=== PATIENT | female | born 1965 | race Caucasian/White ===

== ENCOUNTER 2018-10-05 11:08 | Emergency (ER) | payer MEDICAID, OTHER ==
[~2018-10-05] VITALS: Ht 154.9 cm
[2018-10-05] MEDS ORDERED: SODIUM CHLORIDE 0.9% 1,000 ML IV ONE (11:44)
[2018-10-05] MEDS ORDERED: LORazepam 2MG/ML-1ML VIAL IV ONE (11:45)
[2018-10-05 12:00] LABS: Eosinophils # (auto) 0.1 uL; Lymphocytes # (auto) 1.5 uL; Mean Corpuscular Volume 106.5 fL (80.0-100.0); Monocytes # (auto) 0.7 uL; Monocytes % (auto) 11.5 % (0.0-12.0); Red Cell Distribution Width 14.3 % (11.8-14.3)
[2018-10-05 12:02] LABS: Basophils # (auto) 0 uL; Basophils % (auto) 0.6 % (0.0-2.0); Hematocrit 48.1 % (36.0-46.0); Hemoglobin 16.7 g/dL (12.2-16.2); Mean Corpuscular Hemoglobin 36.9 pg (28.0-32.0); Mean Corpuscular Hgb Conc. 34.6 g/dL (32.0-36.0); Neutrophils # (auto) 3.6 uL; Neutrophils % (auto) 61.9 % (37.0-80.0); Platelet Count (auto) 338 10^3/uL (140-450); Red Blood Cells 4.52 10^6/uL (4.0-5.20); White Blood Cell 5.9 10^3/uL (4.4-10.8)
[2018-10-05 12:20] LABS: Albumin 4.2 g/dL (3.4-5.0); Anion Gap 9 (5-15); Calcium 9.4 mg/dL (8.5-10.1); Carbon Dioxide 27 mmol/L (21-32); Chloride 102 mmol/L (98-107); Glucose 103 mg/dL (74-106); Potassium 4.4 mmol/L (3.5-5.1); Sodium 138 mmol/L (136-145)
[2018-10-05 12:25] LABS: Alanine Aminotransferase 24 U/L (13-56); Alkaline Phosphatase 137 U/L (45-117); Aspartate Aminotransferase 26 U/L (15-37); BUN/Creatinine Ratio 9.1; Bilirubin, Total 0.6 mg/dL (0.2-1.0); Blood Urea Nitrogen 9 mg/dL (7-18); GFR African American 75 mL/min; GFR Non-African American 62 mL/min; Total Protein 7.9 g/dL (6.4-8.2)
[2018-10-05 13:05] LABS: Urine Bacteria NONE SEEN /hpf (None Seen); Urine Blood TRACE /uL (Negative); Urine Mucus FEW (None Seen); Urine Specific Gravity 1.025 (1.001-1.035); Urine WBC 4 /hpf (0 - 5)
[2018-10-05 13:38] VITALS: BP 113/71
== END 2018-10-05 14:35 | disposition home or self-care (01) ==
LOC: ER 11:12
DX: R07.89 Other chest pain (principal); N39.0 Urinary tract infection, site not specified; I10 Essential (primary) hypertension; R42 Dizziness and giddiness; F17.210 Nicotine dependence, cigarettes, uncomplicated; F12.10 Cannabis abuse, uncomplicated
CPT/HCPCS: 36415; 71045; 80053; 81001; 84443; 84484; 85025; 93005; 96361; 96374; 99284; J2060; J7030

== ENCOUNTER 2019-06-07 12:57 | Emergency (ER) | payer MEDICAID ==
[2019-06-07] MEDS ORDERED: SODIUM CHLORIDE 0.9% 1,000 ML IV ONE (13:36)
[2019-06-07 14:01] LABS: Basophils # (auto) 0.1 uL; Eosinophils # (auto) 0.1 uL; Lymphocytes # (auto) 0.8 uL; Mean Corpuscular Volume 105.5 fL (80.0-100.0); White Blood Cell 7.8 10^3/uL (4.4-10.8)
[2019-06-07 14:02] LABS: Basophils % (auto) 0.8 % (0.0-2.0); Eosinophils % (auto) 1.2 % (0.0-7.0); Hematocrit 46.3 % (36.0-46.0); Hemoglobin 16.1 g/dL (12.2-16.2); Lymphocytes % (auto) 10.7 % (10.0-50.0); Mean Corpuscular Hemoglobin 36.6 pg (28.0-32.0); Mean Corpuscular Hgb Conc. 34.7 g/dL (32.0-36.0); Monocytes # (auto) 0.6 uL; Monocytes % (auto) 7.3 % (0.0-12.0); Neutrophils # (auto) 6.2 uL; Nucleated Red Blood Cells % 0.2 %; Platelet Count (auto) 438 10^3/uL (140-450); Red Blood Cells 4.39 10^6/uL (4.0-5.20); Red Cell Distribution Width 12.9 % (11.8-14.3)
[2019-06-07 14:18] LABS: Calcium 9.8 mg/dL (8.5-10.1); Potassium 4.7 mmol/L (3.5-5.1)
[2019-06-07 14:21] LABS: Bilirubin, Total 0.7 mg/dL (0.2-1.0)
[2019-06-07 17:42] LABS: Urine Bacteria NONE SEEN /hpf (None Seen); Urine Blood TRACE /uL (Negative); Urine Hyaline Cast FEW /lpf (0 - 2); Urine Mucus FEW (None Seen); Urine Specific Gravity 1.016 (1.001-1.035); Urine WBC 4 /hpf (0 - 5)
[2019-06-07 17:44] VITALS: BP 125/75
[2019-06-07 17:56] LABS: Alcohol, Urine < 3.0 mg/dL (0-5); Amphetamine Screen, Urine NEGATIVE (NEGATIVE); Barbiturate Scree,Urine NEGATIVE (NEGATIVE); Benzodiazephine Screen, Urine NEGATIVE (NEGATIVE); Cocaine Screen, Urine NEGATIVE (NEGATIVE); Opiate Scree,Urine POSITIVE (NEGATIVE); Phencyclidine Screen, Urine NEGATIVE (NEGATIVE)
[2019-06-07 18:03] LABS: Cannabinoid Screen, Urine POSITIVE (NEGATIVE)
== END 2019-06-07 20:27 | disposition home or self-care (01) ==
LOC: ER 12:57
DX: N39.0 Urinary tract infection, site not specified (principal); K62.5 Hemorrhage of anus and rectum; I10 Essential (primary) hypertension; F17.210 Nicotine dependence, cigarettes, uncomplicated; R42 Dizziness and giddiness
CPT/HCPCS: 36415; 74176; 80053; 80307; 81001; 85025; 96360

== ENCOUNTER 2022-09-17 12:52 | Inpatient (IN) | payer MEDICAID ==
[~2022-09-17] VITALS: Ht 152.4 cm; Wt 50.9 kg
[2022-09-17] MEDS ORDERED: MORPHINE SULFATE 10 MG/ML INJ 1ML SDV IV ONE (14:00)
[2022-09-17] MEDS ORDERED: SODIUM CHLORIDE 0.9% 1,000 ML IVB ONE (14:00)
[2022-09-17] MEDS ORDERED: ONDANSETRON HCL 4 MG/2 ML VIAL IV ONE (14:00)
[2022-09-17 14:26] LABS: Basophils # (auto) 0.1 10 ^3/uL (0-0.2); Basophils % (auto) 1.7 % (0.0-2.0); Eosinophils # (auto) 0.1 10 ^3/uL (0-0.8); Eosinophils % (auto) 0.7 % (0.0-7.0); Hematocrit 35.9 % (36.0-46.0); Hemoglobin 12.1 g/dL (12.2-16.2); Lymphocytes # (auto) 0.7 10 ^3/uL (0.4-5.4); Lymphocytes % (auto) 10.4 % (10.0-50.0); Mean Corpuscular Hemoglobin 36.9 pg (28.0-32.0); Mean Corpuscular Hgb Conc. 33.8 g/dL (32.0-36.0); Mean Corpuscular Volume 109.4 fL (80.0-100.0); Monocytes # (auto) 0.3 10 ^3/uL (0-1.3); Monocytes % (auto) 3.8 % (0.0-12.0); Neutrophils % (auto) 83.4 % (37.0-80.0); Nucleated Red Blood Cells % 0.3 %; Red Blood Cells 3.28 10^6/uL (4.0-5.20); Red Cell Distribution Width 14.3 % (11.8-14.3); White Blood Cell 7.2 10^3/uL (4.4-10.8)
[2022-09-17 14:28] LABS: Potassium 3.4 mmol/L (3.5-5.1)
[2022-09-17] MEDS ORDERED: MORPHINE SULFATE INJ 2 MG/ml SYRG IV ONE (14:30)
[2022-09-17 14:52] LABS: Albumin 2.7 g/dL (3.4-5.0); BUN/Creatinine Ratio 7.1 (10.0-20.0); Calcium 7.6 mg/dL (8.5-10.1)
[2022-09-17 14:54] LABS: Bilirubin, Total 0.4 mg/dL (0.2-1.0); Total Protein 5.6 g/dL (6.4-8.2)
[2022-09-17] MEDS ORDERED: FOLIC ACID 1 MG, MULTIPLE VITAMIN 10 ML, MAGNESIUM SULF SDV 50% 8 MEQ, THIAMINE INJ 100... INJ ONE ×5 (15:45)
[2022-09-17] MEDS ORDERED: PIPERACILLIN-TAZO 4.5GM 100 ML IV ONE (16:15)
[2022-09-17] MEDS ORDERED: HYDROmorphone HCL 2 MG/ML VL/or syr IV ONE (17:00)
[2022-09-17 17:05] LABS: Urine Bacteria NONE SEEN /hpf (None Seen); Urine Blood Negative /uL (Negative); Urine Specific Gravity 1.036 (1.001-1.035); Urine WBC 1 /hpf (0 - 5)
[2022-09-17 17:31] LABS: INR 1.03 (0.9-1.15)
[2022-09-17 17:56] LABS: Amphetamine Screen, Urine NEGATIVE (NEGATIVE); Barbiturate Scree,Urine NEGATIVE (NEGATIVE); Cannabinoid Screen, Urine NEGATIVE (NEGATIVE)
[2022-09-17 18:22] LABS: Benzodiazephine Screen, Urine NEGATIVE (NEGATIVE); Cocaine Screen, Urine NEGATIVE (NEGATIVE); Opiate Scree,Urine NEGATIVE (NEGATIVE); Phencyclidine Screen, Urine NEGATIVE (NEGATIVE)
[2022-09-17] MEDS ORDERED: SODIUM CHLORIDE 0.9% 1,000 ML IV SCH (18:30)
[2022-09-17] MEDS ORDERED: PANTOPRAZOLE 40 MG/10 ML VIAL INJ IV ONE (18:30)
[2022-09-17] MEDS ORDERED: NITROGLYCERIN 0.4 MG SL TAB SL PRN (18:30)
[2022-09-17] MEDS ORDERED: LORazepam 2MG/ML-1ML VIAL IV PRN (18:30)
[2022-09-17 19:57] LABS: Magnesium 1.8 mg/dL (1.6-2.6)
[2022-09-17 20:07] LABS: Thyroid Stimulating Hormone 37.9 uIU/mL (0.358-3.74)
[2022-09-17] MEDS ORDERED: LIDOCAINE 1% HCL (LOCAL ANESTH.) INJ 20ML MDV ONE (21:51)
[2022-09-17] MEDS ORDERED: BUPIVACAINE 0.25% INJ 50ML VIAL ONE (21:52)
[2022-09-17] MEDS: PIPERACILLIN-TAZOB 3.375GM 100 ML IV SCH (22:00)
[2022-09-17] MEDS ORDERED: LIDOCAINE 2% JELLY 11ml (GLYDO) ONE (22:03)
[2022-09-17] MEDS ORDERED: SUCCINYLCHOLINE CHLORIDE 20 MG/ML 10ML VIAL IV ONE (22:03)
[2022-09-17] MEDS ORDERED: MIDAZOLAM HCL 2MG/2ML 2ml VIAL (1mg/ml) ONE ×2 (22:06→22:38)
[2022-09-17] MEDS ORDERED: HYDROmorphone HCL 2 MG/ML VL/or syr ONE ×2 (22:06→22:40)
[2022-09-17] MEDS ORDERED: fentaNYL CITRATE 100 MCG/2 ML VL ONE (22:06)
[2022-09-17] MEDS ORDERED: ROCURONIUM 10MG/ML 10ML VIAL IV ONE (22:39)
[2022-09-17] MEDS ORDERED: HYDROmorphone HCL 2 MG/ML VL/or syr IV PRN (23:00)
[2022-09-17] MEDS ORDERED: ePHEDrine SULFATE 50 MG/ML AMP IV PRN (23:00)
[2022-09-17] MEDS ORDERED: MORPHINE SULFATE 4 MG/ML SYR/VIAL IV PRN (23:00)
[2022-09-17] MEDS ORDERED: MIDAZOLAM HCL 2MG/2ML 2ml VIAL (1mg/ml) IV PRN (23:00)
[2022-09-17] MEDS ORDERED: LABETALOL HCL 5 MG/ML 4ML SYRINGE IV PRN (23:00)
[2022-09-17] MEDS ORDERED: ONDANSETRON HCL 4 MG/2 ML VIAL IV PRN (23:00)
[2022-09-18] VITALS (81 sets, daily range): BP systolic 80–178; BP diastolic 50–156
[2022-09-18] MEDS ORDERED: PROPOFOL 100 ML IV ONE (00:18)
[2022-09-18] MEDS ORDERED: fentaNYL Drip 2500mCg/250mlNS 250 ML IV ONE (00:18)
[2022-09-18] MEDS ORDERED: MIDAZOLAM DRIP 50 mg/50mL 50 ML IV SCH (01:45)
[2022-09-18] MEDS ORDERED: PROPOFOL 100 ML IV SCH (01:45)
[2022-09-18] MEDS ORDERED: fentaNYL Drip 2500mCg/250mlNS 250 ML IV SCH (01:45)
[2022-09-18] MEDS ORDERED: LACTATED RINGER'S 1,000 ML IV SCH (01:45)
[2022-09-18 04:08] LABS: Basophils # (auto) 0 10 ^3/uL (0-0.2); Eosinophils # (auto) 0 10 ^3/uL (0-0.8); Hemoglobin 12.1 g/dL (12.2-16.2); Lymphocytes # (auto) 0.1 10 ^3/uL (0.4-5.4); Mean Corpuscular Hgb Conc. 33.8 g/dL (32.0-36.0); Monocytes # (auto) 0.3 10 ^3/uL (0-1.3); Neutrophils # (auto) 8.6 10 ^3/uL (1.6-8.6); Red Blood Cells 3.18 10^6/uL (4.0-5.20)
[2022-09-18 04:11] LABS: Basophils % (auto) 0.2 % (0.0-2.0); Hematocrit 35.8 % (36.0-46.0); Lymphocytes % (auto) 1.2 % (10.0-50.0); Mean Corpuscular Hemoglobin 37.9 pg (28.0-32.0); Mean Corpuscular Volume 112.4 fL (80.0-100.0); Monocytes % (auto) 3.8 % (0.0-12.0); Neutrophils % (auto) 94.8 % (37.0-80.0); Red Cell Distribution Width 14.2 % (11.8-14.3)
[2022-09-18 05:03] LABS: Albumin 2.5 g/dL (3.4-5.0); Calcium 7.7 mg/dL (8.5-10.1); Potassium 3.5 mmol/L (3.5-5.1)
[2022-09-18 05:05] LABS: BUN/Creatinine Ratio 9.4 (10.0-20.0)
[2022-09-18 05:15] LABS: Bilirubin, Total 1.3 mg/dL (0.2-1.0); Total Protein 5.4 g/dL (6.4-8.2)
[2022-09-18] MEDS: PIPERACILLIN-TAZOB 3.375GM 100 ML IV SCH ×3 (06:00→23:09)
[2022-09-18] MEDS ORDERED: LEVOTHYROXINE SODIUM 25 MCG TAB PO SCH (07:00)
[2022-09-18] MEDS ORDERED: NOREPINEPHRINE 8 MG/250ML KIT 250 ML IV ONE (07:38)
[2022-09-18] MEDS ORDERED: NOREPINEPHRINE 8 MG/250ML KIT 250 ML IV SCH (08:45)
[2022-09-18] MEDS: PANTOPRAZOLE 40 MG/10 ML VIAL INJ IV SCH (09:50)
[2022-09-18] MEDS: FLUoxetine HCL 20 MG CAP PO SCH ×2 (09:51→10:00)
[2022-09-18] MEDS ORDERED: THIAMINE 100mg/ml INJ (200mg/2ml VIAL) IV SCH (10:00)
[2022-09-18] MEDS ORDERED: FOLIC ACID 1 MG in D5W 5% 50 ML INJ SCH (10:00)
[2022-09-18] MEDS ORDERED: MULTIPLE VITAMIN TAB PO SCH (10:00)
[2022-09-18] MEDS ORDERED: FOLIC ACID 1 MG, MULTIPLE VITAMIN 10 ML, MAGNESIUM SULF SDV 50% 8 MEQ, THIAMINE INJ 100... INJ SCH ×5 (12:00)
[2022-09-18] MEDS ORDERED: ENOXAPARIN SOD 40 MG/0.4 ML SYRINGE SC ONE (13:00)
[2022-09-18 13:03] LABS: Hepatitis B Surface Antibody Negative (Negative)
[2022-09-18] MEDS ORDERED: MORPHINE SULFATE INJ 2 MG/ml SYRG IV PRN (13:30)
[2022-09-18 13:42] LABS: Hepatitis A Total Antibody Negative (Negative)
[2022-09-18] MEDS: LEVOTHYROXINE SODIUM 100 MCG/5 ML INJ IV SCH (13:56)
[2022-09-18 14:17] LABS: Hepatitis C Antibody Negative (Negative)
[2022-09-18] MEDS ORDERED: CLINIMIX PER PHARMACY 0 ML IV SCH (14:45)
[2022-09-18] MEDS: MORPHINE SULFATE INJ 2 MG/ml SYRG IV PRN ×2 (15:18→20:13)
[2022-09-18 16:45] LABS: Magnesium 2.1 mg/dL (1.6-2.6); Phosphorus 3.5 mg/dL (2.5-4.90)
[2022-09-18] MEDS: AMINO ACID INFUSION IN D10W 1,000 ML IV NR (20:11)
[2022-09-18] MEDS ORDERED: KETOROLAC TROMETH 30 MG/ML 1ML VIAL IV ONE (22:45)
[2022-09-18] MEDS: ACCU-CHEK COMFORT CURVE STRIP VI SCH (23:10)
[2022-09-18] MEDS: InsuLIN REG 1unit/0.01ml Soln (100units/ml) SC SCH (23:11)
[2022-09-19] VITALS (28 sets, daily range): BP systolic 83–149; BP diastolic 51–94
[2022-09-19] MEDS ORDERED: DEXTROSE (50%) 50ML SYRG IV SCH
[2022-09-19] MEDS: InsuLIN REG 1unit/0.01ml Soln (100units/ml) SC SCH ×3 (06:15→17:13)
[2022-09-19] MEDS: ACCU-CHEK COMFORT CURVE STRIP VI SCH ×3 (06:15→17:14)
[2022-09-19] MEDS: PIPERACILLIN-TAZOB 3.375GM 100 ML IV SCH ×3 (06:44→22:21)
[2022-09-19 07:47] LABS: Basophils # (auto) 0.1 10 ^3/uL (0-0.2); Basophils % (auto) 0.8 % (0.0-2.0); Eosinophils # (auto) 0 10 ^3/uL (0-0.8); Eosinophils % (auto) 0.7 % (0.0-7.0); Hematocrit 31.3 % (36.0-46.0); Hemoglobin 10.4 g/dL (12.2-16.2); Lymphocytes # (auto) 0.8 10 ^3/uL (0.4-5.4); Lymphocytes % (auto) 12.4 % (10.0-50.0); Mean Corpuscular Hemoglobin 37.7 pg (28.0-32.0); Mean Corpuscular Hgb Conc. 33.4 g/dL (32.0-36.0); Mean Corpuscular Volume 112.7 fL (80.0-100.0); Monocytes # (auto) 0.3 10 ^3/uL (0-1.3); Monocytes % (auto) 4.4 % (0.0-12.0); Neutrophils # (auto) 5.3 10 ^3/uL (1.6-8.6); Neutrophils % (auto) 81.7 % (37.0-80.0); Nucleated Red Blood Cells % 0.1 %; Red Blood Cells 2.77 10^6/uL (4.0-5.20); Red Cell Distribution Width 14.3 % (11.8-14.3); White Blood Cell 6.4 10^3/uL (4.4-10.8)
[2022-09-19 08:13] LABS: Potassium 3.6 mmol/L (3.5-5.1)
[2022-09-19] MEDS: PANTOPRAZOLE 40 MG/10 ML VIAL INJ IV SCH ×2 (08:21→22:21)
[2022-09-19] MEDS: ENOXAPARIN SOD 40 MG/0.4 ML SYRINGE SC SCH (08:22)
[2022-09-19] MEDS: LEVOTHYROXINE SODIUM 100 MCG/5 ML INJ IV SCH (08:22)
[2022-09-19 08:25] LABS: Albumin 2.3 g/dL (3.4-5.0); Bilirubin, Total 0.8 mg/dL (0.2-1.0); Calcium 7.9 mg/dL (8.5-10.1); Magnesium 2.5 mg/dL (1.6-2.6); Total Protein 4.8 g/dL (6.4-8.2)
[2022-09-19] MEDS: D5W/SOD CHL 0.45% 1,000 ML IV SCH (08:27)
[2022-09-19] MEDS ORDERED: KETOROLAC TROMETH 30 MG/ML 1ML VIAL IV ONE ×2 (08:30→23:15)
[2022-09-19] MEDS ORDERED: KETOROLAC TROMETH 30 MG/ML 1ML VIAL ONE (08:37)
[2022-09-19] MEDS: MORPHINE SULFATE INJ 2 MG/ml SYRG IV PRN ×3 (13:11→21:52)
[2022-09-19] MEDS ORDERED: POTASSIUM PHOSPHATE 22 MEQ in SODIUM CHL 0.9% 100 ML IV ONE (16:00)
[2022-09-19] MEDS: AMINO ACID INFUSION IN D10W 1,000 ML IV NR (20:09)
[2022-09-20] MEDS: ACCU-CHEK COMFORT CURVE STRIP VI SCH ×5 (00:19→23:24)
[2022-09-20] MEDS: D5W/SOD CHL 0.45% 1,000 ML IV SCH ×2 (00:20→17:05)
[2022-09-20] MEDS: MORPHINE SULFATE INJ 2 MG/ml SYRG IV PRN ×5 (03:32→22:39)
[2022-09-20 05:00] VITALS: BP 131/89
[2022-09-20] MEDS: PIPERACILLIN-TAZOB 3.375GM 100 ML IV SCH ×3 (05:13→21:09)
[2022-09-20] MEDS: InsuLIN REG 1unit/0.01ml Soln (100units/ml) SC SCH ×5 (05:13→23:23)
[2022-09-20 06:07] LABS: Basophils # (auto) 0 10 ^3/uL (0-0.2); Basophils % (auto) 0.4 % (0.0-2.0); Eosinophils # (auto) 0.1 10 ^3/uL (0-0.8); Hemoglobin 10.3 g/dL (12.2-16.2); Lymphocytes # (auto) 0.7 10 ^3/uL (0.4-5.4); Monocytes # (auto) 0.4 10 ^3/uL (0-1.3); Nucleated Red Blood Cells % 0.2 %
[2022-09-20 06:16] LABS: Eosinophils % (auto) 1.8 % (0.0-7.0); Hematocrit 31.1 % (36.0-46.0); Lymphocytes % (auto) 11.5 % (10.0-50.0); Mean Corpuscular Hemoglobin 37.8 pg (28.0-32.0); Mean Corpuscular Hgb Conc. 33.2 g/dL (32.0-36.0); Neutrophils # (auto) 4.7 10 ^3/uL (1.6-8.6); Neutrophils % (auto) 79.3 % (37.0-80.0); Red Blood Cells 2.73 10^6/uL (4.0-5.20); Red Cell Distribution Width 13.9 % (11.8-14.3); White Blood Cell 5.9 10^3/uL (4.4-10.8)
[2022-09-20 06:26] LABS: Albumin 2.1 g/dL (3.4-5.0); BUN/Creatinine Ratio 16.7 (10.0-20.0); Calcium 8.2 mg/dL (8.5-10.1); Magnesium 2.2 mg/dL (1.6-2.6); Phosphorus 1.8 mg/dL (2.5-4.90)
[2022-09-20 06:37] LABS: Potassium 2.9 mmol/L (3.5-5.1)
[2022-09-20] MEDS ORDERED: SOD CHL 0.9%/ KCL 40MEQ 1,000 ML IV ONE (06:45)
[2022-09-20] MEDS ORDERED: POTASSIUM CHL 20MEQ/100ML 100 ML IV ONE (08:00)
[2022-09-20] MEDS: LEVOTHYROXINE SODIUM 100 MCG/5 ML INJ IV SCH (08:31)
[2022-09-20] MEDS: ENOXAPARIN SOD 40 MG/0.4 ML SYRINGE SC SCH (08:31)
[2022-09-20] MEDS: PANTOPRAZOLE 40 MG/10 ML VIAL INJ IV SCH ×2 (08:31→21:08)
[2022-09-20 09:00] VITALS: BP 141/87
[2022-09-20] MEDS ORDERED: POTASSIUM PHOSPHATE 44 MEQ in D5W 5% 250 ML IV ONE (10:30)
[2022-09-20 13:06] VITALS: BP 145/95
[2022-09-20] MEDS ORDERED: LORazepam 2MG/ML-1ML VIAL IM ONE (13:30)
[2022-09-20] MEDS ORDERED: ZOLPIDEM TARTRATE 5 MG TAB PO PRN (13:30)
[2022-09-20 16:53] VITALS: BP 150/101
[2022-09-20] MEDS: AMINO ACID INFUSION IN D10W 1,000 ML IV NR (19:38)
[2022-09-20 22:00] VITALS: BP 147/98
[2022-09-21] MEDS: MORPHINE SULFATE INJ 2 MG/ml SYRG IV PRN ×5 (02:38→19:55)
[2022-09-21 05:00] VITALS: BP 167/92
[2022-09-21] MEDS: PIPERACILLIN-TAZOB 3.375GM 100 ML IV SCH ×3 (05:05→22:37)
[2022-09-21] MEDS: InsuLIN REG 1unit/0.01ml Soln (100units/ml) SC SCH ×4 (05:05→23:20)
[2022-09-21] MEDS: ACCU-CHEK COMFORT CURVE STRIP VI SCH ×4 (05:06→23:20)
[2022-09-21 05:55] LABS: Potassium 3.1 mmol/L (3.5-5.1)
[2022-09-21 06:07] LABS: Albumin 2.1 g/dL (3.4-5.0); BUN/Creatinine Ratio 11.5 (10.0-20.0); Bilirubin, Total 0.8 mg/dL (0.2-1.0); Calcium 8.2 mg/dL (8.5-10.1); Magnesium 1.8 mg/dL (1.6-2.6); Phosphorus 3.5 mg/dL (2.5-4.90); Total Protein 5.5 g/dL (6.4-8.2)
[2022-09-21 09:00] VITALS: BP 147/95
[2022-09-21] MEDS: D5W/SOD CHL 0.45% 1,000 ML IV SCH (09:45)
[2022-09-21] MEDS: PANTOPRAZOLE 40 MG/10 ML VIAL INJ IV SCH ×2 (10:26→21:35)
[2022-09-21] MEDS: ENOXAPARIN SOD 40 MG/0.4 ML SYRINGE SC SCH (10:26)
[2022-09-21] MEDS: LEVOTHYROXINE SODIUM 100 MCG/5 ML INJ IV SCH (10:26)
[2022-09-21 12:30] VITALS: BP 144/88
[2022-09-21 17:00] VITALS: BP 147/95
[2022-09-21] MEDS ORDERED: MAGNESIUM SULFATE 1GM/100ML 100 ML IV ONE (18:45)
[2022-09-21] MEDS ORDERED: POTASSIUM PHOSPHATE 22 MEQ in SODIUM CHL 0.9% 100 ML IV ONE (18:45)
[2022-09-21] MEDS: AMINO ACID INFUSION IN D10W 1,000 ML IV NR (19:39)
[2022-09-21 22:00] VITALS: BP 155/99
[2022-09-21] MEDS: LORazepam 2MG/ML-1ML VIAL IV PRN (23:04)
[2022-09-22] MEDS: HYDROmorphone HCL 2 MG/ML VL/or syr IV PRN ×6 (00:09→21:57)
[2022-09-22] MEDS: D5W/SOD CHL 0.45% 1,000 ML IV SCH (00:35)
[2022-09-22 05:00] VITALS: BP 132/79
[2022-09-22] MEDS: PIPERACILLIN-TAZOB 3.375GM 100 ML IV SCH ×3 (06:03→21:42)
[2022-09-22] MEDS: ACCU-CHEK COMFORT CURVE STRIP VI SCH ×4 (06:03→23:46)
[2022-09-22] MEDS: InsuLIN REG 1unit/0.01ml Soln (100units/ml) SC SCH ×4 (06:04→23:46)
[2022-09-22 06:46] LABS: Albumin 2.3 g/dL (3.4-5.0); Calcium 8.4 mg/dL (8.5-10.1)
[2022-09-22 06:51] LABS: Bilirubin, Total 0.8 mg/dL (0.2-1.0); Phosphorus 3.4 mg/dL (2.5-4.90); Total Protein 5.7 g/dL (6.4-8.2)
[2022-09-22 06:58] LABS: BUN/Creatinine Ratio 11.5 (10.0-20.0)
[2022-09-22] MEDS: LEVOTHYROXINE SODIUM 100 MCG/5 ML INJ IV SCH (08:35)
[2022-09-22] MEDS: PANTOPRAZOLE 40 MG/10 ML VIAL INJ IV SCH ×2 (08:35→21:42)
[2022-09-22] MEDS: ENOXAPARIN SOD 40 MG/0.4 ML SYRINGE SC SCH (08:36)
[2022-09-22 09:11] VITALS: BP 132/80
[2022-09-22] MEDS ORDERED: POTASSIUM PHOSPHATE 22 MEQ in SODIUM CHL 0.9% 100 ML IV ONE (11:00)
[2022-09-22 12:32] VITALS: BP 128/88
[2022-09-22 16:35] VITALS: BP 137/71
[2022-09-22] MEDS: AMINO ACID INFUSION IN D10W 1,000 ML IV NR (19:16)
[2022-09-22] MEDS: LORazepam 2MG/ML-1ML VIAL IV PRN (21:43)
[2022-09-22 22:00] VITALS: BP 132/89
[2022-09-23] MEDS: D5W/SOD CHL 0.45% 1,000 ML IV SCH ×2 (03:57→11:45)
[2022-09-23] MEDS: HYDROmorphone HCL 2 MG/ML VL/or syr IV PRN ×5 (04:08→23:05)
[2022-09-23 05:00] VITALS: BP 138/84
[2022-09-23] MEDS: ACCU-CHEK COMFORT CURVE STRIP VI SCH (05:09)
[2022-09-23] MEDS: InsuLIN REG 1unit/0.01ml Soln (100units/ml) SC SCH (05:09)
[2022-09-23] MEDS: PIPERACILLIN-TAZOB 3.375GM 100 ML IV SCH ×3 (05:09→21:49)
[2022-09-23 06:02] LABS: Albumin 2.3 g/dL (3.4-5.0); Calcium 8.4 mg/dL (8.5-10.1); Magnesium 1.9 mg/dL (1.6-2.6)
[2022-09-23 06:06] LABS: BUN/Creatinine Ratio 12.3 (10.0-20.0); Basophils # (auto) 0 10 ^3/uL (0-0.2); Bilirubin, Total 0.7 mg/dL (0.2-1.0); Eosinophils # (auto) 0.2 10 ^3/uL (0-0.8); Lymphocytes # (auto) 0.8 10 ^3/uL (0.4-5.4); Monocytes # (auto) 1.2 10 ^3/uL (0-1.3); Phosphorus 3.7 mg/dL (2.5-4.90); Total Protein 5.6 g/dL (6.4-8.2)
[2022-09-23 06:10] LABS: Basophils % (auto) 0.5 % (0.0-2.0); Eosinophils % (auto) 3.4 % (0.0-7.0); Hematocrit 32.6 % (36.0-46.0); Hemoglobin 11.3 g/dL (12.2-16.2); Lymphocytes % (auto) 11.3 % (10.0-50.0); Mean Corpuscular Hemoglobin 37.6 pg (28.0-32.0); Mean Corpuscular Hgb Conc. 34.6 g/dL (32.0-36.0); Mean Corpuscular Volume 108.6 fL (80.0-100.0); Monocytes % (auto) 17.1 % (0.0-12.0); Neutrophils # (auto) 4.6 10 ^3/uL (1.6-8.6); Neutrophils % (auto) 67.7 % (37.0-80.0); Nucleated Red Blood Cells % 0.2 %; Red Cell Distribution Width 13.8 % (11.8-14.3); White Blood Cell 6.8 10^3/uL (4.4-10.8)
[2022-09-23 08:30] VITALS: BP 127/82
[2022-09-23 09:01] LABS: Potassium 2.9 mmol/L (3.5-5.1)
[2022-09-23] MEDS ORDERED: POTASSIUM CHLORIDE 60 MEQ, LIDOCAINE 1% (LOCAL ANESTH.) 6 ML in SODIUM CHL 0.9% 500 ML IV ONE (09:30)
[2022-09-23] MEDS: LEVOTHYROXINE SODIUM 100 MCG/5 ML INJ IV SCH (09:39)
[2022-09-23] MEDS: PANTOPRAZOLE 40 MG/10 ML VIAL INJ IV SCH ×2 (09:39→21:18)
[2022-09-23] MEDS: ENOXAPARIN SOD 40 MG/0.4 ML SYRINGE SC SCH (09:40)
[2022-09-23 12:56] VITALS: BP 134/85
[2022-09-23 17:08] VITALS: BP 117/75
[2022-09-23] MEDS: AMINO ACID INFUSION IN D10W 1,000 ML IV NR (19:05)
[2022-09-23] MEDS: LORazepam 2MG/ML-1ML VIAL IV PRN (21:18)
[2022-09-24] MEDS: D5W/SOD CHL 0.45% 1,000 ML IV SCH (04:25)
[2022-09-24] MEDS: HYDROmorphone HCL 2 MG/ML VL/or syr IV PRN ×2 (05:13→09:29)
[2022-09-24 06:17] LABS: Basophils # (auto) 0.1 10 ^3/uL (0-0.2); Eosinophils # (auto) 0.3 10 ^3/uL (0-0.8); Eosinophils % (auto) 5.4 % (0.0-7.0); Hematocrit 33.4 % (36.0-46.0); Hemoglobin 11.4 g/dL (12.2-16.2); Lymphocytes # (auto) 0.8 10 ^3/uL (0.4-5.4); Mean Corpuscular Hemoglobin 37.2 pg (28.0-32.0); Mean Corpuscular Hgb Conc. 34.1 g/dL (32.0-36.0); Mean Corpuscular Volume 109.2 fL (80.0-100.0); Monocytes # (auto) 0.9 10 ^3/uL (0-1.3); Monocytes % (auto) 16.4 % (0.0-12.0); Neutrophils # (auto) 3.3 10 ^3/uL (1.6-8.6); Neutrophils % (auto) 62.2 % (37.0-80.0); Red Blood Cells 3.06 10^6/uL (4.0-5.20); Red Cell Distribution Width 13.8 % (11.8-14.3); White Blood Cell 5.4 10^3/uL (4.4-10.8)
[2022-09-24] MEDS: PIPERACILLIN-TAZOB 3.375GM 100 ML IV SCH ×2 (06:28→14:00)
[2022-09-24 06:35] LABS: BUN/Creatinine Ratio 10.7 (10.0-20.0); Calcium 8.5 mg/dL (8.5-10.1); Potassium 3.2 mmol/L (3.5-5.1)
[2022-09-24 08:30] VITALS: BP 142/90
[2022-09-24] MEDS: PANTOPRAZOLE 40 MG/10 ML VIAL INJ IV SCH (09:28)
[2022-09-24] MEDS: LEVOTHYROXINE SODIUM 100 MCG/5 ML INJ IV SCH (09:28)
[2022-09-24] MEDS: ENOXAPARIN SOD 40 MG/0.4 ML SYRINGE SC SCH (09:28)
[2022-09-24] MEDS ORDERED: HYDR-4902 PO (10:59)
[2022-09-24 12:30] VITALS: BP 120/72
[2022-09-24] MEDS ORDERED: HYDROcodone-ACET 10/325MG TAB PO ONE (14:30)
== END 2022-09-24 15:54 | disposition home health service (06) | DRG 223 ==
LOC: ER 12:52 → EDBD 12:52 → OVERFLOW 19:22 → ICU WEST 09-18 00:20 → TELE-WESTW 09-19 23:32
PROVIDERS: ADMIT Hospitalist; ATTEND Internal Medicine Pulmonary Disease
PROC: 0D9670Z Drainage of Stomach with Drainage Device, Via Natural or Artificial Opening (ICD-10-PCS; 2022-09-17)
PROC: 0DU907Z Supplement Duodenum with Autologous Tissue Substitute, Open Approach (ICD-10-PCS; principal; 2022-09-17 22:12)
PROC: 5A1935Z Respiratory Ventilation, Less than 24 Consecutive Hours (ICD-10-PCS; 2022-09-18)
PROC: 0BH17EZ Insertion of Endotracheal Airway into Trachea, Via Natural or Artificial Opening (ICD-10-PCS; 2022-09-18)
DX: K26.5 Chronic or unspecified duodenal ulcer with perforation (principal); J96.01 Acute respiratory failure with hypoxia; K65.1 Peritoneal abscess; E43 Unspecified severe protein-calorie malnutrition; F10.10 Alcohol abuse, uncomplicated; E03.9 Hypothyroidism, unspecified; F17.210 Nicotine dependence, cigarettes, uncomplicated; R74.01 Elevation of levels of liver transaminase levels; F32.A Depression, unspecified; Z80.9 Family history of malignant neoplasm, unspecified; Z79.899 Other long term (current) drug therapy; Z68.21 Body mass index [BMI] 21.0-21.9, adult
CPT/HCPCS: 36415; 36600; 71045; 74177; 76705; 76856; 80048; 80053; 80069; 80307; 80320; 81001; 82150; 82306; 82607; 82805; 82962; 83615; 83690; 83735; 84100; 84443; 85025; 85610; 86677; 86704; 86706; 86708; 86803; 87070; 87081; 87205; 87340; 93306; 94002; 94003; 96361; 96365; 96368; 96375; 97163; C9113; G0378; J0330; J1815; J1885; J2001; J2250; J2405; J2543; J2704; J3480; J3490; J7060

== ENCOUNTER 2023-08-20 10:17 | Inpatient (IN) | payer MEDICAID ==
[~2023-08-20] VITALS: Ht 154.9 cm; Wt 49.6 kg
[~2023-08-20 10:17] MED LIST: HYDR-4902 PO
[2023-08-20 11:30] LABS: Basophils # (auto) 0.1 10 ^3/uL (0-0.2); Basophils % (auto) 1.4 % (0.0-2.0); Eosinophils # (auto) 0.1 10 ^3/uL (0-0.8); Eosinophils % (auto) 1.1 % (0.0-7.0); Hematocrit 38.3 % (36.0-46.0); Lymphocytes # (auto) 0.9 10 ^3/uL (0.4-5.4); Lymphocytes % (auto) 17.1 % (10.0-50.0); Mean Corpuscular Hemoglobin 37.5 pg (28.0-32.0); Mean Corpuscular Hgb Conc. 34.1 g/dL (32.0-36.0); Mean Corpuscular Volume 109.9 fL (80.0-100.0); Monocytes # (auto) 0.4 10 ^3/uL (0-1.3); Monocytes % (auto) 8.4 % (0.0-12.0); Neutrophils # (auto) 3.6 10 ^3/uL (1.6-8.6); Nucleated Red Blood Cells % 0.1 %; Red Blood Cells 3.48 10^6/uL (4.0-5.20); Red Cell Distribution Width 14.1 % (11.8-14.3)
[2023-08-20 11:31] LABS: Amphetamine Screen, Urine Neg (NEGATIVE); Barbiturate Scree,Urine Neg (NEGATIVE); Benzodiazephine Screen, Urine Neg (NEGATIVE); Cannabinoid Screen, Urine Neg (NEGATIVE); Cocaine Screen, Urine Neg (NEGATIVE); Opiate Scree,Urine Neg (NEGATIVE); Phencyclidine Screen, Urine Neg (NEGATIVE); Urine Bacteria FEW /hpf (None Seen); Urine Blood 2+ /uL (Negative); Urine Clarity Clear (Clear); Urine Color STRAW (Yellow); Urine Protein, UAD Negative (Negative); Urine Specific Gravity 1.003 (1.001-1.035); Urine Urobilinogen Normal (Negative); Urine WBC <1 /hpf (0 - 5); Urine pH 6.5 (5.0-8.0)
[2023-08-20 11:48] LABS: Alanine Aminotransferase 76 U/L (7-40); Alkaline Phosphatase 149 U/L (46-116); Anion Gap 9 (5-15); Aspartate Aminotransferase 200 U/L (13-40); BUN/Creatinine Ratio 6.8 (10.0-20.0); Blood Urea Nitrogen 5 mg/dL (9-23); Calcium 9.5 mg/dL (8.7-10.4); Carbon Dioxide 26 mmol/L (20-30); Chloride 99 mmol/L (98-107); Glucose 92 mg/dL (74-106); Lipase 40 U/L (12-53); Potassium 3.5 mmol/L (3.5-5.1); Sodium 134 mmol/L (136-145)
[2023-08-20 11:49] LABS: Bilirubin, Total 0.7 mg/dL (0.2-1.0)
[2023-08-20 12:06] LABS: Lactic Acid w/Reflex 2.2 mmol/L (0.4-2.0)
[2023-08-20] MEDS ORDERED: ACETAMINOPHEN 325 MG TAB PO PRN (15:15)
[2023-08-20] MEDS ORDERED: ONDANSETRON HCL 4 MG/2 ML VIAL IV PRN (15:15)
[2023-08-20] MEDS: PANTOPRAZOLE 40 MG/10 ML VIAL INJ IV ONE (17:39)
[2023-08-20] MEDS: KETOROLAC TROMETH 30 MG/ML 1ML VIAL IV ONE (17:41)
[2023-08-20] MEDS: SODIUM CHLORIDE 0.9% 1,000 ML IV SCH (17:42)
[2023-08-20 18:13] VITALS: BP 134/70; PULSE 98; RESP 16; TEMP 98; O2SAT 97
[2023-08-20] MEDS ORDERED: FLUO40CA PO (18:25)
[2023-08-20] MEDS ORDERED: LEVO112T4 PO (18:25)
[2023-08-20 20:00] VITALS: BP 115/71; PULSE 102; RESP 19; TEMP 97.7; O2SAT 97
[2023-08-20 21:00] VITALS: BP 115/71; PULSE 102; RESP 19; TEMP 97.7; O2SAT 97
[2023-08-20] MEDS: KETOROLAC TROMETH 30 MG/ML 1ML VIAL IV PRN (23:42)
[2023-08-20] MEDS: MELATONIN 5 MG TAB PO ONE (23:48)
[2023-08-21] VITALS (8 sets, daily range): BP systolic 113–132; BP diastolic 59–78; PULSE 77–86; RESP 14–19; TEMP 97.6–98.3; O2SAT 94–100
[2023-08-21 05:21] LABS: Basophils # (auto) 0 10 ^3/uL (0-0.2); Basophils % (auto) 0.6 % (0.0-2.0); Eosinophils # (auto) 0.1 10 ^3/uL (0-0.8); Hematocrit 34.5 % (36.0-46.0); Lymphocytes # (auto) 0.6 10 ^3/uL (0.4-5.4); Monocytes # (auto) 0.3 10 ^3/uL (0-1.3); Neutrophils # (auto) 2.4 10 ^3/uL (1.6-8.6); White Blood Cell 3.5 10^3/uL (4.4-10.8)
[2023-08-21 05:24] LABS: Hemoglobin 11.8 g/dL (12.2-16.2); Lymphocytes % (auto) 16.9 % (10.0-50.0); Mean Corpuscular Hemoglobin 37.8 pg (28.0-32.0); Mean Corpuscular Hgb Conc. 34.2 g/dL (32.0-36.0); Mean Corpuscular Volume 110.5 fL (80.0-100.0); Monocytes % (auto) 9.3 % (0.0-12.0); Neutrophils % (auto) 70.2 % (37.0-80.0); Nucleated Red Blood Cells % 0.1 %; Red Blood Cells 3.12 10^6/uL (4.0-5.20); Red Cell Distribution Width 14.5 % (11.8-14.3)
[2023-08-21 05:35] LABS: Alanine Aminotransferase 58 U/L (7-40); Albumin 3.2 g/dL (3.2-4.8); Alkaline Phosphatase 118 U/L (46-116); Anion Gap 8 (5-15); Aspartate Aminotransferase 144 U/L (13-40); BUN/Creatinine Ratio 9.1 (10.0-20.0); Blood Urea Nitrogen 6 mg/dL (9-23); Calcium 8.8 mg/dL (8.7-10.4); Carbon Dioxide 26 mmol/L (20-30); Chloride 103 mmol/L (98-107); Glucose 95 mg/dL (74-106); Potassium 3.4 mmol/L (3.5-5.1); Sodium 137 mmol/L (136-145)
[2023-08-21 05:36] LABS: Bilirubin, Total 1.1 mg/dL (0.2-1.0); Total Protein 5.5 g/dL (5.7-8.2)
[2023-08-21] MEDS: PANTOPRAZOLE 40 MG/10 ML VIAL INJ IV SCH ×2 (09:25→22:16)
[2023-08-21 10:38] LABS: Free T3 1.82 pg/mL (2.3-4.2); Free T4 (Free Thyroxine) 0.77 ng/dL (0.89-1.76)
[2023-08-21] MEDS: POTASSIUM EFFERVESENT TAB 25 MEQ PO ONE (11:53)
[2023-08-21] MEDS: metroNIDAZOLE 500MG/100ML 100 ML IV SCH (14:01)
[2023-08-21] MEDS: cefTRIAXone 1GM/50ML D5W 50 ML IV ONE (14:01)
[2023-08-21] MEDS: LEVOTHYROXINE SODIUM 112 MCG TAB PO ONE (15:03)
[2023-08-21] MEDS: KETOROLAC TROMETH 30 MG/ML 1ML VIAL IV PRN (18:01)
[2023-08-21] MEDS ORDERED: ACETAMINOPHEN 325 MG TAB PO PRN (21:00)
[2023-08-21] MEDS: SUCRALFATE 1 GM/10 ML ORAL SUSP PO SCH (22:14)
[2023-08-21] MEDS: MELATONIN 5 MG TAB PO SCH (22:16)
[2023-08-22] VITALS (9 sets, daily range): BP systolic 101–153; BP diastolic 54–91; PULSE 57–94; RESP 14–20; TEMP 97.6–98.4; O2SAT 95–100
[2023-08-22] MEDS: MORPHINE SULFATE INJ 2 MG/ml SYRG IV PRN (02:31)
[2023-08-22] MEDS: LEVOTHYROXINE SODIUM 112 MCG TAB PO SCH (06:47)
[2023-08-22] MEDS: cefTRIAXone 1GM/50ML D5W 50 ML IV SCH (09:02)
[2023-08-22] MEDS ORDERED: PROPOFOL 10 MG/ML 20 ML IV ONE (14:16)
[2023-08-22] MEDS ORDERED: LIDOCAINE 2% (LOCAL ANESTH.) PF 5ml SDV ONE (14:16)
[2023-08-22 14:23] LABS: INR 1.06 (0.9-1.15); Partial Thromboplastin Time 27.8 SEC (24.5-34.5); Prothrombin Time 11.1 sec (9.3-11.8)
[2023-08-22] MEDS: SUCRALFATE 1 GM/10 ML ORAL SUSP PO SCH (16:40)
[2023-08-23 01:00] VITALS: BP 120/72; PULSE 81; RESP 20; TEMP 96.7; O2SAT 96
[2023-08-23 05:00] VITALS: BP 142/81; PULSE 80; RESP 20; TEMP 98.1; O2SAT 98
[2023-08-23] MEDS ORDERED: ENSURE CLEAR Apple 8oz Carton PO SCH (06:00)
[2023-08-23 09:00] VITALS: BP 141/90; PULSE 68; RESP 19; TEMP 98.1; O2SAT 99
[2023-08-23 09:59] VITALS: BP 135/86; PULSE 65; RESP 18
[2023-08-23] MEDS ORDERED: THIA100T13 PO (12:06)
[2023-08-23] MEDS ORDERED: METR-344 PO (12:06)
[2023-08-23] MEDS ORDERED: LEVO500T91 PO (12:06)
[2023-08-23] MEDS ORDERED: FOLI-119 PO (12:06)
[2023-08-23] MEDS ORDERED: PANT40T PO (12:06)
[2023-08-23] MEDS ORDERED: SUCR1TAB31 PO (12:06)
[2023-08-24 10:23] LABS: Hepatitis B Surface Antigen Negative (Negative)
[2023-08-24 10:43] LABS: Hepatitis A Ab IgM Negative
[2023-08-24 10:44] LABS: Hepatitis B Core IgM Negative; Hepatitis C Antibody Negative (Negative)
== END 2023-08-23 13:05 | disposition home or self-care (01) | DRG 241 ==
LOC: ER 10:17 → OVERFLOW 15:16 → CENTRAL 18:10
PROVIDERS: ADMIT Nurse Practitioner Family; ATTEND Family Medicine
PROC: 0DB68ZX Excision of Stomach, Via Natural or Artificial Opening Endoscopic, Diagnostic (ICD-10-PCS; 2023-08-22)
PROC: 0DB98ZX Excision of Duodenum, Via Natural or Artificial Opening Endoscopic, Diagnostic (ICD-10-PCS; principal; 2023-08-22 14:19)
DX: K26.3 Acute duodenal ulcer without hemorrhage or perforation (principal); K70.9 Alcoholic liver disease, unspecified; K75.9 Inflammatory liver disease, unspecified; E03.9 Hypothyroidism, unspecified; K25.4 Chronic or unspecified gastric ulcer with hemorrhage; K29.20 Alcoholic gastritis without bleeding; K76.0 Fatty (change of) liver, not elsewhere classified; F19.10 Other psychoactive substance abuse, uncomplicated; R74.01 Elevation of levels of liver transaminase levels; K82.8 Other specified diseases of gallbladder; F32.A Depression, unspecified; F17.210 Nicotine dependence, cigarettes, uncomplicated; K80.20 Calculus of gallbladder without cholecystitis without obstruction; F10.10 Alcohol abuse, uncomplicated; K29.80 Duodenitis without bleeding; K44.9 Diaphragmatic hernia without obstruction or gangrene; Y90.9 Presence of alcohol in blood, level not specified; Z80.9 Family history of malignant neoplasm, unspecified; Z82.49 Family history of ischemic heart disease and other diseases of the circulatory system
CPT/HCPCS: 36415; 71045; 74176; 78226; 80053; 80074; 80307; 80320; 81001; 82378; 83605; 83690; 84439; 84443; 84481; 84484; 85025; 85610; 85730; 86850; 86900; 86901; 96374; 96375; C9113; G0378; J1885; J2001; J2704; J3490

== ENCOUNTER 2024-05-27 05:54 | Inpatient (IN) | payer MEDICAID ==
[~2024-05-27] VITALS: Ht 154.9 cm; Wt 64.0 kg
[~2024-05-27 05:54] MED LIST changes: +FLUO40CA PO; +FOLI-119 PO; +LEVO112T4 PO; +LEVO500T91 PO; +METR-344 PO; +PANT40T PO; +SUCR1TAB31 PO; +THIA100T13 PO
[2024-05-27 06:11] VITALS: PULSE 109
--- NOTE | 2024-05-27 06:34 | ED.PDOC ---
HPI Comments 58 y.o female jaundiced appearing, with PMH of thyroid disease, PUD x3, and depression, presents to the ED for a chief complaint of substernal chest pain that presented 2 weeks ago. Patient reports pain is constant, non radiating, has no alleviating factors and is now associated with new onset dizziness x 5 days and hematuria x 1 day. Patient presents with blood pressure of 90/40 with a repeat at bedside of 94/51. Patient admits to some sort of liver disease, unspecified, does state have drinking about 3 shots of hard liquor daily. Chief Complaint: Chest Pain Time Seen by MD: 06:18 Primary Care Provider: ? Reviewed Notes: Nurses Notes, Medications, Allergies Allergies: Coded Allergies: NO KNOWN ALLERGIES (Unverified , 10/05/18) Home Meds Active Scripts Folic Acid (Folic Acid) 1 Mg Tab, 1 MG PO DAILY, #30 TAB Prov:CLEMENTE SPEARS MD 08/23/23 Thiamine HCl (Thiamine Hydrochloride) 100 Mg Tab, 100 MG PO DAILY, #30 TAB Prov:CLEMENTE SPEARS MD 08/23/23 Sucralfate (CARAFATE) 1 Gm Tab, 1 GM PO QID, #120 TAB Prov:CLEMENTE SPEARS MD 08/23/23 Pantoprazole Sodium Sesquihydr (Pantoprazole Sodium) 40 Mg Tab, 40 MG PO BID, #60 TAB Prov:CLEMENTE SPEARS MD 08/23/23 Metronidazole (Flagyl) 500 Mg Tab, 1 TAB PO TID, #30 TAB Prov:CLEMENTE SPEARS MD 08/23/23 Levofloxacin Hemihydrate (LEVAQUIN 500 MG) 500 Mg Tab, 1 TAB PO DAILY, #10 TAB Prov:CLEMENTE SPEARS MD 08/23/23 Hydrocodone-Acetaminophen (Hydrocodone Bitartrate/AC 5-325 mg) 1 Tab Tab, 1 TAB PO Q6HPRN PRN for 3 Days, #12 TAB Prov:ADINA KENT MD 09/24/22 Reported Medications Fluoxetine Hcl (Fluoxetine Hcl) 40 Mg Cap, 1 CAP PO DAILY 08/20/23 Levothyroxine Sodium (Levothyroxine Sodium) 112 Mcg Tab, 1 TAB PO DAILY 08/20/23 Information Source: Patient Mode of Arrival: Ambulatory Severity: Moderate Timing: Weeks (2) Duration: Since onset Location: Substernal Radiation: No Radiation Quality: Sharp Onset: At Rest Cardiac Risk Factors: Smoker PE Risk Factors: None History of: Similar pain in past Modifying Factors: Nothing Associated Signs and Symptoms: Other Past Medical History PAST MEDICAL HISTORY: Depression, Liver, PUD (3), Thyroid Surgical History: Surgical History (Other): bowel PERIPHERAL VASCULAR TECH History: Denies all PERIPHERAL VASCULAR TECH Hx Family History Family History: Family hx of Cancer, Family hx of heart jam Social History Smoker: Cigarettes, Less Than 1 Pack/Day Alcohol: Heavy Drugs: Marijuana Lives In: Home Constitutional: denies: chills, diaphoresis, fatigue, fever, malaise, sweats, weakness, others EENTM: denies: blurred vision, double vision, ear bleeding, ear discharge, ear drainage, ear pain, ear ringing, eye pain, eye redness, hearing loss, mouth pain, mouth swelling, nasal discharge, nose bleeding, nose congestion, nose pain, photophobia, tearing, throat pain, throat swelling, voice changes, others Respiratory: denies: cough, hemoptysis, orthopnea, SOB at rest, shortness of breath, SOB with excertion, stridor, wheezing, others Cardiovascular: reports: chest pain; denies: dizzy spells, diaphoresis, Dyspnea on exertion, edema, irregular heart beat, left arm pain, lightheadedness, palpitations, PND, syncope, others Gastrointestinal: denies: abdomen distended, abdominal pain, blood streaked bowels, constipated, diarrhea, dysphagia, difficulty swallowing, hematemesis, melena, nausea, poor appetite, poor fluid intake, rectal bleeding, rectal pain, vomiting, others Genitourinary: reports: hematuria; denies: abnormal vagina bleeding, burning, dyspareunia, dysuria, flank pain, frequency, incontinence, pain, , vagina discharge, urgency, others Neurological: reports: dizziness; denies: fainting, headache, left sided numbness, left sided weakness, numbness, paresthesia, pre-existing deficit, right sided numbness, right sided weakness, seizure, speech problems, tingling, tremors, weakness, others Musculoskeletal: denies: back pain, gout, joint pain, joint swelling, muscle pain, muscle stiffness, neck pain, others Integumetry: reports: change in color (jaundice ); denies: bruises, change in hair/nails, dryness, laceration, lesions, lumps, rash, wounds, others Allergic/Immunocompromised: denies: Difficulty Healing, Frequent Infections, Hives, Itching, others Hematologic/Lymphatic: denies: anemia, blood clots, easy bleeding, easy bruising, swollen glands, others Endocrine: denies: excessive hunger, excessive sweating, excessive thirst, excessive urination, flushing, intolerance to cold, intolerance to heat, unexplained weight gain, unexplained weight loss, others Psychiatric: denies: anxiety, bipolar disorder, depression, hopeless, panic disorder, schizophrenia, sleepless, suicidal, others All Other Systems: Reviewed and Negative Physical Exam General Appearance: Mild Distress, Other (patient appears jaundiced, alert ) HEENT: Normal ENT Inspection, Pharynx Normal, TMs Normal Neck: Full Range of Motion, Non-Tender, Normal, Normal Inspection Respiratory: Chest Non-Tender, Lungs Clear, No Accessory Muscle Use, No Re spiratory Distress, Normal Breath Sounds Cardiovascular: No Edema, No JVD, No Murmur, No Gallop, Normal Peripheral Pulses, Regular Rate/Rhythm Breast Exam: Deferred Gastrointestinal: No Organomegaly, Non Tender, No Pulsatile Mass, Normal Bowel Sounds, Soft Genitalia: Deferred Pelvic: Deferred Rectal: Deferred Extremities: No calf tenderness, Normal capillary refill, Normal inspection, Normal range of motion, Non-tender, No pedal edema Musculoskeletal : Apperance: Normal Neurologic: Alert, manager technical II-XII nml as Tested, No Motor Deficits, Normal Affect, Normal Mood, No Sensory Deficits Cerebellar Function: Normal Reflexes: Normal Skin: Dry, Normal Color, Warm Lymphatic: No Adenopathy Was a procedure done? Was a procedure done?: No CP Differential Dx Differential Diagnosis: N/A Differential Diagnosis: Angina, Cholelithiasis, Costochondritis, Gastritis, Myocardial Infarction, Pericarditis X-Ray, Labs, Meds, VS Vital Signs Date Time Temp Pulse Resp B/P (MAP) Pulse Ox O2 Delivery O2 Flow Rate FiO2 05/27/24 07:22 111 05/27/24 06:23 97.9 114 23 94/51 (65) 96 97.9 05/27/24 06:17 97.3 117 18 97/57 (70) 98 05/27/24 06:11 109 Room Air* 0 21 05/27/24 05:58 114 Lab Test 05/27/24 07:07 05/27/24 06:39 05/27/24 06:09 05/27/24 06:05 Range/Units Troponin I High Sensitivity Pending 7 </=34 ng/L Ammonia 21 11-32 umol/L Influenza Type A Antigen Negative Negative Influenza Type B Antigen Negative Negative SARS-CoV-2 Antigen (Rapid) Negative NEGATIVE White Blood Count 11.7 H 4.4-10.8 10^3/uL Red Blood Count 1.97 L 4.0-5.20 10^6/uL Hemoglobin 8.4 L 12.2-16.2 g/dL Hematocrit 24.3 L 36.0-46.0 % Mean Corpuscular Volume 123.3 H 80.0-100.0 fL Mean Corpuscular Hemoglobin 42.5 H 28.0-32.0 pg Mean Corpuscular Hemoglobin Concent 34.5 32.0-36.0 g/dL Red Cell Distribution Width 15.1 H 11.8-14.3 % Platelet Count 107 L 140-450 10^3/uL Mean Platelet Volume 10.3 6.9-10.8 fL Neutrophils (%) (Auto) 79.9 37.0-80.0 % Lymphocytes (%) (Auto) 7.0 L 10.0-50.0 % Monocytes (%) (Auto) 12.6 H 0.0-12.0 % Eosinophils (%) (Auto) 0.1 0.0-7.0 % Basophils (%) (Auto) 0.4 0.0-2.0 % Neutrophils # (Auto) 9.3 H 1.6-8.6 10 ^3/uL Lymphocytes # (Auto) 0.8 0.4-5.4 10 ^3/uL Monocytes # (Auto) 1.5 H 0-1.3 10 ^3/uL Eosinophils # (Auto) 0 0-0.8 10 ^3/uL Basophils # (Auto) 0.1 0-0.2 10 ^3/uL Nucleated Red Blood Cells 0.1 % Platelet Estimate Pending Prothrombin Time 15.1 H 9.3-11.8 sec Prothrombin Time INR 1.47 H 0.9-1.15 Sodium Level 131 L 136-145 mmol/L Potassium Level 3.0 L 3.5-5.1 mmol/L Chloride Level 86 L 98-107 mmol/L Carbon Dioxide Level 31 20-31 mmol/L Anion Gap 14 5-15 Blood Urea Nitrogen 16 9-23 mg/dL Creatinine 2.30 H 0.550-1.02 mg/dL Glomerular Filtration Rate Calc 24 >90 mL/min BUN/Creatinine Ratio 7.0 L 10.0-20.0 Serum Glucose 96 74-106 mg/dL Calcium Level 9.3 8.7-10.4 mg/dL Phosphorus Level 3.2 2.4-5.1 mg/dL Magnesium Level 1.7 1.6-2.6 mg/dL Total Bilirubin 7.7 H 0.2-1.0 mg/dL Aspartate Amino Transferase (AST) 82 H 13-40 U/L Alanine Aminotransferase (ALT) 33 7-40 U/L Alkaline Phosphatase 175 H 46-116 U/L B-Type Natriuretic Peptide 150.21 0-100 pg/mL Total Protein 5.8 5.7-8.2 g/dL Albumin 2.6 L 3.2-4.8 g/dL Thyroid Stimulating Hormone (TSH) 0.08 L 0.55-4.78 uIU/mL Current Medications Medications (Trade) Dose Ordered Sig/Alvaro Route Start Time Stop Time Status Last Admin Metoclopramide HCl (Reglan Injection) 10 mg ONCE ONCE IV 05/27/24 06:30 12 06:31 DC 05/27/24 06:56 Ondansetron HCl (Zofran) 4 mg ONCE ONCE IV 05/27/24 06:30 05/27/24 06:31 DC 05/27/24 06:56 X-Ray, Labs, Meds, VS Comment This 58 female presents secondary to a 2 month history of general malaise and a 2 week history of chest pain. She also has noted dark urine yesterday. She denies any palliative or provocative factors. Denies modifying factors. Denies radiation of her symptoms. States the pain is mild but unrelenting. She appeared jaundiced. She noted to have a total bilirubin of 7.7 mL score of 29. This provides her with a 19.6% three-month mortality rate. The patient was also noted to have chronic pancreatitis on CT scan. Secondary to her multiple life- threatening ailments, she will be admitted for further workup and management. Time of 1ST Reevaluation: 06:22 Reevaluation 1ST: Unchanged Patient Education/Counseling: Diagnosis, Treatment, Prognosis Family Education/Counseling: No Family Present Additional Information The following tests were ordered, and results were reviewed by me: LAB, CXR, CT ABD, PHA I reviewed and agreed with the following test results read by other providers: CXR and CT ABD I discussed treatment and results with medical personnel and patient Departure 1 Departure Time of Disposition: 07:44 Impression: Primary Impression: Abdominal pain Additional Impressions: Elevated LFTs Hepatic steatosis Protein malnutrition Jaundice Hyperthyroidism Pancreatitis Hepatic failure Disposition: ADMITTED INPATIENT Admit to: Tele Condition: Guarded Critical Care Note Critical Care Time?: No Stability Stability form required: No Heart Score Heart Score: Heart Score Response (Comments) Value History Moderate Suspicious 1 EKG Repolarization Disturb 1 Age 45-64 1 Risk Factors 1 or 2 risk factors 1 Troponin Normal limit 0 Total 4 I personally scribed for HOLLY CRUZ MD ([email or web address]) on 05/27/24 at 06:34. Electronically submitted by Leighann Gregorio ([facility]). HOLLY CRUZ MD May 27, 2024 06:34
[2024-05-27 06:42] LABS: Basophils % (auto) 0.4 % (0.0-2.0); Eosinophils # (auto) 0 10 ^3/uL (0-0.8); Eosinophils % (auto) 0.1 % (0.0-7.0); Lymphocytes # (auto) 0.8 10 ^3/uL (0.4-5.4); Nucleated Red Blood Cells % 0.1 %
[2024-05-27 06:45] LABS: Basophils # (auto) 0.1 10 ^3/uL (0-0.2); Hematocrit 24.3 % (36.0-46.0); Hemoglobin 8.4 g/dL (12.2-16.2); Mean Corpuscular Hemoglobin 42.5 pg (28.0-32.0); Mean Corpuscular Hgb Conc. 34.5 g/dL (32.0-36.0); Mean Corpuscular Volume 123.3 fL (80.0-100.0); Monocytes # (auto) 1.5 10 ^3/uL (0-1.3); Monocytes % (auto) 12.6 % (0.0-12.0); Neutrophils # (auto) 9.3 10 ^3/uL (1.6-8.6); Neutrophils % (auto) 79.9 % (37.0-80.0); Platelet Count (auto) 107 10^3/uL (140-450); Red Blood Cells 1.97 10^6/uL (4.0-5.20); Red Cell Distribution Width 15.1 % (11.8-14.3); White Blood Cell 11.7 10^3/uL (4.4-10.8)
[2024-05-27] MEDS: ONDANSETRON HCL 4 MG/2 ML VIAL IV ONE ×2 (06:56→08:30)
[2024-05-27] MEDS: METOCLOPRAMIDE HCL 5MG/ml INJ 2ml VIAL IV ONE (06:56)
[2024-05-27 06:58] LABS: Alanine Aminotransferase 33 U/L (7-40); Anion Gap 14 (5-15); Blood Urea Nitrogen 16 mg/dL (9-23); Calcium 9.3 mg/dL (8.7-10.4); Glucose 96 mg/dL (74-106); Magnesium 1.7 mg/dL (1.6-2.6); Phosphorus 3.2 mg/dL (2.4-5.1); Total Protein 5.8 g/dL (5.7-8.2)
[2024-05-27 06:59] LABS: Albumin 2.6 g/dL (3.2-4.8); Alkaline Phosphatase 175 U/L (46-116); Aspartate Aminotransferase 82 U/L (13-40); Bilirubin, Total 7.7 mg/dL (0.2-1.0); Carbon Dioxide 31 mmol/L (20-31); Chloride 86 mmol/L (98-107); Sodium 131 mmol/L (136-145)
[2024-05-27 07:06] LABS: INR 1.47 (0.9-1.15); Prothrombin Time 15.1 sec (9.3-11.8)
--- NOTE | 2024-05-27 07:10 | DVH ---
Exam: CT CT AB PEL WO CON-NO ORAL OR IV History: ABD PAIN; DIZZINESS, ENLARGED LIVER Comparison Study: CT scan of the abdomen pelvis performed on 08/20/2023 Technique: Multidetector spiral CT of the abdomen and pelvis was performed from lung bases to pubic s ymphysis. Imaging was performed without intravenous contrast. Coronal and sagittal multiplanar refor mats were obtained from the axial data set by the technologist. Radiation Dose : 1. Abdomen/Pelvis: CTDIvol 5.07 mGy, DLP 211.33 mGy*cm. Findings: Evaluation of vasculature and solid organs is limited due to lack of intravenous contrast use. Lung Bases: Lung bases are clear. Visualized portions of the heart and pericardium are unremarkable. Liver: The liver is enlarged measuring 21.1 cm in length. No focal lesions. Diffusely hypoattenuatin g liver parenchyma consistent with hepatic steatosis. Gallbladder and Biliary Tree: The gallbladder is distended. No intrahepatic or extrahepatic biliary ductal dilatation. Spleen: Unremarkable Pancreas: Punctate calcifications of the pancreatic head. No significant pancreatic ductal dilatation . No peripancreatic fat stranding. Adrenal Glands: Unremarkable Kidneys: Kidneys are unremarkable without calculi or hydronephrosis. GI tract: The stomach is grossly normal in appearance. No evidence of small bowel wall thickening or abnormal dilatation to suggest bowel obstruction. Colon is collapsed. There is a 5 x 5 x 4 mm fatty lesion in the transverse colon compatible with a lipoma. The appendix is not visualized, however no inflammatory changes in the right lower quadrant to suggest acute appendicitis. Peritoneum/mesentery/retroperitoneum. No evidence of free intraperitoneal air. No ascites. Increased number of retroperitoneal lymph nodes without pathologic enlargement. Abdominal Wall: Unremarkable. Vasculature: The visualized abdominal aorta is normal in size and caliber. Evaluation of abdominal a nd pelvic vessels is limited due to lack of intravenous contrast. There are atherosclerotic calcifica tions in the aorta. Urinary Bladder: Grossly unremarkable for degree of distention. Pelvic Organs: Unremarkable Musculoskeletal: No aggressive focal bony lesions, acute fractures or dislocation. Intervertebral dis c degeneration at L5-S1. Additional findings: Bilateral breast implants. IMPRESSION: 1. No acute abdominal or pelvic findings. 2. Hepatic steatosis and hepatomegaly. 3. Sequelae of chronic pancreatitis.
[2024-05-27] MEDS: SODIUM CHLORIDE 0.9% 1,000 ML IV ONE ×3 (07:15→09:15)
[2024-05-27 07:32] LABS: COVID19 ANTIGEN SOFIA FIA NEGATIVE (NEGATIVE); Rapid Influenza A Negative (Negative); Rapid Influenza B Negative (Negative)
[2024-05-27] MEDS: ALBUMIN 25% 50 ML IV ONE (08:06)
[2024-05-27 08:12] LABS: Lipase 20 U/L (12-53)
[2024-05-27 08:13] LABS: Amylase 42 U/L (30-118)
[2024-05-27] MEDS: MORPHINE SULFATE 4 MG/ML SYR/VIAL IV ONE (08:30)
[2024-05-27 09:13] LABS: Hypochromia Slight; Macrocytosis Marked; Platelet Estimate Decreased
[2024-05-27] MEDS ORDERED: ONDANSETRON HCL 4 MG/2 ML VIAL IV PRN (09:15)
[2024-05-27] MEDS: LORazepam 0.5 MG TAB PO SCH (09:15)
[2024-05-27] MEDS ORDERED: NITROGLYCERIN 0.4 MG SL TAB SL PRN (09:15)
[2024-05-27] MEDS ORDERED: MORPHINE SULFATE INJ 2 MG/ml SYRG IV PRN (09:15)
[2024-05-27] MEDS ORDERED: LORazepam 0.5 MG TAB PO PRN (09:15)
[2024-05-27] MEDS ORDERED: GAB100C PO (09:39)
[2024-05-27] MEDS: NOREPINEPHRINE 8 MG/250ML KIT 250 ML IV ONE (09:59)
[2024-05-27 10:00] VITALS: PULSE 98; RESP 16; O2SAT 98
[2024-05-27] MEDS ORDERED: PATIENTS OWN MEDICATION (Fluoxetine Hcl 1 CAP) PO SCH (10:00)
[2024-05-27] MEDS: NOREPINEPHRINE 8 MG/250ML KIT 250 ML IV SCH (10:00)
[2024-05-27] MEDS ORDERED: FAMOTIDINE (10MG/ML) 2ML VL IV SCH (10:00)
[2024-05-27] MEDS: chlordiazePOXIDE HCL 25 MG CAP PO ONE (10:19)
[2024-05-27] MEDS: THIAMINE HCL 100 MG TAB PO SCH (10:19)
[2024-05-27] MEDS: FLUoxetine HCL 20 MG CAP PO SCH (10:19)
[2024-05-27] MEDS: LEVOTHYROXINE SODIUM 112 MCG TAB PO SCH (10:20)
[2024-05-27] MEDS: FAMOTIDINE (10MG/ML) 2ML VL IV SCH (10:20)
[2024-05-27] MEDS: POTASSIUM CHL 20MEQ/100ML 100 ML IV SCH ×2 (10:20→18:00)
[2024-05-27] MEDS: FOLIC ACID 1 MG TAB PO SCH (10:20)
[2024-05-27] MEDS: cefTRIAXone 1GM/50ML D5W 50 ML IV ONE (10:20)
[2024-05-27] MEDS: MULTIPLE VITAMIN TAB PO SCH (10:20)
--- NOTE | 2024-05-27 10:20 | DVHHP2 ---
History of Present Illness Reason for Visit: Chest pain, lower abdominal pain, general weakness, dizziness, urinary History of Present Illness Cassia Robertson is a 58-year-old female with past medical history of EtOH abuse, depression, hypothyroidism, PUD, liver disease, and who presents with chest pain, lower abdominal pain, general weakness, dizziness, blood in stool, urinary retention and frequency x2 weeks. Patient reports that her chest pain feels like someone is sitting on her and it is constant 7/10. Patient reports that she drinks minimal 3 shots of alcohol per day for several years, smokes half a pack a day of cigarettes, smokes marijuana, and denies illicit drug use. Patient states that there are no alleviating factors. Patient states that on May 12 she had gone to see her primary care physi delphine who had told her to stop drinking and that her liver labs were elevated. Patient reports that she has had tremors at home and she calms herself down to make it go away. Patient denies vomiting, diarrhea, fever, chills, shortness of breath, headaches, and lightheadedness. GI: Peptic Ulcer disease Hepatobiliary: Other (Liver disease) Psych: Depression Endocrine: Hypothyroidism Past Medical History ETOH abuse Past Surgical History: Smoke: <1 pack per day ALCOHOL: heavy Drugs: Marijuana Lives: Roommate Domestic Violence: Neg Review of Systems Constitutional: Yes: Weakness, Other (dizziness); No: Fever, Chills, Sweats, Malaise Eyes: No: Pain, Vision change, Conjunctivae inflammation, Eyelid inflammation, Other, Redness ENT: No: Ear pain, Ear discharge, Nose pain, Nose discharge, Nose congestion, Mouth pain, Mouth swelling, Throat pain, Throat swelling, Other Respiratory: No: Cough, Dry, Shortness of breath, SOB with excertion, Wheezing, Hemoptysis, Pleuritic Pain, Sputum, Wheezing, Other Cardiovascular: Chest Pain; No: Palpitations, Orthopnea, Paroxysmal Noc. Dyspnea, Edema, Lt Headedness, Other Gastrointestinal: Abdominal Pain, Hematochezia; No: Nausea, Vomiting, Diarrhea, Constipation, Melena, Other Genitourinary: No Dysuria; Frequency; No Incontinence, No Hematuria; Retention; No Other Musculoskeletal: No: other, neck pain, shoulder pain, arm pain, back pain, hand pain, leg pain, foot pain Skin: No: Rash, Lesions, Jaundice, Bruising, Other Neurological: No: Weakness, Numbness, Incoordination, Change in speech, Confusion, Seizures, Other Allergies: Coded Allergies: NO KNOWN ALLERGIES (Unverified , 10/05/18) Medications Current Medications Medications Dose Ordered Sig/Alvaro Route Start Time Stop Time Status Last Admin Dose Admin Thiamine HCl 100 mg DAILY PO 05/27/24 10:00 UNV Folic Acid 1 mg DAILY PO 05/27/24 10:00 UNV Multivitamins 1 tab DAILY PO 05/27/24 10:00 UNV Lorazepam 2 mg Q4H PO 05/27/24 09:15 UNV Lorazepam 2 mg Q2HPRN PRN PO 05/27/24 09:15 UNV Potassium Chloride 100 ml @ 50 mls/hr Q2H IV 05/27/24 09:15 05/27/24 15:14 UNV Ondansetron HCl 4 mg Q4HP PRN IV 05/27/24 09:15 UNV Nitroglycerin 0.4 mg Q5MINP PRN SL 05/27/24 09:15 UNV Morphine Sulfate 2 mg Q30M PRN IV 05/27/24 09:15 UNV Famotidine 20 mg Q12HR IV 05/27/24 10:00 UNV Ceftriaxone Sodium 50 ml @ 100 mls/hr DAILY@09 IV 05/28/24 09:00 UNV Norepinephrine Bitartrate 250 ml @ 3.75 mls/hr Q24H IV 05/27/24 09:45 UNV Levothyroxine Sodium 112 mcg DAILY PO 05/27/24 10:00 UNV Sucralfate 1 gm QID PO 05/27/24 12:00 UNV Patient Own Medication 1 cap DAILY PO 05/27/24 10:00 UNV Exam Vital Signs Vital Signs Date Time Temp Pulse Resp B/P (MAP) Pulse Ox O2 Delivery O2 Flow Rate FiO2 05/27/24 09:15 103 23 83/45 (58) 97 05/27/24 08:00 98.7 98.7 05/27/24 06:11 Room Air* 0 21 General Appearance: Alert, Oriented X3, Cooperative, No acute distress HEENT: Atraumatic, PERRLA, EOMI, Mucous membr. moist/pink Respiratory: Clear to auscultation, Normal air movement Cardiovascular: Normal S1, Normal S2, No murmurs Abdominal: Soft, No hepatospenomegaly, No masses Extremities: No clubbing, No cyanosis, No edema, Normal pulses, No tend erness/swelling Skin: No rashes, No breakdown, No significant lesion Neuro: Normal gait, Normal speech, Strength at 5/5 X4 ext, Normal tone, Sensation intact Psych/Mental Status: Mental status NL, Mood NL Labs/Xrays Labs Test 05/27/24 07:07 05/27/24 06:39 05/27/24 06:09 05/27/24 06:05 Range/Units Troponin I High Sensitivity 7 </=34 ng/L Ammonia 21 11-32 umol/L Influenza Type A Antigen Negative Negative Influenza Type B Antigen Negative Negative SARS-CoV-2 Antigen (Rapid) Negative NEGATIVE White Blood Count 11.7 H 4.4-10.8 10^3/uL Red Blood Count 1.97 L 4.0-5.20 10^6/uL Hemoglobin 8.4 L 12.2-16.2 g/dL Hematocrit 24.3 L 36.0-46.0 % Mean Corpuscular Volume 123.3 H 80.0-100.0 fL Mean Corpuscular Hemoglobin 42.5 H 28.0-32.0 pg Mean Corpuscular Hemoglobin Concent 34.5 32.0-36.0 g/dL Red Cell Distribution Width 15.1 H 11.8-14.3 % Platelet Count 107 L 140-450 10^3/uL Mean Platelet Volume 10.3 6.9-10.8 fL Neutrophils (%) (Auto) 79.9 37.0-80.0 % Lymphocytes (%) (Auto) 7.0 L 10.0-50.0 % Monocytes (%) (Auto) 12.6 H 0.0-12.0 % Eosinophils (%) (Auto) 0.1 0.0-7.0 % Basophils (%) (Auto) 0.4 0.0-2.0 % Neutrophils # (Auto) 9.3 H 1.6-8.6 10 ^3/uL Lymphocytes # (Auto) 0.8 0.4-5.4 10 ^3/uL Monocytes # (Auto) 1.5 H 0-1.3 10 ^3/uL Eosinophils # (Auto) 0 0-0.8 10 ^3/uL Basophils # (Auto) 0.1 0-0.2 10 ^3/uL Nucleated Red Blood Cells 0.1 % Platelet Estimate Decreased Hypochromasia (manual) Slight Macrocytosis Marked Prothrombin Time 15.1 H 9.3-11.8 sec Prothrombin Time INR 1.47 H 0.9-1.15 Sodium Level 131 L 136-145 mmol/L Potassium Level 3.0 L 3.5-5.1 mmol/L Chloride Level 86 L 98-107 mmol/L Carbon Dioxide Level 31 20-31 mmol/L Anion Gap 14 5-15 Blood Urea Nitrogen 16 9-23 mg/dL Creatinine 2.30 H 0.550-1.02 mg/dL Glomerular Filtration Rate Calc 24 >90 mL/min BUN/Creatinine Ratio 7.0 L 10.0-20.0 Serum Glucose 96 74-106 mg/dL Calcium Level 9.3 8.7-10.4 mg/dL Phosphorus Level 3.2 2.4-5.1 mg/dL Magnesium Level 1.7 1.6-2.6 mg/dL Total Bilirubin 7.7 H 0.2-1.0 mg/dL Aspartate Amino Transferase (AST) 82 H 13-40 U/L Alanine Aminotransferase (ALT) 33 7-40 U/L Alkaline Phosphatase 175 H 46-116 U/L Lactate Dehydrogenase 204 120-246 U/L B-Type Natriuretic Peptide 150.21 0-100 pg/mL Total Protein 5.8 5.7-8.2 g/dL Albumin 2.6 L 3.2-4.8 g/dL Amylase Level 42 30-118 U/L Lipase 20 12-53 U/L Thyroid Stimulating Hormone (TSH) 0.08 L 0.55-4.78 uIU/mL Exam: CT CT AB PEL WO CON-NO ORAL OR IV History: ABD PAIN; DIZZINESS, ENLARGED LIVER Comparison Study: CT scan of the abdomen pelvis performed on 08/20/2023 Technique: Multidetector spiral CT of the abdomen and pelvis was performed from lung bases to pubic symphysis. Imaging was performed without intravenous contrast. Coronal and sagittal multiplanar reformats were obtained from the axial data set by the technologist. Radiation Dose : 1. Abdomen/Pelvis: CTDIvol 5.07 mGy, DLP 211.33 mGy*cm. Findings: Evaluation of vasculature and solid organs is limited due to lack of intravenous contrast use. Lung Bases: Lung bases are clear. Visualized portions of the heart and pericardium are unremarkable. Liver: The liver is enlarged measuring 21.1 cm in length. No focal lesions. Diffusely hypoattenuating liver parenchyma consistent with hepatic steatosis. Gallbladder and Biliary Tree: The gallbladder is distended. No intrahepatic or extrahepatic biliary ductal dilatation. Spleen: Unremarkable Pancreas: Punctate calcifications of the pancreatic head. No significant pancreatic ductal dilatation. No peripancreatic fat stranding. Adrenal Glands: Unremarkable Kidneys: Kidneys are unremarkable without calculi or hydronephrosis. GI tract: The stomach is grossly normal in appearance. No evidence of small bowel wall thickening or abnormal dilatation to suggest bowel obstruction. Colon is collapsed. There is a 5 x 5 x 4 mm fatty lesion in the transverse colon compatible with a lipoma. The appendix is not visualized, however no inflam matory changes in the right lower quadrant to suggest acute appendicitis. Peritoneum/mesentery/retroperitoneum. No evidence of free intraperitoneal air. No ascites. Increased number of retroperitoneal lymph nodes without pathologic enlargement. Abdominal Wall: Unremarkable. Vasculature: The visualized abdominal aorta is normal in size and caliber. Evaluation of abdominal and pelvic vessels is limited due to lack of intravenous contrast. There are atherosclerotic calcifications in the aorta. Urinary Bladder: Grossly unremarkable for degree of distention. Pelvic Organs: Unremarkable Musculoskeletal: No aggressive focal bony lesions, acute fractures or dislocation. Intervertebral disc degeneration at L5-S1. Additional findings: Bilateral breast implants. IMPRESSION: 1. No acute abdominal or pelvic findings. 2. Hepatic steatosis and hepatomegaly. 3. Sequelae of chronic pancreatitis. Assessment/Plan Assessment/Plan Assessment/Plan: Atypical chest pain likely 2nd to ETOH abuse Intractable abdominal pain likely 2nd to ETOH abuse Hepatorenal syndrome Leukocytosis and lactic acidosis likely 2nd to sepsis Anemia Thrombocytopenia Hypokalemia MONSE Hyponatremia Elevated LFTs Jaundice replete lytes mag level labs am labs hepatitis panel drug screen UA mag rider mag level antiemetics pain mgmt IV Abx flu covid CT A/P EKG lipase amylase LDH Trop negative phos PT/INR tsh acetone urine dip ammonia albumin GI consult Nephro cx echo - consider cards cx if abnormal structural changes Heart Score 3 (low) MELD Score 29 points 19.6% Estimated 3-month mortality ETOH abuse [place] protocol Counseled patient on alcohol cessation Marijuana use Counseled patient on substance abuse Hypotensive pressor keep MAP>65 Chronic pancreatitis Hepatic steatosis Hepatomegaly follow up outpt with PCP FEN/PPX IVf NPO PUD ppx - protonix DVT ppx - thrombocytopenic and patient ambulating Admit to ICU - on pressor Home medications reconciled Discussed plan of care with patient and nurse Plan discussed with: Patient My Orders Orders - THAI YADAV SUPERVISOR CONTACT [employer] Procedure Category Date Status Time * Gi Dvh Expert Witness CONS 05/27/24 Transmitted 09:13 Complete Blood Count LAB 05/28/24 Verified 04:00 Comprehensive LAB 05/28/24 Verified Metabolic Panel 04:00 Blood Alcohol LAB 05/27/24 Logged 09:13 Drug Screen LAB 05/27/24 Logged 09:13 Urinalysis LAB 05/27/24 Logged 09:13 Chlordiazepoxide Hcl PHA 05/27/24 In Process Capsule (Librium Ca 09:15 Sodium Chloride 0.9% PHA 05/27/24 In Process 09:15 Beef Ribber ED NURSING 05/27/24 Transmitted 09:13 Electrocardigram EKG 05/28/24 Logged 04:00 Thiamine Tab PHA 05/27/24 In Process 10:00 Folic Acid Tablet PHA 05/27/24 In Process 10:00 Multiple Vitamin PHA 05/27/24 In Process Tablet (Mvi Tab) 10:00 Lorazepam Tablet PHA 05/27/24 In Process (Ativan Tablet) 09:15 Lorazepam Tablet PHA 05/27/24 In Process (Ativan Tablet) 09:15 Etoh Withdrawal VENKATESH 05/27/24 In Process Assessment 09:13 Etoh Withdrawal VENKATESH 05/27/24 In Process Assessment 09:13 Magnesium Sulfate PHA 05/27/24 In Process 1gm/100ml 09:15 Potassium Chl PHA 05/27/24 In Process 20meq/100ml 09:15 Magnesium LAB 05/28/24 Verified 04:00 Code Status CODE 05/27/24 Transmitted 09:13 Vital Signs VENKATES[facility] 05/27/24 In Process 09:13 Review Orders With VENKATESH 05/27/24 In Process Adm. 09:13 Npo (Nothing By DIET 05/27/24 Transmitted Mouth) Diet Breakfast Notify Md Of Changes VENKATESH 05/27/24 In Process From Base 09:13 Advance Directive [facility]ATES[facility] 05/27/24 In Process 09:13 Allergies [facility]ATES[facility] 05/27/24 In Process 09:13 Ondansetron Hcl PHA 05/27/24 In Process (Zofran) 09:15 Nitroglycerin PHA 05/27/24 In Process Sublingual (Ntrostat 09:15 Morphine Sulfate PHA 05/27/24 Logged Injection 09:15 Stat Ekg For Chest [facility] 05/27/24 In Process Pain 09:13 Notify Md Of Changes [facility]KATES[facility] 05/27/24 In Process From Base 09:13 Hand Funnel Coater For [facility]KATES[facility] 05/27/24 In Process 24 Hours 09:13 Emergency Dysrhythmia [facility] 05/27/24 In Process Protocol 09:13 Rhythm Strips Once [facility] 05/27/24 In Process Every Shift 09:13 Oxygen By Nasal RT 05/27/24 Transmitted Cannula 09:13 Beef Ribber [facility]ATES[facility] 05/27/24 In Process 09:13 Famotidine Injection PHA 05/27/24 Logged (Pepcid Injection) 10:00 Ceftriaxone 1gm/50ml PHA 05/28/24 Logged D5w (Rocephin) 09:00 Ceftriaxone 1gm/50ml PHA 05/27/24 Logged D5w (Rocephin) 09:15 Acute Hepatitis Panel LAB 05/27/24 Logged 09:13 Admit ADMIT 05/27/24 Transmitted 09:32 Norepinephrine 8 PHA 05/27/24 Logged Mg/250ml Kit 09:45 Central Line Insertion BD 05/27/24 Transmitted 09:33 Levothyroxine Tablet PHA 05/27/24 Logged (Synthroid Tablet) 10:00 Sucralfate Tab PHA 05/27/24 Logged (Carafate Tab) 12:00 (Nf) Fluoxetine Hcl PHA 05/27/24 Logged 10:00 Lactic Acid W/ Reflex LAB 05/27/24 Transmitted Order 09:39 Date of Service: May 27, 2024 Billing Provider: THAI YADAV Common Visit Codes: 50209-IALNICA INP/OBS CARE (HIGH) THAI YADAV May 27, 2024 10:20
[2024-05-27] MEDS: MAGNESIUM SULFATE 1GM/100ML 100 ML IV ONE (10:21)
--- NOTE | 2024-05-27 11:04 | DVH ---
CHEST RADIOGRAPH Indication: CENTRAL LINE PLACEMENT Technique: Single frontal view of the chest was obtained COMPARISON: XY CHEST PORTABLE on DOS: 08/22/23, XY CHEST PORTABLE on DOS: 09/18/22, XY CHEST XRAY 1 VIE W on DOS: 09/17/22, CHEST PORTABLE on DOS: 10/05/18 FINDINGS: Lines and Tubes: Right central venous catheter in satisfactory position. Tip in the right atrium. Lungs: Congestion Pleura: No effusion. No pneumothorax. Cardiomediastinal contours: Unremarkable Bones: Unremarkable IMPRESSION: Right central venous catheter in satisfactory position with the tip in the right atrium. If possible retraction by 3 cm could be considered. No appreciable pneumothorax.
[2024-05-27 11:31] LABS: Lactic Acid w/Reflex 5.5 mmol/L (0.4-2.0)
--- NOTE | 2024-05-27 12:47 | DVHINCON2 ---
GI Consult Consult Note GI consult note Date of Consultation: 05/27/2024 Chief Complaint: Elevated LFTs Referring Physician:Maite BELL H&P: 58-year-old female admitted with chest pain and lower abdominal pain, generalized weakness and dizziness Patient admits to abdominal pain for over two weeks, worsening now Patient has nausea and vomiting. No hematemesis Slight red blood with bowel movement three days ago, none now. Last BM yesterday with no melena or red blood in stool Patient admits to still using alcohol, about three shots every day, which is significantly less than in the past SP colonoscopy September 2023 SP EGD July2023, diagnosed with duodenal ulcer SP abdominal surgery for bleeding ulcers which was in 2022 Past Medical History: PUD, , liver disease, depression hypothyroidism, alcohol abuse Past Surgical History: Social History: Smoke: <1 pack per day ALCOHOL: heavy Drugs: Marijuana Family History: Noncontributory Review of Systems: Constitutional: no fever, chill, weight loss HEENT: no eye pain, no hearing loss, no oral lesion, no scleral icterus Heart: no chest pain, no chest pressure Lung: no cough, no dyspnea with exertion Abdomen: see HPI : Urinary frequency Physical exam: General: NAD, AAOX3 HEENT: + scleral icterus Chest: lung lee clear to auscultation Heart: RRR, no murmur Abdomen: Mild -distended, mild generalized tenderness to palpation, +BS Labs: Labs Test 05/27/24 12:04 05/27/24 10:39 05/27/24 07:07 05/27/24 06:39 Range/Units Plasma/Serum Blood Alcohol < 3.0 <10 mg/dL Troponin I High Sensitivity 7 </=34 ng/L Ammonia 21 11-32 umol/L Test 05/27/24 06:09 05/27/24 06:05 Range/Units Influenza Type A Antigen Negative Negative Influenza Type B Antigen Negative Negative SARS-CoV-2 Antigen (Rapid) Negative NEGATIVE White Blood Count 11.7 H 4.4-10.8 10^3/uL Red Blood Count 1.97 L 4.0-5.20 10^6/uL Hemoglobin 8.4 L 12.2-16.2 g/dL Hematocrit 24.3 L 36.0-46.0 % Mean Corpuscular Volume 123.3 H 80.0-100.0 fL Mean Corpuscular Hemoglobin 42.5 H 28.0-32.0 pg Mean Corpuscular Hemoglobin Concent 34.5 32.0-36.0 g/dL Red Cell Distribution Width 15.1 H 11.8-14.3 % Platelet Count 107 L 140-450 10^3/uL Mean Platelet Volume 10.3 6.9-10.8 fL Neutrophils (%) (Auto) 79.9 37.0-80.0 % Lymphocytes (%) (Auto) 7.0 L 10.0-50.0 % Monocytes (%) (Auto) 12.6 H 0.0-12.0 % Eosinophils (%) (Auto) 0.1 0.0-7.0 % Basophils (%) (Auto) 0.4 0.0-2.0 % Neutrophils # (Auto) 9.3 H 1.6-8.6 10 ^3/uL Lymphocytes # (Auto) 0.8 0.4-5.4 10 ^3/uL Monocytes # (Auto) 1.5 H 0-1.3 10 ^3/uL Eosinophils # (Auto) 0 0-0.8 10 ^3/uL Basophils # (Auto) 0.1 0-0.2 10 ^3/uL Nucleated Red Blood Cells 0.1 % Platelet Estimate Decreased Hypochromasia (manual) Slight Macrocytosis Marked Prothrombin Time 15.1 H 9.3-11.8 sec Prothrombin Time INR 1.47 H 0.9-1.15 Sodium Level 131 L 136-145 mmol/L Potassium Level 3.0 L 3.5-5.1 mmol/L Chloride Level 86 L 98-107 mmol/L Carbon Dioxide Level 31 20-31 mmol/L Anion Gap 14 5-15 Blood Urea Nitrogen 16 9-23 mg/dL Creatinine 2.30 H 0.550-1.02 mg/dL Glomerular Filtration Rate Calc 24 >90 mL/min BUN/Creatinine Ratio 7.0 L 10.0-20.0 Serum Glucose 96 74-106 mg/dL Calcium Level 9.3 8.7-10.4 mg/dL Phosphorus Level 3.2 2.4-5.1 mg/dL Magnesium Level 1.7 1.6-2.6 mg/dL Total Bilirubin 7.7 H 0.2-1.0 mg/dL Aspartate Amino Transferase (AST) 82 H 13-40 U/L Alanine Aminotransferase (ALT) 33 7-40 U/L Alkaline Phosphatase 175 H 46-116 U/L Lactate Dehydrogenase 204 120-246 U/L B-Type Natriuretic Peptide 150.21 0-100 pg/mL Total Protein 5.8 5.7-8.2 g/dL Albumin 2.6 L 3.2-4.8 g/dL Amylase Level 42 30-118 U/L Lipase 20 12-53 U/L Thyroid Stimulating Hormone (TSH) 0.08 L 0.55-4.78 uIU/mL Imaging: CT abdomen pelvis IMPRESSION: 1. No acute abdominal or pelvic findings. 2. Hepatic steatosis and hepatomegaly. 3. Sequelae of chronic pancreatitis. Assessment: Abdominal pain Hepatic steatosis and hepatomegaly Chronic pancreatitis Heavy alcohol use History of PUD Plan: Discussed with Dr. Maya Liver ultrasound Monitor lab Protonix IV b.i.d. Makeda MARTINEZ discriminant function is 26.6. Patient does not need to be on steroids at this time Discussed DC alcohol extensively We will continue to monitor the patient Thank you for this consult Date of Service: May 27, 2024 Billing Provider: WYATT SPEARS Common Visit Codes: CONSULT ONLY Consultation Codes: [id number] CONSULT <60MIN WYATT SPEARS May 27, 2024 12:47
[2024-05-27] MEDS: SUCRALFATE 1 GM TAB PO SCH (13:11)
--- NOTE | 2024-05-27 13:31 | DVH ---
ULTRASOUND ABDOMEN LIMITED INDICATION: elevated LFTs TECHNIQUE: Multiple real-time sonographic images of the abdomen were obtained. COMPARISON: US GALLBLADDER on DOS: 09/17/22 FINDINGS: The visualized liver parenchyma appears heterogeneously echogenic which May relate to fatty infilt ration versus hepatocellular disease. The liver measures 20.8 cm. No discrete hepatic lesion or intrahepatic biliary ductal dilatation is identified. There is sludge seen in the gallbladder. There is no evidence of gallstones, gallbladder wall thicken ing or pericholecystic fluid. The common biliary duct is not dilated. The right kidney measures 10.6 cm length. No sonographic evidence of nephrolithiasis or hydronephro sis. Pancreas is obscured by bowel gas. IMPRESSION: 1. Hepatomegaly. Liver parenchyma appears heterogeneously echogenic which May relate to fatty infiltr ation versus hepatocellular disease. 2. Sludge in the gallbladder. HS:Y
--- NOTE | 2024-05-27 15:50 | DVHSR ---
APPROVED REPORT EXAM: LIMITED Two-dimensional and M-mode echocardiogram with Doppler and color Doppler. Blood Pressure: 89/50 mmHg INDICATION Chest Pain RISK FACTORS Height: 5' 1", Weight: 120 DIMENSIONS LVDd3.8 (3.8-5.7cm)LA (2D)3.3 (1.9-4.0cm)Aortic Root3.0 (2.0-3.7cm) LVDs2.7 (2.5-4.0cm)LA (MM) (1.9-4.0cm)Aortic Cusp Exc1.5 (1.5-2.0cm) EF (%) 55.0 (55-70%)Rt. Atrium2.9 (1.9-4.0cm)Asc. Aorta cm IVSd0.9 (0.7-1.1cm)RV (D) (1.8-2.4cm) PWd0.9 (0.7-1.1cm) Mitral Valve MitralMitral Stenosis E wave0.90m/sMV Mean GR.mmHg A wave0.90m/sMV Peak GR.mmHg E/A ratio1.02D MVAcm2 Aortic Valve Aortic ValveAortic Stenosis V11.10m/Nikolay Mean GR.7mmHg V21.70m/Nikolay Peak GR.12mmHg LVOT Diameter1.9 (1.8-2.4cm)Doppler AVA1.83cm2 Pulmonic Valve V20.70m/s LEFT VENTRICLE Normal left ventricular size and systolic function. Wall thickness is normal. The ejection fraction is estimated at 55 to 60%. There is no regional wall motion abnormalities. Diastolic function appe ars to be normal. E to E prime ratio is in the normal range. RIGHT VENTRICLE The right ventricle is of normal size and systolic function. ATRIA Both atria are of normal size. The interatrial septum is not well visualized. MITRAL VALVE Normal in structure and function. PULMONIC VALVE Normal. TRICUSPID VALVE Normal structure and function. PA systolic pressure is not adequately estimated. AORTIC VALVE Normal structure and function. GREAT VESSELS The aortic root is of normal size. PERICARDIAL EFFUSION No pericardial effusion. The IVC is not well visualized. Other Information Quality : Technically LimitedRhythm : Technically limited study due to body habitus, patient with large breast implants. Conclusion Normal biventricular size and systolic function. No evidence of diastolic dysfunction. No hemodynamically significant valvular disease. No pericardial effusion.
[2024-05-27] MEDS: MIDODRINE HCL 10 MG TAB PO SCH (18:11)
[2024-05-27 19:30] VITALS: PULSE 99; RESP 18; O2SAT 96
--- NOTE | 2024-05-27 19:37 | DVHINCON2 ---
Date of service: May 27, 2024 Referring Physician Kelli Arora NP Reason for Consultation acute kidney injury History of Present Illness Mrs. Robertson is a 58-year-old female with known history of Alkol dependency presented for further evaluation and management of progressive presyncopal symptoms. Her clinical course has been notable for being persistently hypotensive during her course in the emergency department. She is seen in the ER somnolent but arousable. Current consultation requested due to elevated serum creatinine to the 2 range. Her baseline creatinine is less than 1 that was checked earlier this year. Past Medical History alcohol dependency Allergies: Coded Allergies: NO KNOWN ALLERGIES (Unverified , 10/05/18) Home Meds Active Scripts Folic Acid (Folic Acid) 1 Mg Tab, 1 MG PO DAILY, #30 TAB Prov:CLEMENTE SPEARS MD 08/23/23 Thiamine HCl (Thiamine Hydrochloride) 100 Mg Tab, 100 MG PO DAILY, #30 TAB Prov:CLEMENTE SPEARS MD 08/23/23 Sucralfate (CARAFATE) 1 Gm Tab, 1 GM PO QID, #120 TAB Prov:CLEMENTE SPEARS MD 08/23/23 Pantoprazole Sodium Sesquihydr (Pantoprazole Sodium) 40 Mg Tab, 40 MG PO BID, #60 TAB Prov:CLEMENTE SPEARS MD 08/23/23 Metronidazole (Flagyl) 500 Mg Tab, 1 TAB PO TID, #30 TAB Prov:CLEMENTE SPEARS MD 08/23/23 Levofloxacin Hemihydrate (LEVAQUIN 500 MG) 500 Mg Tab, 1 TAB PO DAILY, #10 TAB Prov:CLEMENTE SPEARS MD 08/23/23 Hydrocodone-Acetaminophen (Hydrocodone Bitartrate/AC 5-325 mg) 1 Tab Tab, 1 TAB PO Q6HPRN PRN for 3 Days, #12 TAB Prov:ADINA KENT MD 09/24/22 Reported Medications Gabapentin (Gabapentin) 100 Mg Cap, 2 CAP PO TID 05/27/24 Fluoxetine Hcl (Fluoxetine Hcl) 40 Mg Cap, 1 CAP PO DAILY 08/20/23 Levothyroxine Sodium (Levothyroxine Sodium) 112 Mcg Tab, 1 TAB PO DAILY 08/20/23 Current Medications Current Medications Medications (Trade) Dose Ordered Sig/Alvaro Route PRN Reason Start Time Stop Time Status Last Admin Thiamine HCl 100 mg DAILY PO 05/27/24 10:00 05/27/24 10:19 Folic Acid 1 mg DAILY PO 05/27/24 10:00 05/27/24 10:20 Multivitamins (Mvi Tab) 1 tab DAILY PO 05/27/24 10:00 05/27/24 10:20 Lorazepam (Ativan Tablet) 2 mg Q4H PO 05/27/24 09:15 05/27/24 14:37 Lorazepam (Ativan Tablet) 2 mg Q2HPRN PRN PO ETOH-SEE PROTOCOL 05/27/24 09:15 Potassium Chloride 100 ml @ 50 mls/hr Q2H IV 05/27/24 09:15 05/27/24 15:14 DC 05/27/24 17:59 Ondansetron HCl (Zofran) 4 mg Q4HP PRN IV NAUSEA / VOMITING 05/27/24 09:15 Nitroglycerin (Ntrostat Sublingual) 0.4 mg Q5MINP PRN SL FOR CHEST PAIN 05/27/24 09:15 Morphine Sulfate 2 mg Q30M PRN IV FOR CHEST PAIN 05/27/24 09:15 Famotidine (Pepcid Injection) 20 mg Q12HR IV 05/27/24 10:00 05/27/24 09:51 DC Ceftriaxone Sodium 50 ml @ 100 mls/hr DAILY@09 IV 05/28/24 09:00 Norepinephrine Bitartrate 250 ml @ 3.75 mls/hr Q24H IV 05/27/24 09:45 05/27/24 10:00 Levothyroxine Sodium (Synthroid Tablet) 112 mcg DAILY PO 05/27/24 10:00 05/27/24 10:20 Sucralfate (Carafate Tab) 1 gm QID PO 05/27/24 12:00 05/27/24 18:11 Patient Own Medication 1 cap DAILY PO 05/27/24 10:00 UNV Famotidine (Pepcid Injection) 20 mg Q48H IV 05/27/24 10:00 05/27/24 10:20 Fluoxetine HCl (PROzac CAPSULE) 40 mg DAILY PO 05/27/24 10:00 05/27/24 10:19 Pantoprazole Sodium (Protonix) 40 mg BID IV 05/27/24 22:00 Midodrine (Proamatine Tablet) 10 mg TID@0600,1200,1800 PO 05/27/24 18:00 05/27/24 18:11 Potassium Chloride 100 ml @ 50 mls/hr Q2H IV 05/27/24 18:00 05/27/24 19:59 Family History: Cardiovascular disease G8 FATHER, FHx: cancer G8 MOTHER, Review of Systems limited due to patient somnolence otherwise is as per history present illness. H&P Exam Vital Signs/I&O Vital Sign Date Time Temp Pulse Resp B/P (MAP) Pulse Ox O2 Delivery O2 Flow Rate FiO2 05/27/24 19:15 111 18 89/53 (65) 95 05/27/24 10:00 98.3 98.3 05/27/24 10:00 Room Air* 0 21 Physical Exam gen: no acute distress laying supine heent: nc lungs: cta cvs: no rub abd: soft ext: no edema skin: no petechiae neuro: somnolent Labs/Diagnostic Data Labs/Diagnostic Data Laboratory Tests Test 05/27/24 12:04 05/27/24 10:39 05/27/24 07:07 05/27/24 06:39 Range/Units Lactic Acid Level 3.4 *H 5.5 *H 0.4-2.0 mmol/L Plasma/Serum Blood Alcohol < 3.0 <10 mg/dL Troponin I High Sensitivity 7 </=34 ng/L Ammonia 21 11-32 umol/L Test 05/27/24 06:09 05/27/24 06:05 Range/Units Influenza Type A Antigen Negative Negative Influenza Type B Antigen Negative Negative SARS-CoV-2 Antigen (Rapid) Negative NEGATIVE White Blood Count 11.7 H 4.4-10.8 10^3/uL Red Blood Count 1.97 L 4.0-5.20 10^6/uL Hemoglobin 8.4 L 12.2-16.2 g/dL Hematocrit 24.3 L 36.0-46.0 % Mean Corpuscular Volume 123.3 H 80.0-100.0 fL Mean Corpuscular Hemoglobin 42.5 H 28.0-32.0 pg Mean Corpuscular Hemoglobin Concent 34.5 32.0-36.0 g/dL Red Cell Distribution Width 15.1 H 11.8-14.3 % Platelet Count 107 L 140-450 10^3/uL Mean Platelet Volume 10.3 6.9-10.8 fL Neutrophils (%) (Auto) 79.9 37.0-80.0 % Lymphocytes (%) (Auto) 7.0 L 10.0-50.0 % Monocytes (%) (Auto) 12.6 H 0.0-12.0 % Eosinophils (%) (Auto) 0.1 0.0-7.0 % Basophils (%) (Auto) 0.4 0.0-2.0 % Neutrophils # (Auto) 9.3 H 1.6-8.6 10 ^3/uL Lymphocytes # (Auto) 0.8 0.4-5.4 10 ^3/uL Monocytes # (Auto) 1.5 H 0-1.3 10 ^3/uL Eosinophils # (Auto) 0 0-0.8 10 ^3/uL Basophils # (Auto) 0.1 0-0.2 10 ^3/uL Nucleated Red Blood Cells 0.1 % Platelet Estimate Decreased Hypochromasia (manual) Slight Macrocytosis Marked Prothrombin Time 15.1 H 9.3-11.8 sec Prothrombin Time INR 1.47 H 0.9-1.15 Sodium Level 131 L 136-145 mmol/L Potassium Level 3.0 L 3.5-5.1 mmol/L Chloride Level 86 L 98-107 mmol/L Carbon Dioxide Level 31 20-31 mmol/L Anion Gap 14 5-15 Blood Urea Nitrogen 16 9-23 mg/dL Creatinine 2.30 H 0.550-1.02 mg/dL Glomerular Filtration Rate Calc 24 >90 mL/min BUN/Creatinine Ratio 7.0 L 10.0-20.0 Serum Glucose 96 74-106 mg/dL Calcium Level 9.3 8.7-10.4 mg/dL Phosphorus Level 3.2 2.4-5.1 mg/dL Magnesium Level 1.7 1.6-2.6 mg/dL Total Bilirubin 7.7 H 0.2-1.0 mg/dL Aspartate Amino Transferase (AST) 82 H 13-40 U/L Alanine Aminotransferase (ALT) 33 7-40 U/L Alkaline Phosphatase 175 H 46-116 U/L Lactate Dehydrogenase 204 120-246 U/L Troponin I High Sensitivity 7 </=34 ng/L B-Type Natriuretic Peptide 150.21 0-100 pg/mL Total Protein 5.8 5.7-8.2 g/dL Albumin 2.6 L 3.2-4.8 g/dL Amylase Level 42 30-118 U/L Lipase 20 12-53 U/L Thyroid Stimulating Hormone (TSH) 0.08 L 0.55-4.78 uIU/mL Assessment IMP: 1) hemodynamically mediated acute kidney injury, prerenal state 2) volume depletion 3) Hx of alcohol dependency 4) anemia of chronic disease REC: - will check urine studies, serial chemistry panels - Volume expansion with isotonic saline - Avoidance of NSAIDs, intravenous contrast studies if able - will continue to follow closely along with you. Thank you for the consultation. Plan discussed with: Other QUANG HAIRSTON MD May 27, 2024 19:37
[2024-05-27] MEDS: PANTOPRAZOLE 40 MG/10 ML VIAL INJ IV SCH (22:28)
[2024-05-28] VITALS (38 sets, daily range): BP systolic 92–137; BP diastolic 50–80; PULSE 99–124; RESP 15–35; TEMP 97.9–98.8; O2SAT 88–98
[2024-05-28 04:59] LABS: Eosinophils # (auto) 0.1 10 ^3/uL (0-0.8); Hematocrit 21.8 % (36.0-46.0); Hemoglobin 7.3 g/dL (12.2-16.2); Nucleated Red Blood Cells % 0.4 %
[2024-05-28] MEDS: D5W/SOD CHLO 0.9% 1,000 ML IV SCH (04:59)
[2024-05-28] MEDS: ALBUMIN 25% 100 ML IV ONE (04:59)
[2024-05-28 05:03] LABS: Basophils # (auto) 0 10 ^3/uL (0-0.2); Basophils % (auto) 0.4 % (0.0-2.0); Eosinophils % (auto) 1.1 % (0.0-7.0); Lymphocytes # (auto) 1.5 10 ^3/uL (0.4-5.4); Lymphocytes % (auto) 13.5 % (10.0-50.0); Mean Corpuscular Hemoglobin 42.6 pg (28.0-32.0); Mean Corpuscular Hgb Conc. 33.6 g/dL (32.0-36.0); Mean Corpuscular Volume 126.8 fL (80.0-100.0); Monocytes # (auto) 1.4 10 ^3/uL (0-1.3); Platelet Count (auto) 85 10^3/uL (140-450); Red Blood Cells 1.72 10^6/uL (4.0-5.20); Red Cell Distribution Width 15.1 % (11.8-14.3); White Blood Cell 11.1 10^3/uL (4.4-10.8)
[2024-05-28 05:24] LABS: Alanine Aminotransferase 26 U/L (7-40); Anion Gap 6 (5-15); BUN/Creatinine Ratio 9.1 (10.0-20.0); Blood Urea Nitrogen 19 mg/dL (9-23); Carbon Dioxide 30 mmol/L (20-31)
[2024-05-28 05:57] LABS: Alkaline Phosphatase 144 U/L (46-116); Bilirubin, Total 6.9 mg/dL (0.2-1.0); Calcium 8.4 mg/dL (8.7-10.4); Chloride 95 mmol/L (98-107); Glucose 69 mg/dL (74-106); Sodium 131 mmol/L (136-145); Total Protein 5.2 g/dL (5.7-8.2)
[2024-05-28 05:58] LABS: Albumin 2.5 g/dL (3.2-4.8)
[2024-05-28 06:22] LABS: Aspartate Aminotransferase 72 U/L (13-40)
[2024-05-28] MEDS: cefTRIAXone 1GM/50ML D5W 50 ML IV SCH (08:59)
[2024-05-28 09:44] LABS: Macrocytosis Marked
[2024-05-28 09:45] LABS: Platelet Estimate Decreased; Target Cell FEW
[2024-05-28] MEDS: LORazepam 2MG/ML-1ML VIAL IV PRN (11:12)
[2024-05-28] MEDS: POTASSIUM CHL 20MEQ/100ML 100 ML IV SCH (13:05)
[2024-05-28] MEDS: FOLIC ACID 1 MG, MAGNESIUM SULF SDV 50% 8 MEQ, MULTIPLE VITAMIN 10 ML, THIAMINE INJ 100... INJ SCH (13:12)
--- NOTE | 2024-05-28 14:21 | DVHPN2 ---
Reviewed: Care Plan, H&P, Labs, Medications, Previous Orders, Radiology Changes from previous H/P or p: No Changes Eyes: No Pain, No Vision change, No Conjunctivae inflammation, No Eyelid inflammation, No Other, No Redness ENT: No Ear pain, No Ear discharge, No Nose pain, No Nose discharge, No Nose congestion, No Mouth pain, No Mouth swelling, No Throat pain, No Throat swelling, No Other Cardiovascular: Chest Pain; No Palpitations, No Orthopnea, No Paroxysmal Noc. Dyspnea, No Edema, No Lt Headedness, No Other Respiratory: No Cough, No Dry, No Shortness of breath, No SOB with excertion, No Wheezing, No Hemoptysis, No Pleuritic Pain, No Sputum, No Other Gastrointestinal: No Nausea, No Vomiting; Abdominal Pain; No Diarrhea, No Constipation, No Melena; Hematochezia; No Other Genitourinary: No Dysuria; Frequency; No Incontinence, No Hematuria; Retention; No Other Musculoskeletal: No other, No neck pain, No shoulder pain, No arm pain, No back pain, No hand pain, No leg pain, No foot pain Skin: No Rash, No Lesions, No Jaundice, No Bruising, No Other Objective Vitals Vital Signs Date Time Temp Pulse Resp B/P (MAP) Pulse Ox O2 Delivery O2 Flow Rate FiO2 05/28/24 12:30 97.9 97.9 05/28/24 12:00 110 05/28/24 12:00 98 Nasal Cannula* 3 32 05/28/24 11:55 114/66 05/28/24 11:15 14 Intake/Output Intake and Output 05/28/24 07:00 Intake Total 2715 ml Balance 2715 ml Intake IV Total 2715 ml Medications Current Medications Medications Dose Ordered Sig/Alvaro Route Start Time Stop Time Status Last Admin Dose Admin Lorazepam 2 mg Q4H PO 05/27/24 09:15 05/28/24 06:10 2 MG Ondansetron HCl 4 mg Q4HP PRN IV 05/27/24 09:15 Nitroglycerin 0.4 mg Q5MINP PRN SL 05/27/24 09:15 Morphine Sulfate 2 mg Q30M PRN IV 05/27/24 09:15 Ceftriaxone Sodium 50 ml @ 100 mls/hr DAILY@ IV 05/28/24 09:00 05/28/24 08:59 100 MLS/HR Norepinephrine Bitartrate 250 ml @ 3.75 mls/hr Q24H IV 05/27/24 09:45 05/27/24 10:00 3.75 MLS/HR Levothyroxine Sodium 112 mcg DAILY PO 05/27/24 10:00 05/27/24 10:20 112 MCG Sucralfate 1 gm QID PO 05/27/24 12:00 05/28/24 06:11 1 GM Patient Own Medication 1 cap DAILY PO 05/27/24 10:00 UNV Famotidine 20 mg Q48H IV 05/27/24 10:00 05/27/24 10:20 20 MG Fluoxetine HCl 40 mg DAILY PO 05/27/24 10:00 05/27/24 10:19 40 MG Pantoprazole Sodium 40 mg BID IV 05/27/24 22:00 05/28/24 10:40 40 MG Midodrine 10 mg TID@0600,1200,1800 PO 05/27/24 18:00 05/28/24 06:10 10 MG Dextrose/Sodium Chloride 1,000 ml @ 75 mls/hr [id number] IV 05/28/24 04:45 05/28/24 04:59 75 MLS/HR Folic Acid 1 mg/ Magnesium Sulfate 8 meq/ Multivitamins 10 ml/Thiamine HCl 100 mg/Sodium Chloride 1,013.2 ml @ 126.247 mls/hr DAILY@1800 INJ 05/28/24 12:00 05/28/24 13:12 126.247 MLS/HR Lorazepam 1 mg Q2HPRN PRN IV 05/28/24 10:30 05/28/24 11:12 1 MG Potassium Chloride 100 ml @ 50 mls/hr Q2H IV 05/28/24 12:45 05/28/24 18:44 05/28/24 13:05 50 MLS/HR Laboratory Results Laboratory Tests 05/28/24 04:35 Chemistry Test 05/28/24 04:35 Albumin 2.5 g/dL (3.2-4.8) L Calcium Level 8.4 mg/dL (8.7-10.4) L Magnesium Level 2.0 mg/dL (1.6-2.6) Total Protein 5.2 g/dL (5.7-8.2) L LFT Test 05/28/24 04:35 Alanine Aminotransferase (ALT) 26 U/L (7-40) Alkaline Phosphatase 144 U/L (46-116) H Aspartate Amino Transferase (AST) 72 U/L (13-40) H Total Bilirubin 6.9 mg/dL (0.2-1.0) H Labs and/or images reviewed: Labs reviewed by me, Image(s) reviewed by me Assessment/Plan Assessment/Plan Atypical chest pain likely 2nd to ETOH abuse Intractable abdominal pain likely 2nd to ETOH abuse Hepatorenal syndrome Leukocytosis and lactic acidosis likely 2nd to sepsis: Rocephin Anemia Thrombocytopenia Hypothyroidism: Synthroid Hypokalemia MONSE Hyponatremia Elevated LFTs Jaundice Chronic pancreatitis Chronic current alcohol abuse: Banana bag, Ativan Marijuana abuse Time spent 65 minutes Patient is full code Condition guarded Advanced care planning time 20 minute Plan discussed with: Patient My Orders Orders - CLEMENTE SPEARS MD Procedure Category Date Status Time Potassium Chl PHA 05/28/24 In Process 20meq/100ml 12:45 Date of Service: May 28, 2024 Billing Provider: CLEMENTE SPEARS MD Common Visit Codes: [id number] CARE 30-74 MIN CLEMENTE SPEARS MD May 28, 2024 14:21
[2024-05-28] MEDS: ALBUTEROL SULF 2.5 MG/0.5ML(0.5%) NEB SOLN NEB PRN (19:08)
[2024-05-28] MEDS: IPRATROPIUM BROM 0.5 MG/2.5ML INH SOL NEB PRN (19:09)
--- NOTE | 2024-05-28 19:11 | ECG ---
[facility] Test Date: 2024-05-27 Test Time: 07:22:26 Pat Name: JAVIER MAYNARD Department: ED Room: 0292T Gender: F Utilization Management Manager: GIRISH : 1965 Requested By: RAFIQ BENITEZ Order Number: [id number] Reading MD: Pedrito Argueta Measurements Intervals [place] Rate: 111 P: 72 ND: 131 QRS: 35 QRSD: 92 T: 190 QT: 338 QTc: 460 Interpretive Statements Sinus tachycardia Low voltage, precordial leads RSR' in V1 or V2, probably normal variant Borderline repolarization abnormality Late precordial R/S transition Electronically Signed On 05-29-2024 14:11:32 PST by Pedrito Argueta Please click the below link to view image of tracing.
[2024-05-28 19:38] LABS: Chloride 104 mmol/L (98-107); Sodium 140 mmol/L (136-145)
[2024-05-28 19:39] LABS: Anion Gap 5 (5-15); Carbon Dioxide 31 mmol/L (20-31)
[2024-05-28 19:40] LABS: Calcium 8.4 mg/dL (8.7-10.4); Potassium 3.3 mmol/L (3.5-5.1)
[2024-05-28] MEDS: methylPREDNISolone SOD SUCC 125 MG/2 ML VL IV ONE (19:43)
[2024-05-28 19:44] LABS: BUN/Creatinine Ratio 12.1 (10.0-20.0); Blood Urea Nitrogen 17 mg/dL (9-23)
[2024-05-28 19:46] LABS: Glucose 112 mg/dL (74-106)
--- NOTE | 2024-05-28 20:08 | DVHPN2 ---
Progress Note - Dictate Date Seen: May 28, 2024 Medical Necessity Reason Pt with a Central, PICC or Fol: No Subjective more awake. Patient seen earlier today. vital signs Vital Sign Date Time Temp Pulse Resp B/P (MAP) Pulse Ox O2 Delivery O2 Flow Rate FiO2 05/28/24 19:30 122 32 125/67 (86) 96 05/28/24 18:15 Nasal Cannula* 3 32 05/28/24 16:00 98.8 98.8 Total Intake and Output 05/27/24 05/27/24 05/28/24 15:00 23:00 07:00 Intake Total 1750 ml 700 ml 265 ml Balance 1750 ml 700 ml 265 ml medications Current Medications Medications Dose Ordered Sig/Alvaro Route Start Time Stop Time Status Last Admin Dose Admin Lorazepam 2 mg Q4H PO 05/27/24 09:15 05/28/24 06:10 2 MG Ondansetron HCl 4 mg Q4HP PRN IV 05/27/24 09:15 Nitroglycerin 0.4 mg Q5MINP PRN SL 05/27/24 09:15 Morphine Sulfate 2 mg Q30M PRN IV 05/27/24 09:15 Ceftriaxone Sodium 50 ml @ 100 mls/hr DAILY@09 IV 05/28/24 09:00 05/28/24 08:59 100 MLS/HR Norepinephrine Bitartrate 250 ml @ 3.75 mls/hr Q24H IV 05/27/24 09:45 05/27/24 10:00 3.75 MLS/HR Levothyroxine Sodium 112 mcg DAILY PO 05/27/24 10:00 05/27/24 10:20 112 MCG Sucralfate 1 gm QID PO 05/27/24 12:00 05/28/24 06:11 1 GM Patient Own Medication 1 cap DAILY PO 05/27/24 10:00 UNV Famotidine 20 mg Q48H IV 05/27/24 10:00 05/27/24 10:20 20 MG Fluoxetine HCl 40 mg DAILY PO 05/27/24 10:00 05/27/24 10:19 40 MG Pantoprazole Sodium 40 mg BID IV 05/27/24 22:00 05/28/24 10:40 40 MG Midodrine 10 mg TID@0600,1200,1800 PO 05/27/24 18:00 05/28/24 06:10 10 MG Dextrose/Sodium Chloride 1,000 ml @ 75 mls/hr [id number] IV 05/28/24 04:45 05/28/24 18:11 75 MLS/HR Folic Acid 1 mg/ Magnesium Sulfate 8 meq/ Multivitamins 10 ml/Thiamine HCl 100 mg/Sodium Chloride 1,013.2 ml @ 126.247 mls/hr DAILY@1800 INJ 05/28/24 12:00 05/28/24 13:12 126.247 MLS/HR Lorazepam 1 mg Q2HPRN PRN IV 05/28/24 10:30 05/28/24 11:12 1 MG Albuterol 2.5 mg Q4HPRN PRN NEB 05/28/24 18:45 05/28/24 19:08 2.5 MG Ipratropium [place] 0.5 mg Q4HPRN PRN NEB 05/28/24 18:45 05/28/24 19:09 0.5 MG Methylprednisolone Sodium Succinate 40 mg Q8HR IV 05/29/24 06:00 objective gen: nad lungs: cta cvs: no rub ext: no edema laboratory and microbiology Laboratory Tests 05/28/24 18:00 05/28/24 04:35 Test 05/28/24 18:00 Range/Units Serum Glucose 112 H 74-106 mg/dL Assessment/Plan IMP: 1) hemodynamically mediated acute kidney injury, prerenal state 2) volume depletion 3) Hx of alcohol dependency 4) anemia of chronic disease REC: - resolving acute kidney injury, will continue to follow with you. Plan discussed with: Other QUANG HAIRSTON MD May 28, 2024 20:08
[2024-05-28] MEDS: MAGNESIUM SULFATE 1GM/100ML 100 ML IV ONE (20:35)
[2024-05-28] MEDS: ALBUTEROL SULF 2.5 MG/0.5ML(0.5%) NEB SOLN NEB ONE (20:40)
[2024-05-28] MEDS: IPRATROPIUM BROM 0.5 MG/2.5ML INH SOL NEB ONE (20:40)
--- NOTE | 2024-05-28 21:09 | DVHPN2 ---
Progress Note - Dictate Date Seen: May 28, 2024 (Late entryPatient seen at 8:00 a.m. in ER bed six) Medical Necessity Reason Pt with a Central, PICC or Fol: No Subjective Patient was resting comfortably Yesterday she was somnolent but today she is more awake and alert No GI bleeding is reported Hemoglobin did drop down to 7.3 Liver enzymes are stable and bilirubin is down to 6.9 Ammonia level is 41 Kidney function is improving Patient is noted to have a low TSH suspicious for possible hyperthyroidism vital signs Vital Sign Date Time Temp Pulse Resp B/P (MAP) Pulse Ox O2 Delivery O2 Flow Rate FiO2 05/28/24 20:40 22 93 Nasal Cannula* 3 32 05/28/24 20:00 120 05/28/24 19:45 98.8 125/67 98.8 Total Intake and Output 05/27/24 05/27/24 05/28/24 15:00 23:00 07:00 Intake Total 1750 ml 700 ml 265 ml Balance 1750 ml 700 ml 265 ml medications Current Medications Medications Dose Ordered Sig/Alvaro Route Start Time Stop Time Status Last Admin Dose Admin Lorazepam 2 mg Q4H PO 05/27/24 09:15 05/28/24 06:10 2 MG Ondansetron HCl 4 mg Q4HP PRN IV 05/27/24 09:15 Nitroglycerin 0.4 mg Q5MINP PRN SL 05/27/24 09:15 Morphine Sulfate 2 mg Q30M PRN IV 05/27/24 09:15 Ceftriaxone Sodium 50 ml @ 100 mls/hr DAILY@09 IV 05/28/24 09:00 05/28/24 08:59 100 MLS/HR Norepinephrine Bitartrate 250 ml @ 3.75 mls/hr Q24H IV 05/27/24 09:45 05/27/24 10:00 3.75 MLS/HR Levothyroxine Sodium 112 mcg DAILY PO 05/27/24 10:00 05/27/24 10:20 112 MCG Sucralfate 1 gm QID PO 05/27/24 12:00 05/28/24 06:11 1 GM Patient Own Medication 1 cap DAILY PO 05/27/24 10:00 UNV Famotidine 20 mg Q48H IV 05/27/24 10:00 05/27/24 10:20 20 MG Fluoxetine HCl 40 mg DAILY PO 05/27/24 10:00 05/27/24 10:19 40 MG Pantoprazole Sodium 40 mg BID IV 05/27/24 22:00 05/28/24 10:40 40 MG Midodrine 10 mg TID@0600,1200,1800 PO 05/27/24 18:00 05/28/24 06:10 10 MG Dextrose/Sodium Chloride 1,000 ml @ 75 mls/hr [id number] IV 05/28/24 04:45 05/28/24 18:11 75 MLS/HR Folic Acid 1 mg/ Magnesium Sulfate 8 meq/ Multivitamins 10 ml/Thiamine HCl 100 mg/Sodium Chloride 1,013.2 ml @ 126.247 mls/hr DAILY@1800 INJ 05/28/24 12:00 05/28/24 13:12 126.247 MLS/HR Lorazepam 1 mg Q2HPRN PRN IV 05/28/24 10:30 05/28/24 11:12 1 MG Albuterol 2.5 mg Q4HPRN PRN NEB 05/28/24 18:45 05/28/24 19:08 2.5 MG Ipratropium [place] 0.5 mg Q4HPRN PRN NEB 05/28/24 18:45 05/28/24 19:09 0.5 MG Methylprednisolone Sodium Succinate 40 mg Q8HR IV 05/29/24 06:00 objective General: NAD, AAOX3 HEENT: + scleral icterus Chest: lung lee clear to auscultation Heart: RRR, no murmur Abdomen: Mild -distended, mild generalized tenderness to palpation, +BS laboratory and microbiology Laboratory Tests 05/28/24 18:00 05/28/24 04:35 Test 05/28/24 18:00 Range/Units Serum Glucose 112 H 74-106 mg/dL Gallbladder USG IMPRESSION: 1. Hepatomegaly. Liver parenchyma appears heterogeneously echogenic which May relate to fatty infiltration versus hepatocellular disease. 2. Sludge in the gallbladder. Problems(with codes): (1) Elevated LFTs (2) Hepatic steatosis (3) Hepatic failure (4) Pancreatitis (5) Jaundice (6) Hyperthyroidism (7) Duodenal ulcer disease Prognosis PLAN Monitor lab; hepatitis profile pending, previous hepatitis profile negative Protonix IV b.i.d. Carafate 1 g p.o. twice a day Lactulose 30 mL p.o. daily JAIME discriminant function is 26.6. Patient does not need to be on steroids at this time Patient's previous thyroid profile was suggestive ulcer of hyperparathyroidism, patient needs endocrinology consult and treatment of hyperparathyroidism Get thyroid ultrasound Discussed DC alcohol extensively We will continue to monitor the patient Plan discussed with: Other (ER Nurse and Barbara Parkinson) JARROD PATEL MD May 28, 2024 21:08
[2024-05-28 22:03] LABS: Urine Bacteria None Seen /hpf (None Seen)
[2024-05-28 22:15] LABS: Urine Blood 3+ /uL (Negative); Urine Clarity Clear (Clear); Urine Color Yellow (Yellow); Urine Protein, UAD TRACE (Negative); Urine Specific Gravity 1.005 (1.001-1.035); Urine Squamous Epithelial Cell None Seen /hpf (<5); Urine Urobilinogen 4 mg/dL (Negative); Urine WBC 109 /hpf (0 - 5); Urine pH 6.5 (5.0-9.0)
[2024-05-28 22:19] LABS: Benzodiazephine Screen, Urine Neg (NEGATIVE)
[2024-05-28 22:20] LABS: Cannabinoid Screen, Urine Neg (NEGATIVE)
[2024-05-28 22:29] LABS: Amphetamine Screen, Urine Neg (NEGATIVE); Barbiturate Scree,Urine Neg (NEGATIVE); Cocaine Screen, Urine Neg (NEGATIVE); Opiate Scree,Urine Neg (NEGATIVE); Phencyclidine Screen, Urine Neg (NEGATIVE)
[2024-05-29] VITALS (10 sets, daily range): BP systolic 123–150; BP diastolic 66–72; PULSE 100–122; RESP 21–23; TEMP 98–98.4; O2SAT 91–97
--- NOTE | 2024-05-29 05:30 | DVH ---
ULTRASOUND SOFT TISSUE HEAD AND NECK CLINICAL INDICATION: Hyperparathyroidism TECHNIQUE: Multiple real time sonographic images of the thyroid were obtained. COMPARISON: Prior exam dated none FINDINGS: Evaluation is limited as patient was not cooperative during the exam. The right thyroid gland measures 2.8 x 1.8 x 1.1 cm. The left thyroid gland measures approximately 4.1 x 1.7 x 1.3 cm. The isthmus measures 0.5 cm. The thyroid is diffusely heterogeneous. IMPRESSION: Evaluation is limited as patient was not cooperative during the exam. Heterogeneous thyroid gland. [employer] TI-RADS Categories and Recommendations (2017): TR1: 0 points, Benign, No FNA TR2: 2 points, Not suspicious, No FNA TR3: 3 points, Mildly suspicious, FNA if > or = 2.5 cm, Follow if > or = 1.5 cm TR4: 4-6 points, Moderately Suspicious, FNA if > or = 1.5 cm, Follow if > or = 1.0 cm TR5: 7+ points, Highly Suspicious, FNA if > or = 1.0 cm, Follow if > or = 0.5 cm Follow-up ultrasound guidelines: TR5: yearly for 5 years, if no growth or change in TI-RADS level TR4: at 1, 2, 3 and 5 years, if no growth or change in TI-RADS level TR3: at 1, 3 and 5 years, if no growth or change in TI-RADS level If increased but below threshold for FNA, repeat in one year. Source: ACR Thyroid Imaging, Reporting and Data System (TI-RADS): White Paper of the ACR TI-RADS Committee. Jodi et al., J Am Smith Radiol 2017;14:587-595.
[2024-05-29] MEDS: methylPREDNISolone SOD SUCC 40 MG/ML VL IV SCH (05:45)
[2024-05-29 06:20] LABS: Basophils # (auto) 0 10 ^3/uL (0-0.2); Eosinophils # (auto) 0 10 ^3/uL (0-0.8); Hematocrit 21.1 % (36.0-46.0); Hemoglobin 7.2 g/dL (12.2-16.2); Lymphocytes # (auto) 0.3 10 ^3/uL (0.4-5.4); Monocytes # (auto) 0.9 10 ^3/uL (0-1.3); Platelet Count (auto) 86 10^3/uL (140-450); Red Blood Cells 1.67 10^6/uL (4.0-5.20)
[2024-05-29 06:22] LABS: Basophils % (auto) 0.3 % (0.0-2.0); Lymphocytes % (auto) 2.9 % (10.0-50.0); Mean Corpuscular Hemoglobin 42.9 pg (28.0-32.0); Mean Corpuscular Volume 126.3 fL (80.0-100.0); Monocytes % (auto) 8.7 % (0.0-12.0); Neutrophils # (auto) 9.6 10 ^3/uL (1.6-8.6); Neutrophils % (auto) 88.1 % (37.0-80.0); Nucleated Red Blood Cells % 0.2 %; Red Cell Distribution Width 14.6 % (11.8-14.3); White Blood Cell 10.9 10^3/uL (4.4-10.8)
[2024-05-29 06:32] LABS: Alanine Aminotransferase 26 U/L (7-40); Anion Gap 10 (5-15); Blood Urea Nitrogen 13 mg/dL (9-23); Calcium 8.7 mg/dL (8.7-10.4); Carbon Dioxide 25 mmol/L (20-31); Chloride 106 mmol/L (98-107); Potassium 3.6 mmol/L (3.5-5.1); Sodium 141 mmol/L (136-145)
[2024-05-29 06:34] LABS: Albumin 2.4 g/dL (3.2-4.8); Alkaline Phosphatase 140 U/L (46-116); Aspartate Aminotransferase 73 U/L (13-40); Bilirubin, Total 6.5 mg/dL (0.2-1.0); Glucose 194 mg/dL (74-106); Total Protein 5.3 g/dL (5.7-8.2)
[2024-05-29 07:17] LABS: Macrocytosis Marked; Platelet Estimate Decreased
--- NOTE | 2024-05-29 13:03 | DVHPN2 ---
Reviewed: Care Plan, H&P, Labs, Medications, Previous Orders, Radiology Changes from previous H/P or p: No Changes Eyes: No Pain, No Vision change, No Conjunctivae inflammation, No Eyelid inflammation, No Other, No Redness ENT: No Ear pain, No Ear discharge, No Nose pain, No Nose discharge, No Nose congestion, No Mouth pain, No Mouth swelling, No Throat pain, No Throat swelling, No Other Cardiovascular: Chest Pain; No Palpitations, No Orthopnea, No Paroxysmal Noc. Dyspnea, No Edema, No Lt Headedness, No Other Respiratory: No Cough, No Dry, No Shortness of breath, No SOB with excertion, No Wheezing, No Hemoptysis, No Pleuritic Pain, No Sputum, No Other Gastrointestinal: No Nausea, No Vomiting; Abdominal Pain; No Diarrhea, No Constipation, No Melena; Hematochezia; No Other Genitourinary: No Dysuria; Frequency; No Incontinence, No Hematuria; Retention; No Other Musculoskeletal: No other, No neck pain, No shoulder pain, No arm pain, No back pain, No hand pain, No leg pain, No foot pain Skin: No Rash, No Lesions, No Jaundice, No Bruising, No Other Objective Vitals Vital Signs Date Time Temp Pulse Resp B/P (MAP) Pulse Ox O2 Delivery O2 Flow Rate FiO2 05/29/24 11:45 108 05/29/24 09:29 18 137/80 (99) 96 05/29/24 09:01 Nasal Cannula* 6 44 05/28/24 19:45 98.8 98.8 Intake/Output Intake and Output 05/29/24 07:00 Intake Total 2116.50 ml Output Total 1385 ml Balance 731.50 ml Intake IV Total 2116.50 ml Output Urine Total 1385 ml Medications Current Medications Medications Dose Ordered Sig/Alvaro Route Start Time Stop Time Status Last Admin Dose Admin Lorazepam 2 mg Q4H PO 05/27/24 09:15 05/28/24 06:10 2 MG Ondansetron HCl 4 mg Q4HP PRN IV 05/27/24 09:15 Nitroglycerin 0.4 mg Q5MINP PRN SL 05/27/24 09:15 Morphine Sulfate 2 mg Q30M PRN IV 05/27/24 09:15 Ceftriaxone Sodium 50 ml @ 100 mls/hr DAILY@09 IV 05/28/24 09:00 05/29/24 09:00 100 MLS/HR Levothyroxine Sodium 112 mcg DAILY PO 05/27/24 10:00 05/27/24 10:20 112 MCG Sucralfate 1 gm QID PO 05/27/24 12:00 05/28/24 06:11 1 GM Patient Own Medication 1 cap DAILY PO 05/27/24 10:00 UNV Famotidine 20 mg Q48H IV 05/27/24 10:00 05/29/24 09:50 20 MG Fluoxetine HCl 40 mg DAILY PO 05/27/24 10:00 05/27/24 10:19 40 MG Pantoprazole Sodium 40 mg BID IV 05/27/24 22:00 05/29/24 09:50 40 MG Midodrine 10 mg TID@0600,1200,1800 PO 05/27/24 18:00 05/28/24 06:10 10 MG Dextrose/Sodium Chloride 1,000 ml @ 75 mls/hr [id number] IV 05/28/24 04:45 05/29/24 06:30 75 MLS/HR Folic Acid 1 mg/ Magnesium Sulfate 8 meq/ Multivitamins 10 ml/Thiamine HCl 100 mg/Sodium Chloride 1,013.2 ml @ 126.247 mls/hr DAILY@1800 INJ 05/28/24 12:00 05/28/24 13:12 126.247 MLS/HR Lorazepam 1 mg Q2HPRN PRN IV 05/28/24 10:30 05/29/24 12:45 1 MG Albuterol 2.5 mg Q4HPRN PRN NEB 05/28/24 18:45 05/28/24 19:08 2.5 MG Ipratropium [place] 0.5 mg Q4HPRN PRN NEB 05/28/24 18:45 05/28/24 19:09 0.5 MG Methylprednisolone Sodium Succinate 40 mg Q8HR IV 05/29/24 06:00 05/29/24 05:45 40 MG Laboratory Results Laboratory Tests 05/29/24 05:10 Chemistry Test 05/28/24 18:00 05/29/24 05:10 Calcium Level 8.4 mg/dL (8.7-10.4) L 8.7 mg/dL (8.7-10.4) Albumin 2.4 g/dL (3.2-4.8) L Total Protein 5.3 g/dL (5.7-8.2) L LFT Test 05/29/24 05:10 Alanine Aminotransferase (ALT) 26 U/L (7-40) Alkaline Phosphatase 140 U/L (46-116) H Aspartate Amino Transferase (AST) 73 U/L (13-40) H Total Bilirubin 6.5 mg/dL (0.2-1.0) H Urinalysis Test 05/28/24 21:45 Urine Color Yellow (Yellow) Urine Clarity Clear (Clear) Urine pH 6.5 (5.0-9.0) Urine Specific [place] 1.005 (1.001-1.035) Urine Protein Trace (Negative) H Urine Ketones Negative (Negative) Urine Blood 3+ /uL (Negative) H Urine Nitrite Negative (Negative) Urine Bilirubin Negative (Negative) Urine Urobilinogen 4 mg/dL (Negative) H Urine Leukocyte Esterase Trace /uL (Negative) Urine RBC 21 /hpf (0 - 4) Urine WBC 109 /hpf (0 - 5) Urine Squamous Epithelial Cells None seen /hpf (<5) Urine Bacteria None seen /hpf (None Seen) Urine Glucose Normal mg/dL (Normal) Labs and/or images reviewed: Labs reviewed by me, Image(s) reviewed by me Assessment/Plan Assessment/Plan Atypical chest pain likely secondary to alcohol abuse Intractable abdominal pain likely 2nd to ETOH abuse Hepatorenal syndrome Leukocytosis and lactic acidosis likely 2nd to sepsis: Rocephin Anemia Thrombocytopenia Hypothyroidism: Synthroid Hyperparathyroidism: Outpatient workup Hypokalemia Alcoholic withdrawal: Banana bag Librium MONSE: Consult by Dr. Tate appreciated Hyponatremia Elevated LFTs Jaundice Chronic pancreatitis Chronic current alcohol abuse: Banana bag, Ativan Marijuana abuse Time spent 65 minutes Patient is full code Condition guarded Advanced care planning time 20 minute Plan discussed with: Patient My Orders Orders - CLEMENTE SPEARS MD Procedure Category Date Status Time Complete Blood Count LAB 05/30/24 Verified 05:00 Complete Blood Count LAB 05/31/24 Verified 05:00 Complete Blood Count LAB 06/01/24 Verified 05:00 Comprehensive LAB 05/30/24 Verified Metabolic Panel 05:00 Comprehensive LAB 05/31/24 Verified Metabolic Panel 05:00 Comprehensive LAB 06/01/24 Verified Metabolic Panel 05:00 Communication Order ORDERS 05/28/24 Transmitted 12:34 Transfer Orders XFER 05/28/24 Transmitted 18:03 Date of Service: May 29, 2024 Billing Provider: CLEMENTE SPEARS MD Common Visit Codes: [id number]-COPRHLAC CARE 30-74 MIN CLEMENTE SPEARS MD May 29, 2024 13:03
[2024-05-29] MEDS: chlordiazePOXIDE HCL 25 MG CAP PO SCH (13:15)
--- NOTE | 2024-05-29 15:41 | DVHPN2 ---
Progress Note - Dictate Date Seen: May 29, 2024 Medical Necessity Reason Pt with a Central, PICC or Fol: No Subjective No new complaints No GI bleeding is reported Hemoglobin stable at 7.2 Liver enzymes are stable and bilirubin is down to 6.5 Ammonia level is down to 37 Kidney function is improving Patient is noted to have a low TSH suspicious for possible hyperthyroidism vital signs Vital Sign Date Time Temp Pulse Resp B/P (MAP) Pulse Ox O2 Delivery O2 Flow Rate FiO2 05/29/24 11:45 108 05/29/24 09:29 18 137/80 (99) 96 05/29/24 09:01 Nasal Cannula* 6 44 05/28/24 19:45 98.8 98.8 Total Intake and Output 05/28/24 05/28/24 05/29/24 15:00 23:00 07:00 Intake Total 1039.50 ml 927 ml 150 ml Output Total 535 ml 850 ml Balance 504.50 ml 77 ml 150 ml medications Current Medications Medications Dose Ordered Sig/Alvaro Route Start Time Stop Time Status Last Admin Dose Admin Lorazepam 2 mg Q4H PO 05/27/24 09:15 05/28/24 06:10 2 MG Ondansetron HCl 4 mg Q4HP PRN IV 05/27/24 09:15 Nitroglycerin 0.4 mg Q5MINP PRN SL 05/27/24 09:15 Morphine Sulfate 2 mg Q30M PRN IV 05/27/24 09:15 Ceftriaxone Sodium 50 ml @ 100 mls/hr DAILY@09 IV 05/28/24 09:00 05/29/24 09:00 100 MLS/HR Levothyroxine Sodium 112 mcg DAILY PO 05/27/24 10:00 05/27/24 10:20 112 MCG Sucralfate 1 gm QID PO 05/27/24 12:00 05/28/24 06:11 1 GM Patient Own Medication 1 cap DAILY PO 05/27/24 10:00 UNV Famotidine 20 mg Q48H IV 05/27/24 10:00 05/29/24 09:50 20 MG Fluoxetine HCl 40 mg DAILY PO 05/27/24 10:00 05/27/24 10:19 40 MG Pantoprazole Sodium 40 mg BID IV 05/27/24 22:00 05/29/24 09:50 40 MG Midodrine 10 mg TID@0600,1200,1800 PO 05/27/24 18:00 05/28/24 06:10 10 MG Dextrose/Sodium Chloride 1,000 ml @ 75 mls/hr [id number] IV 05/28/24 04:45 05/29/24 06:30 75 MLS/HR Folic Acid 1 mg/ Magnesium Sulfate 8 meq/ Multivitamins 10 ml/Thiamine HCl 100 mg/Sodium Chloride 1,013.2 ml @ 126.247 mls/hr DAILY@1800 INJ 05/28/24 12:00 05/28/24 13:12 126.247 MLS/HR Lorazepam 1 mg Q2HPRN PRN IV 05/28/24 10:30 05/29/24 12:45 1 MG Albuterol 2.5 mg Q4HPRN PRN NEB 05/28/24 18:45 05/28/24 19:08 2.5 MG Ipratropium [place] 0.5 mg Q4HPRN PRN NEB 05/28/24 18:45 05/28/24 19:09 0.5 MG Methylprednisolone Sodium Succinate 40 mg Q8HR IV 05/29/24 06:00 05/29/24 15:00 40 MG Chlordiazepoxide HCl 50 mg Q8H PO 05/29/24 13:15 05/30/24 05:16 Chlordiazepoxide HCl 50 mg Q12HR PO 05/30/24 10:00 05/30/24 22:01 Chlordiazepoxide HCl 25 mg Q12HR PO 05/31/24 10:00 05/31/24 22:01 Chlordiazepoxide HCl 25 mg QAM PO 06/01/24 07:00 06/01/24 07:01 objective General: NAD, AAOX3 HEENT: + scleral icterus Chest: lung lee clear to auscultation Heart: RRR, no murmur Abdomen: Mild -distended, mild generalized tenderness to palpation, +BS laboratory and microbiology Laboratory Tests 05/29/24 05:10 Test 05/29/24 05:10 Range/Units Serum Glucose 194 H 74-106 mg/dL Thyroid USG FINDINGS: Evaluation is limited as patient was not cooperative during the exam. The right thyroid gland measures 2.8 x 1.8 x 1.1 cm. The left thyroid gland measures approximately 4.1 x 1.7 x 1.3 cm. The isthmus measures 0.5 cm. The thyroid is diffusely heterogeneous. IMPRESSION: Evaluation is limited as patient was not cooperative during the exam. Heterogeneous thyroid gland. Problems(with codes): (1) Duodenal ulcer disease (2) Elevated LFTs (3) Hepatic failure (4) Abdominal pain (5) Hepatic steatosis (6) Pancreatitis (7) Jaundice (8) Hyperthyroidism Prognosis PLAN Monitor lab; hepatitis profile pending, previous hepatitis profile negative Protonix IV b.i.d. for history of duodenal ulcer disease Carafate 1 g p.o. twice a day If hemoglobin drops below seven we will transfuse 1 unit PRBC IV Iron supplementation Lactulose 30 mL p.o. daily [facility] discriminant function is 26.6 and trending down. Patient does not need to be on steroids at this time Patient's previous thyroid profile was suggestive of hyperparathyroidism, patient needs endocrinology consult and treatment of hyperparathyroidism Discussed DC alcohol extensively We will continue to monitor the patient Plan discussed with: Patient, Other (None) JARROD PATEL MD May 29, 2024 15:41
--- NOTE | 2024-05-29 17:19 | DVHPN2 ---
Progress Note - Dictate Date Seen: May 29, 2024 Medical Necessity Reason Pt with a Central, PICC or Fol: No Subjective Denies shortness of breath vital signs Vital Sign Date Time Temp Pulse Resp B/P (MAP) Pulse Ox O2 Delivery O2 Flow Rate FiO2 05/29/24 16:31 98.0 100 22 150/68 (95) 97 98.0 05/29/24 09:01 Nasal Cannula* 6 44 Total Intake and Output 05/28/24 05/28/24 05/29/24 15:00 23:00 07:00 Intake Total 1039.50 ml 927 ml 150 ml Output Total 535 ml 850 ml Balance 504.50 ml 77 ml 150 ml medications Current Medications Medications Dose Ordered Sig/Alvaro Route Start Time Stop Time Status Last Admin Dose Admin Lorazepam 2 mg Q4H PO 05/27/24 09:15 05/28/24 06:10 2 MG Ondansetron HCl 4 mg Q4HP PRN IV 05/27/24 09:15 Nitroglycerin 0.4 mg Q5MINP PRN SL 05/27/24 09:15 Morphine Sulfate 2 mg Q30M PRN IV 05/27/24 09:15 Ceftriaxone Sodium 50 ml @ 100 mls/hr DAILY@09 IV 05/28/24 09:00 05/29/24 09:00 100 MLS/HR Levothyroxine Sodium 112 mcg DAILY PO 05/27/24 10:00 05/27/24 10:20 112 MCG Sucralfate 1 gm QID PO 05/27/24 12:00 05/28/24 06:11 1 GM Patient Own Medication 1 cap DAILY PO 05/27/24 10:00 UNV Famotidine 20 mg Q48H IV 05/27/24 10:00 05/29/24 09:50 20 MG Fluoxetine HCl 40 mg DAILY PO 05/27/24 10:00 05/27/24 10:19 40 MG Pantoprazole Sodium 40 mg BID IV 05/27/24 22:00 05/29/24 09:50 40 MG Midodrine 10 mg TID@0600,1200,1800 PO 05/27/24 18:00 05/28/24 06:10 10 MG Dextrose/Sodium Chloride 1,000 ml @ 75 mls/hr [id number] IV 05/28/24 04:45 05/29/24 06:30 75 MLS/HR Folic Acid 1 mg/ Magnesium Sulfate 8 meq/ Multivitamins 10 ml/Thiamine HCl 100 mg/Sodium Chloride 1,013.2 ml @ 126.247 mls/hr DAILY@1800 INJ 05/28/24 12:00 05/28/24 13:12 126.247 MLS/HR Lorazepam 1 mg Q2HPRN PRN IV 05/28/24 10:30 05/29/24 12:45 1 MG Albuterol 2.5 mg Q4HPRN PRN NEB 05/28/24 18:45 05/28/24 19:08 2.5 MG Ipratropium [place] 0.5 mg Q4HPRN PRN NEB 05/28/24 18:45 05/28/24 19:09 0.5 MG Methylprednisolone Sodium Succinate 40 mg Q8HR IV 05/29/24 06:00 05/29/24 15:00 40 MG Chlordiazepoxide HCl 50 mg Q8H PO 05/29/24 13:15 05/30/24 05:16 Chlordiazepoxide HCl 50 mg Q12HR PO 05/30/24 10:00 05/30/24 22:01 Chlordiazepoxide HCl 25 mg Q12HR PO 05/31/24 10:00 05/31/24 22:01 Chlordiazepoxide HCl 25 mg QAM PO 06/01/24 07:00 06/01/24 07:01 objective gen: nad lungs: cta cvs: no rub ext: no edema laboratory and microbiology Laboratory Tests 05/29/24 05:10 Test 05/29/24 05:10 Range/Units Serum Glucose 194 H 74-106 mg/dL Assessment/Plan IMP: 1) hemodynamically mediated acute kidney injury, prerenal state 2) volume depletion 3) Hx of alcohol dependency 4) anemia of chronic disease REC: - brisk resolution to acute kidney injury - No new recommendations from nephrology perspective, I will sign off of her case. Please reconsult as needed. Thank you. Plan discussed with: Other QUANG HAIRSTON MD May 29, 2024 17:19
[2024-05-29] MEDS: LORazepam 2MG/ML-1ML VIAL IV SCH (22:00)
[2024-05-30] VITALS (48 sets, daily range): BP systolic 91–153; BP diastolic 44–86; PULSE 103–135; RESP 20–36; TEMP 97.4–98.4; O2SAT 88–100
[2024-05-30 07:22] LABS: Eosinophils # (auto) 0 10 ^3/uL (0-0.8); Hemoglobin 7.9 g/dL (12.2-16.2); Lymphocytes # (auto) 1.3 10 ^3/uL (0.4-5.4); White Blood Cell 22.6 10^3/uL (4.4-10.8)
[2024-05-30 07:24] LABS: Basophils # (auto) 0.1 10 ^3/uL (0-0.2); Basophils % (auto) 0.2 % (0.0-2.0); Hematocrit 24.4 % (36.0-46.0); Lymphocytes % (auto) 5.8 % (10.0-50.0); Mean Corpuscular Hemoglobin 42.2 pg (28.0-32.0); Mean Corpuscular Hgb Conc. 32.6 g/dL (32.0-36.0); Mean Corpuscular Volume 129.3 fL (80.0-100.0); Monocytes # (auto) 2.3 10 ^3/uL (0-1.3); Monocytes % (auto) 10.2 % (0.0-12.0); Neutrophils % (auto) 83.8 % (37.0-80.0); Nucleated Red Blood Cells % 0.8 %; Platelet Count (auto) 86 10^3/uL (140-450); Red Blood Cells 1.89 10^6/uL (4.0-5.20); Red Cell Distribution Width 15.6 % (11.8-14.3)
[2024-05-30 08:09] LABS: Alanine Aminotransferase 38 U/L (7-40); Alkaline Phosphatase 139 U/L (46-116); Anion Gap 10 (5-15); BUN/Creatinine Ratio 17.1 (10.0-20.0); Blood Urea Nitrogen 13 mg/dL (9-23); Calcium 9.2 mg/dL (8.7-10.4); Carbon Dioxide 24 mmol/L (20-31); Chloride 113 mmol/L (98-107); Glucose 134 mg/dL (74-106); Potassium 3.9 mmol/L (3.5-5.1); Sodium 147 mmol/L (136-145)
[2024-05-30 08:11] LABS: Albumin 2.5 g/dL (3.2-4.8); Aspartate Aminotransferase 99 U/L (13-40); Bilirubin, Total 7.8 mg/dL (0.2-1.0); Total Protein 5.3 g/dL (5.7-8.2)
[2024-05-30 09:32] LABS: Hepatitis A Ab IgM Negative; Hepatitis B Core IgM Negative (Negative); Hepatitis B Surface Antigen Negative (Negative); Hepatitis C Antibody Negative (Negative)
[2024-05-30] MEDS: chlordiazePOXIDE HCL 25 MG CAP PO SCH (10:00)
[2024-05-30] MEDS: DEXTROSE 50% SYRINGE 50 ML IV ONE (10:20)
[2024-05-30 10:27] LABS: Base Excess 2.3 mmol/L (-2.0-3.0)
[2024-05-30 11:40] LABS: Macrocytosis Moderate
[2024-05-30 11:42] LABS: Large Platelets FEW; Platelet Estimate Decrea; Target Cell FEW
[2024-05-30 11:42] LABS: Lactic Acid w/Reflex 2.4 mmol/L (0.4-2.0)
[2024-05-30 12:05] LABS: Free T3 0.77 pg/mL (2.3-4.2); Free T4 (Free Thyroxine) 1.14 ng/dL (0.89-1.76)
--- NOTE | 2024-05-30 12:07 | DVHPN2 ---
Reviewed: Care Plan, H&P, Labs, Medications, Previous Orders, Radiology Changes from previous H/P or p: No Changes Eyes: No Pain, No Vision change, No Conjunctivae inflammation, No Eyelid inflammation, No Other, No Redness ENT: No Ear pain, No Ear discharge, No Nose pain, No Nose discharge, No Nose congestion, No Mouth pain, No Mouth swelling, No Throat pain, No Throat swelling, No Other Cardiovascular: Chest Pain; No Palpitations, No Orthopnea, No Paroxysmal Noc. Dyspnea, No Edema, No Lt Headedness, No Other Respiratory: No Cough, No Dry, No Shortness of breath, No SOB with excertion, No Wheezing, No Hemoptysis, No Pleuritic Pain, No Sputum, No Other Gastrointestinal: No Nausea, No Vomiting; Abdominal Pain; No Diarrhea, No Constipation, No Melena; Hematochezia; No Other Genitourinary: No Dysuria; Frequency; No Incontinence, No Hematuria; Retention; No Other Musculoskeletal: No other, No neck pain, No shoulder pain, No arm pain, No back pain, No hand pain, No leg pain, No foot pain Skin: No Rash, No Lesions, No Jaundice, No Bruising, No Other Objective Vitals Vital Signs Date Time Temp Pulse Resp B/P (MAP) Pulse Ox O2 Delivery O2 Flow Rate FiO2 05/30/24 10:42 130 32 91 05/30/24 10:31 Nasal Cannula* 6 44 05/30/24 09:00 97.6 150/86 (107) 97.6 Intake/Output Intake and Output 05/30/24 07:00 Intake Total 1558.729 ml Output Total 1950 ml Balance -391.271 ml Intake Oral 0 ml IV Total 1558.729 ml Output Urine Total 1950 ml Medications Current Medications Medications Dose Ordered Sig/Alvaro Route Start Time Stop Time Status Last Admin Dose Admin Lorazepam 2 mg Q4H PO 05/27/24 09:15 05/28/24 06:10 2 MG Ondansetron HCl 4 mg Q4HP PRN IV 05/27/24 09:15 Nitroglycerin 0.4 mg Q5MINP PRN SL 05/27/24 09:15 Morphine Sulfate 2 mg Q30M PRN IV 05/27/24 09:15 Ceftriaxone Sodium 50 ml @ 100 mls/hr DAILY@ IV 05/28/24 09:00 05/30/24 09:45 100 MLS/HR Levothyroxine Sodium 112 mcg DAILY PO 05/27/24 10:00 05/27/24 10:20 112 MCG Sucralfate 1 gm QID PO 05/27/24 12:00 05/28/24 06:11 1 GM Patient Own Medication 1 cap DAILY PO 05/27/24 10:00 UNV Famotidine 20 mg Q48H IV 05/27/24 10:00 05/29/24 09:50 20 MG Fluoxetine HCl 40 mg DAILY PO 05/27/24 10:00 05/27/24 10:19 40 MG Pantoprazole Sodium 40 mg BID IV 05/27/24 22:00 05/30/24 09:45 40 MG Midodrine 10 mg TID@0600,1200,1800 PO 05/27/24 18:00 05/28/24 06:10 10 MG Dextrose/Sodium Chloride 1,000 ml @ 75 mls/hr [id number] IV 05/28/24 04:45 05/29/24 21:25 75 MLS/HR Folic Acid 1 mg/ Magnesium Sulfate 8 meq/ Multivitamins 10 ml/Thiamine HCl 100 mg/Sodium Chloride 1,013.2 ml @ 126.247 mls/hr DAILY@1800 INJ 05/28/24 12:00 05/29/24 18:22 126.247 MLS/HR Albuterol 2.5 mg Q4HPRN PRN NEB 05/28/24 18:45 05/30/24 10:31 2.5 MG Ipratropium [place] 0.5 mg Q4HPRN PRN NEB 05/28/24 18:45 05/30/24 10:31 0.5 MG Methylprednisolone Sodium Succinate 40 mg Q8HR IV 05/29/24 06:00 05/30/24 06:07 40 MG Chlordiazepoxide HCl 50 mg Q12HR PO 05/30/24 10:00 05/30/24 22:01 Chlordiazepoxide HCl 25 mg Q12HR PO 05/31/24 10:00 05/31/24 22:01 Chlordiazepoxide HCl 25 mg QAM PO 06/01/24 07:00 06/01/24 07:01 Lorazepam 1 mg Q4HPRN IV 05/29/24 22:00 05/30/24 10:20 1 MG Laboratory Results Laboratory Tests 05/30/24 06:44 Chemistry Test 05/30/24 06:44 Albumin 2.5 g/dL (3.2-4.8) L Calcium Level 9.2 mg/dL (8.7-10.4) Total Protein 5.3 g/dL (5.7-8.2) L LFT Test 05/30/24 06:44 Alanine Aminotransferase (ALT) 38 U/L (7-40) Alkaline Phosphatase 139 U/L (46-116) H Aspartate Amino Transferase (AST) 99 U/L (13-40) H Total Bilirubin 7.8 mg/dL (0.2-1.0) H Urinalysis Test 05/28/24 21:45 Urine Color Yellow (Yellow) Urine Clarity Clear (Clear) Urine pH 6.5 (5.0-9.0) Urine Specific [place] 1.005 (1.001-1.035) Urine Protein Trace (Negative) H Urine Ketones Negative (Negative) Urine Blood 3+ /uL (Negative) H Urine Nitrite Negative (Negative) Urine Bilirubin Negative (Negative) Urine Urobilinogen 4 mg/dL (Negative) H Urine Leukocyte Esterase Trace /uL (Negative) Urine RBC 21 /hpf (0 - 4) Urine WBC 109 /hpf (0 - 5) Urine Squamous Epithelial Cells None seen /hpf (<5) Urine Bacteria None seen /hpf (None Seen) Urine Glucose Normal mg/dL (Normal) Blood Gas Results Test 05/30/24 10:17 Arterial Blood pH 7.523 (7.350-7.450) FiO2 % 21.0 Labs and/or images reviewed: Labs reviewed by me, Image(s) reviewed by me Assessment/Plan Assessment/Plan Acute Hypoxic respiratory failure: Consult for Dr. oRd for possible intubation Atypical chest pain likely secondary to alcohol abuse Intractable abdominal pain likely 2nd to ETOH abuse , GI consult by Dr. Maya appreciated, pantoprazole Carafate Hepatorenal syndrome Leukocytosis and lactic acidosis likely 2nd to sepsis: Rocephin Anemia Thrombocytopenia Hypothyroidism: Synthroid Hyperparathyroidism: Outpatient workup Hypokalemia Alcoholic withdrawal: Banana bag Librium MONSE: Consult by Dr. Tate appreciated Hyponatremia Elevated LFTs Jaundice Chronic pancreatitis Chronic current alcohol abuse: Banana bag, Ativan Marijuana abuse Patient is full code Condition guarded Patient's friend of last three years [place] [phone] bedside and advised the possibility of intubation and he agreed Acute respiratory failure: Consult for Dr. Rod Time spent 70 minute Transferred to ICU Condition Critical Plan discussed with: Patient My Orders Orders - CLEMENTE SPEARS MD Procedure Category Date Status Time Chlordiazepoxide Hcl PHA 05/30/24 In Process Capsule (Librium Ca 10:00 Chlordiazepoxide Hcl PHA 05/31/24 In Process Capsule (Librium Ca 10:00 Chlordiazepoxide Hcl PHA 06/01/24 In Process Capsule (Librium Ca 07:00 *Consult CONS 05/30/24 Transmitted / 10:00 Lactic Acid W/ Reflex LAB 05/30/24 In Process Order 10:00 Abg W/ Co-Ox RT 05/30/24 Logged 10:00 Date of Service: May 30, 2024 Billing Provider: CLEMENTE SPEARS MD Common Visit Codes: [id number] CARE 30-74 MIN, [id number] CARE-EACH +30MIN CLEMENTE SPEARS MD May 30, 2024 12:07
[2024-05-30] MEDS: DexAMETHasone SOD PHOS 10MG/1ML VIAL INJ ONE (12:26)
[2024-05-30] MEDS: BUDESONIDE (INHALATION) 0.5 MG/2 ML NEB ONE (12:31)
[2024-05-30] MEDS: BUDESONIDE (INHALATION) 0.5 MG/2 ML NEB NEB STA (12:36)
[2024-05-30] MEDS: EPINEPHrine HCL 0.5 ML NEB NEB ONE (12:36)
--- NOTE | 2024-05-30 12:57 | DVH ---
AP portable chest HISTORY: respiratory distress Comparison: 05/27/2024 FINDINGS: Heart size is enlarged. IMPRESSION: No change in positioning of the central line. There is bilateral patchy airspace disease throughout all lung lee more severe in the left than the right 1. Compared to previous exam dramatic worsening of bilateral infiltrates or congestive changes
--- NOTE | 2024-05-30 13:21 | ECG ---
[facility] Test Date: 2024-05-27 Test Time: 08:42:33 Pat Name: JAVIER MAYNARD Department: ed Room: [address] [place] [address] Gender: F [employer] Chair: bp : 1965 Requested By: RAFIQ BENITEZ Order Number: [id number] Reading MD: Zulema Michaud Measurements Intervals [place] Rate: 116 P: 81 NE: 139 QRS: 37 QRSD: 87 T: 175 QT: 333 QTc: 463 Interpretive Statements Sinus tachycardia Low voltage, precordial leads RSR' in V1 or V2, probably normal variant Repolarization abnormalities suggest inferolateral ischemia Electronically Signed On 05-30-2024 22:16:23 PST by Zulema Michaud Please click the below link to view image of tracing.
[2024-05-30] MEDS: EPINEPHrine HCL 0.5 ML NEB ONE (13:35)
[2024-05-30] MEDS: DexAMETHasone SOD PHOS 10MG/1ML VIAL INJ IV ONE (13:35)
[2024-05-30] MEDS ORDERED: NOREPINEPHRINE 8 MG/250ML KIT 250 ML IV SCH ×2 (13:45→14:15)
[2024-05-30] MEDS ORDERED: MIDAZOLAM DRIP 50 mg/50mL 50 ML IV SCH (13:45)
[2024-05-30] MEDS ORDERED: fentaNYL Drip 2500mCg/250mlNS 250 ML IV SCH (13:45)
--- NOTE | 2024-05-30 14:34 | DVH ---
CHEST RADIOGRAPH Indication: s/p intubation Technique: Single frontal view of the chest was obtained COMPARISON: XY CHEST PORTABLE on DOS: 05/30/24, XY CHEST XRAY 1 VIEW on DOS: 05/27/24, XY CHEST GLENIS BLE on DOS: 08/22/23, XY CHEST PORTABLE on DOS: 09/18/22, XY CHEST XRAY 1 VIEW on DOS: 09/17/22 FINDINGS: Lines and Tubes: Endotracheal tube and right central venous catheter in satisfactory position. Lungs: Severe multifocal airspace disease. Possible ARDS. Pleura: No effusion. No pneumothorax. Cardiomediastinal contours: Unremarkable Bones: Unremarkable IMPRESSION: Lines and tubes in satisfactory position. No significant interval change.
--- NOTE | 2024-05-30 14:40 | DVHNC2 ---
Procedure - Procedure: Endotracheal Intubation INDICATION: Acute hypoxic respiratory failure, accessory muscle usage, suspected mucous plugging Physician: Biju Rod MD CONSENT: Emergent procedure. Implied. RN: Shahid Masterson Coremaking Supervisor: Dr Chilel Time out time: 1340 Patient medications and allergies reviewed. Patient identification and proposed procedure were verified prior to the procedure by the physician, and a nurse in the patient's room. The heart rate, respiratory rate, oxygen saturations, blood pressure, adequacy of pulmonary ventilation, and response to care were monitored throughout the procedure. The physical status of the patient was reassessed after the procedure. PROCEDURE SUMMARY: A time out was performed. My hands were washed immediately prior to the procedure. I wore a surgical cap, mask with protective eyewear, gown and gloves throughout the procedure. The patient was placed on a cardiac nurse specialist including continuous pulse oximetry. The patient received 16 mg Etomidate and 50 mg rocuronium for induction. Cricoid pressure was maintained from time induction agent was given to time of cuff balloon inflation. Using a MAC 4 GlideoScope and a size 8.0 endotracheal tube with stylet, the patient was intubated on the 2 attempt. The stylet was removed and cuff balloon was inflated. Appropriate endotracheal tube position was confirmed by direct visualization of vocal cord passage, fogging of the tube, CO2 colorimetric indicator and symmetric breath sounds. The tube was secured at 23 cm at the lips. Post intubation chest x-ray is demonstrates the ETT between 4 cm above the diana. CPT Code: 65160 BIJU ROD MD May 30, 2024 14:40
--- NOTE | 2024-05-30 14:41 | DVHNC2 ---
Procedure - Bronchoscopy procedure note: Indications: Left lower lobe atelectasis, Possible mucous plugging. Medicines: See PHYSICIAN'S ASSISTANT notes. Complications: None Procedure: Patient medications and allergies reviewed. The risks and benefits of the procedure and the sedation options and risk were discussed with the patient's healthcare proxy. All questions were answered and informed consent was obtained. Patient identification and proposed procedure were verified prior to the procedure by the physician, and a nurse, and the respiratory therapist in ICU room. The heart rate, respiratory rate, oxygen saturations, blood pressure, adequacy of pulmonary ventilation, and response to care were monitored throughout the procedure. The physical status of the patient was reassessed after the procedure. After obtaining informed consent, the bronchoscope was introduced through the endotracheal tube and advanced into the trachea bronchial tree of both lungs. The procedure was accomplished without difficulty. The patient tolerated the procedure well. Findings: The trachea is in normal caliber. The diana is sharp. The tracheobronchial tree of the right lung was examined to at least the first subsegmental level. The bronchial mucosa and anatomy in the right lung are normal. There are no endobronchial lesions. There was copious whitish secretions from right main stem bronchus onward throughout R61-R10. Right middle lobe (RML) Bronchoalveolar lavage (BAL) obtained. RML BAL sent for gram stain and culture. The left upper lobe, lingula, and left lower lobe were examined to at least the first subsegmental level. Bronchial mucosa and anatomy in the left upper lobe and lingula are normal. There were no endobronchial lesions. There was copious whitish secretions from left main stem bronchus onward throughout L1-L10. Mucous plugging removed from L1-L10. There was no active bleeding at the completion of the procedure. Estimated blood loss: Less than 5 mL. Impression: Right lower lobe and Left upper/lingular/lower lobe atelectasis due to mucous plugging Mucous plugging from L1-L10 and R6-R10 RML BAL performed Recommendation: Follow-up RML BAL results. Procedure codes: 95317, bronchoscopy, rigid and flexible, including fluoroscopic guidance, one performed; with bronchial endobronchial broncho-alveolar lavage, single or multiple sites TAE DUPREE MD May 30, 2024 14:41
--- NOTE | 2024-05-30 16:07 | DVHINCON2 ---
Date Seen: May 30, 2024 Referring Physician MD Iggy Reason for Consultation Acute respiratory failure rule out cardiac etiology History of Present Illness This is a 58-year-old female patient who presents to the emergency room with chief complaint of chest pain. At the time of assessment, the patient was recently intubated. Apparently, the patient was having worsening shortness of breath and pulmonology was called to bedside and the patient was subsequently intubated at that time and underwent a bronchoscopy. Unable to obtain medical history from patient given chemical sedation and mechanical ventilation. No family at bedside. All history obtained from medical records and bedside RN. According to ER documentation, the patient came in with chest pain for two weeks. The patient was also noted to have hypotension at time of ER admission. Initial twelve lead electrocardiogram reveals sinus tachycardia with nonspecific ST segment changes to lateral leads. Initial troponin level of 7ng/L. Significant past medical history includes thyroid disease, anemia, alcoholism, pancreatitis, tobacco use, and marijuana use. Past Medical History Past medical history reviewed. No other significant than mentioned above. Past Surgical History Bowel perforation status post laparotomy in 2022 Family History: Cardiovascular disease G8 FATHER, FHx: cancer G8 MOTHER, Family History Family history reviewed. Social History Per records, patient drinks alcohol daily Patient smokes half a pack of cigarettes per day Patient smokes marijuana Allergies: Coded Allergies: NO KNOWN ALLERGIES (Unverified , 10/05/18) Home Meds Active Scripts Folic Acid (Folic Acid) 1 Mg Tab, 1 MG PO DAILY, #30 TAB Prov:CLEMENTE ESCALERA MD 08/23/23 Thiamine HCl (Thiamine Hydrochloride) 100 Mg Tab, 100 MG PO DAILY, #30 TAB Prov:CLEMENTE ESCALERA MD 08/23/23 Sucralfate (CARAFATE) 1 Gm Tab, 1 GM PO QID, #120 TAB Prov:CLEMENTE ESCALERA MD 08/23/23 Pantoprazole Sodium Sesquihydr (Pantoprazole Sodium) 40 Mg Tab, 40 MG PO BID, #60 TAB Prov:CLEMENTE ESCALERA MD 08/23/23 Metronidazole (Flagyl) 500 Mg Tab, 1 TAB PO TID, #30 TAB Prov:CLEMENTE ESCALERA MD 08/23/23 Levofloxacin Hemihydrate (LEVAQUIN 500 MG) 500 Mg Tab, 1 TAB PO DAILY, #10 TAB Prov:CLEMENTE ESCALERA MD 08/23/23 Hydrocodone-Acetaminophen (Hydrocodone Bitartrate/AC 5-325 mg) 1 Tab Tab, 1 TAB PO Q6HPRN PRN for 3 Days, #12 TAB Prov:ADINA KENT MD 09/24/22 Reported Medications Gabapentin (Gabapentin) 100 Mg Cap, 2 CAP PO TID 05/27/24 Fluoxetine Hcl (Fluoxetine Hcl) 40 Mg Cap, 1 CAP PO DAILY 08/20/23 Levothyroxine Sodium (Levothyroxine Sodium) 112 Mcg Tab, 1 TAB PO DAILY 08/20/23 Home Meds Home medications reviewed. Current Medications Current Medications Medications (Trade) Dose Ordered Sig/Alvaro Route PRN Reason Start Time Stop Time Status Last Admin Chlordiazepoxide HCl (Librium Capsule) 50 mg Q12HR PO 05/30/24 10:00 05/30/24 22:01 Chlordiazepoxide HCl (Librium Capsule) 25 mg Q12HR PO 05/31/24 10:00 05/31/24 22:01 Chlordiazepoxide HCl (Librium Capsule) 25 mg QAM PO 06/01/24 07:00 06/01/24 07:01 Lorazepam (Ativan Inj) 1 mg Q4HPRN IV 05/29/24 22:00 05/30/24 10:20 Albuterol (Ventolin Medneb) 2.5 mg Q4HR NEB 05/30/24 14:00 Budesonide (Pulmicort) 0.5 mg BID STAT NEB 05/30/24 12:25 05/30/24 12:29 DC 05/30/24 12:36 Norepinephrine Bitartrate 250 ml @ 3.75 mls/hr Q24H IV 05/30/24 13:45 05/30/24 14:01 DC Midazolam HCl 50 ml @ 1 mls/hr Q24H IV 05/30/24 13:45 05/30/24 14:03 DC Fentanyl Citrate 250 ml @ 2.5 mls/hr Q24H IV 05/30/24 13:45 05/30/24 14:04 DC Norepinephrine Bitartrate 250 ml @ 3.75 mls/hr Q24H IV 05/30/24 14:15 05/30/24 14:04 DC Norepinephrine Bitartrate 250 ml @ 3.75 mls/hr Q24H IV 05/30/24 14:15 Midazolam HCl 50 ml @ 1 mls/hr Q24H IV 05/30/24 14:15 Fentanyl Citrate 250 ml @ 2.5 mls/hr Q24H IV 05/30/24 14:15 Review of Systems Constitutional: No symptom reported Ears, Nose, & Throat: No symptom reported Eyes: No symptom reported Neurological: No symptoms reported Pulmonary/Respiratory: No symptoms reported Cardiovascular: Chest pain Gastrointestinal: No symptom reported Genitourinary: No symptom reported Musculoskeletal: No symptom reported Skin: No symptom reported Psychiatric: No symptom reported Endocrine: No symptom reported Hematologic/Lymphatic: No symptom reported Vital Signs Vital Signs Date Time Temp Pulse Resp B/P (MAP) Pulse Ox O2 Delivery O2 Flow Rate FiO2 05/30/24 13:53 124 20 153/84 (107) 95 100 05/30/24 12:36 Simple Mask* 6 05/30/24 09:00 97.6 97.6 Physical Exam General Appearance: Calm, relaxed Pulmonary/Respiratory: Wheezing throughout. Mechanically ventilated Cardiovascular/Chest: Regular rate and rhythm. Peripheral Pulses: 2+ Radial (R). 2+ Radial (L). 2+ Pedal (R). 2+ Pedal (L) Abdominal Exam: Normal bowel sounds. Ankle Exam: Negative ankle edema Lower extremities: Negative lower extremity edema Neuro/Mental Status: Chemically sedated Thoughts/Psych: Deferred Appearance: No acute distress. Skin Exam: Normal inspection. Jaundice. Warm and dry. Labs/Diagnostic Data Labs Test 05/30/24 10:45 05/30/24 10:17 05/30/24 06:44 05/28/24 21:45 Range/Units Lactic Acid Level 2.4 *H 0.4-2.0 mmol/L Ammonia 41 H 11-32 umol/L Free Thyroxine (T4) Calculated 1.14 0.89-1.76 ng/dL Free Triiodothyronine (T3) pg/mL 0.77 L 2.3-4.2 pg/mL Blood Gas Specimen Type Arterial Blood Gas Sample Site Right radial Blood Gas Patient Temperature 37.0 Arterial Blood Date Drawn [id number] Arterial Blood pH 7.523 H 7.350-7.450 Arterial Blood Partial Pressure CO2 31.2 L 32.0-45.0 mmHg Arterial Blood Partial Pressure O2 42.0 *L 83.0-108.0 mmHg Arterial Blood HCO3 25.1 21.0-28.0 mmol/L Arterial Blood Oxygen Saturation 75.9 *L 94.0-98.0 % Arterial Blood Base Excess 2.3 -2.0-3.0 mmol/L Arterial Blood Oxyhemoglobin 75.2 L 94.0-98.0 % Arterial Blood Carboxyhemoglobin 0.8 0.5-1.5 % Arterial Blood Methemoglobin 0.1 0.0-1.5 % Brandon Test Yes Blood Gas Total Hemoglobin 7.90 L 12.0-16.0 g/dL Blood Gas Modality Room air FiO2 % 21.0 Blood Gas Critical Value Read Back Yes Blood Gas Notified Whom Dr. milana escalera Blood Gas Notified Time [id number] Blood Gas Notified By White Blood Count 22.6 #H 4.4-10.8 10^3/uL Red Blood Count 1.89 L 4.0-5.20 10^6/uL Hemoglobin 7.9 L 12.2-16.2 g/dL Hematocrit 24.4 #L 36.0-46.0 % Mean Corpuscular Volume 129.3 H 80.0-100.0 fL Mean Corpuscular Hemoglobin 42.2 H 28.0-32.0 pg Mean Corpuscular Hemoglobin Concent 32.6 32.0-36.0 g/dL Red Cell Distribution Width 15.6 H 11.8-14.3 % Platelet Count 86 L 140-450 10^3/uL Mean Platelet Volume 10.4 6.9-10.8 fL Neutrophils (%) (Auto) 83.8 H 37.0-80.0 % Lymphocytes (%) (Auto) 5.8 L 10.0-50.0 % Monocytes (%) (Auto) 10.2 0.0-12.0 % Eosinophils (%) (Auto) 0.0 0.0-7.0 % Basophils (%) (Auto) 0.2 0.0-2.0 % Neutrophils # (Auto) 19.0 H 1.6-8.6 10 ^3/uL Lymphocytes # (Auto) 1.3 0.4-5.4 10 ^3/uL Monocytes # (Auto) 2.3 H 0-1.3 10 ^3/uL Eosinophils # (Auto) 0 0-0.8 10 ^3/uL Basophils # (Auto) 0.1 0-0.2 10 ^3/uL Nucleated Red Blood Cells 0.8 % Platelet Estimate Decrea Large Platelets Few Macrocytosis Moderate Target Cells Few Sodium Level 147 #H 136-145 mmol/L Potassium Level 3.9 3.5-5.1 mmol/L Chloride Level 113 H 98-107 mmol/L Carbon Dioxide Level 24 20-31 mmol/L Anion Gap 10 5-15 Blood Urea Nitrogen 13 9-23 mg/dL Creatinine 0.76 0.550-1.02 mg/dL Glomerular Filtration Rate Calc 90 >90 mL/min BUN/Creatinine Ratio 17.1 10.0-20.0 Serum Glucose 134 H 74-106 mg/dL Calcium Level 9.2 8.7-10.4 mg/dL Total Bilirubin 7.8 H 0.2-1.0 mg/dL Aspartate Amino Transferase (AST) 99 H 13-40 U/L Alanine Aminotransferase (ALT) 38 7-40 U/L Alkaline Phosphatase 139 H 46-116 U/L Total Protein 5.3 L 5.7-8.2 g/dL Albumin 2.5 L 3.2-4.8 g/dL Urine Color Yellow Yellow Urine Clarity Clear Clear Urine pH 6.5 5.0-9.0 Urine Specific [place] 1.005 1.001-1.035 Urine Protein Trace H Negative Urine Ketones Negative Negative Urine Blood 3+ H Negative /uL Urine Nitrite Negative Negative Urine Bilirubin Negative Negative Urine Urobilinogen 4 H Negative mg/dL Urine Leukocyte Esterase Trace Negative /uL Urine RBC 21 0 - 4 /hpf Urine WBC 109 0 - 5 /hpf Urine Squamous Epithelial Cells None seen <5 /hpf Urine Bacteria None seen None Seen /hpf Urine Glucose Normal Normal mg/dL Urine Opiates Screen Neg NEGATIVE Urine Fentanyl Screen Neg NEGATIVE Urine Barbiturates Screen Neg NEGATIVE Urine Phencyclidine Screen Neg NEGATIVE Urine Amphetamines Screen Neg NEGATIVE Urine Benzodiazepines Screen Neg NEGATIVE Urine Cocaine Screen Neg NEGATIVE Urine Cannabinoids Screen Neg NEGATIVE Test 05/28/24 10:15 05/28/24 04:35 05/27/24 10:39 05/27/24 07:07 Range/Units POC Glucose 121 H 70-106 mg/dl Magnesium Level 2.0 1.6-2.6 mg/dL Plasma/Serum Blood Alcohol < 3.0 <10 mg/dL Hepatitis A IgM Antibody Negative Hepatitis B Surface Antigen Negative Negative Hepatitis B Core IgM Antibody Negative Negative Hepatitis C Antibody Negative Negative Troponin I High Sensitivity 7 </=34 ng/L Test 05/27/24 06:09 05/27/24 06:05 Range/Units Influenza Type A Antigen Negative Negative Influenza Type B Antigen Negative Negative SARS-CoV-2 Antigen (Rapid) Negative NEGATIVE Hypochromasia (manual) Slight Prothrombin Time 15.1 H 9.3-11.8 sec Prothrombin Time INR 1.47 H 0.9-1.15 Phosphorus Level 3.2 2.4-5.1 mg/dL Lactate Dehydrogenase 204 120-246 U/L B-Type Natriuretic Peptide 150.21 0-100 pg/mL Amylase Level 42 30-118 U/L Lipase 20 12-53 U/L Thyroid Stimulating Hormone (TSH) 0.08 L 0.55-4.78 uIU/mL Assessment Questionable chest pain Acute hypoxic respiratory failure Acute kidney injury Thyroid disease Hypokalemia, resolved Thrombocytopenia Anemia Alcohol abuse Tobacco use Marijuana use Plan/Recommendation We will continue with the following plan/recommendations (Dr. Rivera): Patient seen and examined at bedside with . Transthoracic echocardiogram reveals EF 55-60%. At the time of assessment, the patient was recently intubated. Unable to obtain accurate history from patient including chest pain symptoms. At this time, we will order a serial troponin level. We will also order a repeat EKG. Cardiac surveillance recommended, notify Cardiology team for any ECG changes. Further recommendations per clinical course and progression. Thank you for allowing us to care for this patient. Please call with any questions or concerns. Critical care time spent: 40 minutes This medical document was created using an electronic medical record system with voice recognition software and computerized dictation system. Although this document has been carefully reviewed, there might still be some phonetic and typographical errors. Occasional wrong-word or ``sound-alike substitutions may have occurred due to the inherent limitations of voice recognition software. These areas are purely typographical due to imperfections of the software programs and do not reflect any compromise in the patient's medical care. Please read the chart carefully and recognize, using context, where these substitutions have occurred. Plan discussed with: Other (Bedside RN) Date of Service: May 30, 2024 Billing Provider: YOGI RIVERA MD Cardiology Common Codes: 98584-GTWWSEQ INP/OBS CARE (High) Cardiology Consultation Codes: 64851-[id number] CONSULT <45MIN JR DESOUZA May 30, 2024 16:07
[2024-05-30] MEDS: ETOMIDATE (2MG/ML) 20ML VIAL IV ONE ×2 (16:16→16:18)
[2024-05-30] MEDS: ROCURONIUM 10MG/ML 10ML VIAL IV ONE ×2 (16:16→16:18)
[2024-05-30 16:17] LABS: Base Excess -0.7 mmol/L (-2.0-3.0)
[2024-05-30] MEDS: NOREPINEPHRINE 8 MG/250ML KIT 250 ML IV ONE (16:17)
[2024-05-30] MEDS: MIDAZOLAM DRIP 50 mg/50mL 50 ML IV ONE (16:17)
[2024-05-30] MEDS: fentaNYL Drip 2500mCg/250mlNS 250 ML IV ONE (16:17)
[2024-05-30] MEDS: NOREPINEPHRINE 8 MG/250ML KIT 250 ML IV SCH (16:18)
[2024-05-30] MEDS: MIDAZOLAM DRIP 50 mg/50mL 50 ML IV SCH (16:20)
[2024-05-30] MEDS: fentaNYL Drip 2500mCg/250mlNS 250 ML IV SCH (16:20)
[2024-05-30] MEDS: ALBUTEROL SULF 2.5 MG/0.5ML(0.5%) NEB SOLN NEB SCH (18:17)
--- NOTE | 2024-05-30 20:02 | DVHPN2 ---
Progress Note Date Seen: May 30, 2024 Resident Creating Document: STEPHANIE DE LA CRUZ RESIDENT Has the PT tested + for MRSA If YES, has PT been informed?: No Medical Necessity Reason Pt with a Central, PICC or Fol: No Subjective Review of Systems Patient seen and examined at bedside in ICU room 106. This morning the patient was in acute hypoxic respiratory failure with tachypnea, Chest x-ray this morning with showing diffuse opacities bilateral lung feels with severe respiratory failure which required intubation at 1:50 p.m. and bronchoscopy which showed low and left upper lingula/lower lobe atelectasis due to mucus plugging. There was mucus plugging from L1-L2 10 and R 6-10. Bronchoalveolar lavage was performed as well right middle lobe. the patient is currently on mechanical ventilation with the following parameters: VT: 400, RR:20, FiO2 80%, peep 5, saturating 98%. Lactic acid was measured was elevated at 2.4. Troponins came back elevated at 39-62. EKG was performed showing sinus tachycardia with no evidence ST segment elevation or depression at this time. Patient is currently on fentanyl at 75 microgram/hour and Versed at 2 milligram/hour. CT of the abdomen showed hepatic steatosis with hepatomegaly and findings suggestive of chronic pancreatitis. Last liver ultrasound showed fatty infiltrate patient was hepatocellular disease and sludge in the gallbladder. stool occult still pending. Patient is unstable at this time for any procedure. Will continue monitor the patient. ROS unable to be obtained due to intubation. Objective vital signs Vital Sign Date Time Temp Pulse Resp B/P (MAP) Pulse Ox O2 Delivery O2 Flow Rate FiO2 05/30/24 18:45 128 32 124/58 (80) 97 05/30/24 18:17 80 05/30/24 18:00 Mechanical Ventilator+ 05/30/24 16:00 98.1 98.1 05/30/24 12:36 6 Total Intake and Output 05/29/24 05/29/24 05/30/24 15:00 23:00 07:00 Intake Total 0 ml 1558.729 ml Output Total 1700 ml 250 ml Balance -1700 ml 1308.729 ml medications Current Medications Medications Dose Ordered Sig/Alvaro Route Start Time Stop Time Status Last Admin Dose Admin Lorazepam 2 mg Q4H PO 05/27/24 09:15 Hold 05/28/24 06:10 2 MG Ondansetron HCl 4 mg Q4HP PRN IV 05/27/24 09:15 Nitroglycerin 0.4 mg Q5MINP PRN SL 05/27/24 09:15 Morphine Sulfate 2 mg Q30M PRN IV 05/27/24 09:15 Ceftriaxone Sodium 50 ml @ 100 mls/hr DAILY@09 IV 05/28/24 09:00 05/30/24 09:45 100 MLS/HR Levothyroxine Sodium 112 mcg DAILY PO 05/27/24 10:00 05/27/24 10:20 112 MCG Sucralfate 1 gm QID PO 05/27/24 12:00 Hold 05/28/24 06:11 1 GM Patient Own Medication 1 cap DAILY PO 05/27/24 10:00 UNV Famotidine 20 mg Q48H IV 05/27/24 10:00 05/29/24 09:50 20 MG Fluoxetine HCl 40 mg DAILY PO 05/27/24 10:00 05/27/24 10:19 40 MG Pantoprazole Sodium 40 mg BID IV 05/27/24 22:00 05/30/24 09:45 40 MG Midodrine 10 mg TID@0600,1200,1800 PO 05/27/24 18:00 Hold 05/28/24 06:10 10 MG Dextrose/Sodium Chloride 1,000 ml @ 75 mls/hr [id number] IV 05/28/24 04:45 05/30/24 10:05 75 MLS/HR Folic Acid 1 mg/ Magnesium Sulfate 8 meq/ Multivitamins 10 ml/Thiamine HCl 100 mg/Sodium Chloride 1,013.2 ml @ 126.247 mls/hr DAILY@1800 INJ 05/28/24 12:00 05/29/24 18:22 126.247 MLS/HR Albuterol 2.5 mg Q4HPRN PRN NEB 05/28/24 18:45 05/30/24 10:31 2.5 MG Ipratropium [place] 0.5 mg Q4HPRN PRN NEB 05/28/24 18:45 05/30/24 18:17 0.5 MG Methylprednisolone Sodium Succinate 40 mg Q8HR IV 05/29/24 06:00 05/30/24 06:07 40 MG Chlordiazepoxide HCl 50 mg Q12HR PO 05/30/24 10:00 05/30/24 22:01 Chlordiazepoxide HCl 25 mg Q12HR PO 05/31/24 10:00 05/31/24 22:01 Chlordiazepoxide HCl 25 mg QAM PO 06/01/24 07:00 06/01/24 07:01 Lorazepam 1 mg Q4HPRN IV 05/29/24 22:00 05/30/24 10:20 1 MG Albuterol 2.5 mg Q4HR NEB 05/30/24 14:00 05/30/24 18:17 2.5 MG Norepinephrine Bitartrate 250 ml @ 3.75 mls/hr Q24H IV 05/30/24 14:15 Midazolam HCl 50 ml @ 1 mls/hr Q24H IV 05/30/24 14:15 05/30/24 16:20 1 MLS/HR Fentanyl Citrate 250 ml @ 2.5 mls/hr Q24H IV 05/30/24 14:15 05/30/24 16:20 2.5 MLS/HR Examination Physical Examination General: Patient is currently intubated on mechanical ventilation on the following parameters: VT: 400, RR:20, FiO2 80%, peep 5, saturating 98% HEENT: Normocephalic, atraumatic, moist mucous membranes Respiratory/pulmonary: There were expiratory wheezes and coarse sounds on bilateral lung lee. Cardiovascular: Normal heart sounds S1 and S2 with no associated murmurs Abdomen: Abdomen nondistended, there isslightly hard abdomen to palpation. no palpable masses. Extremities: There is no peripheral edema present at the lower extremities. Peripheral Pulses: 3+ Radial (R). 3+ Radial (L). 3+ Dorsalis pedis (R). 3+ Dorsalis pedis(L) Skin: No rashes or pruritus, there is no sacral edema present at this time. Neurological: RASS -3 laboratory and microbiology Laboratory Tests 05/30/24 06:44 Test 05/30/24 06:44 Range/Units Serum Glucose 134 H 74-106 mg/dL Problem List/Assessment/Plan Problem List/Assessment/Plan Assessment/Plan Acute hypoxic respiratory failure likely due to aspiration pneumonia? Mucus plugs and atelectasis S/P intubation and bronchoscopy Duodenal ulcer disease Acute transaminitis and hepatic failure Acute abdominal pain Hepatic steatosis with hepatomegaly Acute pancreatitis Jaundice Hyperthyroidism Plan Currently on mechanical ventilation on the following parameters: VT: 400, RR:20, FiO2 80%, peep 5, saturating 98%. Status post bronchoscopy which showed low and left upper lingula/lower lobe atelectasis due to mucus plugging. There was mucus plugging from L1-L2 10 and R 6-10. Bronchoalveolar lavage was performed as well right middle lobe. Pulmonology on board Troponins came back elevated at EKG was performed showing sinus tachycardia with no specific ST segment elevation or depression at this time. Cardiology on board Patient is currently in the ICU room 106 Continue Protonix 40 mg IV b.i.d. Continue Carafate 1 g p.o. b.i.d. Monitor hemoglobin and hematocrit and transfused 1 unit of packed red blood cells if drops below seven Lactulose 30 mL p.o. daily MADDREY discriminant function is 26.6 and trending down. Patient does not need to be on steroids at this time Awaiting for Stool occult blood test Currently on levothyroxine 112 mcg q.d. No procedures at this time until patient is more stable. Will continue following the patient Plan discussed with Dr. Maya Plan discussed with: STEPHANIE Newby RESIDENT May 30, 2024 20:02
--- NOTE | 2024-05-30 20:03 | DVH ---
CHEST RADIOGRAPH Indication: OG Tube Placement Technique: Single frontal view of the chest was obtained Comparison: XY CHEST XRAY 1 VIEW on DOS: 05/30/24, XY CHEST PORTABLE on DOS: 05/30/24, XY CHEST XRAY 1 VIEW on DOS: 05/27/24 FINDINGS: Lines and Tubes: Endotracheal tube is 3.9 cm above the dinaa. Central line from the right appears to be in the right atrium. There is no pneumothorax. Enteric tube is in the stomach. Lungs: Unimproved airspace disease is noted bilaterally. Pleura: No effusion. No pneumothorax. Cardiomediastinal contours: Unremarkable Bones: No acute osseous abnormality. IMPRESSION: 1. Endotracheal tube 3.9 cm above the diana. 2. Central line from right is in the right atrium. 3. Enteric tube in the stomach. 4. Unimproved airspace disease noted diffusely throughout both lung lee.
--- NOTE | 2024-05-30 23:45 | DVHINCON2 ---
Date of service: May 30, 2024 Referring Physician Clemente Escalera MD Reason for Consultation Acute hypoxic respiratory failure requiring mechanical ventilator History of Present Illness A 58-year-old woman with past medical history of EtOH abuse, depression, hypothyroidism, PUD, liver disease, and who presented to ED on 05/27/24 with c/o chest pain, lower abdominal pain, general weakness, dizziness, blood in stool, urinary retention and frequency x2 weeks. Patient reports chest pain feels like someone is sitting on her and it is constant 7/10. She drinks minimal 3 shots of alcohol per day for several years, smokes half a pack a day of cigarettes, and smokes marijuana. On May 12, pt notes her liver labs were elevated at PCP's office. She reports tremors at home, and she calms herself down to make it go away. Denies vomiting, diarrhea, fever, chills, shortness of breath, headaches, and lightheadedness. Patient was admitted for further care and pulmonary consultation is requested for evaluation and management of acute hypoxic respiratory failure requiring mechanical vent. Review of Systems: 14-point review of systems negative unless otherwise noted above. Past Medical History: EtOH abuse, depression, hypothyroidism, PUD, liver disease Past Surgical History: Medications: Reviewed. Allergies: No known drug allergies. Family History: Cancer and heart disease Social History: Smoker. <1 pack per day Heavy alcohol use. Illicit drugs - positive marijuana use. Family History: Cardiovascular disease G8 FATHER, FHx: cancer G8 MOTHER, Allergies: Coded Allergies: NO KNOWN ALLERGIES (Unverified , 10/05/18) Home Meds Active Scripts Folic Acid (Folic Acid) 1 Mg Tab, 1 MG PO DAILY, #30 TAB Prov:CLEMENTE ESCALERA MD 08/23/23 Thiamine HCl (Thiamine Hydrochloride) 100 Mg Tab, 100 MG PO DAILY, #30 TAB Prov:CLEMENTE ESCALERA MD 08/23/23 Sucralfate (CARAFATE) 1 Gm Tab, 1 GM PO QID, #120 TAB Prov:CLEMENTE ESCALERA MD 08/23/23 Pantoprazole Sodium Sesquihydr (Pantoprazole Sodium) 40 Mg Tab, 40 MG PO BID, #60 TAB Prov:CLEMENTE ESCALERA MD 08/23/23 Metronidazole (Flagyl) 500 Mg Tab, 1 TAB PO TID, #30 TAB Prov:CLEMENTE ESCALERA MD 08/23/23 Levofloxacin Hemihydrate (LEVAQUIN 500 MG) 500 Mg Tab, 1 TAB PO DAILY, #10 TAB Prov:CLEMENTE ESCALERA MD 08/23/23 Hydrocodone-Acetaminophen (Hydrocodone Bitartrate/AC 5-325 mg) 1 Tab Tab, 1 TAB PO Q6HPRN PRN for 3 Days, #12 TAB Prov:ADINA KENT MD 09/24/22 Reported Medications Gabapentin (Gabapentin) 100 Mg Cap, 2 CAP PO TID 05/27/24 Fluoxetine Hcl (Fluoxetine Hcl) 40 Mg Cap, 1 CAP PO DAILY 08/20/23 Levothyroxine Sodium (Levothyroxine Sodium) 112 Mcg Tab, 1 TAB PO DAILY 08/20/23 Current Medications Current Medications Medications (Trade) Dose Ordered Sig/Alvaro Route PRN Reason Start Time Stop Time Status Last Admin Chlordiazepoxide HCl (Librium Capsule) 50 mg Q12HR PO 05/30/24 10:00 05/30/24 22:01 DC 05/30/24 21:47 Chlordiazepoxide HCl (Librium Capsule) 25 mg Q12HR PO 05/31/24 10:00 05/31/24 22:01 Chlordiazepoxide HCl (Librium Capsule) 25 mg QAM PO 06/01/24 07:00 06/01/24 07:01 Albuterol (Ventolin Medneb) 2.5 mg Q4HR NEB 05/30/24 14:00 05/30/24 22:09 Budesonide (Pulmicort) 0.5 mg BID STAT NEB 05/30/24 12:25 05/30/24 12:29 DC 05/30/24 12:36 Norepinephrine Bitartrate 250 ml @ 3.75 mls/hr Q24H IV 05/30/24 13:45 05/30/24 14:01 DC Midazolam HCl 50 ml @ 1 mls/hr Q24H IV 05/30/24 13:45 05/30/24 14:03 DC Fentanyl Citrate 250 ml @ 2.5 mls/hr Q24H IV 05/30/24 13:45 05/30/24 14:04 DC Norepinephrine Bitartrate 250 ml @ 3.75 mls/hr Q24H IV 05/30/24 14:15 05/30/24 14:04 DC Norepinephrine Bitartrate 250 ml @ 3.75 mls/hr Q24H IV 05/30/24 14:15 Midazolam HCl 50 ml @ 1 mls/hr Q24H IV 05/30/24 14:15 05/30/24 16:20 Fentanyl Citrate 250 ml @ 2.5 mls/hr Q24H IV 05/30/24 14:15 05/30/24 16:20 Vital Signs Vital Signs Date Time Temp Pulse Resp B/P (MAP) Pulse Ox O2 Delivery O2 Flow Rate FiO2 05/30/24 23:30 121 21 104/50 (68) 98 05/30/24 22:09 70 05/30/24 22:00 Mechanical Ventilator+ 05/30/24 20:00 98.4 98.4 05/30/24 12:36 6 Physical Exam Gen.: Patient lying in bed in medical ICU. Sedated, intubated on mechanical ventilator. Head: Normocephalic, atraumatic. Eyes: PERRLA. Ears: Normal external anatomy. Throat: Endotracheal tube and orogastric tube in place. Neck: Supple, trachea midline. Chest: Transmitted breath sounds bilaterally. Decreased air entry bilaterally. No wheezing. Bibasilar crackles. Cardiovascular: Positive S1, positive S2. Regular rate and rhythm. Abdomen: Positive bowel sounds in all 4 quadrants. Soft, nontender, nondistended. : Neil in place. Normal external genitalia. Rectal: Deferred. Skin: Warm, dry. Intact. Extremities: 2+ radial pulses bilaterally. No lower extremity edema. Neuro: Sedated. Labs/Diagnostic Data Labs Test 05/30/24 19:55 05/30/24 16:13 05/30/24 16:05 05/30/24 10:45 Range/Units Troponin I High Sensitivity 82 *H </=34 ng/L Blood Gas Specimen Type Arterial Blood Gas Sample Site Right radial Blood Gas Patient Temperature 37.0 Arterial Blood Date Drawn [id number] Arterial Blood pH 7.408 7.350-7.450 Arterial Blood Partial Pressure CO2 38.7 32.0-45.0 mmHg Arterial Blood Partial Pressure O2 119.2 H 83.0-108.0 mmHg Arterial Blood HCO3 23.9 21.0-28.0 mmol/L Arterial Blood Oxygen Saturation 97.8 94.0-98.0 % Arterial Blood Base Excess -0.7 -2.0-3.0 mmol/L Arterial Blood Oxyhemoglobin 96.8 94.0-98.0 % Arterial Blood Carboxyhemoglobin 0.6 0.5-1.5 % Arterial Blood Methemoglobin 0.4 0.0-1.5 % Brandon Test Modified Blood Gas Total Hemoglobin 8.30 L 12.0-16.0 g/dL Blood Gas Set Respiration Rate 20.0 Blood Gas Modality Vent - ac FiO2 % 100.0 Blood Gas Tidal Volume 400.0 Blood Gas PEEP or CPAP 5.0 Lactic Acid Level 1.8 0.4-2.0 mmol/L Ammonia 41 H 11-32 umol/L Free Thyroxine (T4) Calculated 1.14 0.89-1.76 ng/dL Free Triiodothyronine (T3) pg/mL 0.77 L 2.3-4.2 pg/mL Test 05/30/24 10:17 05/30/24 06:44 05/28/24 21:45 05/28/24 10:15 Range/Units Blood Gas Critical Value Read Back Yes Blood Gas Notified Whom Dr. milana escalera Blood Gas Notified Time [id number] Blood Gas Notified By White Blood Count 22.6 #H 4.4-10.8 10^3/uL Red Blood Count 1.89 L 4.0-5.20 10^6/uL Hemoglobin 7.9 L 12.2-16.2 g/dL Hematocrit 24.4 #L 36.0-46.0 % Mean Corpuscular Volume 129.3 H 80.0-100.0 fL Mean Corpuscular Hemoglobin 42.2 H 28.0-32.0 pg Mean Corpuscular Hemoglobin Concent 32.6 32.0-36.0 g/dL Red Cell Distribution Width 15.6 H 11.8-14.3 % Platelet Count 86 L 140-450 10^3/uL Mean Platelet Volume 10.4 6.9-10.8 fL Neutrophils (%) (Auto) 83.8 H 37.0-80.0 % Lymphocytes (%) (Auto) 5.8 L 10.0-50.0 % Monocytes (%) (Auto) 10.2 0.0-12.0 % Eosinophils (%) (Auto) 0.0 0.0-7.0 % Basophils (%) (Auto) 0.2 0.0-2.0 % Neutrophils # (Auto) 19.0 H 1.6-8.6 10 ^3/uL Lymphocytes # (Auto) 1.3 0.4-5.4 10 ^3/uL Monocytes # (Auto) 2.3 H 0-1.3 10 ^3/uL Eosinophils # (Auto) 0 0-0.8 10 ^3/uL Basophils # (Auto) 0.1 0-0.2 10 ^3/uL Nucleated Red Blood Cells 0.8 % Platelet Estimate Decrea Large Platelets Few Macrocytosis Moderate Target Cells Few Sodium Level 147 #H 136-145 mmol/L Potassium Level 3.9 3.5-5.1 mmol/L Chloride Level 113 H 98-107 mmol/L Carbon Dioxide Level 24 20-31 mmol/L Anion Gap 10 5-15 Blood Urea Nitrogen 13 9-23 mg/dL Creatinine 0.76 0.550-1.02 mg/dL Glomerular Filtration Rate Calc 90 >90 mL/min BUN/Creatinine Ratio 17.1 10.0-20.0 Serum Glucose 134 H 74-106 mg/dL Calcium Level 9.2 8.7-10.4 mg/dL Total Bilirubin 7.8 H 0.2-1.0 mg/dL Aspartate Amino Transferase (AST) 99 H 13-40 U/L Alanine Aminotransferase (ALT) 38 7-40 U/L Alkaline Phosphatase 139 H 46-116 U/L Total Protein 5.3 L 5.7-8.2 g/dL Albumin 2.5 L 3.2-4.8 g/dL Urine Color Yellow Yellow Urine Clarity Clear Clear Urine pH 6.5 5.0-9.0 Urine Specific [place] 1.005 1.001-1.035 Urine Protein Trace H Negative Urine Ketones Negative Negative Urine Blood 3+ H Negative /uL Urine Nitrite Negative Negative Urine Bilirubin Negative Negative Urine Urobilinogen 4 H Negative mg/dL Urine Leukocyte Esterase Trace Negative /uL Urine RBC 21 0 - 4 /hpf Urine WBC 109 0 - 5 /hpf Urine Squamous Epithelial Cells None seen <5 /hpf Urine Bacteria None seen None Seen /hpf Urine Glucose Normal Normal mg/dL Urine Opiates Screen Neg NEGATIVE Urine Fentanyl Screen Neg NEGATIVE Urine Barbiturates Screen Neg NEGATIVE Urine Phencyclidine Screen Neg NEGATIVE Urine Amphetamines Screen Neg NEGATIVE Urine Benzodiazepines Screen Neg NEGATIVE Urine Cocaine Screen Neg NEGATIVE Urine Cannabinoids Screen Neg NEGATIVE POC Glucose 121 H 70-106 mg/dl Test 05/28/24 04:35 05/27/24 10:39 05/27/24 06:09 05/27/24 06:05 Range/Units Magnesium Level 2.0 1.6-2.6 mg/dL Plasma/Serum Blood Alcohol < 3.0 <10 mg/dL Hepatitis A IgM Antibody Negative Hepatitis B Surface Antigen Negative Negative Hepatitis B Core IgM Antibody Negative Negative Hepatitis C Antibody Negative Negative Influenza Type A Antigen Negative Negative Influenza Type B Antigen Negative Negative SARS-CoV-2 Antigen (Rapid) Negative NEGATIVE Hypochromasia (manual) Slight Prothrombin Time 15.1 H 9.3-11.8 sec Prothrombin Time INR 1.47 H 0.9-1.15 Phosphorus Level 3.2 2.4-5.1 mg/dL Lactate Dehydrogenase 204 120-246 U/L B-Type Natriuretic Peptide 150.21 0-100 pg/mL Amylase Level 42 30-118 U/L Lipase 20 12-53 U/L Thyroid Stimulating Hormone (TSH) 0.08 L 0.55-4.78 uIU/mL Assessment Impression: Acute hypoxic respiratory failure On mechanical ventilator Hepatorenal syndrome Leukocytosis Anemia Thrombocytopenia Acute kidney injury Hypokalemia Chronic pancreatitis ETOH abuse Marijuana abuse Nicotine dependence Plan: s/p intubation on mechanical ventilator. CXR image and report reviewed. Devices in place. Multifocal airspace disease. No pneumothorax. No pleural effusion. ABG reviewed, compensated. On AC mode; RR 20, VT 400, PEEP 5, FiO2 100% Titrate FIO2 to keep O2 saturation above 90%. VAP bundle. Daily ABG and CXR while intubated Sedate for ventilator synchrony Bronchodilators. Continue antibiotics. F/u cultures. Pressors for hemodynamic support Titrate to keep mean arterial pressure greater than 65 mmHg. Follow up GI recommendations Follow up Nephrology recommendations Monitor renal function Monitor electrolytes. Supplement as necessary. Monitor ins and outs. Maintain euvolemia. GI prophylaxis. DVT prophylaxis. Prognosis: Poor given patient's multiple co-morbidities. Condition: Critical Rest of plan per hospitalist and other consultants. A total of 35 minutes of critical care time was spent reviewing the patient record, examining the patient, making a diagnostic and therapeutic plan, discussing this plan with the medical personnel, following up on diagnostic studies and following the patient for clinical stability excluding any and all procedures. At least 50% of this time was spent in direct, [id number] contact. Thank you, Dr. Escalera, for allowing me to participate in this patient's care. Further recommendations will depend on the patient's clinical course. Please do not hesitate to contact me if you have any questions or concerns. This medical document was created using an electronic medical record system with [employer] dictation system. Although these documentations are being carefully reviewed, there may still be some phonetic and typographical changes. The errors are purely typographical, due to imperfection on the software program, and do not reflect any compromise in the patient's medical care. Plan discussed with: Other (RN/Dr. Escalera) TAE DUPREE MD May 30, 2024 23:45
[2024-05-31] VITALS (115 sets, daily range): BP systolic 85–118; BP diastolic 40–63; PULSE 108–135; RESP 15–28; TEMP 98.2–98.9; O2SAT 88–100
[2024-05-31] MEDS: FUROSEMIDE 40 MG/4 ML VIAL IV ONE (02:25)
[2024-05-31] MEDS: THIAMINE 100mg/ml INJ (200mg/2ml VIAL) IV ONE (03:37)
[2024-05-31] MEDS: FREE WATER GT SCH (03:38)
[2024-05-31 04:28] LABS: Alkaline Phosphatase 113 U/L (46-116); Anion Gap 11 (5-15); BUN/Creatinine Ratio 20.2 (10.0-20.0); Blood Urea Nitrogen 18 mg/dL (9-23); Calcium 8.8 mg/dL (8.7-10.4); Carbon Dioxide 24 mmol/L (20-31)
[2024-05-31 04:30] LABS: Alanine Aminotransferase 41 U/L (7-40); Albumin 2.2 g/dL (3.2-4.8); Aspartate Aminotransferase 98 U/L (13-40); Bilirubin, Total 7.4 mg/dL (0.2-1.0); Chloride 116 mmol/L (98-107); Glucose 145 mg/dL (74-106); Potassium 3.4 mmol/L (3.5-5.1); Sodium 151 mmol/L (136-145); Total Protein 4.6 g/dL (5.7-8.2)
[2024-05-31] MEDS: LEVALBUTEROL HCL 1.25 MG/3 ML NEB NEB SCH (06:11)
[2024-05-31 07:22] LABS: Eosinophils # (auto) 0 10 ^3/uL (0-0.8); Red Blood Cells 1.62 10^6/uL (4.0-5.20)
[2024-05-31 07:25] LABS: Basophils # (auto) 0 10 ^3/uL (0-0.2); Basophils % (auto) 0.1 % (0.0-2.0); Hematocrit 21.1 % (36.0-46.0); Lymphocytes # (auto) 1.2 10 ^3/uL (0.4-5.4); Lymphocytes % (auto) 7.4 % (10.0-50.0); Mean Corpuscular Hemoglobin 42.4 pg (28.0-32.0); Mean Corpuscular Hgb Conc. 32.5 g/dL (32.0-36.0); Mean Corpuscular Volume 130.6 fL (80.0-100.0); Monocytes # (auto) 1.2 10 ^3/uL (0-1.3); Neutrophils # (auto) 14.3 10 ^3/uL (1.6-8.6); Neutrophils % (auto) 85.5 % (37.0-80.0); Nucleated Red Blood Cells % 2.2 %; Red Cell Distribution Width 16.3 % (11.8-14.3); White Blood Cell 16.8 10^3/uL (4.4-10.8)
[2024-05-31 07:46] LABS: Hemoglobin 6.9 g/dL (12.2-16.2)
[2024-05-31 08:54] LABS: Platelet Count (auto) 55 10^3/uL (140-450)
[2024-05-31 08:55] LABS: Large Platelets FEW; Platelet Estimate Decrea
[2024-05-31 08:56] LABS: Macrocytosis Moderate; Stomatocytes Few
[2024-05-31] MEDS ORDERED: chlordiazePOXIDE HCL 25 MG CAP PO SCH (10:00)
[2024-05-31] MEDS: FOLIC ACID 1 MG in D5W 5% 50 ML INJ ONE (10:35)
[2024-05-31 12:04] LABS: % Iron Saturation 32.2 % (15-50)
--- NOTE | 2024-05-31 12:06 | DVHPN2 ---
Reviewed: Care Plan, H&P, Labs, Medications, Previous Orders, Radiology Changes from previous H/P or p: No Changes Eyes: No Pain, No Vision change, No Conjunctivae inflammation, No Eyelid inflammation, No Other, No Redness ENT: No Ear pain, No Ear discharge, No Nose pain, No Nose discharge, No Nose congestion, No Mouth pain, No Mouth swelling, No Throat pain, No Throat swelling, No Other Cardiovascular: Chest Pain; No Palpitations, No Orthopnea, No Paroxysmal Noc. Dyspnea, No Edema, No Lt Headedness, No Other Respiratory: No Cough, No Dry, No Shortness of breath, No SOB with excertion, No Wheezing, No Hemoptysis, No Pleuritic Pain, No Sputum, No Other Gastrointestinal: No Nausea, No Vomiting; Abdominal Pain; No Diarrhea, No Constipation, No Melena; Hematochezia; No Other Genitourinary: No Dysuria; Frequency; No Incontinence, No Hematuria; Retention; No Other Musculoskeletal: No other, No neck pain, No shoulder pain, No arm pain, No back pain, No hand pain, No leg pain, No foot pain Skin: No Rash, No Lesions, No Jaundice, No Bruising, No Other Objective Vitals Vital Signs Date Time Temp Pulse Resp B/P (MAP) Pulse Ox O2 Delivery O2 Flow Rate FiO2 05/31/24 11:53 98.5 127 20 103/46 98.5 05/31/24 09:32 96 90 05/31/24 08:00 Mechanical Ventilator+ 05/30/24 12:36 6 Intake/Output Intake and Output 05/31/24 07:00 Intake Total 1234.235 ml Output Total 250 ml Balance 984.235 ml Intake Oral 200 ml IV Total 1034.235 ml Output Urine Total 250 ml Medications Current Medications Medications Dose Ordered Sig/Alvaro Route Start Time Stop Time Status Last Admin Dose Admin Lorazepam 2 mg Q4H PO 05/27/24 09:15 Hold 05/28/24 06:10 2 MG Ondansetron HCl 4 mg Q4HP PRN IV 05/27/24 09:15 Nitroglycerin 0.4 mg Q5MINP PRN SL 05/27/24 09:15 Morphine Sulfate 2 mg Q30M PRN IV 05/27/24 09:15 Ceftriaxone Sodium 50 ml @ 100 mls/hr DAILY@09 IV 05/28/24 09:00 05/31/24 10:38 100 MLS/HR Levothyroxine Sodium 112 mcg DAILY PO 05/27/24 10:00 05/31/24 10:36 112 MCG Sucralfate 1 gm QID PO 05/27/24 12:00 Hold 05/28/24 06:11 1 GM Patient Own Medication 1 cap DAILY PO 05/27/24 10:00 UNV Famotidine 20 mg Q48H IV 05/27/24 10:00 05/31/24 10:35 20 MG Fluoxetine HCl 40 mg DAILY PO 05/27/24 10:00 05/31/24 10:35 40 MG Pantoprazole Sodium 40 mg BID IV 05/27/24 22:00 05/31/24 10:35 40 MG Midodrine 10 mg TID@0600,1200,1800 PO 05/27/24 18:00 Hold 05/28/24 06:10 10 MG Albuterol 2.5 mg Q4HPRN PRN NEB 05/28/24 18:45 05/31/24 00:19 2.5 MG Ipratropium [place] 0.5 mg Q4HPRN PRN NEB 05/28/24 18:45 05/31/24 02:24 0.5 MG Methylprednisolone Sodium Succinate 40 mg Q8HR IV 05/29/24 06:00 05/30/24 21:47 40 MG Norepinephrine Bitartrate 250 ml @ 3.75 mls/hr Q24H IV 05/30/24 14:15 05/31/24 10:36 3.75 MLS/HR Midazolam HCl 50 ml @ 1 mls/hr Q24H IV 05/30/24 14:15 05/31/24 11:28 9 MLS/HR Fentanyl Citrate 250 ml @ 2.5 mls/hr Q24H IV 05/30/24 14:15 05/31/24 06:55 20 MLS/HR Thiamine HCl 100 mg DAILY IV 06/01/24 10:00 Folic Acid 1 mg/ Dextrose 50.2 ml @ 200.8 mls/ hr DAILY INJ 06/01/24 10:00 Purified Water 200 ml Q4HR GT 05/31/24 02:00 05/31/24 10:35 200 ML Levalbuterol HCl 1.25 mg Q4HR NEB 05/31/24 06:00 05/31/24 09:32 1.25 MG Piperacillin Sod/ Tazobactam Sod 100 ml @ 25 mls/hr Q8HR IV 05/31/24 14:00 UNV Laboratory Results Laboratory Tests 05/31/24 03:37 05/31/24 05:48 Chemistry Test 05/31/24 03:37 Albumin 2.2 g/dL (3.2-4.8) L Calcium Level 8.8 mg/dL (8.7-10.4) Total Protein 4.6 g/dL (5.7-8.2) L LFT Test 05/31/24 03:37 Alanine Aminotransferase (ALT) 41 U/L (7-40) H Alkaline Phosphatase 113 U/L (46-116) Aspartate Amino Transferase (AST) 98 U/L (13-40) H Total Bilirubin 7.4 mg/dL (0.2-1.0) H Urinalysis Test 05/28/24 21:45 Urine Color Yellow (Yellow) Urine Clarity Clear (Clear) Urine pH 6.5 (5.0-9.0) Urine Specific [place] 1.005 (1.001-1.035) Urine Protein Trace (Negative) H Urine Ketones Negative (Negative) Urine Blood 3+ /uL (Negative) H Urine Nitrite Negative (Negative) Urine Bilirubin Negative (Negative) Urine Urobilinogen 4 mg/dL (Negative) H Urine Leukocyte Esterase Trace /uL (Negative) Urine RBC 21 /hpf (0 - 4) Urine WBC 109 /hpf (0 - 5) Urine Squamous Epithelial Cells None seen /hpf (<5) Urine Bacteria None seen /hpf (None Seen) Urine Glucose Normal mg/dL (Normal) Blood Gas Results Test 05/30/24 16:13 05/31/24 07:20 Arterial Blood pH 7.408 (7.350-7.450) 7.319 (7.350-7.450) FiO2 % 100.0 100.0 Microbiology Microbiology Date/Time Source Procedure Growth Status 05/30/24 14:15 Bronchial Brushings Gram Stain Pending Resulted 05/30/24 14:15 Bronchial Brushings Respiratory Culture - Preliminary Resulted Labs and/or images reviewed: Labs reviewed by me, Image(s) reviewed by me Assessment/Plan Assessment/Plan Acute Hypoxic respiratory failure status post intubated on 05/30/2024 Septic shock secondary to possible aspiration pneumonia:: Blood cultures sputum cultures Zosymarlyn Olivas Atypical chest pain likely secondary to alcohol abuse Intractable abdominal pain likely 2nd to ETOH abuse , GI consult by Dr. Maya appreciated, pantoprazole Carafate Hepatorenal syndrome Severe anemia hemoglobin 6.9: Transfuse 2 units RBC Thrombocytopenia Hypothyroidism: Synthroid Hyperparathyroidism: Outpatient workup Hypokalemia Alcoholic withdrawal: Librium MONSE: Consult by Dr. Tate appreciated Hyponatremia Elevated LFTs Jaundice Chronic pancreatitis Chronic current alcohol abuse: Banana bag, Ativan Marijuana abuse Patient is full code Condition critical Patient's friend of last three years T[place] [phone] bedside and advised the possibility of intubation and he agreed Prognosis very grave Time spent 70 minute Seen in ICU Plan discussed with: Patient My Orders Orders - CLEMENTE SPEARS MD Procedure Category Date Status Time Transfer Orders XFER 05/30/24 Transmitted 12:04 * Cardiology Consult CONS 05/30/24 Transmitted 12:04 Chest Portable XY 05/30/24 Resulted 12:11 Abg W/ Co-Ox RT 05/30/24 Logged 12:11 Type And Screen BBK 05/31/24 In Process 07:53 Blood Culture SAYDA 05/31/24 Logged 12:00 Piperacillin-Tazob PHA 05/31/24 Logged 3.375gm (Zosyn 3.375g 14:00 Date of Service: May 31, 2024 Billing Provider: CLEMENTE SPEARS MD Common Visit Codes: 19085-NUG/OBS DISCH DAY >30min, 68090-EYHGJSWS CARE 30-74 MIN CLEMENTE SPEARS MD May 31, 2024 12:06
--- NOTE | 2024-05-31 12:33 | ECG ---
[facility] Test Date: 2024-05-27 Test Time: 05:58:18 Pat Name: JAVIER MAYNARD Department: ER Room: [address] [place] [address] A Gender: F Court Recorder: KILO : 1965 Requested By: THAI YADAV Order Number: [id number] Reading MD: Pedrito Argueta Measurements Intervals [place] Rate: 114 P: 61 MI: 102 QRS: 38 QRSD: 101 T: 66 QT: 379 QTc: 523 Interpretive Statements Sinus tachycardia Low voltage, precordial leads RSR' in V1 or V2, probably normal variant Nonspecific T abnormalities, lateral leads Prolonged QT interval Electronically Signed On 05-31-2024 17:54:07 PST by Pedrito Argueta Please click the below link to view image of tracing.
[2024-05-31 12:55] LABS: Folate (Folic Acid) 43.16 ng/mL (>5.38)
--- NOTE | 2024-05-31 15:03 | DVHPN2 ---
Progress Note Date Seen: May 31, 2024 Resident Creating Document: KALPANA HOOKER RESIDENT Has the PT tested + for MRSA If YES, has PT been informed?: No Medical Necessity Reason Pt with a Central, PICC or Fol: No Medical Necessity Reason intubated ICU BED 106 Subjective Review of Systems GI PROGRESS NOTE On 05/30/2024: Patient was noted to be in acute hypoxic respiratory failure with tachypnea, Chest x-ray showed diffuse opacities bilateral lung feels with severe respiratory failure requiring intubation at 1:50 p.m. Bronchoscopy showed left low and upper lingula/lower lobe atelectasis due to mucus plugging. There was mucus plugging from L1-L2 10 and R 6-10. Bronchoalveolar lavage was performed as well right middle lobe. Patient is currently on mechanical ventilation with the following parameters: VT: 400, RR:20, FiO2 80%, peep 5, saturating 98%. Lactic acid was measured was elevated at 2.4. Troponins came back elevated at 39-62. EKG was performed showing sinus tachycardia with no evidence ST segment elevation or depression at this time. Patient is currently on fentanyl at 75 microgram/hour and Versed at 2 milligram/hour. CT of the abdomen showed hepatic steatosis with hepatomegaly and findings suggestive of chronic pancreatitis. Last liver ultrasound showed fatty infiltrate patient was hepatocellular disease and sludge in the gallbladder. stool occult still pending. Patient is unstable at this time for any procedure. Will continue monitor the patient. ROS unable to be obtained due to intubation. 05/31/2024: Patient in the ICU and remained sedated and intubated. Vitals shows tachycardia, low BP noted. Hgb 7.9--> 6.9 SOBT still pending Objective vital signs Vital Sign Date Time Temp Pulse Resp B/P (MAP) Pulse Ox O2 Delivery O2 Flow Rate FiO2 05/31/24 14:22 98.4 126 19 113/50 98.4 05/31/24 13:32 93 90 05/31/24 12:00 Mechanical Ventilator+ 05/30/24 12:36 6 Total Intake and Output 05/30/24 05/30/24 05/31/24 15:00 23:00 07:00 Intake Total 845.735 ml 388.5 ml Output Total 150 ml 100 ml Balance 695.735 ml 288.5 ml medications Current Medications Medications Dose Ordered Sig/Alvaro Route Start Time Stop Time Status Last Admin Dose Admin Lorazepam 2 mg Q4H PO 05/27/24 09:15 Hold 05/28/24 06:10 2 MG Ondansetron HCl 4 mg Q4HP PRN IV 05/27/24 09:15 Nitroglycerin 0.4 mg Q5MINP PRN SL 05/27/24 09:15 Morphine Sulfate 2 mg Q30M PRN IV 05/27/24 09:15 Ceftriaxone Sodium 50 ml @ 100 mls/hr DAILY@09 IV 05/28/24 09:00 05/31/24 10:38 100 MLS/HR Levothyroxine Sodium 112 mcg DAILY PO 05/27/24 10:00 05/31/24 10:36 112 MCG Sucralfate 1 gm QID PO 05/27/24 12:00 Hold 05/28/24 06:11 1 GM Patient Own Medication 1 cap DAILY PO 05/27/24 10:00 UNV Famotidine 20 mg Q48H IV 05/27/24 10:00 05/31/24 10:35 20 MG Fluoxetine HCl 40 mg DAILY PO 05/27/24 10:00 05/31/24 10:35 40 MG Pantoprazole Sodium 40 mg BID IV 05/27/24 22:00 05/31/24 10:35 40 MG Midodrine 10 mg TID@0600,1200,1800 PO 05/27/24 18:00 Hold 05/28/24 06:10 10 MG Albuterol 2.5 mg Q4HPRN PRN NEB 05/28/24 18:45 05/31/24 00:19 2.5 MG Ipratropium [place] 0.5 mg Q4HPRN PRN NEB 05/28/24 18:45 05/31/24 02:24 0.5 MG Methylprednisolone Sodium Succinate 40 mg Q8HR IV 05/29/24 06:00 05/31/24 13:17 40 MG Norepinephrine Bitartrate 250 ml @ 3.75 mls/hr Q24H IV 05/30/24 14:15 05/31/24 10:36 3.75 MLS/HR Midazolam HCl 50 ml @ 1 mls/hr Q24H IV 05/30/24 14:15 05/31/24 11:28 9 MLS/HR Fentanyl Citrate 250 ml @ 2.5 mls/hr Q24H IV 05/30/24 14:15 05/31/24 06:55 20 MLS/HR Thiamine HCl 100 mg DAILY IV 06/01/24 10:00 Folic Acid 1 mg/ Dextrose 50.2 ml @ 200.8 mls/ hr DAILY INJ 06/01/24 10:00 Purified Water 200 ml Q4HR GT 05/31/24 02:00 05/31/24 13:18 200 ML Levalbuterol HCl 1.25 mg Q4HR NEB 05/31/24 06:00 05/31/24 13:32 1.25 MG Piperacillin Sod/ Tazobactam Sod 100 ml @ 25 mls/hr Q8HR IV 05/31/24 14:00 UNV Examination General: Sedated and Intubated on mechanical ventilation on the following parameters: VT: 400, RR:20, FiO2 80%, peep 5, saturating 98% HEENT: Normocephalic, atraumatic, moist mucous membranes Respiratory/pulmonary: There were expiratory wheezes and coarse sounds on bilateral lung lee. Cardiovascular: Normal heart sounds S1 and S2 with no associated murmurs Abdomen: Abdomen nondistended, there isslightly hard abdomen to palpation. no palpable masses. Extremities: There is no peripheral edema present at the lower extremities. Peripheral Pulses: 3+ Radial (R). 3+ Radial (L). 3+ Dorsalis pedis (R). 3+ Dorsalis pedis(L) Skin: No rashes or pruritus, there is no sacral edema present at this time. Neurological: RASS -3 laboratory and microbiology Laboratory Tests 05/31/24 05:48 05/31/24 03:37 Test 05/31/24 03:37 Range/Units Serum Glucose 145 H 74-106 mg/dL Microbiology Date/Time Source Procedure Growth Status 05/30/24 15:15 Nose MRSA Screen - Final Complete 05/30/24 14:15 Bronchial Brushings Gram Stain - Final Resulted 05/30/24 14:15 Bronchial Brushings Respiratory Culture - Preliminary Resulted Problem List/Assessment/Plan Problem List/Assessment/Plan ASSESSMENT Acute hypoxic respiratory failure likely due to aspiration pneumonia? Mucus plugs and atelectasis S/P intubation and bronchoscopy Duodenal ulcer disease Acute transaminitis and hepatic failure Acute abdominal pain Hepatic steatosis with hepatomegaly Acute pancreatitis Jaundice Hyperthyroidism Severe anemia Plan Currently on mechanical ventilation on the following parameters Status post bronchoscopy which showed low and left upper lingula/lower lobe atelectasis due to mucus plugging. There was mucus plugging from L1-L2 10 and R 6-10. Bronchoalveolar lavage was performed as well right middle lobe. Pulmonology on board Troponins came back elevated at EKG was performed showing sinus tachycardia with no specific ST segment elevation or depression at this time: Cardiology consulted Continue Protonix 40 mg IV b.i.d. Continue Carafate 1 g p.o. b.i.d. Transfuse 2 unit of RBC TODAY. Monitor hemoglobin and hematocrit Lactulose 30 mL p.o. daily [facility] discriminant function is 26.6 and trending down. Patient does not need to be on steroids at this time Awaiting for Stool occult blood test Currently on levothyroxine 112 mcg q.d. No procedures at this time until patient is more stable. Will continue following the patient Iron panel, folate and B12 studies ordered Goal of care discussed for more than 30 minute Plan discussed with Dr. Maya Plan discussed with: Other (nurse) KALPANA HOOKER RESIDENT May 31, 2024 15:03
[2024-05-31] MEDS: PIPERACILLIN-TAZOB 3.375GM 100 ML IV SCH (16:41)
[2024-05-31] MEDS: fentaNYL Drip 2500mCg/250mlNS 250 ML IV ONE (18:19)
[2024-05-31] MEDS: ACETYLCYSTEINE 20%(200MG/ML) SOL 4ML NEB SCH (19:03)
[2024-05-31 20:06] LABS: Hematocrit 36.9 % (36.0-46.0); Hemoglobin 11.9 g/dL (12.2-16.2)
--- NOTE | 2024-05-31 23:22 | DVHPN2 ---
Progress Note - Dictate Date Seen: May 31, 2024 Has the PT tested + for MRSA If YES, has PT been informed?: No Medical Necessity Reason Pt with a Central, PICC or Fol: Yes The following are medically ne: Robertson Catheter Reason for robertson catheter: Strict I&O Subjective Patient seen and examined at bedside. Sedated, intubated on mechanical ventilator. Overnight events reviewed. vital signs Vital Sign Date Time Temp Pulse Resp B/P (MAP) Pulse Ox O2 Delivery O2 Flow Rate FiO2 05/31/24 22:34 109 16 103/48 (66) 97 70 05/31/24 22:00 Mechanical Ventilator+ 05/31/24 20:00 98.2 98.2 05/30/24 12:36 6 Total Intake and Output 05/30/24 05/30/24 05/31/24 15:00 23:00 07:00 Intake Total 845.735 ml 388.5 ml Output Total 150 ml 100 ml Balance 695.735 ml 288.5 ml medications Current Medications Medications Dose Ordered Sig/Alvaro Route Start Time Stop Time Status Last Admin Dose Admin Lorazepam 2 mg Q4H PO 05/27/24 09:15 Hold 05/28/24 06:10 2 MG Ondansetron HCl 4 mg Q4HP PRN IV 05/27/24 09:15 Nitroglycerin 0.4 mg Q5MINP PRN SL 05/27/24 09:15 Morphine Sulfate 2 mg Q30M PRN IV 05/27/24 09:15 Levothyroxine Sodium 112 mcg DAILY PO 05/27/24 10:00 05/31/24 10:36 112 MCG Sucralfate 1 gm QID PO 05/27/24 12:00 Hold 05/28/24 06:11 1 GM Patient Own Medication 1 cap DAILY PO 05/27/24 10:00 UNV Famotidine 20 mg Q48H IV 05/27/24 10:00 05/31/24 10:35 20 MG Fluoxetine HCl 40 mg DAILY PO 05/27/24 10:00 05/31/24 10:35 40 MG Pantoprazole Sodium 40 mg BID IV 05/27/24 22:00 05/31/24 21:57 40 MG Midodrine 10 mg TID@0600,1200,1800 PO 05/27/24 18:00 Hold 05/28/24 06:10 10 MG Albuterol 2.5 mg Q4HPRN PRN NEB 05/28/24 18:45 05/31/24 00:19 2.5 MG Ipratropium [place] 0.5 mg Q4HPRN PRN NEB 05/28/24 18:45 05/31/24 02:24 0.5 MG Methylprednisolone Sodium Succinate 40 mg Q8HR IV 05/29/24 06:00 05/31/24 21:58 40 MG Norepinephrine Bitartrate 250 ml @ 3.75 mls/hr Q24H IV 05/30/24 14:15 05/31/24 10:36 3.75 MLS/HR Midazolam HCl 50 ml @ 1 mls/hr Q24H IV 05/30/24 14:15 05/31/24 22:28 9 MLS/HR Fentanyl Citrate 250 ml @ 2.5 mls/hr Q24H IV 05/30/24 14:15 05/31/24 18:19 20 MLS/HR Thiamine HCl 100 mg DAILY IV 06/01/24 10:00 Folic Acid 1 mg/ Dextrose 50.2 ml @ 200.8 mls/ hr DAILY INJ 06/01/24 10:00 Purified Water 200 ml Q4HR 05/31/24 02:00 05/31/24 21:59 200 ML Levalbuterol HCl 1.25 mg Q4HR NEB 05/31/24 06:00 05/31/24 22:00 1.25 MG Piperacillin Sod/ Tazobactam Sod 100 ml @ 25 mls/hr Q8H IV 05/31/24 16:00 05/31/24 16:41 25 MLS/HR Acetylcysteine 200 mg Q8HR NEB 05/31/24 22:00 05/31/24 19:03 200 MG objective Gen.: Patient lying in bed in medical ICU. Sedated, intubated on mechanical ventilator. Head: Normocephalic, atraumatic. Eyes: PERRLA. Ears: Normal external anatomy. Throat: Endotracheal tube and orogastric tube in place. Neck: Supple, trachea midline. Chest: Transmitted breath sounds bilaterally. Decreased air entry bilaterally. No wheezing. Bibasilar crackles. Cardiovascular: Positive S1, positive S2. Regular rate and rhythm. Abdomen: Positive bowel sounds in all 4 quadrants. Soft, nontender, nondistended. : Robertson in place. Normal external genitalia. Rectal: Deferred. Skin: Warm, dry. Intact. Extremities: 2+ radial pulses bilaterally. No lower extremity edema. Neuro: Sedated. laboratory and microbiology Laboratory Tests 05/31/24 19:59 05/31/24 05:48 05/31/24 03:37 Test 05/31/24 03:37 Range/Units Serum Glucose 145 H 74-106 mg/dL Assessment/Plan Impression: Acute hypoxic respiratory failure On mechanical ventilator Hepatorenal syndrome Leukocytosis Anemia Thrombocytopenia Acute kidney injury Hypokalemia Chronic pancreatitis ETOH abuse Marijuana abuse Events: Remains on vent support On AC mode; RR 20 -->16, VT 400 -->450, PEEP 5 -->8, FiO2 90% Taper FiO2 as tolerated Plan for 2 units PRBC Monitor hemoglobin Sedated on Versed, Fentanyl ABG reviewed, compensated. Pressors for hemodynamic support Levophed 8 mcg/min Titrate to keep mean arterial pressure greater than 65 mmHg. Continue bronchodilators/Mucomyst Labs and imaging reviewed. Rest of plan as noted below. Plan: s/p intubation on mechanical ventilator. CXR image and report reviewed. Devices in place. Multifocal airspace disease. No pneumothorax. No pleural effusion. ABG reviewed, compensated. On AC mode; RR 20 -->16, VT 400 -->450, PEEP 5 -->8, FiO2 90% Titrate FIO2 to keep O2 saturation above 90%. VAP bundle. Daily ABG and CXR while intubated Sedate for ventilator synchrony Continue bronchodilators. Continue antibiotics. F/u cultures. Pressors for hemodynamic support Titrate to keep mean arterial pressure greater than 65 mmHg. Follow up GI recommendations Follow up Nephrology recommendations Monitor renal function Monitor electrolytes. Supplement as necessary. Monitor ins and outs. Maintain euvolemia. GI prophylaxis. DVT prophylaxis. Prognosis: Poor given patient's multiple co-morbidities. Condition: Critical Rest of plan per hospitalist and other consultants. A total of 35 minutes of critical care time was spent reviewing the patient record, examining the patient, making a diagnostic and therapeutic plan, discussing this plan with the medical personnel, following up on diagnostic studies and following the patient for clinical stability excluding any and all procedures. At least 50% of this time was spent in direct, [id number] contact. Thank you, Dr. Parkinson, for allowing me to participate in this patient's care. Further recommendations will depend on the patient's clinical course. Please do not hesitate to contact me if you have any questions or concerns. This medical document was created using an electronic medical record system with [employer] dictation system. Although these documentations are being carefully reviewed, there may still be some phonetic and typographical changes. The errors are purely typographical, due to imperfection on the software program, and do not reflect any compromise in the patient's medical care. Dietary Evaluation Review Recommendations by RD: PPN/TPN Comments: 1. If NPO > 7 days, initiate EN/TPN. 2. If gut is accessible, consider Jevity 1.2 @ 40 mL/hr. Tf regimen will provide 1,152 kcals, 53g Pro, and 775 mL free H2O (+ 1,200 mL free H2O flushes). TF regimen will meet ~ 91% daily estimated energy needs (20-25 kcal/kg) and ~59% daily estimated protein needs (1.2-2.0 g/kg). 3. Advance to hepatic diet when medically feasible, pending [employer]IST approval. 4. Promote ETOH cessation. Expected Outcomes/Goals: 1. nutritional intake to meet at least 75% estimated needs 2. labs to improve 3. diet to advance 4. f/u in 2-3 days Plan discussed with: Other (NIKKI Lainez) Critical Care Time(min): 35 CC Plasma Assessment Blood Product Administration S: [id number] TAE DUPREE MD May 31, 2024 23:22
[2024-06-01] VITALS (105 sets, daily range): BP systolic 89–129; BP diastolic 43–65; PULSE 103–124; RESP 15–22; TEMP 98.1–98.8; O2SAT 87–100
[2024-06-01 03:22] LABS: Mean Corpuscular Hgb Conc. 33.3 g/dL (32.0-36.0); Mean Corpuscular Volume 108.4 fL (80.0-100.0)
[2024-06-01 03:24] LABS: Hematocrit 33.6 % (36.0-46.0); Hemoglobin 11.2 g/dL (12.2-16.2); Mean Corpuscular Hemoglobin 36.1 pg (28.0-32.0); Platelet Count (auto) 40 10^3/uL (140-450); White Blood Cell 19.9 10^3/uL (4.4-10.8)
[2024-06-01 03:55] LABS: Red Cell Distribution Width 31.2 % (11.8-14.3)
[2024-06-01 03:57] LABS: Basophils % (manual) 0 (0.0-2.0); Blast Cells 0; Eosinophils % (manual) 0 (0-7); Metamyelocytes % 0; Promyelocytes % 0; Reactive Lymphocytes 0
--- NOTE | 2024-06-01 06:24 | DVH ---
CHEST RADIOGRAPH Indication: Intubated Technique: Single frontal view of the chest was obtained Comparison: XY CHEST PORTABLE on DOS: 05/30/24, XY CHEST XRAY 1 VIEW on DOS: 05/30/24, XY CHEST GLENIS BLE on DOS: 05/30/24 IMPRESSION: Heart appears stable in size. Moderate to severe bilateral interstitial and alveolar airspace opaciti es appear similar with slight improvement in the left upper lung. No sizable effusion or pneumothorax . Support lines and tubes appear unchanged in position.
[2024-06-01] MEDS ORDERED: chlordiazePOXIDE HCL 25 MG CAP PO SCH (07:00)
[2024-06-01 07:40] LABS: Band Neutrophils % (manual) 6; Lymphocytes % (manual) 7 (10.0-50.0); Macrocytosis Moderate; Monocytes % (manual) 3 (0-12); Myelocytes % 1
[2024-06-01 07:41] LABS: Anisocytosis Moderate; Large Platelets FEW; Platelet Estimate Decrea; Tear Drop Cells FEW
[2024-06-01 07:50] LABS: Alkaline Phosphatase 99 U/L (46-116); Anion Gap 10 (5-15); Calcium 9.2 mg/dL (8.7-10.4); Carbon Dioxide 22 mmol/L (20-31); Glucose 106 mg/dL (74-106)
[2024-06-01 07:58] LABS: Alanine Aminotransferase 55 U/L (7-40); Albumin 2.3 g/dL (3.2-4.8); Aspartate Aminotransferase 145 U/L (13-40); Bilirubin, Total 11.3 mg/dL (0.2-1.0); Blood Urea Nitrogen 27 mg/dL (9-23); Chloride 114 mmol/L (98-107); Sodium 146 mmol/L (136-145)
[2024-06-01 08:01] LABS: BUN/Creatinine Ratio 13.2 (10.0-20.0)
[2024-06-01 09:10] LABS: Base Excess -7.1 mmol/L (-2.0-3.0)
[2024-06-01] MEDS: THIAMINE 100mg/ml INJ (200mg/2ml VIAL) IV SCH (09:14)
[2024-06-01] MEDS: FOLIC ACID 1 MG in D5W 5% 50 ML INJ SCH (10:00)
[2024-06-01] MEDS: DOXYCYCLINE 100MG/250ML 250 ML IV SCH (11:00)
--- NOTE | 2024-06-01 11:13 | DVHPN2 ---
Subjective Intubated and sedated Reviewed: Care Plan, H&P, Labs, Medications, Previous Orders, Radiology Changes from previous H/P or p: No Changes Eyes: No Pain, No Vision change, No Conjunctivae inflammation, No Eyelid inflammation, No Other, No Redness ENT: No Ear pain, No Ear discharge, No Nose pain, No Nose discharge, No Nose congestion, No Mouth pain, No Mouth swelling, No Throat pain, No Throat swelling, No Other Cardiovascular: Chest Pain; No Palpitations, No Orthopnea, No Paroxysmal Noc. Dyspnea, No Edema, No Lt Headedness, No Other Respiratory: No Cough, No Dry, No Shortness of breath, No SOB with excertion, No Wheezing, No Hemoptysis, No Pleuritic Pain, No Sputum, No Other Gastrointestinal: No Nausea, No Vomiting; Abdominal Pain; No Diarrhea, No Constipation, No Melena; Hematochezia; No Other Genitourinary: No Dysuria; Frequency; No Incontinence, No Hematuria; Retention; No Other Musculoskeletal: No other, No neck pain, No shoulder pain, No arm pain, No back pain, No hand pain, No leg pain, No foot pain Skin: No Rash, No Lesions, No Jaundice, No Bruising, No Other Objective Vitals Vital Signs Date Time Temp Pulse Resp B/P (MAP) Pulse Ox O2 Delivery O2 Flow Rate FiO2 06/01/24 09:15 89/46 06/01/24 08:35 114 16 96 70 06/01/24 06:00 Mechanical Ventilator+ 06/01/24 04:00 98.1 98.1 05/30/24 12:36 6 Intake/Output Intake and Output 06/01/24 06:59 Intake Total 1784.2 ml Output Total 70 ml Balance 1714.2 ml Intake Oral 1000 ml IV Total 784.2 ml Output Urine Total 70 ml General Appearance: moderate distress, Other (Chemically sedated) HEENT: Atraumatic, PERRLA, Other (Sclerae icteric) Lungs: Clear to auscultation, Normal air movement Cardiovascular: Normal S1, Normal S2 Abdomen: Normal bowel sounds Skin: Dry, Intact, Other (Jaundiced) Psych/Mental Status: Other (Unable to assess) Medications Current Medications Medications Dose Ordered Sig/Alvaro Route Start Time Stop Time Status Last Admin Dose Admin Lorazepam 2 mg Q4H PO 05/27/24 09:15 Hold 05/28/24 06:10 2 MG Ondansetron HCl 4 mg Q4HP PRN IV 05/27/24 09:15 Nitroglycerin 0.4 mg Q5MINP PRN SL 05/27/24 09:15 Morphine Sulfate 2 mg Q30M PRN IV 05/27/24 09:15 Sucralfate 1 gm QID PO 05/27/24 12:00 Hold 05/28/24 06:11 1 GM Patient Own Medication 1 cap DAILY PO 05/27/24 10:00 UNV Fluoxetine HCl 40 mg DAILY PO 05/27/24 10:00 06/01/24 09:14 40 MG Pantoprazole Sodium 40 mg BID IV 05/27/24 22:00 06/01/24 09:14 40 MG Midodrine 10 mg TID@0600,1200,1800 PO 05/27/24 18:00 Hold 05/28/24 06:10 10 MG Norepinephrine Bitartrate 250 ml @ 3.75 mls/hr Q24H IV 05/30/24 14:15 06/01/24 01:37 15 MLS/HR Midazolam HCl 50 ml @ 1 mls/hr Q24H IV 05/30/24 14:15 06/01/24 09:34 9 MLS/HR Fentanyl Citrate 250 ml @ 2.5 mls/hr Q24H IV 05/30/24 14:15 06/01/24 07:05 20 MLS/HR Thiamine HCl 100 mg DAILY IV 06/01/24 10:00 06/01/24 09:14 100 MG Folic Acid 1 mg/ Dextrose 50.2 ml @ 200.8 mls/ hr DAILY INJ 06/01/24 10:00 06/01/24 10:00 200.8 MLS/HR Acetylcysteine 200 mg Q6HR NEB 06/01/24 12:00 UNV Purified Water 200 ml Q6HR GT 06/01/24 12:00 UNV Methylprednisolone Sodium Succinate 40 mg BID IV 06/01/24 22:00 UNV Enteral Nutritional Formula 1,000 ml 30ML/HR GT 06/01/24 11:00 UNV Levalbuterol HCl 0.625 mg Q6HR NEB 06/01/24 12:00 UNV Ipratropium [place] 0.5 mg Q6HWA NEB 06/01/24 12:00 UNV Meropenem 50 ml @ 17 mls/hr Q8HR IV 06/01/24 14:00 UNV Doxycycline Hyclate 250 ml @ 125 mls/hr Q12H IV 06/01/24 11:00 UNV Laboratory Results Laboratory Tests 06/01/24 03:00 06/01/24 06:59 Chemistry Test 06/01/24 06:59 Albumin 2.3 g/dL (3.2-4.8) L Calcium Level 9.2 mg/dL (8.7-10.4) Total Protein 5.0 g/dL (5.7-8.2) L LFT Test 06/01/24 06:59 Alanine Aminotransferase (ALT) 55 U/L (7-40) H Alkaline Phosphatase 99 U/L (46-116) Aspartate Amino Transferase (AST) 145 U/L (13-40) H Total Bilirubin 11.3 mg/dL (0.2-1.0) H Urinalysis Test 05/28/24 21:45 Urine Color Yellow (Yellow) Urine Clarity Clear (Clear) Urine pH 6.5 (5.0-9.0) Urine Specific [place] 1.005 (1.001-1.035) Urine Protein Trace (Negative) H Urine Ketones Negative (Negative) Urine Blood 3+ /uL (Negative) H Urine Nitrite Negative (Negative) Urine Bilirubin Negative (Negative) Urine Urobilinogen 4 mg/dL (Negative) H Urine Leukocyte Esterase Trace /uL (Negative) Urine RBC 21 /hpf (0 - 4) Urine WBC 109 /hpf (0 - 5) Urine Squamous Epithelial Cells None seen /hpf (<5) Urine Bacteria None seen /hpf (None Seen) Urine Glucose Normal mg/dL (Normal) Blood Gas Results Test 06/01/24 08:32 Arterial Blood pH 7.296 (7.350-7.450) FiO2 % 70.0 Microbiology Microbiology Date/Time Source Procedure Growth Status 05/30/24 15:15 Nose MRSA Screen - Final Complete 05/30/24 14:15 Bronchial Brushings Gram Stain - Final Resulted 05/30/24 14:15 Bronchial Brushings Respiratory Culture - Preliminary Resulted Labs and/or images reviewed: Labs reviewed by me, Image(s) reviewed by me Assessment/Plan Assessment/Plan Impression: -acute hypoxic respiratory failure with mechanical ventilation -sepsis secondary to pneumonia -probable aspiration pneumonia -alcoholism -alcohol-related liver disease -acute kidney injury, vasomotor nephropathy -hypothyroidism, supratherapeutic coverage -severe protein malnutrition -thrombocytopenia -alcohol withdrawal Plan: -continue current ventilator settings per pulmonology -change antibiotic therapy: Meropenem, doxycycline -stop levothyroxine given TSH and thyroid panel -continue thiamine, MVI -start tube feeding -bronchodilators -PUD prophylaxis -SCDs -repeat labs, chest x-ray, ABG in a.m. Critical care time spent with patient discussing and formulating plan of care: 40 minutes. This does not include time spent performing procedures. This medical document was created using an electronic medical record system with [email or web address] dictation system. Although this document has been carefully reviewed, there may still be some phonetic and typographical errors. These areas are purely typographical due to imperfections of the software programs, and do not reflect any compromise in the patient's medical care. Plan discussed with: Patient, Other (RN) My Orders Orders - MADI RYDER NP Procedure Category Date Status Time Acetylcysteine PHA 06/01/24 Logged Inhalation 20% 12:00 Free Water PHA 06/01/24 Logged 12:00 Methylprednisolone PHA 06/01/24 Logged Sod Succ (Solu Medrol 22:00 Nutritional PHA 06/01/24 Logged Supplements (Nepro 11:00 Levalbuterol Hcl PHA 06/01/24 Logged (Xopenex Medneb) 12:00 Ipratropium Medneb PHA 06/01/24 Logged (Atrovent Medneb) 12:00 Meropenem 1gm Ivpb PHA 06/01/24 Logged (Merrem 1gm/ Ns) 14:00 Doxycycline PHA 06/01/24 Logged 100mg/250ml 11:00 Comprehensive LAB 06/02/24 Verified Metabolic Panel 05:00 Comprehensive LAB 06/03/24 Verified Metabolic Panel 05:00 Comprehensive LAB 06/04/24 Verified Metabolic Panel 05:00 Complete Blood Count LAB 06/02/24 Verified 05:00 Complete Blood Count LAB 06/03/24 Verified 05:00 Complete Blood Count LAB 06/04/24 Verified 05:00 Chest Portable XY 06/02/24 Logged 05:00 Chest Portable XY 06/03/24 Logged 05:00 Chest Portable XY 06/04/24 Logged 05:00 Abg W/ Co-Ox RT 06/02/24 Logged 05:00 Abg W/ Co-Ox RT 06/03/24 Logged 05:00 Abg W/ Co-Ox RT 06/04/24 Logged 05:00 Date of Service: Jun 01, 2024 Billing Provider: MADI RYDER NP Common Visit Codes: [id number] CARE 30-74 MIN MADI RYDER NP Jun 01, 2024 11:13
[2024-06-01] MEDS: FREE WATER GT SCH (12:00)
[2024-06-01] MEDS: Nepro With Carb Steady 1 Liter Bottle GT SCH (13:29)
[2024-06-01] MEDS: MEROPENEM 1GM IVPB 50 ML IV SCH (13:29)
--- NOTE | 2024-06-01 14:47 | ECG ---
[facility] Test Date: 2024-05-31 Test Time: 06:44:46 Pat Name: JAVIER MAYNARD Department: Room: [address] [place] [address] A Gender: F Equal Opportunity Counselor: SUSAN : 1965 Requested By: JR DESOUZA Order Number: [id number] Reading MD: Zulema Michaud Measurements Intervals [place] Rate: 130 P: 62 [place]: 118 QRS: 44 QRSD: 68 T: -61 QT: 274 QTc: 403 Interpretive Statements Sinus tachycardia Low voltage QRS Nonspecific ST and T wave abnormality Electronically Signed On 06-01-2024 21:05:45 PST by Zulema Michaud Please click the below link to view image of tracing.
[2024-06-01] MEDS: LEVALBUTEROL HCL 1.25 MG/3 ML NEB NEB SCH (14:53)
[2024-06-01] MEDS: ACETYLCYSTEINE 20%(200MG/ML) SOL 4ML NEB SCH (14:54)
[2024-06-01] MEDS: IPRATROPIUM BROM 0.5 MG/2.5ML INH SOL NEB SCH (14:56)
--- NOTE | 2024-06-01 15:19 | ECG ---
[facility] Test Date: 2024-05-31 Test Time: 06:45:24 Pat Name: JAVIER MAYNARD Department: Room: [address] [place] [address] A Gender: F Crimp Setter: SUSAN : 1965 Requested By: MADI RYDER Order Number: [id number] Reading MD: Zulema Michaud Measurements Intervals [place] Rate: 128 P: 57 GA: 122 QRS: 43 QRSD: 62 T: 3 QT: 276 QTc: 402 Interpretive Statements Sinus tachycardia Low voltage QRS Nonspecific ST and T wave abnormality Electronically Signed On 06-01-2024 21:05:52 PST by Zulema Michaud Please click the below link to view image of tracing.
--- NOTE | 2024-06-01 20:25 | DVHPN2 ---
Progress Note - Dictate Date Seen: Jun 01, 2024 Has the PT tested + for MRSA If YES, has PT been informed?: No Medical Necessity Reason Pt with a Central, PICC or Fol: Yes The following are medically ne: Robertson Catheter Reason for robertson catheter: Strict I&O Subjective Patient is intubated sedated in the ICU She is desaturating with three positioning NG tube was inserted yesterday which and 500 mL of bilious material was removed, there was no fresh or old blood Hemoglobin has improved to 11 and is stable after 2 units PRBC Liver enzymes are trending upwards and bilirubin went up to 11.5; hepatitis panel is negative Kidney function worsening with rising creatinine Patient is noted to have a low TSH suspicious for possible hyperthyroidism vital signs Vital Sign Date Time Temp Pulse Resp B/P (MAP) Pulse Ox O2 Delivery O2 Flow Rate FiO2 06/01/24 18:53 122 16 129/64 (85) 95 70 06/01/24 18:52 Mechanical Ventilator 06/01/24 16:00 98.8 98.8 05/30/24 12:36 6 Total Intake and Output 05/31/24 05/31/24 06/01/24 15:00 23:00 07:00 Intake Total 100.2 ml 676 ml 1052 ml Output Total 50 ml 20 ml Balance 100.2 ml 626 ml 1032 ml medications Current Medications Medications Dose Ordered Sig/Alvaro Route Start Time Stop Time Status Last Admin Dose Admin Lorazepam 2 mg Q4H PO 05/27/24 09:15 Hold 05/28/24 06:10 2 MG Ondansetron HCl 4 mg Q4HP PRN IV 05/27/24 09:15 Nitroglycerin 0.4 mg Q5MINP PRN SL 05/27/24 09:15 Morphine Sulfate 2 mg Q30M PRN IV 05/27/24 09:15 Sucralfate 1 gm QID PO 05/27/24 12:00 Hold 05/28/24 06:11 1 GM Patient Own Medication 1 cap DAILY PO 05/27/24 10:00 UNV Fluoxetine HCl 40 mg DAILY PO 05/27/24 10:00 06/01/24 09:14 40 MG Pantoprazole Sodium 40 mg BID IV 05/27/24 22:00 06/01/24 09:14 40 MG Midodrine 10 mg TID@0600,1200,1800 PO 05/27/24 18:00 Hold 05/28/24 06:10 10 MG Norepinephrine Bitartrate 250 ml @ 3.75 mls/hr Q24H IV 05/30/24 14:15 06/01/24 16:26 18.75 MLS/HR Midazolam HCl 50 ml @ 1 mls/hr Q24H IV 05/30/24 14:15 06/01/24 15:46 9 MLS/HR Fentanyl Citrate 250 ml @ 2.5 mls/hr Q24H IV 05/30/24 14:15 06/01/24 19:35 20 MLS/HR Thiamine HCl 100 mg DAILY IV 06/01/24 10:00 06/01/24 09:14 100 MG Folic Acid 1 mg/ Dextrose 50.2 ml @ 200.8 mls/ hr DAILY INJ 06/01/24 10:00 06/01/24 10:00 200.8 MLS/HR Acetylcysteine 200 mg Q6HR NEB 06/01/24 12:00 06/01/24 18:51 200 MG Purified Water 200 ml Q6HR GT 06/01/24 12:00 06/01/24 18:00 200 ML Methylprednisolone Sodium Succinate 40 mg BID IV 06/01/24 22:00 Enteral Nutritional Formula 1,000 ml 30ML/HR GT 06/01/24 11:00 06/01/24 13:29 1,000 ML Levalbuterol HCl 0.625 mg Q6HR NEB 06/01/24 12:00 06/01/24 18:51 0.625 MG Ipratropium [place] 0.5 mg Q6HWA NEB 06/01/24 12:00 06/01/24 18:51 0.5 MG Meropenem 50 ml @ 17 mls/hr Q12HR IV 06/01/24 13:00 06/01/24 13:29 17 MLS/HR Doxycycline Hyclate 250 ml @ 125 mls/hr Q12H IV 06/01/24 11:00 06/01/24 11:00 125 MLS/HR objective General: Intubated sedated HEENT: + scleral icterus Chest: lung lee clear to auscultation Heart: RRR, no murmur Abdomen: Mild -distended, mild generalized tenderness to palpation, +BS laboratory and microbiology Laboratory Tests 06/01/24 06:59 1/1/25 03:00 Test 06/01/24 06:59 Range/Units Serum Glucose 106 74-106 mg/dL Problems(with codes): (1) Duodenal ulcer disease (2) Elevated LFTs (3) Hepatic steatosis (4) Abdominal pain (5) Hepatic failure (6) Pancreatitis (7) Jaundice (8) Hyperthyroidism Prognosis Plan Continue Protonix 40 mg IV q.12 hours Patient is on IV antibiotics If bilirubin continues to rise we will put her on ursodiol 300 mg via NGT twice a day Recalculated Source[employer]dr[employer]imus discrimination function is 30 points; patient is receiving IV steroids Monitor labs including PT INR in a.m. Patient has lactic acidosis Ammonia has gone up 41 Add lactulose 30 mL via NG tube daily Prognosis remains guarded I will follow up patient with you Dietary Evaluation Review Recommendations by RD: PPN/TPN Comments: 1. If NPO > 7 days, initiate EN/TPN. 2. If gut is accessible, consider Jevity 1.2 @ 40 mL/hr. Tf regimen will provide 1,152 kcals, 53g Pro, and 775 mL free H2O (+ 1,200 mL free H2O flushes). TF regimen will meet ~ 91% daily estimated energy needs (20-25 kcal/kg) and ~59% daily estimated protein needs (1.2-2.0 g/kg). 3. Advance to hepatic diet when medically feasible, pending CREMATORIUM OPERATOR approval. 4. Promote ETOH cessation. Expected Outcomes/Goals: 1. nutritional intake to meet at least 75% estimated needs 2. labs to improve 3. diet to advance 4. f/u in 2-3 days Plan discussed with: Other (None) CC Plasma Assessment Blood Product Administration S: [id number] JARROD PATEL MD Jun 01, 2024 20:25
[2024-06-01] MEDS: SODIUM BICARB 8.4% 50Meq/50ml SYR Vial IV ONE (21:03)
[2024-06-01] MEDS: methylPREDNISolone SOD SUCC 40 MG/ML VL IV SCH (21:33)
[2024-06-01] MEDS: DOXYCYCLINE 100MG/250ML 250 ML IV ONE (21:57)
[2024-06-01 23:19] LABS: Base Excess -6.8 mmol/L (-2.0-3.0)
--- NOTE | 2024-06-01 23:28 | DVHPN2 ---
Progress Note - Dictate Date Seen: Jun 01, 2024 Has the PT tested + for MRSA If YES, has PT been informed?: No Medical Necessity Reason Pt with a Central, PICC or Fol: Yes The following are medically ne: Robertsno Catheter Reason for robertson catheter: Strict I&O Subjective Patient seen and examined at bedside. Sedated, intubated on mechanical ventilator. Overnight events reviewed. vital signs Vital Sign Date Time Temp Pulse Resp B/P (MAP) Pulse Ox O2 Delivery O2 Flow Rate FiO2 06/01/24 22:32 111 20 114/52 (72) 95 60 06/01/24 20:00 98.4 98.4 06/01/24 20:00 Mechanical Ventilator+ 05/30/24 12:36 6 Total Intake and Output 05/31/24 05/31/24 06/01/24 15:00 23:00 07:00 Intake Total 100.2 ml 676 ml 1052 ml Output Total 50 ml 20 ml Balance 100.2 ml 626 ml 1032 ml medications Current Medications Medications Dose Ordered Sig/Alvaro Route Start Time Stop Time Status Last Admin Dose Admin Lorazepam 2 mg Q4H PO 05/27/24 09:15 Hold 05/28/24 06:10 2 MG Ondansetron HCl 4 mg Q4HP PRN IV 05/27/24 09:15 Nitroglycerin 0.4 mg Q5MINP PRN SL 05/27/24 09:15 Morphine Sulfate 2 mg Q30M PRN IV 05/27/24 09:15 Sucralfate 1 gm QID PO 05/27/24 12:00 Hold 05/28/24 06:11 1 GM Patient Own Medication 1 cap DAILY PO 05/27/24 10:00 UNV Fluoxetine HCl 40 mg DAILY PO 05/27/24 10:00 06/01/24 09:14 40 MG Pantoprazole Sodium 40 mg BID IV 05/27/24 22:00 06/01/24 21:32 40 MG Midodrine 10 mg TID@0600,1200,1800 PO 05/27/24 18:00 Hold 05/28/24 06:10 10 MG Norepinephrine Bitartrate 250 ml @ 3.75 mls/hr Q24H IV 05/30/24 14:15 06/01/24 16:26 18.75 MLS/HR Midazolam HCl 50 ml @ 1 mls/hr Q24H IV 05/30/24 14:15 06/01/24 21:34 9 MLS/HR Fentanyl Citrate 250 ml @ 2.5 mls/hr Q24H IV 05/30/24 14:15 06/01/24 19:35 20 MLS/HR Thiamine HCl 100 mg DAILY IV 06/01/24 10:00 06/01/24 09:14 100 MG Folic Acid 1 mg/ Dextrose 50.2 ml @ 200.8 mls/ hr DAILY INJ 06/01/24 10:00 06/01/24 10:00 200.8 MLS/HR Acetylcysteine 200 mg Q6HR NEB 06/01/24 12:00 06/01/24 22:27 200 MG Purified Water 200 ml Q6HR GT 06/01/24 12:00 06/01/24 18:00 200 ML Methylprednisolone Sodium Succinate 40 mg BID IV 06/01/24 22:00 06/01/24 21:33 40 MG Enteral Nutritional Formula 1,000 ml 30ML/HR GT 06/01/24 11:00 06/01/24 13:29 1,000 ML Levalbuterol HCl 0.625 mg Q6HR NEB 06/01/24 12:00 06/01/24 22:27 0.625 MG Ipratropium [place] 0.5 mg Q6HWA NEB 06/01/24 12:00 06/01/24 18:51 0.5 MG Meropenem 50 ml @ 17 mls/hr Q12HR IV 06/01/24 13:00 06/01/24 21:33 17 MLS/HR Doxycycline Hyclate 250 ml @ 125 mls/hr Q12H IV 06/01/24 11:00 06/01/24 11:00 125 MLS/HR objective Gen.: Patient lying in bed in medical ICU. Sedated, intubated on mechanical ventilator. Head: Normocephalic, atraumatic. Eyes: PERRLA. Ears: Normal external anatomy. Throat: Endotracheal tube and orogastric tube in place. Neck: Supple, trachea midline. Chest: Transmitted breath sounds bilaterally. Decreased air entry bilaterally. No wheezing. Bibasilar crackles. Cardiovascular: Positive S1, positive S2. Regular rate and rhythm. Abdomen: Positive bowel sounds in all 4 quadrants. Soft, nontender, nondistended. : Robertson in place. Normal external genitalia. Rectal: Deferred. Skin: Warm, dry. Intact. Extremities: 2+ radial pulses bilaterally. No lower extremity edema. Neuro: Sedated. laboratory and microbiology Laboratory Tests 06/01/24 06:59 06/01/24 03:00 Test 06/01/24 06:59 Range/Units Serum Glucose 106 74-106 mg/dL Assessment/Plan Impression: Acute hypoxic respiratory failure On mechanical ventilator Hepatorenal syndrome Leukocytosis Anemia Thrombocytopenia Acute kidney injury Hypokalemia Chronic pancreatitis ETOH abuse Marijuana abuse Events: Remains on vent support On AC mode; RR 16, VT 450, PEEP 8, FiO2 70% RR increased to 20 1 amp bicarb given Obtain repeat ABG in 1 hour CXR demonstrates moderate to severe bilateral interstitial and alveolar airspace opacities in left upper lung. No effusion or pneumothorax. Sedated on Versed, Fentanyl Pressors for hemodynamic support Levophed 10 mcg/min Titrate to keep mean arterial pressure greater than 65 mmHg. Elevated ammonia level Start lactulose Continue bronchodilators/Mucomyst Monitor hemoglobin Tube feeds for nutritional support Labs and imaging reviewed. Rest of plan as noted below. Plan: s/p intubation on mechanical ventilator. On AC mode; RR 16 -->20, VT 450, PEEP 8, FiO2 70% Titrate FIO2 to keep O2 saturation above 90%. VAP bundle. Daily ABG and CXR while intubated Sedate for ventilator synchrony Continue bronchodilators. Continue antibiotics. F/u cultures. Pressors for hemodynamic support Titrate to keep mean arterial pressure greater than 65 mmHg. Follow up GI recommendations Follow up Nephrology recommendations Monitor renal function Monitor electrolytes. Supplement as necessary. Monitor ins and outs. Maintain euvolemia. GI prophylaxis. DVT prophylaxis. Prognosis: Poor given patient's multiple co-morbidities. Condition: Critical Rest of plan per hospitalist and other consultants. A total of 35 minutes of critical care time was spent reviewing the patient record, examining the patient, making a diagnostic and therapeutic plan, discussing this plan with the medical personnel, following up on diagnostic studies and following the patient for clinical stability excluding any and all procedures. At least 50% of this time was spent in direct, [id number] contact. Thank you, Dr. Parkinson, for allowing me to participate in this patient's care. Further recommendations will depend on the patient's clinical course. Please do not hesitate to contact me if you have any questions or concerns. This medical document was created using an electronic medical record system with [employer] computerized dictation system. Although these documentations are being carefully reviewed, there may still be some phonetic and typographical changes. The errors are purely typographical, due to imperfection on the software program, and do not reflect any compromise in the patient's medical care. Dietary Evaluation Review Recommendations by RD: PPN/TPN Comments: 1. If NPO > 7 days, initiate EN/TPN. 2. If gut is accessible, consider Jevity 1.2 @ 40 mL/hr. Tf regimen will provide 1,152 kcals, 53g Pro, and 775 mL free H2O (+ 1,200 mL free H2O flushes). TF regimen will meet ~ 91% daily estimated energy needs (20-25 kcal/kg) and ~59% daily estimated protein needs (1.2-2.0 g/kg). 3. Advance to hepatic diet when medically feasible, pending MANAGING COGNITIVE ENGINEER approval. 4. Promote ETOH cessation. Expected Outcomes/Goals: 1. nutritional intake to meet at least 75% estimated needs 2. labs to improve 3. diet to advance 4. f/u in 2-3 days Plan discussed with: Other (NIKKI Heath) Critical Care Time(min): 35 CC Plasma Assessment Blood Product Administration S: [id number] TAE DUPREE MD Jun 01, 2024 23:28
[2024-06-02] VITALS (95 sets, daily range): BP systolic 106–124; BP diastolic 45–66; PULSE 107–118; RESP 19–22; TEMP 98.2–99; O2SAT 90–100
[2024-06-02 03:48] LABS: Platelet Count (auto) 40 10^3/uL (140-450)
[2024-06-02 03:51] LABS: Hematocrit 33.7 % (36.0-46.0); Mean Corpuscular Hemoglobin 35.9 pg (28.0-32.0); Mean Corpuscular Hgb Conc. 32.5 g/dL (32.0-36.0); Mean Corpuscular Volume 110.2 fL (80.0-100.0); Red Blood Cells 3.06 10^6/uL (4.0-5.20); White Blood Cell 22.3 10^3/uL (4.4-10.8)
[2024-06-02 03:57] LABS: Red Cell Distribution Width 31.1 % (11.8-14.3)
[2024-06-02 03:59] LABS: Basophils % (manual) 0 (0.0-2.0); Blast Cells 0; Eosinophils % (manual) 0 (0-7); Myelocytes % 0; Promyelocytes % 0; Reactive Lymphocytes 0
[2024-06-02 04:04] LABS: Alkaline Phosphatase 85 U/L (46-116); Anion Gap 12 (5-15); Carbon Dioxide 21 mmol/L (20-31); Potassium 4.1 mmol/L (3.5-5.1); Sodium 145 mmol/L (136-145)
[2024-06-02 04:35] LABS: Alanine Aminotransferase 84 U/L (7-40); Albumin 2.3 g/dL (3.2-4.8); Aspartate Aminotransferase 224 U/L (13-40); Bilirubin, Total 13.3 mg/dL (0.2-1.0); Blood Urea Nitrogen 36 mg/dL (9-23); Chloride 112 mmol/L (98-107); Glucose 120 mg/dL (74-106)
--- NOTE | 2024-06-02 05:29 | DVH ---
CHEST RADIOGRAPH Indication: pna Technique: Single frontal view of the chest was obtained Comparison: XY CHEST PORTABLE on DOS: 06/01/24, XY CHEST PORTABLE on DOS: 05/30/24, XY CHEST XRAY 1 VIE W on DOS: 05/30/24 FINDINGS: Lines and Tubes: The endotracheal tube terminates 3.4 cm above the diana. Right subclavian access c entral venous catheter terminates in the right atrium. Enteric tube terminates in the stomach. Lungs: Patchy diffuse bilateral airspace disease is unchanged. Pleura: No effusion. No pneumothorax. Cardiomediastinal contours: Unremarkable Bones: No acute osseous abnormality. IMPRESSION: 1. No significant interval change.
[2024-06-02 08:57] LABS: Base Excess -5.5 mmol/L (-2.0-3.0)
[2024-06-02 09:17] LABS: Band Neutrophils % (manual) 11; Lymphocytes % (manual) 5 (10.0-50.0); Metamyelocytes % 2; Monocytes % (manual) 4 (0-12)
[2024-06-02 09:18] LABS: Anisocytosis Marked; Macrocytosis Marked; Platelet Estimate Decreased
[2024-06-02] MEDS ORDERED: SODIUM BICARB 50mEq/50ml Vial 50 ML in SOD CHL 0.45% 1,000 ML IV ONE (09:45)
--- NOTE | 2024-06-02 09:58 | DVHPN2 ---
Subjective Intubated and sedated Reviewed: Care Plan, H&P, Labs, Medications, Previous Orders, Radiology Changes from previous H/P or p: No Changes Eyes: No Pain, No Vision change, No Conjunctivae inflammation, No Eyelid inflammation, No Other, No Redness ENT: No Ear pain, No Ear discharge, No Nose pain, No Nose discharge, No Nose congestion, No Mouth pain, No Mouth swelling, No Throat pain, No Throat swelling, No Other Cardiovascular: Chest Pain; No Palpitations, No Orthopnea, No Paroxysmal Noc. Dyspnea, No Edema, No Lt Headedness, No Other Respiratory: No Cough, No Dry, No Shortness of breath, No SOB with excertion, No Wheezing, No Hemoptysis, No Pleuritic Pain, No Sputum, No Other Gastrointestinal: No Nausea, No Vomiting; Abdominal Pain; No Diarrhea, No Constipation, No Melena; Hematochezia; No Other Genitourinary: No Dysuria; Frequency; No Incontinence, No Hematuria; Retention; No Other Musculoskeletal: No other, No neck pain, No shoulder pain, No arm pain, No back pain, No hand pain, No leg pain, No foot pain Skin: No Rash, No Lesions, No Jaundice, No Bruising, No Other Objective Vitals Vital Signs Date Time Temp Pulse Resp B/P (MAP) Pulse Ox O2 Delivery O2 Flow Rate FiO2 06/02/24 08:50 109 20 116/57 (76) 95 60 06/02/24 06:00 Mechanical Ventilator+ 06/02/24 04:00 99.0 99.0 Intake/Output Intake and Output 06/02/24 07:00 Intake Total 2536.25 ml Output Total 20 ml Balance 2516.25 ml Intake Oral 1100 ml IV Total 1339.25 ml Tube Feeding 97 ml Output Urine Total 20 ml # Bowel Movements 50 General Appearance: Alert, moderate distress, Other (Chemically sedated) HEENT: Atraumatic, PERRLA, Other (Sclerae icteric) Lungs: Clear to auscultation, Normal air movement Cardiovascular: Normal S1, Normal S2, Other (Sinus tachycardia) Abdomen: Normal bowel sounds Neuro: Other (Unable to assess) Skin: Dry, Intact, Other (Jaundiced) Psych/Mental Status: Other (Unable to assess) Medications Current Medications Medications Dose Ordered Sig/Alvaro Route Start Time Stop Time Status Last Admin Dose Admin Lorazepam 2 mg Q4H PO 12/27/24 09:15 Hold 05/28/24 06:10 2 MG Ondansetron HCl 4 mg Q4HP PRN IV 05/27/24 09:15 Nitroglycerin 0.4 mg Q5MINP PRN SL 05/27/24 09:15 Morphine Sulfate 2 mg Q30M PRN IV 05/27/24 09:15 Sucralfate 1 gm QID PO 05/27/24 12:00 Hold 05/28/24 06:11 1 GM Patient Own Medication 1 cap DAILY PO 05/27/24 10:00 UNV Fluoxetine HCl 40 mg DAILY PO 05/27/24 10:00 06/01/24 09:14 40 MG Pantoprazole Sodium 40 mg BID IV 05/27/24 22:00 06/01/24 21:32 40 MG Midodrine 10 mg TID@0600,1200,1800 PO 05/27/24 18:00 Hold 05/28/24 06:10 10 MG Norepinephrine Bitartrate 250 ml @ 3.75 mls/hr Q24H IV 05/30/24 14:15 06/02/24 06:40 15 MLS/HR Midazolam HCl 50 ml @ 1 mls/hr Q24H IV 05/30/24 14:15 06/02/24 08:49 9 MLS/HR Fentanyl Citrate 250 ml @ 2.5 mls/hr Q24H IV 05/30/24 14:15 06/02/24 08:04 20 MLS/HR Thiamine HCl 100 mg DAILY IV 06/01/24 10:00 06/01/24 09:14 100 MG Folic Acid 1 mg/ Dextrose 50.2 ml @ 200.8 mls/ hr DAILY INJ 06/01/24 10:00 06/01/24 10:00 200.8 MLS/HR Acetylcysteine 200 mg Q6HR NEB 06/01/24 12:00 06/02/24 07:18 200 MG Purified Water 200 ml Q6HR GT 06/01/24 12:00 06/02/24 06:02 200 ML Methylprednisolone Sodium Succinate 40 mg BID IV 06/01/24 22:00 06/01/24 21:33 40 MG Enteral Nutritional Formula 1,000 ml 30ML/HR GT 06/01/24 11:00 06/01/24 13:29 1,000 ML Levalbuterol HCl 0.625 mg Q6HR [facility] 06/01/24 12:00 06/02/24 06:00 0.625 MG Ipratropium [place] 0.5 mg Q6HWA [facility] 06/01/24 12:00 06/02/24 07:17 0.5 MG Meropenem 50 ml @ 17 mls/hr Q12HR IV 06/01/24 13:00 06/01/24 21:33 17 MLS/HR Doxycycline Hyclate 250 ml @ 125 mls/hr Q12H IV 06/01/24 11:00 06/02/24 00:50 125 MLS/HR Laboratory Results Laboratory Tests 06/02/24 03:22 Chemistry Test 06/02/24 03:22 Albumin 2.3 g/dL (3.2-4.8) L Calcium Level 9.0 mg/dL (8.7-10.4) Total Protein 5.0 g/dL (5.7-8.2) L LFT Test 06/02/24 03:22 Alanine Aminotransferase (ALT) 84 U/L (7-40) H Alkaline Phosphatase 85 U/L (46-116) Aspartate Amino Transferase (AST) 224 U/L (13-40) H Total Bilirubin 13.3 mg/dL (0.2-1.0) H Urinalysis Test 05/28/24 21:45 Urine Color Yellow (Yellow) Urine Clarity Clear (Clear) Urine pH 6.5 (5.0-9.0) Urine Specific [place] 1.005 (1.001-1.035) Urine Protein Trace (Negative) H Urine Ketones Negative (Negative) Urine Blood 3+ /uL (Negative) H Urine Nitrite Negative (Negative) Urine Bilirubin Negative (Negative) Urine Urobilinogen 4 mg/dL (Negative) H Urine Leukocyte Esterase Trace /uL (Negative) Urine RBC 21 /hpf (0 - 4) Urine WBC 109 /hpf (0 - 5) Urine Squamous Epithelial Cells None seen /hpf (<5) Urine Bacteria None seen /hpf (None Seen) Urine Glucose Normal mg/dL (Normal) Blood Gas Results Test 06/01/24 23:11 06/02/24 08:01 Arterial Blood pH 7.335 (7.350-7.450) 7.290 (7.350-7.450) FiO2 % 60.0 60.0 Microbiology Microbiology Date/Time Source Procedure Growth Status 05/31/24 13:47 Blood Blood Culture - Preliminary NO GROWTH AFTER 24 HOURS OF INCUBATION. Resulted 05/30/24 15:15 Nose MRSA Screen - Final Complete 05/30/24 14:15 Bronchial Brushings Gram Stain - Final Resulted 05/30/24 14:15 Bronchial Brushings Respiratory Culture - Preliminary Resulted Labs and/or images reviewed: Labs reviewed by me, Image(s) reviewed by me Assessment/Plan Assessment/Plan Impression: -acute hypoxic respiratory failure with mechanical ventilation -sepsis secondary to pneumonia -probable aspiration pneumonia -alcoholism -alcohol-related liver disease -acute kidney injury, vasomotor nephropathy -hypothyroidism, supratherapeutic coverage -severe protein malnutrition -thrombocytopenia -alcohol withdrawal Plan: Events: Patient now with minimal urine output. Worsening renal function. Abdominal distention noted -KUB -trial of IV Lasix, start sodium bicarbonate infusion. Consider reconsulting Nephrology if renal function does not improve in 24 hours -continue current ventilator settings per pulmonology -change antibiotic therapy: Meropenem, doxycycline -stop levothyroxine given TSH and thyroid panel -continue thiamine, MVI -continue tube feeding, stop free water -bronchodilators -PUD prophylaxis -SCDs -repeat labs, chest x-ray, ABG in a.m. Critical care time spent with patient discussing and formulating plan of care: 40 minutes. This does not include time spent performing procedures. This medical document was created using an electronic medical record system with [employer] dictation system. Although this document has been carefully reviewed, there may still be some phonetic and typographical errors. These areas are purely typographical due to imperfections of the software programs, and do not reflect any compromise in the patient's medical care. Plan discussed with: Patient, Other (RN) My Orders Orders - MADI RYDER NP Procedure Category Date Status Time Acetylcysteine PHA 06/01/24 In Process Inhalation 20% 12:00 Methylprednisolone PHA 06/01/24 In Process Sod Succ (Solu Medrol 22:00 Nutritional PHA 06/01/24 In Process Supplements (Nepro 11:00 Levalbuterol Hcl PHA 06/01/24 In Process (Xopenex Medneb) 12:00 Ipratropium Medneb PHA 06/01/24 In Process (Atrovent Medneb) 12:00 Meropenem 1gm Ivpb PHA 06/01/24 In Process (Merrem 1gm/ Ns) 13:00 Doxycycline PHA 06/01/24 In Process 100mg/250ml 11:00 Comprehensive LAB 06/03/24 Verified Metabolic Panel 05:00 Comprehensive LAB 06/04/24 Verified Metabolic Panel 05:00 Complete Blood Count LAB 06/03/24 Verified 05:00 Complete Blood Count LAB 06/04/24 Verified 05:00 Chest Portable XY 06/02/24 Resulted 05:00 Chest Portable XY 06/03/24 Taken 05:00 Chest Portable XY 06/04/24 Logged 05:00 Abg W/ Co-Ox RT 06/02/24 Logged 05:00 Abg W/ Co-Ox RT 06/03/24 Logged 05:00 Abg W/ Co-Ox RT 06/04/24 Logged 05:00 Electrocardigram EKG 06/01/24 Resulted 15:12 Kub Abdomen Single XY 06/02/24 Logged View 09:40 Metoclopramide Oral PHA 06/02/24 Logged Soln (Reglan Oral So 14:00 Lactulose Oral PHA 06/02/24 Logged 09:45 Sodium Bicarb PHA 06/02/24 Logged 50meq/50ml Vial 09:45 Furosemide Injection PHA 06/02/24 Logged (Lasix Injection) 09:45 Date of Service: Jun 02, 2024 Billing Provider: MADI RYDER NP Common Visit Codes: [id number] CARE 30-74 MIN MADI RYDER NP Jun 02, 2024 09:58
[2024-06-02] MEDS: LACTULOSE 20Gm/30ML SOLN GT ONE (10:57)
[2024-06-02] MEDS: FUROSEMIDE 100 MG/10ML VIAL IV ONE (10:57)
--- NOTE | 2024-06-02 11:35 | DVH ---
Date: 06/02/2024 10:53 AM Examination: XY KUB ABDOMEN SINGLE VIEW History: abdominal distention Comparison: None TECHNIQUE: Frontal views of the abdomen was obtained. FINDINGS: Bowel gas pattern is unremarkable. Enteric tube tip projects over the expected region of the stomach. The lung bases are unremarkable. No acute osseous abnormality identified. IMPRESSION: Nonobstructive bowel gas pattern.
--- NOTE | 2024-06-02 11:45 | DVHPN2 ---
Progress Note Date Seen: Jun 02, 2024 Has the PT tested + for MRSA If YES, has PT been informed?: No Medical Necessity Reason Pt with a Central, PICC or Fol: Yes The following are medically ne: Central Line, Robertson Catheter Reason for robertson catheter: Strict I&O Subjective Patient reports: Feels worse, Other Changes from previous H/P or p: Changes (Reconsulted due to acute kidney injury and anuria, interval events intubated, and broch w/ mucuous plug) Review of Systems: HEENT:Abnormal, RESPIRATORY:Abnormal, NEURO:Abnormal Objective vital signs Vital Sign Date Time Temp Pulse Resp B/P (MAP) Pulse Ox O2 Delivery O2 Flow Rate FiO2 06/02/24 10:57 109/53 06/02/24 10:13 109 20 96 55 06/02/24 08:00 Mechanical Ventilator+ 06/02/24 04:00 99.0 99.0 Total Intake and Output 06/01/24 06/01/24 06/02/24 15:00 23:00 07:00 Intake Total 377.20 ml 1047.50 ml 1111.55 ml Output Total 20 ml Balance 377.20 ml 1047.50 ml 1091.55 ml medications Current Medications Medications Dose Ordered Sig/Alvaro Route Start Time Stop Time Status Last Admin Dose Admin Lorazepam 2 mg Q4H PO 05/27/24 09:15 Hold 05/28/24 06:10 2 MG Ondansetron HCl 4 mg Q4HP PRN IV 05/27/24 09:15 Nitroglycerin 0.4 mg Q5MINP PRN SL 05/27/24 09:15 Morphine Sulfate 2 mg Q30M PRN IV 05/27/24 09:15 Sucralfate 1 gm QID PO 05/27/24 12:00 Hold 05/28/24 06:11 1 GM Patient Own Medication 1 cap DAILY PO 05/27/24 10:00 UNV Pantoprazole Sodium 40 mg BID IV 05/27/24 22:00 06/02/24 10:45 40 MG Midodrine 10 mg TID@0600,1200,1800 PO 05/27/24 18:00 Hold 05/28/24 06:10 10 MG Norepinephrine Bitartrate 250 ml @ 3.75 mls/hr Q24H IV 05/30/24 14:15 06/02/24 06:40 15 MLS/HR Midazolam HCl 50 ml @ 1 mls/hr Q24H IV 05/30/24 14:15 06/02/24 08:49 9 MLS/HR Fentanyl Citrate 250 ml @ 2.5 mls/hr Q24H IV 05/30/24 14:15 06/02/24 08:04 20 MLS/HR Thiamine HCl 100 mg DAILY IV 06/01/24 10:00 06/02/24 10:45 100 MG Folic Acid 1 mg/ Dextrose 50.2 ml @ 200.8 mls/ hr DAILY INJ 06/01/24 10:00 06/02/24 10:47 200.8 MLS/HR Acetylcysteine 200 mg Q6HR NEB 06/01/24 12:00 06/02/24 07:18 200 MG Methylprednisolone Sodium Succinate 40 mg BID IV 06/01/24 22:00 06/02/24 10:58 40 MG Enteral Nutritional Formula 1,000 ml 30ML/HR GT 06/01/24 11:00 06/01/24 13:29 1,000 ML Levalbuterol HCl 0.625 mg Q6HR NEB 06/01/24 12:00 06/02/24 06:00 0.625 MG Ipratropium [place] 0.5 mg Q6HWA NEB 06/01/24 12:00 06/02/24 07:17 0.5 MG Meropenem 50 ml @ 17 mls/hr Q12HR IV 06/01/24 13:00 06/02/24 10:45 17 MLS/HR Doxycycline Hyclate 250 ml @ 125 mls/hr Q12H IV 06/01/24 11:00 06/02/24 10:58 125 MLS/HR Metoclopramide HCl 5 mg Q8HR GT 06/02/24 14:00 Ursodiol 300 mg BID GT 06/02/24 11:00 Examination: GENERAL:Abnormal, LUNGS:Abnormal, ABDOMEN:Abnormal, SKIN:Abnormal laboratory and microbiology Laboratory Tests 06/02/24 03:22 Test 06/02/24 03:22 Range/Units Serum Glucose 120 H 74-106 mg/dL Microbiology Date/Time Source Procedure Growth Status 05/31/24 13:47 Blood Blood Culture - Preliminary NO GROWTH AFTER 24 HOURS OF INCUBATION. Resulted 05/30/24 15:15 Nose MRSA Screen - Final Complete 05/30/24 14:15 Bronchial Brushings Gram Stain - Final Resulted 05/30/24 14:15 Bronchial Brushings Respiratory Culture - Preliminary Resulted Problem List/Assessment/Plan Problem List/Assessment/Plan Acute kidney injury multifactorial in the setting of hypotension and tachycardia hemodynamically mediated EtOH hepatic disease Anasarca Acute respiratory failure hypoxic Pneumonia Jaundice Hypoalbuminemia Macrocytic anemia 8L positive since admission Patient is significantly anasarca at this time I recommend starting diuretics Maintain pressors to keep map greater than 65 thiamine and folate Currently on sedation to prevent withdrawal on Versed drip Strict Is&Os Monitor fluid input and output balance Avoid contrast studies Guarded prognosis Critical time spent 33 minutes discussed with family Plan discussed with: Spouse My Orders My Orders Orders - ORQUIDEA HONEYCUTT MD Procedure Category Date Status Time Furosemide Drip Lasix PHA 06/02/24 Transmitted 11:45 Dietary Evaluation Review Recommendations by RD: PPN/TPN Comments: 1. If NPO > 7 days, initiate EN/TPN. 2. If gut is accessible, consider Jevity 1.2 @ 40 mL/hr. Tf regimen will provide 1,152 kcals, 53g Pro, and 775 mL free H2O (+ 1,200 mL free H2O flushes). TF regimen will meet ~ 91% daily estimated energy needs (20-25 kcal/kg) and ~59% daily estimated protein needs (1.2-2.0 g/kg). 3. Advance to hepatic diet when medically feasible, pending CABLE TECHNICIAN approval. 4. Promote ETOH cessation. Expected Outcomes/Goals: 1. nutritional intake to meet at least 75% estimated needs 2. labs to improve 3. diet to advance 4. f/u in 2-3 days CC Plasma Assessment Blood Product Administration S: [id number] ORQUIDEA HONEYCUTT MD Jun 02, 2024 11:45
--- NOTE | 2024-06-02 12:31 | DVHPN2 ---
Consult Progress Note Subjective Other Systems: Patient remains in sinus tachycardia on laboratory monitor. No cardiac events reported Objective vital signs Vital Sign Date Time Temp Pulse Resp B/P (MAP) Pulse Ox O2 Delivery O2 Flow Rate FiO2 06/02/24 10:57 109/53 06/02/24 10:13 109 20 96 55 06/02/24 08:00 Mechanical Ventilator+ 06/02/24 04:00 99.0 99.0 Total Intake and Output 06/01/24 06/01/24 06/02/24 15:00 23:00 07:00 Intake Total 377.20 ml 1047.50 ml 1111.55 ml Output Total 20 ml Balance 377.20 ml 1047.50 ml 1091.55 ml medications Current Medications Medications Dose Ordered Sig/Alvaro Route Start Time Stop Time Status Last Admin Dose Admin Lorazepam 2 mg Q4H PO 05/27/24 09:15 Hold 05/28/24 06:10 2 MG Ondansetron HCl 4 mg Q4HP PRN IV 05/27/24 09:15 Nitroglycerin 0.4 mg Q5MINP PRN SL 05/27/24 09:15 Morphine Sulfate 2 mg Q30M PRN IV 05/27/24 09:15 Sucralfate 1 gm QID PO 05/27/24 12:00 Hold 05/28/24 06:11 1 GM Patient Own Medication 1 cap DAILY PO 05/27/24 10:00 UNV Pantoprazole Sodium 40 mg BID IV 05/27/24 22:00 06/02/24 10:45 40 MG Midodrine 10 mg TID@0600,1200,1800 PO 05/27/24 18:00 Hold 05/28/24 06:10 10 MG Norepinephrine Bitartrate 250 ml @ 3.75 mls/hr Q24H IV 05/30/24 14:15 06/02/24 06:40 15 MLS/HR Midazolam HCl 50 ml @ 1 mls/hr Q24H IV 05/30/24 14:15 06/02/24 08:49 9 MLS/HR Fentanyl Citrate 250 ml @ 2.5 mls/hr Q24H IV 05/30/24 14:15 06/02/24 08:04 20 MLS/HR Thiamine HCl 100 mg DAILY IV 06/01/24 10:00 06/02/24 10:45 100 MG Folic Acid 1 mg/ Dextrose 50.2 ml @ 200.8 mls/ hr DAILY INJ 06/01/24 10:00 06/02/24 10:47 200.8 MLS/HR Acetylcysteine 200 mg Q6HR NEB 06/01/24 12:00 06/02/24 07:18 200 MG Methylprednisolone Sodium Succinate 40 mg BID IV 06/01/24 22:00 06/02/24 10:58 40 MG Enteral Nutritional Formula 1,000 ml 30ML/HR GT 06/01/24 11:00 06/01/24 13:29 1,000 ML Levalbuterol HCl 0.625 mg Q6HR NEB 06/01/24 12:00 06/02/24 06:00 0.625 MG Ipratropium [place] 0.5 mg Q6HWA NEB 06/01/24 12:00 06/02/24 07:17 0.5 MG Meropenem 50 ml @ 17 mls/hr Q12HR IV 06/01/24 13:00 06/02/24 10:45 17 MLS/HR Doxycycline Hyclate 250 ml @ 125 mls/hr Q12H IV 06/01/24 11:00 06/02/24 10:58 125 MLS/HR Metoclopramide HCl 5 mg Q8HR GT 06/02/24 14:00 Ursodiol 300 mg BID GT 06/02/24 11:00 Furosemide 100 mg/ Sodium Chloride 110 ml @ 11 mls/hr Q10H IV 06/02/24 11:45 Examination: GENERAL:Abnormal, LUNGS:Abnormal (Mechanically ventilated), CVS:Normal, NEURO:Abnormal (Chemically sedated) laboratory and microbiology Laboratory Tests 06/02/24 03:22 Test 06/02/24 03:22 Range/Units Serum Glucose 120 H 74-106 mg/dL Problem List/Assessment/Plan Problem List/Assessment/Plan Questionable chest pain Acute hypoxic respiratory failure Acute kidney injury Thyroid disease Hypokalemia, resolved Thrombocytopenia Anemia s/p PRBC transfusion Alcohol abuse Tobacco use Marijuana use Plan/Recommendation (Dr. Rivera): Case discussed with . Transthoracic echocardiogram reveals EF 55- 60%. Patient remains chemically sedated and mechanically intubated. No significant changes noted on ECG. At this point, no further cardiac workup indicated. We will recommend to reconsult Cardiology if deemed necessary. We will sign off. Thank you for allowing us to care for this patient. Please call with any questions or concerns. Critical care time spent: 37 minutes This medical document was created using an electronic medical record system with voice recognition software and computerized dictation system. Although this document has been carefully reviewed, there might still be some phonetic and typographical errors. Occasional wrong-word or ``sound-alike substitutions may have occurred due to the inherent limitations of voice recognition software. These areas are purely typographical due to imperfections of the software programs and do not reflect any compromise in the patient's medical care. Please read the chart carefully and recognize, using context, where these substitutions have occurred. Plan discussed with: Other (Bedside RN) Dietary Evaluation Review Recommendations by RD: PPN/TPN Comments: 1. If NPO > 7 days, initiate EN/TPN. 2. If gut is accessible, consider Jevity 1.2 @ 40 mL/hr. Tf regimen will provide 1,152 kcals, 53g Pro, and 775 mL free H2O (+ 1,200 mL free H2O flushes). TF regimen will meet ~ 91% daily estimated energy needs (20-25 kcal/kg) and ~59% daily estimated protein needs (1.2-2.0 g/kg). 3. Advance to hepatic diet when medically feasible, pending DIRECTOR PROCESS IMPROVEMENT approval. 4. Promote ETOH cessation. Expected Outcomes/Goals: 1. nutritional intake to meet at least 75% estimated needs 2. labs to improve 3. diet to advance 4. f/u in 2-3 days CC Plasma Assessment Blood Product Administration S: [id number] Date of Service: Jun 02, 2024 Billing Provider: YOGI RIVERA MD Common Visit Codes: 39081-[id number] INP/OBS CARE(HIGH) JR DESOUZA SUPERVISOR TWISTING DEPARTMENT Jun 02, 2024 12:31
[2024-06-02] MEDS: URSODIOL 300 MG CAP GT SCH (13:14)
[2024-06-02] MEDS: FUROSEMIDE INJECTION 100 MG in SODIUM CHL 0.9% 100 ML IV SCH ×2 (13:15→18:31)
[2024-06-02] MEDS: METOCLOPRAMIDE HCL 5MG/ml INJ 2ml VIAL ONE (13:24)
[2024-06-02] MEDS: METOCLOPRAMIDE 10 mg/10ml ORAL soln GT SCH (13:41)
--- NOTE | 2024-06-02 18:06 | DVHPN2 ---
Progress Note Date Seen: Jun 02, 2024 Resident Creating Document: KALPANA HOOKER RESIDENT Has the PT tested + for MRSA If YES, has PT been informed?: No Medical Necessity Reason Pt with a Central, PICC or Fol: Yes The following are medically ne: Central Line, Robertson Catheter Reason for robertson catheter: Strict I&O Medical Necessity Reason Still in the ICU intubated Subjective Review of Systems Seen and examined in the ICU still intubated and sedated. Her liver enzymes are trending upward. T. Edy: 11.3, AST: 224, ALT: 84, ALP: 85; WBC: 22.3, HGB: 11.0, Plt: 40 Maddrey's discriminant function score: 28.52 Will start her on Ursodiol Objective vital signs Vital Sign Date Time Temp Pulse Resp B/P (MAP) Pulse Ox O2 Delivery O2 Flow Rate FiO2 06/02/24 16:05 117/55 06/02/24 16:00 98.8 108 22 92 98.8 06/02/24 16:00 55 06/02/24 16:00 Mechanical Ventilator+ Total Intake and Output 06/01/24 06/01/24 06/02/24 15:00 23:00 07:00 Intake Total 377.20 ml 1047.50 ml 1155.55 ml Output Total 20 ml Balance 377.20 ml 1047.50 ml 1135.55 ml medications Current Medications Medications Dose Ordered Sig/Alvaro Route Start Time Stop Time Status Last Admin Dose Admin Lorazepam 2 mg Q4H PO 05/27/24 09:15 Hold 05/28/24 06:10 2 MG Ondansetron HCl 4 mg Q4HP PRN IV 05/27/24 09:15 Nitroglycerin 0.4 mg Q5MINP PRN SL 05/27/24 09:15 Morphine Sulfate 2 mg Q30M PRN IV 05/27/24 09:15 Sucralfate 1 gm QID PO 05/27/24 12:00 Hold 05/28/24 06:11 1 GM Patient Own Medication 1 cap DAILY PO 05/27/24 10:00 UNV Pantoprazole Sodium 40 mg BID IV 05/27/24 22:00 06/02/24 10:45 40 MG Midodrine 10 mg TID@0600,1200,1800 PO 05/27/24 18:00 Hold 05/28/24 06:10 10 MG Norepinephrine Bitartrate 250 ml @ 3.75 mls/hr Q24H IV 05/30/24 14:15 06/02/24 06:40 15 MLS/HR Midazolam HCl 50 ml @ 1 mls/hr Q24H IV 05/30/24 14:15 06/02/24 08:49 9 MLS/HR Fentanyl Citrate 250 ml @ 2.5 mls/hr Q24H IV 05/30/24 14:15 06/02/24 08:04 20 MLS/HR Thiamine HCl 100 mg DAILY IV 06/01/24 10:00 06/02/24 10:45 100 MG Folic Acid 1 mg/ Dextrose 50.2 ml @ 200.8 mls/ hr DAILY INJ 06/01/24 10:00 06/02/24 10:47 200.8 MLS/HR Acetylcysteine 200 mg Q6HR NEB 06/01/24 12:00 06/02/24 12:48 200 MG Methylprednisolone Sodium Succinate 40 mg BID IV 06/01/24 22:00 06/02/24 10:58 40 MG Enteral Nutritional Formula 1,000 ml 30ML/HR GT 06/01/24 11:00 06/01/24 13:29 1,000 ML Levalbuterol HCl 0.625 mg Q6HR NEB 06/01/24 12:00 06/02/24 12:00 0.625 MG Ipratropium [place] 0.5 mg Q6HWA [facility] 06/01/24 12:00 06/02/24 12:47 0.5 MG Meropenem 50 ml @ 17 mls/hr Q12HR IV 06/01/24 13:00 06/02/24 10:45 17 MLS/HR Doxycycline Hyclate 250 ml @ 125 mls/hr Q12H IV 06/01/24 11:00 06/02/24 10:58 125 MLS/HR Metoclopramide HCl 5 mg Q8HR GT 06/02/24 14:00 06/02/24 13:41 5 MG Ursodiol 300 mg BID GT 06/02/24 11:00 06/02/24 13:14 300 MG Furosemide 100 mg/ Sodium Chloride 110 ml @ 11 mls/hr Q10H IV 06/02/24 11:45 06/02/24 13:15 11 MLS/HR Examination General examination- Not in acute distress, intubated HEENT: PEERLA, no acute nasal discharge Chest: S1-S2 audible, rate and rhythm regular, no murmur Lung: Decreased air entry bilaterally. No wheezing. Bibasilar crackles. Abdomen: Nondistended, BS+, nontender, hepatomegaly Musculoskeletal: no acute joint swelling or tenderness Lower extremity: Leg edema Neurological: Unable to assess Psychiatry-- Unable to assess Skin- no acute rash or purpura laboratory and microbiology Laboratory Tests 06/02/24 03:22 Test 06/02/24 03:22 Range/Units Serum Glucose 120 H 74-106 mg/dL Microbiology Date/Time Source Procedure Growth Status 05/31/24 13:47 Blood Blood Culture - Preliminary NO GROWTH AFTER 48 HOURS OF INCUBATION. Resulted 05/30/24 15:15 Nose MRSA Screen - Final Complete 05/30/24 14:15 Bronchial Brushings Gram Stain - Final Resulted 05/30/24 14:15 Bronchial Brushings Respiratory Culture - Preliminary Resulted Problem List/Assessment/Plan Problem List/Assessment/Plan ASSESSMENT Severe anemia hgb 8.4--> 6.9. s/p transfusion; Hgb 11.0 Iron : 38L, TIBC:118, saturation: 32% folate: 43.16 B12: 2852 Acute hypoxic respiratory failure likely due to aspiration pneumonia? Mucus plugs and atelectasis -->S/P intubation and bronchoscopy Duodenal ulcer disease Acute transaminitis and hepatic failure Acute abdominal pain Hepatic steatosis with hepatomegaly Acute pancreatitis Jaundice Hyperthyroidism Plan Currently on mechanical ventilation on the following parameters Status post bronchoscopy which showed low and left upper lingula/lower lobe atelectasis due to mucus plugging. There was mucus plugging from L1-L2 10 and R 6-10. Bronchoalveolar lavage was performed as well right middle lobe. Ursodiol 300 mg bid via GT 06/02/2023 Continue Protonix 40 mg IV b.i.d. Continue Carafate 1 g p.o. b.i.d. Transfuse 2 unit of RBC 05/31/2024. Monitor hemoglobin and hematocrit Lactulose 30 mL p.o. daily JAIME discriminant function is 28.5 and trending down. Patient does not need to be on steroids at this time Stool occult blood test: Pending Currently on levothyroxine 112 mcg q.d. No procedures at this time until patient is more stable. Will continue following the patient Goal of care discussed for more than 30 minute Plan discussed with Dr. Maya Thank you for allowing us to participate in the care of this patient. Please call if you have any questions or concerns. Plan discussed with: Other (NURSES) My Orders My Orders Orders - KALPANA HOOKER Procedure Category Date Status Time Ursodiol (Actigall) PHA 06/02/24 In Process 11:00 Dietary Evaluation Review Recommendations by RD: PPN/TPN Comments: 1. If NPO > 7 days, initiate EN/TPN. 2. If gut is accessible, consider Jevity 1.2 @ 40 mL/hr. Tf regimen will provide 1,152 kcals, 53g Pro, and 775 mL free H2O (+ 1,200 mL free H2O flushes). TF regimen will meet ~ 91% daily estimated energy needs (20-25 kcal/kg) and ~59% daily estimated protein needs (1.2-2.0 g/kg). 3. Advance to hepatic diet when medically feasible, pending IT PORTFOLIO MANAGER approval. 4. Promote ETOH cessation. Expected Outcomes/Goals: 1. nutritional intake to meet at least 75% estimated needs 2. labs to improve 3. diet to advance 4. f/u in 2-3 days CC Plasma Assessment Blood Product Administration S: [id number] KALPANA HOOKER RESIDENT Jun 02, 2024 18:06
[2024-06-02] MEDS: NOREPINEPHRINE 8 MG/250ML KIT 250 ML IV SCH (18:45)
--- NOTE | 2024-06-02 21:32 | DVHPN2 ---
Progress Note - Dictate Date Seen: Jun 02, 2024 Has the PT tested + for MRSA If YES, has PT been informed?: No Medical Necessity Reason Pt with a Central, PICC or Fol: Yes The following are medically ne: Central Line, Robertson Catheter Reason for robertson catheter: Strict I&O Subjective Patient seen and examined at bedside. Sedated, intubated on mechanical ventilator. Overnight events reviewed. vital signs Vital Sign Date Time Temp Pulse Resp B/P (MAP) Pulse Ox O2 Delivery O2 Flow Rate FiO2 06/02/24 20:52 118/57 06/02/24 20:25 114 22 99 55 06/02/24 20:00 Mechanical Ventilator+ 06/02/24 20:00 98.6 98.6 Total Intake and Output 06/01/24 06/01/24 06/02/24 15:00 23:00 07:00 Intake Total 417.20 ml 1107.50 ml 1155.55 ml Output Total 20 ml Balance 417.20 ml 1107.50 ml 1135.55 ml medications Current Medications Medications Dose Ordered Sig/Alvaro Route Start Time Stop Time Status Last Admin Dose Admin Lorazepam 2 mg Q4H PO 05/27/24 09:15 Hold 05/28/24 06:10 2 MG Ondansetron HCl 4 mg Q4HP PRN IV 05/27/24 09:15 Nitroglycerin 0.4 mg Q5MINP PRN SL 05/27/24 09:15 Morphine Sulfate 2 mg Q30M PRN IV 05/27/24 09:15 Sucralfate 1 gm QID PO 05/27/24 12:00 Hold 05/28/24 06:11 1 GM Patient Own Medication 1 cap DAILY PO 05/27/24 10:00 UNV Pantoprazole Sodium 40 mg BID IV 05/27/24 22:00 06/02/24 10:45 40 MG Midodrine 10 mg TID@0600,1200,1800 PO 05/27/24 18:00 Hold 05/28/24 06:10 10 MG Midazolam HCl 50 ml @ 1 mls/hr Q24H IV 05/30/24 14:15 06/02/24 08:49 9 MLS/HR Fentanyl Citrate 250 ml @ 2.5 mls/hr Q24H IV 05/30/24 14:15 06/02/24 08:04 20 MLS/HR Thiamine HCl 100 mg DAILY IV 06/01/24 10:00 06/02/24 10:45 100 MG Folic Acid 1 mg/ Dextrose 50.2 ml @ 200.8 mls/ hr DAILY INJ 06/01/24 10:00 06/02/24 10:47 200.8 MLS/HR Acetylcysteine 200 mg Q6HR NEB 06/01/24 12:00 06/02/24 18:51 200 MG Methylprednisolone Sodium Succinate 40 mg BID IV 06/01/24 22:00 06/02/24 10:58 40 MG Enteral Nutritional Formula 1,000 ml 30ML/HR GT 06/01/24 11:00 06/01/24 13:29 1,000 ML Levalbuterol HCl 0.625 mg Q6HR NEB 06/01/24 12:00 06/02/24 18:50 0.625 MG Ipratropium [place] 0.5 mg Q6HWA NEB 06/01/24 12:00 06/02/24 18:50 0.5 MG Meropenem 50 ml @ 17 mls/hr Q12HR IV 06/01/24 13:00 06/02/24 10:45 17 MLS/HR Doxycycline Hyclate 250 ml @ 125 mls/hr Q12H IV 06/01/24 11:00 06/02/24 10:58 125 MLS/HR Metoclopramide HCl 5 mg Q8HR GT 06/02/24 14:00 06/02/24 13:41 5 MG Ursodiol 300 mg BID GT 06/02/24 11:00 06/02/24 13:14 300 MG Furosemide 100 mg/ Sodium Chloride 110 ml @ 16.5 mls/hr Q6H40M IV 06/02/24 18:30 06/02/24 20:52 16.5 MLS/HR Norepinephrine Bitartrate 250 ml @ 3.75 mls/hr Q24H IV 06/02/24 18:45 06/02/24 18:45 10.313 MLS/HR objective Gen.: Patient lying in bed in medical ICU. Sedated, intubated on mechanical ventilator. Head: Normocephalic, atraumatic. Eyes: PERRLA. Ears: Normal external anatomy. Throat: Endotracheal tube and orogastric tube in place. Neck: Supple, trachea midline. Chest: Transmitted breath sounds bilaterally. Decreased air entry bilaterally. No wheezing. Bibasilar crackles. Cardiovascular: Positive S1, positive S2. Regular rate and rhythm. Abdomen: Positive bowel sounds in all 4 quadrants. Soft, nontender, nondistended. : Robertson in place. Normal external genitalia. Rectal: Deferred. Skin: Warm, dry. Intact. Extremities: 2+ radial pulses bilaterally. No lower extremity edema. Neuro: Sedated. laboratory and microbiology Laboratory Tests 06/02/24 03:22 Test 06/02/24 03:22 Range/Units Serum Glucose 120 H 74-106 mg/dL Assessment/Plan Impression: Acute hypoxic respiratory failure On mechanical ventilator Hepatorenal syndrome Leukocytosis Anemia Thrombocytopenia Acute kidney injury Hypokalemia Chronic pancreatitis ETOH abuse Marijuana abuse Events: Remains on vent support On AC mode; RR 22, VT 450, PEEP 8, FiO2 55% ABG reviewed, notable for acidemia. CXR demonstrates patchy diffuse bilateral airspace disease. No effusion or pneumothorax. Sedated on Versed, Fentanyl Pressors for hemodynamic support Levophed 7 mcg/min Titrate to keep mean arterial pressure greater than 65 mmHg. Improving pressor requirements Poor urine output - started Lasix drip Monitor renal function Monitor electrolytes. Supplement as necessary. Monitor ins and outs. Lactulose Ursodiol ordered GI recs appreciated. Continue bronchodilators/Mucomyst Continue antibiotics Monitor hemoglobin Tube feeds for nutritional support Labs and imaging reviewed. Rest of plan as noted below. Plan: s/p intubation on mechanical ventilator. On AC mode; On AC mode; RR 22, VT 450, PEEP 8, FiO2 55% Titrate FIO2 to keep O2 saturation above 90%. VAP bundle. Daily ABG and CXR while intubated Sedate for ventilator synchrony Continue bronchodilators. Continue antibiotics. F/u cultures. Pressors for hemodynamic support Titrate to keep mean arterial pressure greater than 65 mmHg. Follow up GI recommendations Follow up Nephrology recommendations Monitor renal function Monitor electrolytes. Supplement as necessary. Monitor ins and outs. Maintain euvolemia. GI prophylaxis. DVT prophylaxis. Prognosis: Poor given patient's multiple co-morbidities. Condition: Critical Rest of plan per hospitalist and other consultants. A total of 35 minutes of critical care time was spent reviewing the patient record, examining the patient, making a diagnostic and therapeutic plan, discussing this plan with the medical personnel, following up on diagnostic studies and following the patient for clinical stability excluding any and all procedures. At least 50% of this time was spent in direct, [id number] contact. Thank you, Dr. Parkinson, for allowing me to participate in this patient's care. Further recommendations will depend on the patient's clinical course. Please do not hesitate to contact me if you have any questions or concerns. This medical document was created using an electronic medical record system with One[employer]M dictation system. Although these documentations are being carefully reviewed, there may still be some phonetic and typographical changes. The errors are purely typographical, due to imperfection on the software program, and do not reflect any compromise in the patient's medical care. Dietary Evaluation Review Recommendations by RD: PPN/TPN Comments: 1. If NPO > 7 days, initiate EN/TPN. 2. If gut is accessible, consider Jevity 1.2 @ 40 mL/hr. Tf regimen will provide 1,152 kcals, 53g Pro, and 775 mL free H2O (+ 1,200 mL free H2O flushes). TF regimen will meet ~ 91% daily estimated energy needs (20-25 kcal/kg) and ~59% daily estimated protein needs (1.2-2.0 g/kg). 3. Advance to hepatic diet when medically feasible, pending MEAT CARRIER approval. 4. Promote ETOH cessation. Expected Outcomes/Goals: 1. nutritional intake to meet at least 75% estimated needs 2. labs to improve 3. diet to advance 4. f/u in 2-3 days Plan discussed with: Other (RN Ty) Critical Care Time(min): 35 CC Plasma Assessment Blood Product Administration S: [id number] TAE DUPREE MD Jun 02, 2024 21:31
[2024-06-03] VITALS (107 sets, daily range): BP systolic 94–128; BP diastolic 43–62; PULSE 107–117; RESP 20–22; TEMP 98.1–98.8; O2SAT 89–100
[2024-06-03] MEDS: MEROPENEM 500MG IVPB 50 ML IV SCH (00:27)
[2024-06-03 03:36] LABS: Mean Corpuscular Hemoglobin 36.5 pg (28.0-32.0)
[2024-06-03 03:39] LABS: Hematocrit 33.3 % (36.0-46.0); Hemoglobin 11.1 g/dL (12.2-16.2); Mean Corpuscular Hgb Conc. 33.2 g/dL (32.0-36.0); Mean Corpuscular Volume 109.8 fL (80.0-100.0); Platelet Count (auto) 29 10^3/uL (140-450); Red Blood Cells 3.03 10^6/uL (4.0-5.20)
[2024-06-03 04:00] LABS: Anion Gap 10 (5-15); Calcium 9.3 mg/dL (8.7-10.4); Potassium 3.6 mmol/L (3.5-5.1); Sodium 142 mmol/L (136-145)
[2024-06-03 04:10] LABS: Alanine Aminotransferase 140 U/L (7-40); Albumin 2.3 g/dL (3.2-4.8); Alkaline Phosphatase 119 U/L (46-116); Aspartate Aminotransferase 310 U/L (13-40); Bilirubin, Total 14.5 mg/dL (0.2-1.0); Blood Urea Nitrogen 48 mg/dL (9-23); Carbon Dioxide 19 mmol/L (20-31); Chloride 113 mmol/L (98-107); Glucose 161 mg/dL (74-106)
[2024-06-03 04:17] LABS: Red Cell Distribution Width 29.7 % (11.8-14.3)
[2024-06-03 04:18] LABS: White Blood Cell 32.6 10^3/uL (4.4-10.8)
[2024-06-03 04:19] LABS: Basophils % (manual) 0 (0.0-2.0); Blast Cells 0; Eosinophils % (manual) 0 (0-7); Metamyelocytes % 0; Myelocytes % 0; Promyelocytes % 0; Reactive Lymphocytes 0
[2024-06-03 04:31] LABS: BUN/Creatinine Ratio 15.8 (10.0-20.0)
[2024-06-03 05:21] LABS: Anisocytosis Moderate; Band Neutrophils % (manual) 4; Lymphocytes % (manual) 7 (10.0-50.0); Macrocytosis Moderate; Monocytes % (manual) 2 (0-12); Target Cell FEW
[2024-06-03 05:22] LABS: Large Platelets FEW
[2024-06-03 05:23] LABS: Platelet Estimate Decrea
--- NOTE | 2024-06-03 07:57 | DVHPN2 ---
Subjective Intubated and sedated Reviewed: Care Plan, H&P, Labs, Medications, Previous Orders, Radiology Changes from previous H/P or p: No Changes Eyes: No Pain, No Vision change, No Conjunctivae inflammation, No Eyelid inflammation, No Other, No Redness ENT: No Ear pain, No Ear discharge, No Nose pain, No Nose discharge, No Nose congestion, No Mouth pain, No Mouth swelling, No Throat pain, No Throat swelling, No Other Cardiovascular: Chest Pain; No Palpitations, No Orthopnea, No Paroxysmal Noc. Dyspnea, No Edema, No Lt Headedness, No Other Respiratory: No Cough, No Dry, No Shortness of breath, No SOB with excertion, No Wheezing, No Hemoptysis, No Pleuritic Pain, No Sputum, No Other Gastrointestinal: No Nausea, No Vomiting; Abdominal Pain; No Diarrhea, No Constipation, No Melena; Hematochezia; No Other Genitourinary: No Dysuria; Frequency; No Incontinence, No Hematuria; Retention; No Other Musculoskeletal: No other, No neck pain, No shoulder pain, No arm pain, No back pain, No hand pain, No leg pain, No foot pain Skin: No Rash, No Lesions, No Jaundice, No Bruising, No Other Objective Vitals Vital Signs Date Time Temp Pulse Resp B/P (MAP) Pulse Ox O2 Delivery O2 Flow Rate FiO2 06/03/24 06:18 113 22 116/61 (79) 93 45 06/03/24 06:00 Mechanical Ventilator+ 06/03/24 04:00 98.1 98.1 Intake/Output Intake and Output 06/03/24 07:00 Intake Total 2477.457 ml Output Total 190 ml Balance 2287.457 ml Intake Oral 610 ml IV Total 1571.457 ml Tube Feeding 296 ml Output Urine Total 190 ml General Appearance: moderate distress, Other (Chemically sedated) HEENT: Atraumatic, PERRLA, Other (Sclerae icteric) Lungs: Clear to auscultation, Normal air movement Cardiovascular: Normal S1, Normal S2, Other (Sinus tachycardia) Abdomen: Normal bowel sounds Neuro: Other (Unable to assess) Skin: Dry, Intact, Other (Jaundiced) Psych/Mental Status: Other (Unable to assess) Medications Current Medications Medications Dose Ordered Sig/Alvaro Route Start Time Stop Time Status Last Admin Dose Admin Lorazepam 2 mg Q4H PO 05/27/24 09:15 Hold 05/28/24 06:10 2 MG Ondansetron HCl 4 mg Q4HP PRN IV 05/27/24 09:15 Nitroglycerin 0.4 mg Q5MINP PRN SL 05/27/24 09:15 Morphine Sulfate 2 mg Q30M PRN IV 05/27/24 09:15 Sucralfate 1 gm QID PO 05/27/24 12:00 Hold 05/28/24 06:11 1 GM Patient Own Medication 1 cap DAILY PO 05/27/24 10:00 UNV Pantoprazole Sodium 40 mg BID IV 05/27/24 22:00 06/02/24 21:49 40 MG Midodrine 10 mg TID@0600,1200,1800 PO 05/27/24 18:00 Hold 05/28/24 06:10 10 MG Midazolam HCl 50 ml @ 1 mls/hr Q24H IV 05/30/24 14:15 06/03/24 01:59 5 MLS/HR Fentanyl Citrate 250 ml @ 2.5 mls/hr Q24H IV 05/30/24 14:15 06/03/24 00:29 10 MLS/HR Thiamine HCl 100 mg DAILY IV 06/01/24 10:00 06/02/24 10:45 100 MG Folic Acid 1 mg/ Dextrose 50.2 ml @ 200.8 mls/ hr DAILY INJ 06/01/24 10:00 06/02/24 10:47 200.8 MLS/HR Acetylcysteine 200 mg Q6HR NEB 06/01/24 12:00 06/03/24 06:18 200 MG Methylprednisolone Sodium Succinate 40 mg BID IV 06/01/24 22:00 06/02/24 21:49 40 MG Enteral Nutritional Formula 1,000 ml 30ML/HR GT 06/01/24 11:00 06/01/24 13:29 1,000 ML Levalbuterol HCl 0.625 mg Q6HR NEB 06/01/24 12:00 06/03/24 06:18 0.625 MG Ipratropium [place] 0.5 mg Q6HWA [facility] 06/01/24 12:00 06/03/24 06:18 0.5 MG Meropenem 50 ml @ 17 mls/hr Q12HR IV 06/01/24 13:00 06/02/24 21:48 17 MLS/HR Doxycycline Hyclate 250 ml @ 125 mls/hr Q12H IV 06/01/24 11:00 06/02/24 23:08 125 MLS/HR Metoclopramide HCl 5 mg Q8HR GT 06/02/24 14:00 06/03/24 05:51 5 MG Ursodiol 300 mg BID GT 06/02/24 11:00 06/02/24 21:49 300 MG Furosemide 100 mg/ Sodium Chloride 110 ml @ 16.5 mls/hr Q6H40M IV 06/02/24 18:30 06/03/24 03:17 16.5 MLS/HR Norepinephrine Bitartrate 250 ml @ 3.75 mls/hr Q24H IV 06/02/24 18:45 06/03/24 05:25 3.75 MLS/HR Laboratory Results Laboratory Tests 06/03/24 03:16 Chemistry Test 06/03/24 03:16 Albumin 2.3 g/dL (3.2-4.8) L Calcium Level 9.3 mg/dL (8.7-10.4) Total Protein 5.0 g/dL (5.7-8.2) L LFT Test 06/03/24 03:16 Alanine Aminotransferase (ALT) 140 U/L (7-40) H Alkaline Phosphatase 119 U/L (46-116) H Aspartate Amino Transferase (AST) 310 U/L (13-40) H Total Bilirubin 14.5 mg/dL (0.2-1.0) H Urinalysis Test 05/28/24 21:45 Urine Color Yellow (Yellow) Urine Clarity Clear (Clear) Urine pH 6.5 (5.0-9.0) Urine Specific [place] 1.005 (1.001-1.035) Urine Protein Trace (Negative) H Urine Ketones Negative (Negative) Urine Blood 3+ /uL (Negative) H Urine Nitrite Negative (Negative) Urine Bilirubin Negative (Negative) Urine Urobilinogen 4 mg/dL (Negative) H Urine Leukocyte Esterase Trace /uL (Negative) Urine RBC 21 /hpf (0 - 4) Urine WBC 109 /hpf (0 - 5) Urine Squamous Epithelial Cells None seen /hpf (<5) Urine Bacteria None seen /hpf (None Seen) Urine Glucose Normal mg/dL (Normal) Blood Gas Results Test 06/02/24 08:01 06/03/24 07:35 Arterial Blood pH 7.290 (7.350-7.450) 7.265 (7.350-7.450) FiO2 % 60.0 45.0 Microbiology Microbiology Date/Time Source Procedure Growth Status 05/31/24 13:47 Blood Blood Culture - Preliminary NO GROWTH AFTER 48 HOURS OF INCUBATION. Resulted 05/30/24 15:15 Nose MRSA Screen - Final Complete 05/30/24 14:15 Bronchial Brushings Gram Stain - Final Resulted 05/30/24 14:15 Bronchial Brushings Respiratory Culture - Preliminary Resulted Labs and/or images reviewed: Labs reviewed by me, Image(s) reviewed by me Assessment/Plan Assessment/Plan Impression: -acute hypoxic respiratory failure with mechanical ventilation -sepsis secondary to pneumonia -probable aspiration pneumonia -alcoholism -alcohol-related liver disease -acute kidney injury, vasomotor nephropathy -hypothyroidism, supratherapeutic coverage -severe protein malnutrition -thrombocytopenia -alcohol withdrawal Plan: Events: Continues to have minimal urine output despite being on Lasix drip. Patient was positive BM yesterday. Discussed case with Nephrology yesterday. Worsening thrombocytopenia -continue tube feeding , Nepro -continue current ventilator settings per pulmonology -antibiotic therapy: Meropenem, doxycycline -continue Actigall -continue thiamine, MVI -vasopressor therapy, currently on 1 mcg per minute of norepinephrine -bronchodilators -PUD prophylaxis -SCDs -repeat labs, chest x-ray, ABG in a.m. Critical care time spent with patient discussing and formulating plan of care: 40 minutes. This does not include time spent performing procedures. This medical document was created using an electronic medical record system with [employer] dictation system. Although this document has been carefully reviewed, there may still be some phonetic and typographical errors. These areas are purely typographical due to imperfections of the software programs, and do not reflect any compromise in the patient's medical care. Plan discussed with: Patient, Other (RN) My Orders Orders - MADI RYDER CO[employer] SMOKING PIPE Procedure Category Date Status Time Kub Abdomen Single XY 06/02/24 Resulted View 09:40 Metoclopramide Oral PHA 06/02/24 In Process Soln (Reglan Oral So 14:00 *Dr. [facility] CONS 06/02/24 Transmitted -[place] 11:05 Ventilator Orders RT 06/03/24 Transmitted 06:17 Date of Service: Jun 03, 2024 Billing Provider: MADI RYDER NP Common Visit Codes: [id number] CARE 30-74 MIN MADI RYDER NP Jun 03, 2024 07:57
[2024-06-03] MEDS: ALBUMIN 25% 50 ML IV SCH (08:00)
[2024-06-03] MEDS: FUROSEMIDE INJECTION 100 MG in SODIUM CHL 0.9% 100 ML IV SCH (09:37)
[2024-06-03 11:49] LABS: INR 1.59 (0.9-1.15); Partial Thromboplastin Time 42.2 SEC (24.5-34.5); Prothrombin Time 16.3 sec (9.3-11.8)
--- NOTE | 2024-06-03 12:53 | DVH ---
CHEST RADIOGRAPH Indication: pna Technique: Single frontal view of the chest was obtained COMPARISON: XY CHEST PORTABLE on DOS: 06/02/24, XY CHEST PORTABLE on DOS: 06/01/24, XY CHEST PORTABLE on DOS: 05/30/24, XY CHEST XRAY 1 VIEW on DOS: 05/30/24, XY CHEST PORTABLE on DOS: 05/30/24 FINDINGS: Lines and Tubes: Endotracheal tube, enteric catheter and right central venous catheter in satisfactor y position. Lungs: Multifocal airspace disease. Pleura: No effusion. No pneumothorax. Cardiomediastinal contours: Unremarkable Bones: Unremarkable IMPRESSION: Lines and tubes in satisfactory position. No significant interval change.
--- NOTE | 2024-06-03 14:03 | DVHPN2 ---
Progress Note Date Seen: Jun 03, 2024 Has the PT tested + for MRSA If YES, has PT been informed?: No Medical Necessity Reason Pt with a Central, PICC or Fol: Yes The following are medically ne: Central Line, Robertson Catheter Reason for robertson catheter: Strict I&O Subjective Patient reports: Other Review of Systems: Deferred Objective vital signs Vital Sign Date Time Temp Pulse Resp B/P (MAP) Pulse Ox O2 Delivery O2 Flow Rate FiO2 06/03/24 13:29 117 22 109/57 (74) 90 45 06/03/24 12:00 Mechanical Ventilator+ 06/03/24 12:00 98.2 98.2 Total Intake and Output 06/02/24 06/02/24 06/03/24 15:00 23:00 07:00 Intake Total 585.889 ml 976.441 ml 948.502 ml Output Total 100 ml 90 ml Balance 585.889 ml 876.441 ml 858.502 ml medications Current Medications Medications Dose Ordered Sig/Alvaro Route Start Time Stop Time Status Last Admin Dose Admin Lorazepam 2 mg Q4H PO 05/27/24 09:15 Hold 05/28/24 06:10 2 MG Ondansetron HCl 4 mg Q4HP PRN IV 05/27/24 09:15 Nitroglycerin 0.4 mg Q5MINP PRN SL 05/27/24 09:15 Morphine Sulfate 2 mg Q30M PRN IV 05/27/24 09:15 Sucralfate 1 gm QID PO 05/27/24 12:00 Hold 05/28/24 06:11 1 GM Patient Own Medication 1 cap DAILY PO 05/27/24 10:00 UNV Pantoprazole Sodium 40 mg BID IV 05/27/24 22:00 06/03/24 09:01 40 MG Midodrine 10 mg TID@0600,1200,1800 PO 05/27/24 18:00 Hold 05/28/24 06:10 10 MG Midazolam HCl 50 ml @ 1 mls/hr Q24H IV 05/30/24 14:15 06/03/24 11:45 3 MLS/HR Fentanyl Citrate 250 ml @ 2.5 mls/hr Q24H IV 05/30/24 14:15 06/03/24 00:29 10 MLS/HR Thiamine HCl 100 mg DAILY IV 06/01/24 10:00 1/3/25 09:01 100 MG Folic Acid 1 mg/ Dextrose 50.2 ml @ 200.8 mls/ hr DAILY INJ 06/01/24 10:00 06/03/24 09:12 200.8 MLS/HR Acetylcysteine 200 mg Q6HR NEB 06/01/24 12:00 06/03/24 12:23 200 MG Methylprednisolone Sodium Succinate 40 mg BID IV 06/01/24 22:00 06/03/24 09:01 40 MG Enteral Nutritional Formula 1,000 ml 30ML/HR GT 06/01/24 11:00 06/01/24 13:29 1,000 ML Levalbuterol HCl 0.625 mg Q6HR NEB 06/01/24 12:00 06/03/24 12:23 0.625 MG Ipratropium [place] 0.5 mg Q6HWA [facility] 06/01/24 12:00 06/03/24 12:23 0.5 MG Meropenem 50 ml @ 17 mls/hr Q12HR IV 06/01/24 13:00 06/03/24 09:01 17 MLS/HR Doxycycline Hyclate 250 ml @ 125 mls/hr Q12H IV 06/01/24 11:00 06/03/24 12:34 125 MLS/HR Metoclopramide HCl 5 mg Q8HR GT 06/02/24 14:00 06/03/24 13:23 5 MG Ursodiol 300 mg BID GT 06/02/24 11:00 06/03/24 09:01 300 MG Norepinephrine Bitartrate 250 ml @ 3.75 mls/hr Q24H IV 06/02/24 18:45 06/03/24 05:25 3.75 MLS/HR Furosemide 100 mg/ Sodium Chloride 110 ml @ 33 mls/hr Q3H20M IV 06/03/24 08:00 06/03/24 12:36 33 MLS/HR Albumin Human 50 ml @ 100 mls/hr Q8H IV 06/03/24 08:00 06/04/24 00:29 Examination: GENERAL:Abnormal, HEENT:Abnormal, LUNGS:Abnormal, ABDOMEN:Abnormal, SKIN:Abnormal, NEURO:Abnormal laboratory and microbiology Laboratory Tests 06/03/24 03:16 Test 06/03/24 03:16 Range/Units Serum Glucose 161 H 74-106 mg/dL Microbiology Date/Time Source Procedure Growth Status 05/31/24 13:47 Blood Blood Culture - Preliminary NO GROWTH AFTER 72 HOURS OF INCUBATION. Resulted 05/30/24 15:15 Nose MRSA Screen - Final Complete 05/30/24 14:15 Bronchial Brushings Gram Stain - Final Complete 05/30/24 14:15 Respiratory Culture - Final Stenotrophomonas maltophilia Complete Problem List/Assessment/Plan Problem List/Assessment/Plan Acute kidney injury multifactorial in the setting of hypotension and tachycardia hemodynamically mediated EtOH hepatic disease Anasarca Acute respiratory failure hypoxic Pneumonia Jaundice Hypoalbuminemia Macrocytic anemia Thrombocytopenia Patient clinically deteriorating despite full-dose Lasix drip. Given severe hypervolemia and worsening renal function despite Lasix drip recommend hemodialysis treatment for metabolic and volume control. Patient is high risk for cardiac event, bleeding, infection. Maintain pressors to keep map greater than 65 thiamine and folate Currently on sedation to prevent withdrawal on Versed drip Strict Is&Os Monitor fluid input and output balance Avoid contrast studies Guarded prognosis Critical time spent 33 minutes Plan discussed with: Other My Orders My Orders Orders - ORQUIDEA HONEYCUTT MD Procedure Category Date Status Time Sodium Chl 0.9% PHA 06/03/24 In Process (So... W/Furosemide 08:00 Albumin 25% (Albutein) PHA 06/03/24 In Process 08:00 Dietary Evaluation Review Recommendations by RD: PPN/TPN Comments: 1. If NPO > 7 days, initiate EN/TPN. 2. If gut is accessible, consider Jevity 1.2 @ 40 mL/hr. Tf regimen will provide 1,152 kcals, 53g Pro, and 775 mL free H2O (+ 1,200 mL free H2O flushes). TF regimen will meet ~ 91% daily estimated energy needs (20-25 kcal/kg) and ~59% daily estimated protein needs (1.2-2.0 g/kg). 3. Advance to hepatic diet when medically feasible, pending [employer]UFACT[employer]ING [employer]BL[employer] approval. 4. Promote ETOH cessation. Expected Outcomes/Goals: 1. nutritional intake to meet at least 75% estimated needs 2. labs to improve 3. diet to advance 4. f/u in 2-3 days CC Plasma Assessment Blood Product Administration S: [id number] ORQUIDEA HONEYCUTT MD Jun 03, 2024 14:03
--- NOTE | 2024-06-03 15:18 | DVHNC2 ---
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: Other (Reynaldo Ryder NP) Indication: Other (Hemodialysis) Room prepared for procedure: Yes Assistant Professor [employer] performed hand hygien: Yes Maximal sterile barrier precau: Mask/Eye shield, Sterile gown, Cap, Sterlie gloves, Large sterlie drape Skin Preparation: Chlorhexidine gluconate, Providine iodine Skin preparation completely dr: Yes Insertion site: Right, Internal jugular Central line catheter type: Dialysis non-tunneled Number of lumens: 2 Central line exchanged over a: No Antiseptic ointment applied to: Yes Post Assessment: Chest X-Ray, Proper placement, No Pneumothorax Informed consent obtained: Yes Risks/benefits/alt described: Yes Notes Estimated blood loss: 8mL. Ultrasound guidance: [id number] Date of Service: Jun 03, 2024 Billing Provider: MADI RYDER NP Common Visit Codes: PROCEDURE ONLY Procedure Codes: [id number] NON-TUNNEL CV CATH MADI RYDER NP Jun 03, 2024 15:18
--- NOTE | 2024-06-03 16:24 | DVH ---
CHEST RADIOGRAPH Indication: Dialysis catheter placement Technique: Single frontal view of the chest was obtained COMPARISON: XY CHEST PORTABLE on DOS: 06/02/24, XY CHEST PORTABLE on DOS: 06/02/24, XY CHEST PORTABLE on DOS: 06/01/24, XY CHEST PORTABLE on DOS: 05/30/24, XY CHEST XRAY 1 VIEW on DOS: 05/30/24, XY CHEST PORT ABLE on DOS: 06/02/24 FINDINGS: Lines and Tubes: Endotracheal tube, enteric catheter and right central venous catheters in satisfacto ry position. Lungs: Multifocal airspace disease. Pleura: No effusion. No pneumothorax. Cardiomediastinal contours: Unremarkable Bones: Unremarkable IMPRESSION: Lines and tubes in satisfactory position. No significant interval change.
--- NOTE | 2024-06-03 17:33 | DVHPN2 ---
Progress Note Date Seen: Jun 03, 2024 Resident Creating Document: KALPANA HOOKER RESIDENT Has the PT tested + for MRSA If YES, has PT been informed?: No Medical Necessity Reason Pt with a Central, PICC or Fol: Yes The following are medically ne: Central Line, Robertson Catheter Reason for robertson catheter: Strict I&O Medical Necessity Reason Intubated elevated Cr level needing dialysis catheter Subjective Review of Systems Seen and examined in the ICU still intubated and sedated. Her liver enzymes are trending upward. T. Edy: 14.5, AST: 310, ALT:140, ALP: 119; WBC: 232.6 HGB: 11.1, Plt: 29 ,Cr: 3.04 Maddrey's discriminant function score:35.2 On Ursodiol 06/02/2023 Objective vital signs Vital Sign Date Time Temp Pulse Resp B/P (MAP) Pulse Ox O2 Delivery O2 Flow Rate FiO2 06/03/24 15:37 98/49 06/03/24 15:12 114 22 91 45 06/03/24 12:00 Mechanical Ventilator+ 06/03/24 12:00 98.2 98.2 Total Intake and Output 06/02/24 06/02/24 06/03/24 15:00 23:00 07:00 Intake Total 585.889 ml 976.441 ml 948.502 ml Output Total 100 ml 90 ml Balance 585.889 ml 876.441 ml 858.502 ml medications Current Medications Medications Dose Ordered Sig/Alvaro Route Start Time Stop Time Status Last Admin Dose Admin Lorazepam 2 mg Q4H PO 05/27/24 09:15 Hold 05/28/24 06:10 2 MG Ondansetron HCl 4 mg Q4HP PRN IV 05/27/24 09:15 Nitroglycerin 0.4 mg Q5MINP PRN SL 05/27/24 09:15 Morphine Sulfate 2 mg Q30M PRN IV 05/27/24 09:15 Sucralfate 1 gm QID PO 05/27/24 12:00 Hold 05/28/24 06:11 1 GM Patient Own Medication 1 cap DAILY PO 05/27/24 10:00 UNV Pantoprazole Sodium 40 mg BID IV 05/27/24 22:00 06/03/24 09:01 40 MG Midodrine 10 mg TID@0600,1200,1800 PO 05/27/24 18:00 Hold 05/28/24 06:10 10 MG Midazolam HCl 50 ml @ 1 mls/hr Q24H IV 05/30/24 14:15 06/03/24 11:45 3 MLS/HR Fentanyl Citrate 250 ml @ 2.5 mls/hr Q24H IV 05/30/24 14:15 06/03/24 00:29 10 MLS/HR Thiamine HCl 100 mg DAILY IV 06/01/24 10:00 06/03/24 09:01 100 MG Folic Acid 1 mg/ Dextrose 50.2 ml @ 200.8 mls/ hr DAILY INJ 06/01/24 10:00 06/03/24 09:12 200.8 MLS/HR Acetylcysteine 200 mg Q6HR NEB 06/01/24 12:00 06/03/24 12:23 200 MG Methylprednisolone Sodium Succinate 40 mg BID IV 06/01/24 22:00 06/03/24 09:01 40 MG Enteral Nutritional Formula 1,000 ml 30ML/HR GT 06/01/24 11:00 06/01/24 13:29 1,000 ML Levalbuterol HCl 0.625 mg Q6HR NEB 06/01/24 12:00 06/03/24 12:23 0.625 MG Ipratropium [place] 0.5 mg Q6HWA NEB 06/01/24 12:00 06/03/24 12:23 0.5 MG Meropenem 50 ml @ 17 mls/hr Q12HR IV 06/01/24 13:00 06/03/24 09:01 17 MLS/HR Doxycycline Hyclate 250 ml @ 125 mls/hr Q12H IV 06/01/24 11:00 06/03/24 12:34 125 MLS/HR Metoclopramide HCl 5 mg Q8HR GT 06/02/24 14:00 06/03/24 13:23 5 MG Ursodiol 300 mg BID GT 06/02/24 11:00 06/03/24 09:01 300 MG Norepinephrine Bitartrate 250 ml @ 3.75 mls/hr Q24H IV 06/02/24 18:45 06/03/24 05:25 3.75 MLS/HR Furosemide 100 mg/ Sodium Chloride 110 ml @ 33 mls/hr Q3H20M IV 06/03/24 08:00 06/03/24 15:37 33 MLS/HR Albumin Human 50 ml @ 100 mls/hr Q8H IV 06/03/24 08:00 06/04/24 00:29 Examination General examination- Not in acute distress, intubated, Ari catheter being placed HEENT: PEERLA, no acute nasal discharge Chest: S1-S2 audible, rate and rhythm regular, no murmur Lung: Decreased air entry bilaterally. No wheezing. Bibasilar crackles. Abdomen: Nondistended, BS+, nontender, hepatomegaly Musculoskeletal: no acute joint swelling or tenderness Lower extremity: Leg edema Neurological: Unable to assess Psychiatry-- Unable to assess Skin- no acute rash or purpura laboratory and microbiology Laboratory Tests 06/03/24 03:16 Test 06/03/24 03:16 Range/Units Serum Glucose 161 H 74-106 mg/dL Microbiology Date/Time Source Procedure Growth Status 05/31/24 13:47 Blood Blood Culture - Preliminary NO GROWTH AFTER 72 HOURS OF INCUBATION. Resulted 05/30/24 15:15 Nose MRSA Screen - Final Complete 05/30/24 14:15 Bronchial Brushings Gram Stain - Final Complete 05/30/24 14:15 Respiratory Culture - Final Stenotrophomonas maltophilia Complete Problem List/Assessment/Plan Problem List/Assessment/Plan ASSESSMENT Severe anemia hgb 8.4--> 6.9. s/p transfusion; Hgb 11.0 Iron : 38L, TIBC:118, saturation: 32% folate: 43.16 B12: 2852 Acute hypoxic respiratory failure likely due to aspiration pneumonia? Mucus plugs and atelectasis -->S/P intubation and bronchoscopy Duodenal ulcer disease Acute transaminitis and hepatic failure Acute abdominal pain Hepatic steatosis with hepatomegaly Acute pancreatitis Jaundice Hyperthyroidism Plan Currently on mechanical ventilation on the following parameters Status post bronchoscopy which showed low and left upper lingula/lower lobe atelectasis due to mucus plugging. There was mucus plugging from L1-L2 10 and R 6-10. Bronchoalveolar lavage was performed as well right middle lobe. Ursodiol 300 mg bid via GT 06/02/2023 Continue Protonix 40 mg IV b.i.d. Continue Carafate 1 g p.o. b.i.d. Transfuse 2 unit of RBC 05/31/2024. Monitor hemoglobin and hematocrit Lactulose 30 mL p.o. daily MADDREY discriminant function is 35.2 point and trending down. Patient does not need to be on steroids at this time Stool occult blood test: Pending Currently on levothyroxine 112 mcg q.d. No procedures at this time until patient is more stable. Will continue following the patient Goal of care discussed for more than 30 minute Plan discussed with Dr. Maya Thank you for allowing us to participate in the care of this patient. Please call if you have any questions or concerns. Plan discussed with: Other (Nurse) Dietary Evaluation Review Recommendations by RD: PPN/TPN Comments: 1. If NPO > 7 days, initiate EN/TPN. 2. If gut is accessible, consider Jevity 1.2 @ 40 mL/hr. Tf regimen will provide 1,152 kcals, 53g Pro, and 775 mL free H2O (+ 1,200 mL free H2O flushes). TF regimen will meet ~ 91% daily estimated energy needs (20-25 kcal/kg) and ~59% daily estimated protein needs (1.2-2.0 g/kg). 3. Advance to hepatic diet when medically feasible, pending INFORMATION TECHN[employer]N approval. 4. Promote ETOH cessation. Expected Outcomes/Goals: 1. nutritional intake to meet at least 75% estimated needs 2. labs to improve 3. diet to advance 4. f/u in 2-3 days CC Plasma Assessment Blood Product Administration S: [id number] KALPANA HOOKER RESIDENT Jun 03, 2024 17:33
--- NOTE | 2024-06-03 23:29 | DVHPN2 ---
Progress Note - Dictate Date Seen: Jun 03, 2024 Has the PT tested + for MRSA If YES, has PT been informed?: No Medical Necessity Reason Pt with a Central, PICC or Fol: Yes The following are medically ne: Central Line, Robertson Catheter Reason for robertson catheter: Strict I&O Subjective Patient seen and examined at bedside. Sedated, intubated on mechanical ventilator. Overnight events reviewed. vital signs Vital Sign Date Time Temp Pulse Resp B/P (MAP) Pulse Ox O2 Delivery O2 Flow Rate FiO2 06/03/24 22:18 109 22 96/47 (63) 93 40 06/03/24 20:00 98.4 98.4 06/03/24 20:00 Mechanical Ventilator+ Total Intake and Output 06/02/24 06/02/24 06/03/24 15:00 23:00 07:00 Intake Total 585.889 ml 976.441 ml 948.502 ml Output Total 100 ml 90 ml Balance 585.889 ml 876.441 ml 858.502 ml medications Current Medications Medications Dose Ordered Sig/Alvaro Route Start Time Stop Time Status Last Admin Dose Admin Lorazepam 2 mg Q4H PO 05/27/24 09:15 Hold 05/28/24 06:10 2 MG Ondansetron HCl 4 mg Q4HP PRN IV 05/27/24 09:15 Nitroglycerin 0.4 mg Q5MINP PRN SL 05/27/24 09:15 Morphine Sulfate 2 mg Q30M PRN IV 05/27/24 09:15 Sucralfate 1 gm QID PO 05/27/24 12:00 Hold 05/28/24 06:11 1 GM Patient Own Medication 1 cap DAILY PO 05/27/24 10:00 UNV Pantoprazole Sodium 40 mg BID IV 05/27/24 22:00 06/03/24 09:01 40 MG Midodrine 10 mg TID@0600,1200,1800 PO 05/27/24 18:00 Hold 05/28/24 06:10 10 MG Midazolam HCl 50 ml @ 1 mls/hr Q24H IV 05/30/24 14:15 06/03/24 11:45 3 MLS/HR Fentanyl Citrate 250 ml @ 2.5 mls/hr Q24H IV 05/30/24 14:15 06/03/24 00:29 10 MLS/HR Thiamine HCl 100 mg DAILY IV 06/01/24 10:00 06/03/24 09:01 100 MG Folic Acid 1 mg/ Dextrose 50.2 ml @ 200.8 mls/ hr DAILY INJ 06/01/24 10:00 06/03/24 09:12 200.8 MLS/HR Acetylcysteine 200 mg Q6HR NEB 06/01/24 12:00 06/03/24 18:52 200 MG Methylprednisolone Sodium Succinate 40 mg BID IV 06/01/24 22:00 06/03/24 09:01 40 MG Enteral Nutritional Formula 1,000 ml 30ML/HR GT 06/01/24 11:00 06/01/24 13:29 1,000 ML Levalbuterol HCl 0.625 mg Q6HR NEB 06/01/24 12:00 06/03/24 18:51 0.625 MG Ipratropium [place] 0.5 mg Q6HWA NEB 06/01/24 12:00 06/03/24 18:51 0.5 MG Doxycycline Hyclate 250 ml @ 125 mls/hr Q12H IV 06/01/24 11:00 06/03/24 12:34 125 MLS/HR Metoclopramide HCl 5 mg Q8HR GT 06/02/24 14:00 06/03/24 13:23 5 MG Ursodiol 300 mg BID GT 06/02/24 11:00 06/03/24 09:01 300 MG Norepinephrine Bitartrate 250 ml @ 3.75 mls/hr Q24H IV 06/02/24 18:45 06/03/24 05:25 3.75 MLS/HR Furosemide 100 mg/ Sodium Chloride 110 ml @ 33 mls/hr Q3H20M IV 06/03/24 08:00 06/03/24 22:16 33 MLS/HR Albumin Human 50 ml @ 100 mls/hr Q8H IV 06/03/24 08:00 06/04/24 00:29 Meropenem 50 ml @ 17 mls/hr Q12HR IV 06/03/24 22:00 Albumin Human 100 ml @ 100 mls/hr SID PRN IV 06/04/24 04:00 objective Gen.: Patient lying in bed in medical ICU. Sedated, intubated on mechanical ventilator. Head: Normocephalic, atraumatic. Eyes: PERRLA. Ears: Normal external anatomy. Throat: Endotracheal tube and orogastric tube in place. Neck: Supple, trachea midline. Chest: Transmitted breath sounds bilaterally. Decreased air entry bilaterally. No wheezing. Bibasilar crackles. Cardiovascular: Positive S1, positive S2. Regular rate and rhythm. Abdomen: Positive bowel sounds in all 4 quadrants. Soft, nontender, nondistended. : Robertson in place. Normal external genitalia. Rectal: Deferred. Skin: Warm, dry. Intact. Extremities: 2+ radial pulses bilaterally. No lower extremity edema. Neuro: Sedated. laboratory and microbiology Laboratory Tests 06/03/24 03:16 Test 06/03/24 03:16 Range/Units Serum Glucose 161 H 74-106 mg/dL Assessment/Plan Impression: Acute hypoxic respiratory failure On mechanical ventilator Hepatorenal syndrome Leukocytosis Anemia Thrombocytopenia Acute kidney injury Hypokalemia Chronic pancreatitis ETOH abuse Marijuana abuse Events: Remains on vent support On AC mode; RR 22, VT 450, PEEP 8, FiO2 45% ABG reviewed, notable for acidemia. CXR demonstrates Multifocal airspace disease. No effusion or pneumothorax. Sedated on Versed 3 mg/hr, Fentanyl 100 mcg/hr Pressors for hemodynamic support Levophed 0.5 mcg/min Titrate to keep mean arterial pressure greater than 65 mmHg. Improving pressor requirements Poor urine output -Lasix drip Monitor renal function Monitor electrolytes. Supplement as necessary. Monitor ins and outs. Lactulose Ursodiol GI recs appreciated. Continue bronchodilators/Mucomyst Continue antibiotics Monitor hemoglobin Tube feeds for nutritional support Labs and imaging reviewed. Rest of plan as noted below. Plan: s/p intubation on mechanical ventilator. On AC mode; On AC mode; RR 22, VT 450, PEEP 8, FiO2 45% Titrate FIO2 to keep O2 saturation above 90%. VAP bundle. Daily ABG and CXR while intubated Sedate for ventilator synchrony Continue bronchodilators. Continue antibiotics. F/u cultures. Pressors for hemodynamic support Titrate to keep mean arterial pressure greater than 65 mmHg. Follow up GI recommendations Follow up Nephrology recommendations Monitor renal function Monitor electrolytes. Supplement as necessary. Monitor ins and outs. Maintain euvolemia. GI prophylaxis. DVT prophylaxis. Prognosis: Poor given patient's multiple co-morbidities. Condition: Critical Rest of plan per hospitalist and other consultants. A total of 35 minutes of critical care time was spent reviewing the patient record, examining the patient, making a diagnostic and therapeutic plan, discussing this plan with the medical personnel, following up on diagnostic studies and following the patient for clinical stability excluding any and all procedures. At least 50% of this time was spent in direct, [id number] contact. Thank you, Dr. Parkinson, for allowing me to participate in this patient's care. Further recommendations will depend on the patient's clinical course. Please do not hesitate to contact me if you have any questions or concerns. This medical document was created using an electronic medical record system with [employer] dictation system. Although these documentations are being carefully reviewed, there may still be some phonetic and typographical changes. The errors are purely typographical, due to imperfection on the software program, and do not reflect any compromise in the patient's medical care. Dietary Evaluation Review Recommendations by RD: PPN/TPN Comments: 1. If NPO > 7 days, initiate EN/TPN. 2. If gut is accessible, consider Jevity 1.2 @ 40 mL/hr. Tf regimen will provide 1,152 kcals, 53g Pro, and 775 mL free H2O (+ 1,200 mL free H2O flushes). TF regimen will meet ~ 91% daily estimated energy needs (20-25 kcal/kg) and ~59% daily estimated protein needs (1.2-2.0 g/kg). 3. Advance to hepatic diet when medically feasible, pending DIRECTOR DERMATOLOGY approval. 4. Promote ETOH cessation. Expected Outcomes/Goals: 1. nutritional intake to meet at least 75% estimated needs 2. labs to improve 3. diet to advance 4. f/u in 2-3 days Plan discussed with: Other (RN Alfredito) Critical Care Time(min): 35 CC Plasma Assessment Blood Product Administration S: [id number] TAE DUPERE MD Jun 03, 2024 23:29
[2024-06-04] VITALS (110 sets, daily range): BP systolic 81–148; BP diastolic 38–96; PULSE 102–121; RESP 11–22; TEMP 98.1–99; O2SAT 87–99
[2024-06-04 04:13] LABS: Hematocrit 32.2 % (36.0-46.0); Platelet Count (auto) 25 10^3/uL (140-450); Red Blood Cells 2.91 10^6/uL (4.0-5.20)
[2024-06-04 04:19] LABS: Hemoglobin 10.6 g/dL (12.2-16.2); Mean Corpuscular Hemoglobin 36.4 pg (28.0-32.0); Mean Corpuscular Volume 110.5 fL (80.0-100.0); Red Cell Distribution Width 30.1 % (11.8-14.3)
[2024-06-04 04:32] LABS: Anion Gap 11 (5-15); Calcium 9.2 mg/dL (8.7-10.4); Potassium 4.1 mmol/L (3.5-5.1); Sodium 144 mmol/L (136-145)
[2024-06-04 04:33] LABS: Alanine Aminotransferase 165 U/L (7-40); Albumin 2.1 g/dL (3.2-4.8); Alkaline Phosphatase 176 U/L (46-116); Aspartate Aminotransferase 285 U/L (13-40); Bilirubin, Total 13.3 mg/dL (0.2-1.0); Blood Urea Nitrogen 60 mg/dL (9-23); Carbon Dioxide 19 mmol/L (20-31); Chloride 114 mmol/L (98-107); Glucose 117 mg/dL (74-106); Total Protein 4.5 g/dL (5.7-8.2)
[2024-06-04 04:39] LABS: BUN/Creatinine Ratio 15.5 (10.0-20.0)
[2024-06-04 04:45] LABS: White Blood Cell 34.2 10^3/uL (4.4-10.8)
[2024-06-04 04:46] LABS: Basophils % (manual) 0 (0.0-2.0); Blast Cells 0; Eosinophils % (manual) 0 (0-7); Metamyelocytes % 0; Reactive Lymphocytes 0
[2024-06-04 05:05] LABS: Band Neutrophils % (manual) 8; Lymphocytes % (manual) 2 (10.0-50.0); Monocytes % (manual) 7 (0-12); Myelocytes % 2; Platelet Estimate Markedly Decreased; Promyelocytes % 3
[2024-06-04 05:06] LABS: Anisocytosis Moderate; Macrocytosis Moderate
--- NOTE | 2024-06-04 05:51 | DVH ---
CHEST RADIOGRAPH Indication: pna Technique: Single frontal view of the chest was obtained Comparison: XY CHEST XRAY 1 VIEW on DOS: 06/03/24, XY CHEST PORTABLE on DOS: 06/02/24, XY CHEST PORTABLE on DOS: 06/02/24 IMPRESSION: The heart appears stable in size. Support lines and tubes appear unchanged in position. Bilateral i nterstitial and alveolar airspace opacities appear stable. No sizable effusion or pneumothorax.
[2024-06-04 08:09] LABS: Base Excess -7.7 mmol/L (-2.0-3.0)
--- NOTE | 2024-06-04 11:00 | MEDREC ---
[facility] Intervention Section I [facility] Intervention: Review courses of therapy (THE WBC HAS BEEN TRENDING UP. THE FINAL RESPIRATORY CULTURE SHOWED STENOTROPHOMONAS MALTOPHILIA. PLEASE REASSESS PATIENT'S CONDITIONS TO DETERMINE IF THE BACTERIA IS A COLONIZING ORGANISM OR A TRUE PATHOGEN. IF TRUE PATHOGEN, THE [facility] GUIDELINE RECOMMENDS ANY OF 2 APPROACHES ARE PREFERRED TREATMENTS: (1) THE USE OF 2 OF THE FOLLOWING AGENTS: CEFIDOROCOL, MINOCYCLINE, TMP-SMX, OR LEVOFLOXACIN. OR (2) THE COMBINATION OF AVYCAZ AND AZTREONAM) FABIENNE WELLS Jun 04, 2024 11:00
--- NOTE | 2024-06-04 15:01 | DVHPN2 ---
Progress Note Date Seen: Jun 04, 2024 Has the PT tested + for MRSA If YES, has PT been informed?: No Medical Necessity Reason Pt with a Central, PICC or Fol: Yes The following are medically ne: Central Line, Robertson Catheter Reason for robertson catheter: Strict I&O Subjective Patient reports: Other Review of Systems: Deferred Objective vital signs Vital Sign Date Time Temp Pulse Resp B/P (MAP) Pulse Ox O2 Delivery O2 Flow Rate FiO2 06/04/24 14:33 115 22 113/54 (73) 96 40 06/04/24 14:27 Mechanical Ventilator+ 06/04/24 12:00 98.2 98.2 Total Intake and Output 06/03/24 06/03/24 06/04/24 15:00 23:00 07:00 Intake Total 658.379 ml 643.816 ml 709.063 ml Output Total 20 ml 90 ml Balance 658.379 ml 623.816 ml 619.063 ml medications Current Medications Medications Dose Ordered Sig/Alvaro Route Start Time Stop Time Status Last Admin Dose Admin Lorazepam 2 mg Q4H PO 05/27/24 09:15 Hold 05/28/24 06:10 2 MG Ondansetron HCl 4 mg Q4HP PRN IV 05/27/24 09:15 Nitroglycerin 0.4 mg Q5MINP PRN SL 05/27/24 09:15 Morphine Sulfate 2 mg Q30M PRN IV 05/27/24 09:15 Sucralfate 1 gm QID PO 05/27/24 12:00 Hold 05/28/24 06:11 1 GM Patient Own Medication 1 cap DAILY PO 05/27/24 10:00 UNV Pantoprazole Sodium 40 mg BID IV 05/27/24 22:00 06/04/24 12:02 40 MG Midodrine 10 mg TID@0600,1200,1800 PO 05/27/24 18:00 Hold 05/28/24 06:10 10 MG Midazolam HCl 50 ml @ 1 mls/hr Q24H IV 05/30/24 14:15 06/04/24 11:14 2 MLS/HR Fentanyl Citrate 250 ml @ 2.5 mls/hr Q24H IV 05/30/24 14:15 06/04/24 02:33 5 MLS/HR Thiamine HCl 100 mg DAILY IV 06/01/24 10:00 06/04/24 12:02 100 MG Folic Acid 1 mg/ Dextrose 50.2 ml @ 200.8 mls/ hr DAILY INJ 06/01/24 10:00 06/04/24 12:16 200.8 MLS/HR Acetylcysteine 200 mg Q6HR NEB 06/01/24 12:00 06/04/24 11:58 200 MG Methylprednisolone Sodium Succinate 40 mg BID IV 06/01/24 22:00 06/04/24 12:02 40 MG Enteral Nutritional Formula 1,000 ml 30ML/HR GT 06/01/24 11:00 06/01/24 13:29 1,000 ML Levalbuterol HCl 0.625 mg Q6HR [facility] 06/01/24 12:00 06/04/24 11:58 0.625 MG Ipratropium [place] 0.5 mg Q6HWA [facility] 06/01/24 12:00 06/04/24 11:58 0.5 MG Doxycycline Hyclate 250 ml @ 125 mls/hr Q12H IV 06/01/24 11:00 06/04/24 13:18 125 MLS/HR Metoclopramide HCl 5 mg Q8HR GT 06/02/24 14:00 06/04/24 13:45 5 MG Ursodiol 300 mg BID GT 06/02/24 11:00 06/03/24 22:33 300 MG Norepinephrine Bitartrate 250 ml @ 3.75 mls/hr Q24H IV 06/02/24 18:45 06/03/24 05:25 3.75 MLS/HR Furosemide 100 mg/ Sodium Chloride 110 ml @ 33 mls/hr Q3H20M IV 06/03/24 08:00 06/04/24 12:04 33 MLS/HR Meropenem 50 ml @ 17 mls/hr Q12HR IV 06/03/24 22:00 06/04/24 12:05 17 MLS/HR Albumin Human 100 ml @ 100 mls/hr SID PRN IV 06/04/24 04:00 Examination: GENERAL:Abnormal, CVS:Abnormal, ABDOMEN:Abnormal, SKIN:Abnormal, NEURO:Abnormal laboratory and microbiology Laboratory Tests 06/04/24 03:10 Test 06/04/24 03:10 Range/Units Serum Glucose 117 H 74-106 mg/dL Microbiology Date/Time Source Procedure Growth Status 05/31/24 13:47 Blood Blood Culture - Preliminary NO GROWTH AFTER 72 HOURS OF INCUBATION. Resulted 05/30/24 15:15 Nose MRSA Screen - Final Complete 05/30/24 14:15 Bronchial Brushings Gram Stain - Final Complete 05/30/24 14:15 Respiratory Culture - Final Stenotrophomonas maltophilia Complete Problem List/Assessment/Plan Problem List/Assessment/Plan Acute kidney injury multifactorial in the setting of hypotension and tachycardia hemodynamically mediated EtOH hepatic disease Anasarca decompensated liver disease Acute respiratory failure hypoxic Pneumonia Jaundice Hypoalbuminemia Macrocytic anemia Thrombocytopenia HD treatment for metabolic and fluid removal repeat tomorrow persistent tachycardia during treatment prevents aggressive volume removal rec max concentrate all fluids Maintain pressors to keep map greater than 65 thiamine and folate Currently on sedation to prevent withdrawal on Versed drip Strict Is&Os Monitor fluid input and output balance Avoid contrast studies Guarded prognosis Critical time spent 33 minutes Plan discussed with: Other My Orders My Orders Orders - ORQUIDEA HONEYCUTT MD Procedure Category Date Status Time Albumin 25% (Albutein) PHA 06/04/24 In Process 04:00 Communication Order ORDERS 06/03/24 Transmitted 20:16 Hemodialysis Orders ORDERS 06/04/24 Transmitted 06:42 Dietary Evaluation Review Recommendations by RD: PPN/TPN Comments: 1. If NPO > 7 days, initiate EN/TPN. 2. If gut is accessible, consider Jevity 1.2 @ 40 mL/hr. Tf regimen will provide 1,152 kcals, 53g Pro, and 775 mL free H2O (+ 1,200 mL free H2O flushes). TF regimen will meet ~ 91% daily estimated energy needs (20-25 kcal/kg) and ~59% daily estimated protein needs (1.2-2.0 g/kg). 3. Advance to hepatic diet when medically feasible, pending EMBROIDERER approval. 4. Promote ETOH cessation. Expected Outcomes/Goals: 1. nutritional intake to meet at least 75% estimated needs 2. labs to improve 3. diet to advance 4. f/u in 2-3 days CC Plasma Assessment Blood Product Administration S: [id number] ORQUIDEA HONEYCUTT MD Jun 04, 2024 15:00
--- NOTE | 2024-06-04 15:27 | DVHPN2 ---
Subjective chart reviwed/d/w nursing Reviewed: Care Plan, H&P, Labs, Medications, Previous Orders, Radiology Changes from previous H/P or p: No Changes Eyes: No Pain, No Vision change, No Conjunctivae inflammation, No Eyelid inflammation, No Other, No Redness ENT: No Ear pain, No Ear discharge, No Nose pain, No Nose discharge, No Nose congestion, No Mouth pain, No Mouth swelling, No Throat pain, No Throat swelling, No Other Cardiovascular: Chest Pain; No Palpitations, No Orthopnea, No Paroxysmal Noc. Dyspnea, No Edema, No Lt Headedness, No Other Respiratory: No Cough, No Dry, No Shortness of breath, No SOB with excertion, No Wheezing, No Hemoptysis, No Pleuritic Pain, No Sputum, No Other Gastrointestinal: No Nausea, No Vomiting; Abdominal Pain; No Diarrhea, No Constipation, No Melena; Hematochezia; No Other Genitourinary: No Dysuria; Frequency; No Incontinence, No Hematuria; Retention; No Other Musculoskeletal: No other, No neck pain, No shoulder pain, No arm pain, No back pain, No hand pain, No leg pain, No foot pain Skin: No Rash, No Lesions, No Jaundice, No Bruising, No Other Objective Vitals Vital Signs Date Time Temp Pulse Resp B/P (MAP) Pulse Ox O2 Delivery O2 Flow Rate FiO2 06/04/24 14:58 120/61 06/04/24 14:33 115 22 96 40 06/04/24 14:27 Mechanical Ventilator+ 06/04/24 12:00 98.2 98.2 Intake/Output Intake and Output 06/04/24 07:00 Intake Total 2011.258 ml Output Total 110 ml Balance 1901.258 ml Intake Oral 240 ml IV Total 1376.258 ml Tube Feeding 395 ml Output Urine Total 110 ml General Appearance: moderate distress, Other (Chemically sedated and intubated/) HEENT: Atraumatic, PERRLA, Other (Sclerae icteric) Lungs: Clear to auscultation, Normal air movement Cardiovascular: Normal S1, Normal S2, Other (Sinus tachycardia) Abdomen: Normal bowel sounds, Other (anasarca-abdominal wall/generalised) Musculoskeletal: Other (sedated and intubated/does bite on et tube during sedation breaks per nursing and weak gag reflex) Neuro: Other (Unable to assess) Skin: Dry, Intact, Other (Jaundiced) Psych/Mental Status: Other (Unable to assess) Medications Current Medications Medications Dose Ordered Sig/Alvaro Route Start Time Stop Time Status Last Admin Dose Admin Lorazepam 2 mg Q4H PO 05/27/24 09:15 Hold 05/28/24 06:10 2 MG Ondansetron HCl 4 mg Q4HP PRN IV 05/27/24 09:15 Nitroglycerin 0.4 mg Q5MINP PRN SL 05/27/24 09:15 Morphine Sulfate 2 mg Q30M PRN IV 05/27/24 09:15 Sucralfate 1 gm QID PO 05/27/24 12:00 Hold 05/28/24 06:11 1 GM Patient Own Medication 1 cap DAILY PO 05/27/24 10:00 UNV Pantoprazole Sodium 40 mg BID IV 05/27/24 22:00 06/04/24 12:02 40 MG Midodrine 10 mg TID@0600,1200,1800 PO 05/27/24 18:00 Hold 05/28/24 06:10 10 MG Midazolam HCl 50 ml @ 1 mls/hr Q24H IV 05/30/24 14:15 06/04/24 11:14 2 MLS/HR Fentanyl Citrate 250 ml @ 2.5 mls/hr Q24H IV 05/30/24 14:15 06/04/24 02:33 5 MLS/HR Thiamine HCl 100 mg DAILY IV 06/01/24 10:00 06/04/24 12:02 100 MG Folic Acid 1 mg/ Dextrose 50.2 ml @ 200.8 mls/ hr DAILY INJ 06/01/24 10:00 06/04/24 12:16 200.8 MLS/HR Acetylcysteine 200 mg Q6HR NEB 06/01/24 12:00 06/04/24 11:58 200 MG Methylprednisolone Sodium Succinate 40 mg BID IV 06/01/24 22:00 06/04/24 12:02 40 MG Enteral Nutritional Formula 1,000 ml 30ML/HR GT 06/01/24 11:00 06/01/24 13:29 1,000 ML Levalbuterol HCl 0.625 mg Q6HR NEB 06/01/24 12:00 06/04/24 11:58 0.625 MG Ipratropium [place] 0.5 mg Q6HWA NEB 06/01/24 12:00 06/04/24 11:58 0.5 MG Doxycycline Hyclate 250 ml @ 125 mls/hr Q12H IV 06/01/24 11:00 06/04/24 13:18 125 MLS/HR Metoclopramide HCl 5 mg Q8HR GT 06/02/24 14:00 06/04/24 13:45 5 MG Ursodiol 300 mg BID GT 06/02/24 11:00 06/03/24 22:33 300 MG Norepinephrine Bitartrate 250 ml @ 3.75 mls/hr Q24H IV 06/02/24 18:45 06/03/24 05:25 3.75 MLS/HR Furosemide 100 mg/ Sodium Chloride 110 ml @ 33 mls/hr Q3H20M IV 06/03/24 08:00 06/04/24 12:04 33 MLS/HR Meropenem 50 ml @ 17 mls/hr Q12HR IV 06/03/24 22:00 06/04/24 12:05 17 MLS/HR Albumin Human 100 ml @ 100 mls/hr SID PRN IV 06/04/24 04:00 Laboratory Results Laboratory Tests 06/04/24 03:10 Chemistry Test 06/04/24 03:10 Albumin 2.1 g/dL (3.2-4.8) L Calcium Level 9.2 mg/dL (8.7-10.4) Total Protein 4.5 g/dL (5.7-8.2) L LFT Test 06/04/24 03:10 Alanine Aminotransferase (ALT) 165 U/L (7-40) H Alkaline Phosphatase 176 U/L (46-116) H Aspartate Amino Transferase (AST) 285 U/L (13-40) H Total Bilirubin 13.3 mg/dL (0.2-1.0) H Urinalysis Test 05/28/24 21:45 Urine Color Yellow (Yellow) Urine Clarity Clear (Clear) Urine pH 6.5 (5.0-9.0) Urine Specific [place] 1.005 (1.001-1.035) Urine Protein Trace (Negative) H Urine Ketones Negative (Negative) Urine Blood 3+ /uL (Negative) H Urine Nitrite Negative (Negative) Urine Bilirubin Negative (Negative) Urine Urobilinogen 4 mg/dL (Negative) H Urine Leukocyte Esterase Trace /uL (Negative) Urine RBC 21 /hpf (0 - 4) Urine WBC 109 /hpf (0 - 5) Urine Squamous Epithelial Cells None seen /hpf (<5) Urine Bacteria None seen /hpf (None Seen) Urine Glucose Normal mg/dL (Normal) Blood Gas Results Test 06/04/24 07:19 Arterial Blood pH 7.318 (7.350-7.450) FiO2 % 40.0 Microbiology Microbiology Date/Time Source Procedure Growth Status 05/31/24 13:47 Blood Blood Culture - Preliminary NO GROWTH AFTER 72 HOURS OF INCUBATION. Resulted 05/30/24 15:15 Nose MRSA Screen - Final Complete 05/30/24 14:15 Bronchial Brushings Gram Stain - Final Complete 05/30/24 14:15 Respiratory Culture - Final Stenotrophomonas maltophilia Complete Labs and/or images reviewed: Labs reviewed by me, Image(s) reviewed by me Assessment/Plan Assessment/Plan sepsis due to sternotrophomonas //d/w pharmacist on sensitivity-add bactrim/adjust for gfr acute respiratory failre due to above shck liver due to above acute renal failure due to sepsis-on dialysis thrombocytopenia due to sepsis/dd- cirrhosis- normal lft last year/is heave drinker coagulopathy due to sepsis/ dd- associated alcoholic liver cirrhosis/no active bleeding 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
[2024-06-04] MEDS ORDERED: BACTRIM 5MG/KG Q8HR PER RX 10 ML IV SCH (15:30)
--- NOTE | 2024-06-04 16:51 | DVHPN2 ---
Progress Note Date Seen: Jun 04, 2024 Resident Creating Document: KALPANA HOOKER RESIDENT Has the PT tested + for MRSA If YES, has PT been informed?: No Medical Necessity Reason Pt with a Central, PICC or Fol: Yes The following are medically ne: Central Line, Robertson Catheter Reason for robertson catheter: Strict I&O Medical Necessity Reason Intubated No significant changes from the previous days Subjective Review of Systems 06/04/2024 Seen and examined in the ICU still intubated and sedated. WBCs going of most likely secondary to the steroids. Lab values shows:, T. Edy: 14.5-->13.3 AST: 310--> 285 ALT:140--> 165 ALP: 119--> 176 WBC: 32.6--> 34.2 HGB: 11.1--> 10.6 Plt: 29--> 25 Cr: 3.04--> 3.88 Madernesto's discriminant function score:34 Continue Ursodiol 06/02/2024 Recommend vitamin K Recommend cutting back down on steroids given the elevated WBC Objective vital signs Vital Sign Date Time Temp Pulse Resp B/P (MAP) Pulse Ox O2 Delivery O2 Flow Rate FiO2 06/04/24 15:46 113 22 107/61 (76) 98 40 06/04/24 14:27 Mechanical Ventilator+ 06/04/24 12:00 98.2 98.2 Total Intake and Output 06/03/24 06/03/24 06/04/24 15:00 23:00 07:00 Intake Total 658.379 ml 643.816 ml 709.063 ml Output Total 20 ml 90 ml Balance 658.379 ml 623.816 ml 619.063 ml medications Current Medications Medications Dose Ordered Sig/Alvaro Route Start Time Stop Time Status Last Admin Dose Admin Lorazepam 2 mg Q4H PO 05/27/24 09:15 Hold 05/28/24 06:10 2 MG Ondansetron HCl 4 mg Q4HP PRN IV 05/27/24 09:15 Nitroglycerin 0.4 mg Q5MINP PRN SL 05/27/24 09:15 Morphine Sulfate 2 mg Q30M PRN IV 05/27/24 09:15 Sucralfate 1 gm QID PO 05/27/24 12:00 Hold 05/28/24 06:11 1 GM Patient Own Medication 1 cap DAILY PO 05/27/24 10:00 UNV Pantoprazole Sodium 40 mg BID IV 05/27/24 22:00 06/04/24 12:02 40 MG Midodrine 10 mg TID@0600,1200,1800 PO 05/27/24 18:00 Hold 05/28/24 06:10 10 MG Midazolam HCl 50 ml @ 1 mls/hr Q24H IV 05/30/24 14:15 06/04/24 11:14 2 MLS/HR Fentanyl Citrate 250 ml @ 2.5 mls/hr Q24H IV 05/30/24 14:15 06/04/24 02:33 5 MLS/HR Thiamine HCl 100 mg DAILY IV 06/01/24 10:00 06/04/24 12:02 100 MG Folic Acid 1 mg/ Dextrose 50.2 ml @ 200.8 mls/ hr DAILY INJ 06/01/24 10:00 06/04/24 12:16 200.8 MLS/HR Acetylcysteine 200 mg Q6HR NEB 06/01/24 12:00 06/04/24 11:58 200 MG Methylprednisolone Sodium Succinate 40 mg BID IV 06/01/24 22:00 06/04/24 12:02 40 MG Enteral Nutritional Formula 1,000 ml 30ML/HR GT 06/01/24 11:00 06/01/24 13:29 1,000 ML Levalbuterol HCl 0.625 mg Q6HR NEB 06/01/24 12:00 06/04/24 11:58 0.625 MG Ipratropium [place] 0.5 mg Q6HWA [facility] 06/01/24 12:00 06/04/24 11:58 0.5 MG Doxycycline Hyclate 250 ml @ 125 mls/hr Q12H IV 06/01/24 11:00 06/04/24 13:18 125 MLS/HR Metoclopramide HCl 5 mg Q8HR GT 06/02/24 14:00 06/04/24 13:45 5 MG Ursodiol 300 mg BID GT 06/02/24 11:00 06/04/24 15:14 300 MG Norepinephrine Bitartrate 250 ml @ 3.75 mls/hr Q24H IV 06/02/24 18:45 06/03/24 05:25 3.75 MLS/HR Meropenem 50 ml @ 17 mls/hr Q12HR IV 06/03/24 22:00 06/04/24 12:05 17 MLS/HR Albumin Human 100 ml @ 100 mls/hr SID PRN IV 06/04/24 04:00 Trimethoprim/ Sulfamethoxazole 10 ml @ 0 mls/hr PER PHARMACY IV 06/04/24 15:30 UNV Trimethoprim/ Sulfamethoxazole 15 ml/Dextrose 515 ml @ 343.333 mls/hr Q8HR IV 06/04/24 22:00 UNV Examination General examination- Not in acute distress, intubated, Ari catheter placed HEENT: PEERLA, no acute nasal discharge Chest: S1-S2 audible, rate and rhythm regular, no murmur Lung: Decreased air entry bilaterally. No wheezing. Bibasilar crackles. Abdomen: Nondistended, BS+, nontender, hepatomegaly Musculoskeletal: no acute joint swelling or tenderness Lower extremity: Leg edema Neurological: Unable to assess Psychiatry-- Unable to assess Skin- no acute rash or purpura laboratory and microbiology Laboratory Tests 06/04/24 03:10 Test 06/04/24 03:10 Range/Units Serum Glucose 117 H 74-106 mg/dL Microbiology Date/Time Source Procedure Growth Status 05/31/24 13:47 Blood Blood Culture - Preliminary NO GROWTH AFTER 72 HOURS OF INCUBATION. Resulted 05/30/24 15:15 Nose MRSA Screen - Final Complete 05/30/24 14:15 Bronchial Brushings Gram Stain - Final Complete 05/30/24 14:15 Respiratory Culture - Final Stenotrophomonas maltophilia Complete Problem List/Assessment/Plan Problem List/Assessment/Plan ASSESSMENT Severe anemia hgb 8.4--> 6.9. s/p transfusion; Stable hemoglobin Iron : 38L, TIBC:118, saturation: 32% folate: 43.16 B12: 2852 Acute transaminitis and hepatic failure due to alcohol abuse --> MADDREY discriminant function is 34.0 point --> Patient steroids at this time --> Recommend decreasing the steroid dose given the leukocytosis Hepatic steatosis with hepatomegaly Hyperthyroidism Acute renal failure due VMN --> Creatinine: 3.08--> 3.88 --> Started dialysis --> Nephrology on board Severe protein malnutrition --> Continue tube feeding Thrombocytopenia likely due to liver cirrhosis --> Plt: 25 --> Vitamin K IV 10 mg daily for 3 days (06/04/2024) Acute hypoxic respiratory failure likely due to aspiration pneumonia? Mucus plugs and atelectasis -->S/P intubation and bronchoscopy Duodenal ulcer disease Plan Currently on mechanical ventilation on the following parameters Status post bronchoscopy which showed low and left upper lingula/lower lobe atelectasis due to mucus plugging. There was mucus plugging from L1-L2 10 and R 6-10. Bronchoalveolar lavage was performed as well right middle lobe. Ursodiol 300 mg bid via GT 06/02/2023 Continue Protonix 40 mg IV b.i.d. Continue Carafate 1 g p.o. b.i.d. Transfuse 2 unit of RBC 05/31/2024. Monitor hemoglobin and hematocrit Lactulose 30 mL p.o. daily JAIME discriminant function is 34 point Stool occult blood test: Pending Currently on levothyroxine 112 mcg q.d. No procedures at this time until patient is more stable. Will continue following the patient Goal of care discussed for more than 30 minute Plan discussed with Dr. Maya Thank you for allowing us to participate in the care of this patient. Please call if you have any questions or concerns. Plan discussed with: Other (Nurse and Primary team) Dietary Evaluation Review Recommendations by RD: PPN/TPN Comments: 1. If NPO > 7 days, initiate EN/TPN. 2. If gut is accessible, consider Jevity 1.2 @ 40 mL/hr. Tf regimen will provide 1,152 kcals, 53g Pro, and 775 mL free H2O (+ 1,200 mL free H2O flushes). TF regimen will meet ~ 91% daily estimated energy needs (20-25 kcal/kg) and ~59% daily estimated protein needs (1.2-2.0 g/kg). 3. Advance to hepatic diet when medically feasible, pending [employer] approval. 4. Promote ETOH cessation. Expected Outcomes/Goals: 1. nutritional intake to meet at least 75% estimated needs 2. labs to improve 3. diet to advance 4. f/u in 2-3 days CC Plasma Assessment Blood Product Administration S: [id number] KALPANA HOOKER RESIDENT Jun 04, 2024 16:51
[2024-06-04] MEDS ORDERED: SULFAMETH-TRIMETH 80/16MG-ML 10 ML in D5W 5% 250 ML IV ONE (17:00)
[2024-06-04 17:16] LABS: Hematocrit 33.5 % (36.0-46.0); Mean Corpuscular Hemoglobin 36.3 pg (28.0-32.0); Red Blood Cells 3.04 10^6/uL (4.0-5.20)
[2024-06-04 17:25] LABS: Red Cell Distribution Width 29.2 % (11.8-14.3)
[2024-06-04 17:26] LABS: White Blood Cell 34.7 10^3/uL (4.4-10.8)
[2024-06-04 17:27] LABS: Platelet Count (auto) 18 10^3/uL (140-450)
[2024-06-04 17:28] LABS: Basophils % (manual) 0 (0.0-2.0); Blast Cells 0; Eosinophils % (manual) 0 (0-7); Metamyelocytes % 0; Myelocytes % 0; Promyelocytes % 0; Reactive Lymphocytes 0
[2024-06-04 17:33] LABS: Anion Gap 8 (5-15); Carbon Dioxide 24 mmol/L (20-31); Potassium 3.6 mmol/L (3.5-5.1); Sodium 141 mmol/L (136-145)
[2024-06-04 17:37] LABS: INR 1.78 (0.9-1.15); Prothrombin Time 18.1 sec (9.3-11.8)
[2024-06-04] MEDS: SULFAMETH-TRIMETH 80/16MG-ML 10 ML in D5W 5% 250 ML IV SCH (17:46)
[2024-06-04] MEDS: phytonadione 10 MG in SODIUM CHL 0.9% 50 ML IV ONE (17:46)
[2024-06-04 18:17] LABS: Alanine Aminotransferase 202 U/L (7-40); Alkaline Phosphatase 203 U/L (46-116); Aspartate Aminotransferase 347 U/L (13-40); Blood Urea Nitrogen 43 mg/dL (9-23); Calcium 8.6 mg/dL (8.7-10.4); Chloride 109 mmol/L (98-107); Glucose 152 mg/dL (74-106); Total Protein 4.5 g/dL (5.7-8.2)
[2024-06-04 18:29] LABS: BUN/Creatinine Ratio 14.6 (10.0-20.0)
[2024-06-04 18:56] LABS: Band Neutrophils % (manual) 12; Lymphocytes % (manual) 6 (10.0-50.0); Monocytes % (manual) 6 (0-12)
[2024-06-04 18:57] LABS: Macrocytosis Moderate; Platelet Estimate Markedly Decreased
[2024-06-04 18:58] LABS: Anisocytosis Marked
[2024-06-04] MEDS: NOREPINEPHRINE BITARTRATE 32 MG in SODIUM CHL 0.9% 218 ML IV SCH (20:30)
[2024-06-04 21:51] LABS: Hematocrit 23.2 % (36.0-46.0); Hemoglobin 7.3 g/dL (12.2-16.2); Mean Corpuscular Hemoglobin 35.9 pg (28.0-32.0); Mean Corpuscular Hgb Conc. 31.6 g/dL (32.0-36.0); Mean Corpuscular Volume 113.8 fL (80.0-100.0); Red Blood Cells 2.04 10^6/uL (4.0-5.20); Red Cell Distribution Width 29.3 % (11.8-14.3); White Blood Cell 24.6 10^3/uL (4.4-10.8)
[2024-06-04] MEDS ORDERED: SULFAMETH-TRIMETH 80/16MG-ML 15 ML in D5W 5% 500 ML IV SCH (22:00)
[2024-06-04 22:08] LABS: Platelet Count (auto) 18 10^3/uL (140-450)
[2024-06-04 22:09] LABS: Basophils % (manual) 0 (0.0-2.0); Blast Cells 0; Eosinophils % (manual) 0 (0-7); Metamyelocytes % 0; Monocytes % (manual) 0 (0-12); Myelocytes % 0; Promyelocytes % 0; Reactive Lymphocytes 0
--- NOTE | 2024-06-04 22:32 | DVHPN2 ---
Progress Note - Dictate Date Seen: Jun 04, 2024 Has the PT tested + for MRSA If YES, has PT been informed?: No Medical Necessity Reason Pt with a Central, PICC or Fol: Yes The following are medically ne: Central Line, Robertson Catheter Reason for robertson catheter: Strict I&O Subjective Patient seen and examined at bedside. Sedated, intubated on mechanical ventilator. Overnight events reviewed. vital signs Vital Sign Date Time Temp Pulse Resp B/P (MAP) Pulse Ox O2 Delivery O2 Flow Rate FiO2 06/04/24 20:19 116 22 110/59 (76) 92 40 06/04/24 18:15 Mechanical Ventilator+ 06/04/24 16:00 98.9 98.9 Total Intake and Output 06/03/24 06/03/24 06/04/24 15:00 23:00 07:00 Intake Total 658.379 ml 643.816 ml 709.063 ml Output Total 20 ml 90 ml Balance 658.379 ml 623.816 ml 619.063 ml medications Current Medications Medications Dose Ordered Sig/Alvaro Route Start Time Stop Time Status Last Admin Dose Admin Lorazepam 2 mg Q4H PO 05/27/24 09:15 Hold 05/28/24 06:10 2 MG Ondansetron HCl 4 mg Q4HP PRN IV 05/27/24 09:15 Nitroglycerin 0.4 mg Q5MINP PRN SL 05/27/24 09:15 Morphine Sulfate 2 mg Q30M PRN IV 05/27/24 09:15 Sucralfate 1 gm QID PO 05/27/24 12:00 Hold 05/28/24 06:11 1 GM Patient Own Medication 1 cap DAILY PO 05/27/24 10:00 UNV Pantoprazole Sodium 40 mg BID IV 05/27/24 22:00 06/04/24 22:20 40 MG Midodrine 10 mg TID@0600,1200,1800 PO 05/27/24 18:00 Hold 05/28/24 06:10 10 MG Midazolam HCl 50 ml @ 1 mls/hr Q24H IV 05/30/24 14:15 06/04/24 11:14 2 MLS/HR Fentanyl Citrate 250 ml @ 2.5 mls/hr Q24H IV 05/30/24 14:15 06/04/24 02:33 5 MLS/HR Thiamine HCl 100 mg DAILY IV 06/01/24 10:00 06/04/24 12:02 100 MG Folic Acid 1 mg/ Dextrose 50.2 ml @ 200.8 mls/ hr DAILY INJ 06/01/24 10:00 06/04/24 12:16 200.8 MLS/HR Methylprednisolone Sodium Succinate 40 mg BID IV 06/01/24 22:00 06/04/24 22:20 40 MG Enteral Nutritional Formula 1,000 ml 30ML/HR GT 06/01/24 11:00 06/01/24 13:29 1,000 ML Levalbuterol HCl 0.625 mg Q6HR NEB 06/01/24 12:00 06/04/24 18:53 0.625 MG Ipratropium [place] 0.5 mg Q6HWA NEB 06/01/24 12:00 06/04/24 18:53 0.5 MG Doxycycline Hyclate 250 ml @ 125 mls/hr Q12H IV 06/01/24 11:00 06/04/24 13:18 125 MLS/HR Metoclopramide HCl 5 mg Q8HR GT 06/02/24 14:00 06/04/24 22:24 5 MG Ursodiol 300 mg BID GT 06/02/24 11:00 06/04/24 22:24 300 MG Meropenem 50 ml @ 17 mls/hr Q12HR IV 06/03/24 22:00 06/04/24 22:21 17 MLS/HR Albumin Human 100 ml @ 100 mls/hr SID PRN IV 06/04/24 04:00 Trimethoprim/ Sulfamethoxazole 10 ml @ 0 mls/hr PER PHARMACY IV 06/04/24 15:30 Trimethoprim/ Sulfamethoxazole 10 ml/Dextrose 260 ml @ 130 mls/hr Q8H IV 06/04/24 17:30 06/04/24 17:46 130 MLS/HR Norepinephrine Bitartrate 32 mg/ Sodium Chloride 250 ml @ 0.234 mls/ hr Q24H IV 06/04/24 19:00 06/04/24 20:30 3.75 MLS/HR objective Gen.: Patient lying in bed in medical ICU. Sedated, intubated on mechanical ventilator. Head: Normocephalic, atraumatic. Eyes: PERRLA. Ears: Normal external anatomy. Throat: Endotracheal tube and orogastric tube in place. Neck: Supple, trachea midline. Chest: Transmitted breath sounds bilaterally. Decreased air entry bilaterally. No wheezing. Bibasilar crackles. Cardiovascular: Positive S1, positive S2. Regular rate and rhythm. Abdomen: Positive bowel sounds in all 4 quadrants. Soft, nontender, nondistended. : Robertson in place. Normal external genitalia. Rectal: Deferred. Skin: Warm, dry. Intact. Extremities: 2+ radial pulses bilaterally. No lower extremity edema. Neuro: Sedated. laboratory and microbiology Laboratory Tests 06/04/24 21:35 06/04/24 16:39 Test 06/04/24 16:39 Range/Units Serum Glucose 152 H 74-106 mg/dL Assessment/Plan Impression: Acute hypoxic respiratory failure On mechanical ventilator Hepatorenal syndrome Leukocytosis Anemia Thrombocytopenia Acute kidney injury Hypokalemia Chronic pancreatitis ETOH abuse Marijuana abuse Events: Remains on vent support On AC mode; RR 22, VT 450, PEEP 8, FiO2 40% ABG reviewed, notable for acidemia. Due to metabolic acidosis. CXR demonstrates Multifocal airspace disease. No effusion or pneumothorax. She remains on fentanyl and Versed drip for sedation. Pressors for hemodynamic support Levophed 8 mcg/min Titrate to keep mean arterial pressure greater than 65 mmHg. On IV fluids at 130 mL/hour. Poor urine output Monitor renal function Monitor electrolytes. Supplement as necessary. Monitor ins and outs. Patient had hemodialysis today. Nephrology recommendations appreciated. Lactulose Ursodiol GI recs appreciated. Continue bronchodilators/Mucomyst Continue antibiotics Monitor hemoglobin Tube feeds for nutritional support Labs and imaging reviewed. Rest of plan as noted below. Plan: s/p intubation on mechanical ventilator. On AC mode; On AC mode; RR 22, VT 450, PEEP 8, FiO2 40% Titrate FIO2 to keep O2 saturation above 90%. VAP bundle. Daily ABG and CXR while intubated Sedate for ventilator synchrony Continue bronchodilators. Continue antibiotics. F/u cultures. Pressors for hemodynamic support Titrate to keep mean arterial pressure greater than 65 mmHg. Follow up GI recommendations Follow up Nephrology recommendations Monitor renal function Monitor electrolytes. Supplement as necessary. Monitor ins and outs. Maintain euvolemia. GI prophylaxis. DVT prophylaxis. Prognosis: Poor given patient's multiple co-morbidities. Condition: Critical Rest of plan per hospitalist and other consultants. A total of 35 minutes of critical care time was spent reviewing the patient record, examining the patient, making a diagnostic and therapeutic plan, discussing this plan with the medical personnel, following up on diagnostic studies and following the patient for clinical stability excluding any and all procedures. At least 50% of this time was spent in direct, [id number] contact. Thank you, Dr. Parkinson, for allowing me to participate in this patient's care. Further recommendations will depend on the patient's clinical course. Please do not hesitate to contact me if you have any questions or concerns. This medical document was created using an electronic medical record system with [employer] dictation system. Although these documentations are being carefully reviewed, there may still be some phonetic and typographical changes. The errors are purely typographical, due to imperfection on the software program, and do not reflect any compromise in the patient's medical care. Dietary Evaluation Review Recommendations by RD: PPN/TPN Comments: 1. If NPO > 7 days, initiate EN/TPN. 2. If gut is accessible, consider Jevity 1.2 @ 40 mL/hr. Tf regimen will provide 1,152 kcals, 53g Pro, and 775 mL free H2O (+ 1,200 mL free H2O flushes). TF regimen will meet ~ 91% daily estimated energy needs (20-25 kcal/kg) and ~59% daily estimated protein needs (1.2-2.0 g/kg). 3. Advance to hepatic diet when medically feasible, pending [employer] approval. 4. Promote ETOH cessation. Expected Outcomes/Goals: 1. nutritional intake to meet at least 75% estimated needs 2. labs to improve 3. diet to advance 4. f/u in 2-3 days Plan discussed with: Other (RN Rabia, RT, MD) Critical Care Time(min): 35 CC Plasma Assessment Blood Product Administration S: [id number] TAE DUPREE MD Jun 04, 2024 22:32
[2024-06-04 22:33] LABS: Band Neutrophils % (manual) 11; Lymphocytes % (manual) 6 (10.0-50.0)
[2024-06-04 22:34] LABS: Anisocytosis Marked; Macrocytosis Marked; Platelet Estimate Markedly Decreased
[2024-06-05] VITALS (113 sets, daily range): BP systolic 87–130; BP diastolic 43–73; PULSE 103–124; RESP 11–26; TEMP 97.2–99.5; O2SAT 87–100
[2024-06-05 04:08] LABS: Hematocrit 33.6 % (36.0-46.0); Mean Corpuscular Hemoglobin 36.1 pg (28.0-32.0); Mean Corpuscular Hgb Conc. 32.7 g/dL (32.0-36.0); Mean Corpuscular Volume 110.4 fL (80.0-100.0); Platelet Count (auto) 23 10^3/uL (140-450); Red Blood Cells 3.05 10^6/uL (4.0-5.20)
[2024-06-05 04:09] LABS: Red Cell Distribution Width 29.6 % (11.8-14.3)
[2024-06-05 04:10] LABS: White Blood Cell 39.4 10^3/uL (4.4-10.8)
[2024-06-05 04:48] LABS: Anion Gap 9 (5-15); Calcium 8.7 mg/dL (8.7-10.4); Carbon Dioxide 22 mmol/L (20-31); Chloride 106 mmol/L (98-107); Potassium 3.8 mmol/L (3.5-5.1); Sodium 137 mmol/L (136-145)
[2024-06-05 04:51] LABS: Alanine Aminotransferase 206 U/L (7-40); Albumin 1.9 g/dL (3.2-4.8); Alkaline Phosphatase 210 U/L (46-116); Aspartate Aminotransferase 336 U/L (13-40); Bilirubin, Total 12.8 mg/dL (0.2-1.0); Blood Urea Nitrogen 49 mg/dL (9-23); Glucose 157 mg/dL (74-106); Total Protein 4.5 g/dL (5.7-8.2)
[2024-06-05 05:32] LABS: BUN/Creatinine Ratio 14.9 (10.0-20.0)
--- NOTE | 2024-06-05 06:10 | DVH ---
CHEST RADIOGRAPH Indication: intubated Technique: Single frontal view of the chest was obtained COMPARISON: XY CHEST PORTABLE on DOS: 06/04/24, XY CHEST XRAY 1 VIEW on DOS: 06/03/24, XY CHEST PORTABLE on DOS: 06/02/24, XY CHEST PORTABLE on DOS: 06/02/24, XY CHEST PORTABLE on DOS: 06/01/24, XY CHEST XRAY 1 V IEW on DOS: 06/03/24 FINDINGS: Lines and Tubes: Endotracheal tube, enteric catheter and right central venous catheters in satisfacto ry position. Lungs: Multifocal airspace disease. Pleura: No effusion. No pneumothorax. Cardiomediastinal contours: Unremarkable Bones: Unremarkable IMPRESSION: Lines and tubes in satisfactory position. No significant interval change.
[2024-06-05 06:19] LABS: Band Neutrophils % (manual) 7; Basophils % (manual) 0 (0.0-2.0); Blast Cells 0; Eosinophils % (manual) 0 (0-7); Lymphocytes % (manual) 1 (10.0-50.0); Metamyelocytes % 0; Monocytes % (manual) 3 (0-12); Myelocytes % 1; Promyelocytes % 0; Reactive Lymphocytes 0
[2024-06-05 06:20] LABS: Anisocytosis Moderate; Macrocytosis Moderate; Platelet Estimate Markedly Decreased; Polychromasia Slight
[2024-06-05 08:14] LABS: Base Excess -3.6 mmol/L (-2.0-3.0)
--- NOTE | 2024-06-05 10:09 | DVHPN2 ---
Progress Note - Dictate Date Seen: Jun 05, 2024 Has the PT tested + for MRSA If YES, has PT been informed?: No Medical Necessity Reason Pt with a Central, PICC or Fol: Yes The following are medically ne: Central Line, Robertson Catheter Reason for robertson catheter: Strict I&O Subjective Patient is intubated sedated in the ICU 106 Patient is tolerating tube feedings at 20 mL/hour She had hypoactive bowel sounds and no bowel movement yet Patient has generalized anasarca and fluid retention She has received albumin infusions Liver enzymes are trending down Creatinine is going up No active GI bleeding reported Her hemoglobin is stable at 11; platelets have improved to 23 K Patient is noted to have a low TSH suspicious for possible hyperthyroidism vital signs Vital Sign Date Time Temp Pulse Resp B/P (MAP) Pulse Ox O2 Delivery O2 Flow Rate FiO2 06/05/24 09:30 117 22 101/53 (69) 91 06/05/24 08:27 Mechanical Ventilator+ 40 40 06/05/24 08:00 98.8 98.8 Total Intake and Output 06/04/24 06/04/24 06/05/24 15:00 23:00 07:00 Intake Total 496.80 ml 791.766 ml 388.00 ml Output Total 1850 ml 25 ml Balance 496.80 ml -1058.234 ml 363.00 ml medications Current Medications Medications Dose Ordered Sig/Alvaro Route Start Time Stop Time Status Last Admin Dose Admin Lorazepam 2 mg Q4H PO 05/27/24 09:15 Hold 05/28/24 06:10 2 MG Ondansetron HCl 4 mg Q4HP PRN IV 05/27/24 09:15 Nitroglycerin 0.4 mg Q5MINP PRN SL 05/27/24 09:15 Morphine Sulfate 2 mg Q30M PRN IV 05/27/24 09:15 Sucralfate 1 gm QID PO 05/27/24 12:00 Hold 05/28/24 06:11 1 GM Patient Own Medication 1 cap DAILY PO 05/27/24 10:00 UNV Pantoprazole Sodium 40 mg BID IV 05/27/24 22:00 06/04/24 22:20 40 MG Midodrine 10 mg TID@0600,1200,1800 PO 05/27/24 18:00 Hold 05/28/24 06:10 10 MG Midazolam HCl 50 ml @ 1 mls/hr Q24H IV 05/30/24 14:15 06/04/24 11:14 2 MLS/HR Fentanyl Citrate 250 ml @ 2.5 mls/hr Q24H IV 05/30/24 14:15 06/04/24 02:33 5 MLS/HR Thiamine HCl 100 mg DAILY IV 06/01/24 10:00 06/04/24 12:02 100 MG Folic Acid 1 mg/ Dextrose 50.2 ml @ 200.8 mls/ hr DAILY INJ 06/01/24 10:00 06/04/24 12:16 200.8 MLS/HR Methylprednisolone Sodium Succinate 40 mg BID IV 06/01/24 22:00 06/04/24 22:20 40 MG Enteral Nutritional Formula 1,000 ml 30ML/HR GT 06/01/24 11:00 06/01/24 13:29 1,000 ML Levalbuterol HCl 0.625 mg Q6HR NEB 06/01/24 12:00 06/05/24 06:37 0.625 MG Ipratropium [place] 0.5 mg Q6HWA [facility] 06/01/24 12:00 06/05/24 06:37 0.5 MG Doxycycline Hyclate 250 ml @ 125 mls/hr Q12H IV 06/01/24 11:00 06/04/24 23:37 125 MLS/HR Metoclopramide HCl 5 mg Q8HR GT 06/02/24 14:00 06/05/24 06:20 5 MG Ursodiol 300 mg BID GT 06/02/24 11:00 06/04/24 22:24 300 MG Meropenem 50 ml @ 17 mls/hr Q12HR IV 06/03/24 22:00 06/04/24 22:21 17 MLS/HR Albumin Human 100 ml @ 100 mls/hr SID PRN IV 06/04/24 04:00 Trimethoprim/ Sulfamethoxazole 10 ml @ 0 mls/hr PER PHARMACY IV 06/04/24 15:30 Trimethoprim/ Sulfamethoxazole 10 ml/Dextrose 260 ml @ 130 mls/hr Q8H IV 06/04/24 17:30 06/05/24 09:33 130 MLS/HR Norepinephrine Bitartrate 32 mg/ Sodium Chloride 250 ml @ 0.234 mls/ hr Q24H IV 06/04/24 19:00 06/04/24 20:30 3.75 MLS/HR objective General: Intubated sedated HEENT: + scleral icterus Chest: lung lee clear to auscultation Heart: RRR, no murmur Abdomen: Mild -distended, mild generalized tenderness to palpation, hypoactive bowel sounds Extremities showed 2+ pedal edema and she has generalized anasarca laboratory and microbiology Laboratory Tests 06/05/24 03:35 Test 06/05/24 03:35 Range/Units Serum Glucose 157 H 74-106 mg/dL Problems(with codes): (1) Acute renal failure (2) Duodenal ulcer disease (3) Elevated LFTs (4) Hepatic steatosis (5) Hepatic failure (6) Pancreatitis (7) Jaundice (8) Hyperthyroidism (9) Anasarca Prognosis Plan Advance tube feedings to 30 mL/hour Nephrology follow up as there was a tentative plan for possible dialysis Continue supportive care Continue Actigall 300 mg twice a day Continue to monitor labs Patient was started on Bactrim for sputum culture showing stenotrophomonas maltophilia I will decrease the steroids to once a day because of leukocytosis; patient has received IV Solu-Medrol for several days Prognosis remains guarded Dietary Evaluation Review Recommendations by RD: PPN/TPN Comments: 1. If NPO > 7 days, initiate EN/TPN. 2. If gut is accessible, consider Jevity 1.2 @ 40 mL/hr. Tf regimen will provide 1,152 kcals, 53g Pro, and 775 mL free H2O (+ 1,200 mL free H2O flushes). TF regimen will meet ~ 91% daily estimated energy needs (20-25 kcal/kg) and ~59% daily estimated protein needs (1.2-2.0 g/kg). 3. Advance to hepatic diet when medically feasible, pending [employer] approval. 4. Promote ETOH cessation. Expected Outcomes/Goals: 1. nutritional intake to meet at least 75% estimated needs 2. labs to improve 3. diet to advance 4. f/u in 2-3 days Plan discussed with: Other (ICU Nurse) CC Plasma Assessment Blood Product Administration S: [id number] JARROD PATEL MD Jun 05, 2024 10:09
[2024-06-05] MEDS: phytonadione 10 MG in SODIUM CHL 0.9% 50 ML IV ONE (10:35)
--- NOTE | 2024-06-05 11:40 | DVHPN2 ---
Subjective chart reviwed/d/w nursing Reviewed: Care Plan, H&P, Labs, Medications, Previous Orders, Radiology Changes from previous H/P or p: No Changes Eyes: No Pain, No Vision change, No Conjunctivae inflammation, No Eyelid inflammation, No Other, No Redness ENT: No Ear pain, No Ear discharge, No Nose pain, No Nose discharge, No Nose congestion, No Mouth pain, No Mouth swelling, No Throat pain, No Throat swelling, No Other Cardiovascular: Chest Pain Respiratory: No Cough, No Dry, No Shortness of breath, No SOB with excertion, No Wheezing, No Hemoptysis, No Pleuritic Pain, No Sputum, No Other Gastrointestinal: Abdominal Pain, Hematochezia Genitourinary: Frequency, Retention Musculoskeletal: No other, No neck pain, No shoulder pain, No arm pain, No back pain, No hand pain, No leg pain, No foot pain Skin: No Rash, No Lesions, No Jaundice, No Bruising, No Other Objective Vitals Vital Signs Date Time Temp Pulse Resp B/P (MAP) Pulse Ox O2 Delivery O2 Flow Rate FiO2 06/05/24 10:34 115 22 112/57 (75) 94 40 06/05/24 08:27 Mechanical Ventilator+ 06/05/24 08:00 98.8 98.8 Intake/Output Intake and Output 06/05/24 07:00 Intake Total 1676.566 ml Output Total 1875 ml Balance -198.434 ml Intake Oral 300 ml IV Total 1078.566 ml Tube Feeding 298 ml Output Urine Total 75 ml Other 1800 ml General Appearance: moderate distress, Other HEENT: Atraumatic, PERRLA, Other Lungs: Clear to auscultation, Normal air movement Cardiovascular: Normal S1, Normal S2, Other Abdomen: Normal bowel sounds, Other Musculoskeletal: Other Neuro: Other Skin: Dry, Intact, Other Psych/Mental Status: Other Medications Current Medications Medications Dose Ordered Sig/Alvaro Route Start Time Stop Time Status Last Admin Dose Admin Lorazepam 2 mg Q4H PO 05/27/24 09:15 Hold 05/28/24 06:10 2 MG Ondansetron HCl 4 mg Q4HP PRN IV 05/27/24 09:15 Nitroglycerin 0.4 mg Q5MINP PRN SL 05/27/24 09:15 Morphine Sulfate 2 mg Q30M PRN IV 05/27/24 09:15 Sucralfate 1 gm QID PO 05/27/24 12:00 Hold 05/28/24 06:11 1 GM Patient Own Medication 1 cap DAILY PO 05/27/24 10:00 UNV Pantoprazole Sodium 40 mg BID IV 05/27/24 22:00 06/05/24 10:35 40 MG Midodrine 10 mg TID@0600,1200,1800 PO 05/27/24 18:00 Hold 05/28/24 06:10 10 MG Midazolam HCl 50 ml @ 1 mls/hr Q24H IV 05/30/24 14:15 06/04/24 11:14 2 MLS/HR Fentanyl Citrate 250 ml @ 2.5 mls/hr Q24H IV 05/30/24 14:15 06/04/24 02:33 5 MLS/HR Thiamine HCl 100 mg DAILY IV 06/01/24 10:00 06/05/24 10:35 100 MG Folic Acid 1 mg/ Dextrose 50.2 ml @ 200.8 mls/ hr DAILY INJ 06/01/24 10:00 06/05/24 10:55 200.8 MLS/HR Enteral Nutritional Formula 1,000 ml 30ML/HR GT 06/01/24 11:00 06/05/24 10:34 1,000 ML Levalbuterol HCl 0.625 mg Q6HR NEB 06/01/24 12:00 06/05/24 06:37 0.625 MG Ipratropium [place] 0.5 mg Q6HWA [facility] 06/01/24 12:00 06/05/24 06:37 0.5 MG Doxycycline Hyclate 250 ml @ 125 mls/hr Q12H IV 06/01/24 11:00 06/05/24 11:21 125 MLS/HR Metoclopramide HCl 5 mg Q8HR GT 06/02/24 14:00 06/05/24 06:20 5 MG Ursodiol 300 mg BID GT 06/02/24 11:00 06/05/24 10:36 300 MG Meropenem 50 ml @ 17 mls/hr Q12HR IV 06/03/24 22:00 06/05/24 10:36 17 MLS/HR Albumin Human 100 ml @ 100 mls/hr SID PRN IV 06/04/24 04:00 Trimethoprim/ Sulfamethoxazole 10 ml @ 0 mls/hr PER PHARMACY IV 06/04/24 15:30 Trimethoprim/ Sulfamethoxazole 10 ml/Dextrose 260 ml @ 130 mls/hr Q8H IV 06/04/24 17:30 06/05/24 09:33 130 MLS/HR Norepinephrine Bitartrate 32 mg/ Sodium Chloride 250 ml @ 0.234 mls/ hr Q24H IV 06/04/24 19:00 06/04/24 20:30 3.75 MLS/HR Methylprednisolone Sodium Succinate 40 mg DAILY IV 06/06/24 10:00 Laboratory Results Laboratory Tests 06/05/24 03:35 Chemistry Test 06/04/24 16:39 06/05/24 03:35 Albumin 2.0 g/dL (3.2-4.8) L 1.9 g/dL (3.2-4.8) L Calcium Level 8.6 mg/dL (8.7-10.4) L 8.7 mg/dL (8.7-10.4) Total Protein 4.5 g/dL (5.7-8.2) L 4.5 g/dL (5.7-8.2) L Coagulation Test 06/04/24 16:39 Prothrombin Time 18.1 sec (9.3-11.8) H Prothrombin Time INR 1.78 (0.9-1.15) H LFT Test 06/04/24 16:39 06/05/24 03:35 Alanine Aminotransferase (ALT) 202 U/L (7-40) H 206 U/L (7-40) H Alkaline Phosphatase 203 U/L (46-116) H 210 U/L (46-116) H Aspartate Amino Transferase (AST) 347 U/L (13-40) H 336 U/L (13-40) H Total Bilirubin 13.0 mg/dL (0.2-1.0) H 12.8 mg/dL (0.2-1.0) H Urinalysis Test 05/28/24 21:45 Urine Color Yellow (Yellow) Urine Clarity Clear (Clear) Urine pH 6.5 (5.0-9.0) Urine Specific [place] 1.005 (1.001-1.035) Urine Protein Trace (Negative) H Urine Ketones Negative (Negative) Urine Blood 3+ /uL (Negative) H Urine Nitrite Negative (Negative) Urine Bilirubin Negative (Negative) Urine Urobilinogen 4 mg/dL (Negative) H Urine Leukocyte Esterase Trace /uL (Negative) Urine RBC 21 /hpf (0 - 4) Urine WBC 109 /hpf (0 - 5) Urine Squamous Epithelial Cells None seen /hpf (<5) Urine Bacteria None seen /hpf (None Seen) Urine Glucose Normal mg/dL (Normal) Blood Gas Results Test 06/05/24 07:42 Arterial Blood pH 7.359 (7.350-7.450) FiO2 % 40.0 Microbiology Microbiology Date/Time Source Procedure Growth Status 05/31/24 13:47 Blood Blood Culture - Preliminary NO GROWTH AFTER 72 HOURS OF INCUBATION. Resulted 05/30/24 15:15 Nose MRSA Screen - Final Complete 05/30/24 14:15 Bronchial Brushings Gram Stain - Final Complete 05/30/24 14:15 Respiratory Culture - Final Stenotrophomonas maltophilia Complete Assessment/Plan Assessment/Plan sepsis due to sternotrophomonas //d/w pharmacist on sensitivity-add bactrim/adjust for gfr acute respiratory failre due to above shock liver due to above acute renal failure due to sepsis-on dialysis thrombocytopenia due to sepsis/dd- cirrhosis- normal lft last year/is heave drinker coagulopathy due to sepsis/ dd- associated alcoholic liver cirrhosis/no active bleeding 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 status//check echo to asses ef gi prophylaxis overall prognosis guarded given multiple comorbiditied d/w oncology- ok to use bactrim and regarding throbocytopenia- no need to transfuse unless bleeding at this point Plan discussed with: Other (no family at bedside/no calls requesting updates) My Orders Orders - DORIS LEES MD Procedure Category Date Status Time * Gi Dvh Ext[employer]usion [employer] Repairer CONS 06/04/24 Transmitted 14:53 Bactrim 5mg/Kg Q8hr PHA 06/04/24 In Process Per Rx (Bactrim) 15:30 * Hematology/Oncology CONS 06/04/24 Transmitted Consult 15:23 Sulfameth-Trimeth PHA 06/04/24 In Process 80/16mg-Ml (Bactrim) 17:30 * Infectious Jeane- CONS 06/05/24 Transmitted Mallad 11:27 Date of Service: Jun 05, 2024 Billing Provider: DORIS LEES MD Common Visit Codes: 30921-CYONOPQA CARE 30-74 MIN DORIS LEES MD Jun 05, 2024 11:40
--- NOTE | 2024-06-05 12:28 | DVHPN2 ---
Progress Note Date Seen: Jun 05, 2024 Has the PT tested + for MRSA If YES, has PT been informed?: No Medical Necessity Reason Pt with a Central, PICC or Fol: Yes The following are medically ne: Central Line, Robertson Catheter Reason for robertson catheter: Strict I&O Subjective Patient reports: Other (tolerated HD yesterday) Review of Systems: Deferred Objective vital signs Vital Sign Date Time Temp Pulse Resp B/P (MAP) Pulse Ox O2 Delivery O2 Flow Rate FiO2 06/05/24 11:30 115 21 100/46 (64) 94 06/05/24 10:34 40 06/05/24 08:27 Mechanical Ventilator+ 06/05/24 08:00 98.8 98.8 Total Intake and Output 06/04/24 06/04/24 06/05/24 15:00 23:00 07:00 Intake Total 496.80 ml 791.766 ml 388.00 ml Output Total 1850 ml 25 ml Balance 496.80 ml -1058.234 ml 363.00 ml medications Current Medications Medications Dose Ordered Sig/Alvaro Route Start Time Stop Time Status Last Admin Dose Admin Lorazepam 2 mg Q4H PO 05/27/24 09:15 Hold 05/28/24 06:10 2 MG Ondansetron HCl 4 mg Q4HP PRN IV 05/27/24 09:15 Nitroglycerin 0.4 mg Q5MINP PRN SL 05/27/24 09:15 Morphine Sulfate 2 mg Q30M PRN IV 05/27/24 09:15 Sucralfate 1 gm QID PO 05/27/24 12:00 Hold 05/28/24 06:11 1 GM Patient Own Medication 1 cap DAILY PO 05/27/24 10:00 UNV Pantoprazole Sodium 40 mg BID IV 05/27/24 22:00 06/05/24 10:35 40 MG Midodrine 10 mg TID@0600,1200,1800 PO 05/27/24 18:00 Hold 05/28/24 06:10 10 MG Midazolam HCl 50 ml @ 1 mls/hr Q24H IV 05/30/24 14:15 06/04/24 11:14 2 MLS/HR Fentanyl Citrate 250 ml @ 2.5 mls/hr Q24H IV 05/30/24 14:15 06/04/24 02:33 5 MLS/HR Thiamine HCl 100 mg DAILY IV 06/01/24 10:00 06/05/24 10:35 100 MG Folic Acid 1 mg/ Dextrose 50.2 ml @ 200.8 mls/ hr DAILY INJ 06/01/24 10:00 06/05/24 10:55 200.8 MLS/HR Enteral Nutritional Formula 1,000 ml 30ML/HR GT 06/01/24 11:00 06/05/24 10:34 1,000 ML Levalbuterol HCl 0.625 mg Q6HR NEB 06/01/24 12:00 06/05/24 06:37 0.625 MG Ipratropium [place] 0.5 mg Q6HWA NEB 06/01/24 12:00 06/05/24 06:37 0.5 MG Doxycycline Hyclate 250 ml @ 125 mls/hr Q12H IV 06/01/24 11:00 06/05/24 11:21 125 MLS/HR Metoclopramide HCl 5 mg Q8HR GT 06/02/24 14:00 06/05/24 06:20 5 MG Ursodiol 300 mg BID GT 06/02/24 11:00 06/05/24 10:36 300 MG Meropenem 50 ml @ 17 mls/hr Q12HR IV 06/03/24 22:00 06/05/24 10:36 17 MLS/HR Albumin Human 100 ml @ 100 mls/hr SID PRN IV 06/04/24 04:00 Trimethoprim/ Sulfamethoxazole 10 ml @ 0 mls/hr PER PHARMACY IV 06/04/24 15:30 Trimethoprim/ Sulfamethoxazole 10 ml/Dextrose 260 ml @ 130 mls/hr Q8H IV 06/04/24 17:30 06/05/24 09:33 130 MLS/HR Norepinephrine Bitartrate 32 mg/ Sodium Chloride 250 ml @ 0.234 mls/ hr Q24H IV 06/04/24 19:00 06/04/24 20:30 3.75 MLS/HR Methylprednisolone Sodium Succinate 40 mg DAILY IV 06/06/24 10:00 Examination: GENERAL:Abnormal, CVS:Abnormal, ABDOMEN:Abnormal, SKIN:Abnormal, NEURO:Abnormal laboratory and microbiology Laboratory Tests 06/05/24 03:35 Test 06/05/24 03:35 Range/Units Serum Glucose 157 H 74-106 mg/dL Microbiology Date/Time Source Procedure Growth Status 05/31/24 13:47 Blood Blood Culture - Preliminary NO GROWTH AFTER 72 HOURS OF INCUBATION. Resulted 05/30/24 15:15 Nose MRSA Screen - Final Complete 05/30/24 14:15 Bronchial Brushings Gram Stain - Final Complete 05/30/24 14:15 Respiratory Culture - Final Stenotrophomonas maltophilia Complete Problem List/Assessment/Plan Problem List/Assessment/Plan Acute kidney injury multifactorial in the setting of hypotension and tachycardia hemodynamically mediated EtOH hepatic disease Anasarca decompensated liver disease Acute respiratory failure hypoxic Pneumonia Jaundice Hypoalbuminemia Macrocytic anemia Thrombocytopenia sepsis PNA HD treatment for metabolic and fluid removal rec max concentrate all fluids Maintain pressors to keep map greater than 65 IV ABX renal dosage while on dialysis; IV bActrim gastroenterology thiamine and folate Currently on sedation to prevent withdrawal on Versed drip Strict Is&Os Monitor fluid input and output balance Avoid contrast studies Guarded prognosis Critical time spent 33 minutes Plan discussed with: Other My Orders My Orders Orders - ORQUIDEA HONEYCUTT MD Procedure Category Date Status Time Sodium Chl 0.9% PHA 06/04/24 In Process (Ns... 19:00 Dietary Evaluation Review Recommendations by RD: PPN/TPN Comments: 1. If NPO > 7 days, initiate EN/TPN. 2. If gut is accessible, consider Jevity 1.2 @ 40 mL/hr. Tf regimen will provide 1,152 kcals, 53g Pro, and 775 mL free H2O (+ 1,200 mL free H2O flushes). TF regimen will meet ~ 91% daily estimated energy needs (20-25 kcal/kg) and ~59% daily estimated protein needs (1.2-2.0 g/kg). 3. Advance to hepatic diet when medically feasible, pending [employer] approval. 4. Promote ETOH cessation. Expected Outcomes/Goals: 1. nutritional intake to meet at least 75% estimated needs 2. labs to improve 3. diet to advance 4. f/u in 2-3 days CC Plasma Assessment Blood Product Administration S: [id number] ORQUIDEA HONEYCUTT MD Jun 05, 2024 12:28
[2024-06-05] MEDS: SODIUM CHL 0.9% 1000 ML BAG XX ONE (12:30)
[2024-06-05] MEDS: ALBUMIN 25% 100 ML IV SCH (13:56)
[2024-06-05] MEDS: ALBUMIN 25% 100 ML IV PRN (13:57)
--- NOTE | 2024-06-05 20:14 | DVHINCON2 ---
Date of service: Jun 05, 2024 Referring Physician Nichelle Reason for Consultation stenotrophomonas pneumonia History of Present Illness This is a 58-year-old female with past medical history of EtOH abuse, depression, and who presents with chest pain, lower abdominal pain, general weakness, dizziness, blood in stool, urinary retention and frequency x2 weeks. Patient reports that her chest pain feels like someone is sitting on her and it is constant 7/10. Patient reports that she drinks minimal 3 shots of alcohol per day for several years, smokes half a pack a day of cigarettes, smokes marijuana, and denies illicit drug use. She is intubated, sedated on MV, has GI bleed, relatively stable now on pressors ID consulted for Pneumonia.. s/p bronch 05/30 Past Medical History GI: Peptic Ulcer disease Hepatobiliary: Other (Liver disease) Psych: Depression Endocrine: Hypothyroidism ETOH abuse Past Surgical History Past Surgical History: Family History: Cardiovascular disease G8 FATHER, FHx: cancer G8 MOTHER, Family History Lives: Roommate Domestic Violence: Neg Social History Smoke: <1 pack per day ALCOHOL: heavy Drugs: Marijuana Allergies: Coded Allergies: NO KNOWN ALLERGIES (Unverified , 10/05/18) Allergies None Home Meds Active Scripts Folic Acid (Folic Acid) 1 Mg Tab, 1 MG PO DAILY, #30 TAB Prov:CLEMENTE SPEARS MD 08/23/23 Thiamine HCl (Thiamine Hydrochloride) 100 Mg Tab, 100 MG PO DAILY, #30 TAB Prov:CLEMENTE SPEARS MD 08/23/23 Sucralfate (CARAFATE) 1 Gm Tab, 1 GM PO QID, #120 TAB Prov:CLEMENTE SPEARS MD 08/23/23 Pantoprazole Sodium Sesquihydr (Pantoprazole Sodium) 40 Mg Tab, 40 MG PO BID, #60 TAB Prov:CLEMENTE SPEARS MD 08/23/23 Metronidazole (Flagyl) 500 Mg Tab, 1 TAB PO TID, #30 TAB Prov:CLEMENTE SPEARS MD 08/23/23 Levofloxacin Hemihydrate (LEVAQUIN 500 MG) 500 Mg Tab, 1 TAB PO DAILY, #10 TAB Prov:CLEMENTE SPEARS MD 08/23/23 Hydrocodone-Acetaminophen (Hydrocodone Bitartrate/AC 5-325 mg) 1 Tab Tab, 1 TAB PO Q6HPRN PRN for 3 Days, #12 TAB Prov:ADINA KENT MD 09/24/22 Reported Medications Gabapentin (Gabapentin) 100 Mg Cap, 2 CAP PO TID 05/27/24 Fluoxetine Hcl (Fluoxetine Hcl) 40 Mg Cap, 1 CAP PO DAILY 08/20/23 Levothyroxine Sodium (Levothyroxine Sodium) 112 Mcg Tab, 1 TAB PO DAILY 08/20/23 Current Medications Current Medications Medications (Trade) Dose Ordered Sig/Alvaro Route PRN Reason Start Time Stop Time Status Last Admin Trimethoprim/ Sulfamethoxazole 15 ml/Dextrose 515 ml @ 343.333 mls/hr Q8HR IV 06/04/24 22:00 06/04/24 16:29 DC Methylprednisolone Sodium Succinate (Solu Medrol) 40 mg DAILY IV 06/06/24 10:00 Albumin Human 100 ml @ 100 mls/hr Q8H IV 06/05/24 12:30 06/06/24 05:29 06/05/24 13:56 Review of Systems Constitutional: Yes: Weakness, Other (dizziness); No: Fever, Chills, Sweats, Malaise Eyes: No: Pain, Vision change, Conjunctivae inflammation, Eyelid inflammation, Other, Redness ENT: No: Ear pain, Ear discharge, Nose pain, Nose discharge, Nose congestion, Mouth pain, Mouth swelling, Throat pain, Throat swelling, Other Respiratory: No: Cough, Dry, Shortness of breath, SOB with excertion, Wheezing, Hemoptysis, Pleuritic Pain, Sputum, Wheezing, Other Cardiovascular: Chest Pain; No: Palpitations, Orthopnea, Paroxysmal Noc. Dyspnea, Edema, Lt Headedness, Other Gastrointestinal: Abdominal Pain, Hematochezia; No: Nausea, Vomiting, Diarrhea, Constipation, Melena, Other Genitourinary: No Dysuria; Frequency; No Incontinence, No Hematuria; Retention; No Other Musculoskeletal: No: other, neck pain, shoulder pain, arm pain, back pain, hand pain, leg pain, foot pain Skin: No: Rash, Lesions, Jaundice, Bruising, Other Neurological: No: Weakness, Numbness, Incoordination, Change in speech, Confusion, Seizures, Other Vital Signs Vital Signs Date Time Temp Pulse Resp B/P (MAP) Pulse Ox O2 Delivery O2 Flow Rate FiO2 06/05/24 19:30 122 17 113/58 (76) 95 06/05/24 19:11 60 06/05/24 18:20 Mechanical Ventilator+ 06/05/24 16:00 97.2 97.2 Physical Exam General intubated and sedated skin [id number] HEENT: Atraumatic,intubated Neck: No swelling Lungs: Equal air entry and clear to auscultation Cardiovascular: S1 S2 heard no murmur Abdomen: Soft nontender, no organomegaly, nondistended Neuro: sedated, unable to assess Psych: unable to assess Labs/Diagnostic Data Labs Test 06/05/24 07:42 06/05/24 03:35 06/04/24 21:35 06/04/24 16:39 Range/Units Blood Gas Specimen Type Arterial Blood Gas Sample Site Right radial Blood Gas Patient Temperature 37.0 Arterial Blood Date Drawn [id number] Arterial Blood pH 7.359 7.350-7.450 Arterial Blood Partial Pressure CO2 38.9 32.0-45.0 mmHg Arterial Blood Partial Pressure O2 65.1 L 83.0-108.0 mmHg Arterial Blood HCO3 21.4 21.0-28.0 mmol/L Arterial Blood Oxygen Saturation 91.0 L 94.0-98.0 % Arterial Blood Base Excess -3.6 L -2.0-3.0 mmol/L Arterial Blood Oxyhemoglobin 90.1 L 94.0-98.0 % Arterial Blood Carboxyhemoglobin 0.6 0.5-1.5 % Arterial Blood Methemoglobin 0.4 0.0-1.5 % Brandon Test Modified Blood Gas Total Hemoglobin 13.10 12.0-16.0 g/dL Blood Gas Set Respiration Rate 22.0 Blood Gas Modality Vent - ac Blood Gas Spontaneous Rate 22 FiO2 % 40.0 Blood Gas Tidal Volume 450.0 Blood Gas Inspiratory Pressure 32.0 Blood Gas PEEP or CPAP 8.0 Bl Gas Inspiratory/Expiratory Ratio 1:2.3 Specimen Drawn By richard alfaro White Blood Count 39.4 #*H 4.4-10.8 10^3/uL Red Blood Count 3.05 L 4.0-5.20 10^6/uL Hemoglobin 11.0 #L 12.2-16.2 g/dL Hematocrit 33.6 #L 36.0-46.0 % Mean Corpuscular Volume 110.4 H 80.0-100.0 fL Mean Corpuscular Hemoglobin 36.1 H 28.0-32.0 pg Mean Corpuscular Hemoglobin Concent 32.7 32.0-36.0 g/dL Red Cell Distribution Width 29.6 H 11.8-14.3 % Platelet Count 23 L 140-450 10^3/uL Mean Platelet Volume 11.1 H 6.9-10.8 fL Neutrophils (%) (Auto) 37.0-80.0 % Lymphocytes (%) (Auto) 10.0-50.0 % Monocytes (%) (Auto) 0.0-12.0 % Basophils (%) (Auto) 0.0-2.0 % Neutrophils # (Auto) 1.6-8.6 10 ^3/uL Lymphocytes # (Auto) 0.4-5.4 10 ^3/uL Monocytes # (Auto) 0-1.3 10 ^3/uL Differential Total Cells Counted 100.0 100 Neutrophils % (Manual) 88 H 37.0-80.0 Band Neutrophils % (Manual) 7 Lymphocytes % (Manual) 1 L 10.0-50.0 Monocytes % (Manual) 3 0-12 Eosinophils % (Manual) 0 0-7 Basophils % (Manual) 0 0.0-2.0 Metamyelocytes % (manual) 0 Myelocytes % (Manual) 1 Promyelocytes % (Manual) 0 Blast Cells % (Manual) 0 Nucleated Red Blood Cells % Reactive Lymphocytes 0 Platelet Estimate Markedly decreased Polychromasia Slight Anisocytosis (manual) Moderate Macrocytosis Moderate Sodium Level 137 136-145 mmol/L Potassium Level 3.8 3.5-5.1 mmol/L Chloride Level 106 98-107 mmol/L Carbon Dioxide Level 22 20-31 mmol/L Anion Gap 9 5-15 Blood Urea Nitrogen 49 H 9-23 mg/dL Creatinine 3.29 H 0.550-1.02 mg/dL Glomerular Filtration Rate Calc 16 >90 mL/min BUN/Creatinine Ratio 14.9 10.0-20.0 Serum Glucose 157 H 74-106 mg/dL Calcium Level 8.7 8.7-10.4 mg/dL Total Bilirubin 12.8 H 0.2-1.0 mg/dL Aspartate Amino Transferase (AST) 336 H 13-40 U/L Alanine Aminotransferase (ALT) 206 H 7-40 U/L Alkaline Phosphatase 210 H 46-116 U/L Total Protein 4.5 L 5.7-8.2 g/dL Albumin 1.9 L 3.2-4.8 g/dL [place] Cells Few Eosinophils (%) (Auto) 0.0-7.0 % Eosinophils # (Auto) 0-0.8 10 ^3/uL Basophils # (Auto) 0-0.2 10 ^3/uL Prothrombin Time 18.1 H 9.3-11.8 sec Prothrombin Time INR 1.78 H 0.9-1.15 Test 06/03/24 10:57 06/03/24 03:16 06/01/24 23:11 06/01/24 22:10 Range/Units Activated Partial Thromboplast Time 42.2 H 24.5-34.5 SEC Large Platelets Few Target Cells Few Blood Gas Spontaneous Tidal Volume 495 Ammonia 26 11-32 umol/L Test 06/01/24 03:00 05/31/24 07:20 05/31/24 05:48 05/30/24 19:55 Range/Units Tear Drop Cells Few Blood Gas Critical Value Read Back Yes Blood Gas Notified Whom Regulo mcneil md Blood Gas Notified Time [id number] Blood Gas Notified By Davon wright cartoon artist Stomatocytes Few Iron Level 38 L 50-170 ug/dL Total Iron Binding Capacity 118 L 250-425 ug/dL Percent Iron Saturation 32.2 15-50 % Ferritin 538.3 H 10-291 ng/mL Vitamin B12 Level 2852 H 211-911 pg/mL Folic Acid 43.16 >5.38 ng/mL Troponin I High Sensitivity 82 *H </=34 ng/L Test 05/30/24 16:05 05/30/24 10:45 05/28/24 21:45 05/28/24 10:15 Range/Units Lactic Acid Level 1.8 0.4-2.0 mmol/L Free Thyroxine (T4) Calculated 1.14 0.89-1.76 ng/dL Free Triiodothyronine (T3) pg/mL 0.77 L 2.3-4.2 pg/mL Urine Color Yellow Yellow Urine Clarity Clear Clear Urine pH 6.5 5.0-9.0 Urine Specific [place] 1.005 1.001-1.035 Urine Protein Trace H Negative Urine Ketones Negative Negative Urine Blood 3+ H Negative /uL Urine Nitrite Negative Negative Urine Bilirubin Negative Negative Urine Urobilinogen 4 H Negative mg/dL Urine Leukocyte Esterase Trace Negative /uL Urine RBC 21 0 - 4 /hpf Urine WBC 109 0 - 5 /hpf Urine Squamous Epithelial Cells None seen <5 /hpf Urine Bacteria None seen None Seen /hpf Urine Glucose Normal Normal mg/dL Urine Opiates Screen Neg NEGATIVE Urine Fentanyl Screen Neg NEGATIVE Urine Barbiturates Screen Neg NEGATIVE Urine Phencyclidine Screen Neg NEGATIVE Urine Amphetamines Screen Neg NEGATIVE Urine Benzodiazepines Screen Neg NEGATIVE Urine Cocaine Screen Neg NEGATIVE Urine Cannabinoids Screen Neg NEGATIVE POC Glucose 121 H 70-106 mg/dl Test 05/28/24 04:35 05/27/24 10:39 05/27/24 06:09 05/27/24 06:05 Range/Units Magnesium Level 2.0 1.6-2.6 mg/dL Plasma/Serum Blood Alcohol < 3.0 <10 mg/dL Hepatitis A IgM Antibody Negative Hepatitis B Surface Antigen Negative Negative Hepatitis B Core IgM Antibody Negative Negative Hepatitis C Antibody Negative Negative Influenza Type A Antigen Negative Negative Influenza Type B Antigen Negative Negative SARS-CoV-2 Antigen (Rapid) Negative NEGATIVE Hypochromasia (manual) Slight Phosphorus Level 3.2 2.4-5.1 mg/dL Lactate Dehydrogenase 204 120-246 U/L B-Type Natriuretic Peptide 150.21 0-100 pg/mL Amylase Level 42 30-118 U/L Lipase 20 12-53 U/L Thyroid Stimulating Hormone (TSH) 0.08 L 0.55-4.78 uIU/mL Microbiology Date/Time Source Procedure Growth Status 05/31/24 13:47 Blood Blood Culture - Final NO GROWTH AFTER 5 DAYS OF INCUBATION. Complete 05/30/24 15:15 Nose MRSA Screen - Final Complete 05/30/24 14:15 Bronchial Brushings Gram Stain - Final Complete 05/30/24 14:15 Respiratory Culture - Final Stenotrophomonas maltophilia Complete Assessment A 58 yo F with Stenotrophomonas Pneumonia Hospital acquired Pneumonia Acute hypoxic respiratory failure on MV Alcoholic liver cirrhosis GI bleed Hepatorenal syndrome ESLD Jaundice Alcohol abuse with alcohol withdrawal Recommendations Steno S to BActrim, continue monitor cell count/ platelets; continue IV bactrim she is oozing blood from ET tube due to coagulopathy due to alcoholic liver cirhosis she is on pressor Critical care time spent with patient 45 minutes. prognosis very poor thank you for opportunity to take care of the patient. Plan discussed with: MELL Pinto MD Jun 05, 2024 20:14
[2024-06-05 20:33] LABS: Hematocrit 24.1 % (36.0-46.0); Mean Corpuscular Hemoglobin 36.1 pg (28.0-32.0); Mean Corpuscular Hgb Conc. 33.2 g/dL (32.0-36.0); Mean Corpuscular Volume 108.9 fL (80.0-100.0); Red Blood Cells 2.22 10^6/uL (4.0-5.20)
[2024-06-05 20:36] LABS: Platelet Count (auto) 17 10^3/uL (140-450); White Blood Cell 30.4 10^3/uL (4.4-10.8)
[2024-06-05 20:37] LABS: Basophils % (manual) 0 (0.0-2.0); Blast Cells 0; Eosinophils % (manual) 0 (0-7); Metamyelocytes % 0; Myelocytes % 0; Promyelocytes % 0; Reactive Lymphocytes 0
[2024-06-05] MEDS ORDERED: EPOETIN ALFA-EPBX 10,000 UNIT/1ML VIAL SC ONE (21:00)
[2024-06-05] MEDS: ROCURONIUM BROMIDE 1,000 MG in D5W 5% 150 ML IV SCH (21:15)
[2024-06-05 21:39] LABS: Band Neutrophils % (manual) 17; Lymphocytes % (manual) 6 (10.0-50.0); Monocytes % (manual) 3 (0-12); Platelet Estimate Markedly Decreased
--- NOTE | 2024-06-05 22:43 | DVHNC2 ---
Procedure - Therapeutic Bronchoscopy procedure note: Indications: Massive hemoptysis Medicines: See AUDIO VIDEO MECHANIC notes. Complications: None Procedure: Patient medications and allergies reviewed. The risks and benefits of the procedure and the sedation options and risk were discussed with the patient's healthcare proxy. All questions were answered and informed consent was obtained. Patient identification and proposed procedure were verified prior to the procedure by the physician, and a nurse, and the respiratory therapist in ICU room. The heart rate, respiratory rate, oxygen saturations, blood pressure, adequacy of pulmonary ventilation, and response to care were monitored throughout the procedure. The physical status of the patient was reassessed after the procedure. After obtaining informed consent, the bronchoscope was introduced through the endotracheal tube and advanced into the trachea bronchial tree of both lungs. The procedure was accomplished without difficulty. The patient tolerated the procedure well. Findings: The trachea is in normal caliber. The diana is sharp. The tracheobronchial tree of the right lung was examined to at least the first subsegmental level. The bronchial mucosa and anatomy in the right lung are normal. There are no endobronchial lesions. There was copious guillermo bloody secretions from right main stem bronchus onward throughout R1-R10. Applied 20 mL cold saline throughout. It appeared to slow down hemoptysis. The left upper lobe, lingula, and left lower lobe were examined to at least the first subsegmental level. Bronchial mucosa and anatomy in the left upper lobe and lingula are normal. There were no endobronchial lesions. There was copious whitish secretions from left main stem bronchus onward throughout L1-4. This is site was where most of the hemorrhage was originating. Applied approximately 30 mL of cold saline to site. Appeared to slow down bleeding but still oozing profusely. Impression: Active hemorrhage from L1-L4 Thrombocytopenia Recommendation: Left lateral decubitus, deep sedation and paralytic to suppress coughing. Procedure codes: 11363, bronchoscopy, rigid and flexible, including fluoroscopic guidance, one performed; with bronchial endobronchial removal of bloody secretions, single or multiple sites TAE DUPREE MD Jun 05, 2024 22:43
--- NOTE | 2024-06-05 23:49 | DVHPN2 ---
Progress Note - Dictate Date Seen: Jun 05, 2024 Has the PT tested + for MRSA If YES, has PT been informed?: No Medical Necessity Reason Pt with a Central, PICC or Fol: Yes The following are medically ne: Central Line, Robertson Catheter Reason for robertson catheter: Strict I&O Subjective Patient seen and examined at bedside. Sedated, intubated on mechanical ventilator. Overnight events reviewed. vital signs Vital Sign Date Time Temp Pulse Resp B/P (MAP) Pulse Ox O2 Delivery O2 Flow Rate FiO2 06/05/24 22:18 115 22 106/51 (69) 100 100 06/05/24 18:20 Mechanical Ventilator+ 06/05/24 16:00 97.2 97.2 Total Intake and Output 06/04/24 06/04/24 06/05/24 15:00 23:00 07:00 Intake Total 496.80 ml 791.766 ml 388.00 ml Output Total 1850 ml 25 ml Balance 496.80 ml -1058.234 ml 363.00 ml medications Current Medications Medications Dose Ordered Sig/Alvaro Route Start Time Stop Time Status Last Admin Dose Admin Lorazepam 2 mg Q4H PO 05/27/24 09:15 Hold 05/28/24 06:10 2 MG Ondansetron HCl 4 mg Q4HP PRN IV 05/27/24 09:15 Nitroglycerin 0.4 mg Q5MINP PRN SL 05/27/24 09:15 Morphine Sulfate 2 mg Q30M PRN IV 05/27/24 09:15 Sucralfate 1 gm QID PO 05/27/24 12:00 Hold 05/28/24 06:11 1 GM Patient Own Medication 1 cap DAILY PO 05/27/24 10:00 UNV Pantoprazole Sodium 40 mg BID IV 05/27/24 22:00 06/05/24 21:48 40 MG Midodrine 10 mg TID@0600,1200,1800 PO 05/27/24 18:00 Hold 05/28/24 06:10 10 MG Midazolam HCl 50 ml @ 1 mls/hr Q24H IV 05/30/24 14:15 06/04/24 11:14 2 MLS/HR Fentanyl Citrate 250 ml @ 2.5 mls/hr Q24H IV 05/30/24 14:15 06/04/24 02:33 5 MLS/HR Thiamine HCl 100 mg DAILY IV 06/01/24 10:00 06/05/24 10:35 100 MG Folic Acid 1 mg/ Dextrose 50.2 ml @ 200.8 mls/ hr DAILY INJ 06/01/24 10:00 06/05/24 10:55 200.8 MLS/HR Enteral Nutritional Formula 1,000 ml 30ML/HR GT 06/01/24 11:00 06/05/24 10:34 1,000 ML Levalbuterol HCl 0.625 mg Q6HR NEB 06/01/24 12:00 06/05/24 18:43 0.625 MG Ipratropium [place] 0.5 mg Q6HWA NEB 06/01/24 12:00 06/05/24 18:43 0.5 MG Doxycycline Hyclate 250 ml @ 125 mls/hr Q12H IV 06/01/24 11:00 06/05/24 11:21 125 MLS/HR Metoclopramide HCl 5 mg Q8HR GT 06/02/24 14:00 06/05/24 14:02 5 MG Ursodiol 300 mg BID GT 06/02/24 11:00 06/05/24 21:48 300 MG Meropenem 50 ml @ 17 mls/hr Q12HR IV 06/03/24 22:00 06/05/24 21:30 17 MLS/HR Albumin Human 100 ml @ 100 mls/hr SID PRN IV 06/04/24 04:00 06/05/24 15:00 100 MLS/HR Trimethoprim/ Sulfamethoxazole 10 ml @ 0 mls/hr PER PHARMACY IV 06/04/24 15:30 Trimethoprim/ Sulfamethoxazole 10 ml/Dextrose 260 ml @ 130 mls/hr Q8H IV 06/04/24 17:30 06/05/24 18:00 130 MLS/HR Norepinephrine Bitartrate 32 mg/ Sodium Chloride 250 ml @ 0.234 mls/ hr Q24H IV 06/04/24 19:00 06/04/24 20:30 3.75 MLS/HR Methylprednisolone Sodium Succinate 40 mg DAILY IV 06/06/24 10:00 Albumin Human 100 ml @ 100 mls/hr Q8H IV 06/05/24 12:30 06/06/24 05:29 06/05/24 20:43 100 MLS/HR Rocuronium [place] 1000 mg/ Dextrose 250 ml @ 7.332 mls/ hr Q24H IV 06/05/24 21:15 objective Gen.: Patient lying in bed in medical ICU. Sedated, intubated on mechanical ventilator. Head: Normocephalic, atraumatic. Eyes: PERRLA. Ears: Normal external anatomy. Throat: Endotracheal tube and orogastric tube in place. Neck: Supple, trachea midline. Chest: Transmitted breath sounds bilaterally. Decreased air entry bilaterally. No wheezing. Bibasilar crackles. Cardiovascular: Positive S1, positive S2. Regular rate and rhythm. Abdomen: Positive bowel sounds in all 4 quadrants. Soft, nontender, nondistended. : Robertson in place. Normal external genitalia. Rectal: Deferred. Skin: Warm, dry. Intact. Extremities: 2+ radial pulses bilaterally. No lower extremity edema. Neuro: Sedated. laboratory and microbiology Laboratory Tests 06/05/24 20:17 06/05/24 03:35 Test 06/05/24 03:35 Range/Units Serum Glucose 157 H 74-106 mg/dL Assessment/Plan Impression: Acute hypoxic respiratory failure On mechanical ventilator Hepatorenal syndrome Leukocytosis Anemia Thrombocytopenia Acute kidney injury Hypokalemia Chronic pancreatitis ETOH abuse Marijuana abuse Events: Remains on vent support On AC mode; RR 22, VT 450, PEEP 8, FiO2 100% Increased FiO2 requirements Massive hemoptysis noted via ET tube Pt underwent therapeutic bronchoscopy to localize hemorrhage Diffuse, appears to be focused in the LYNDA/lingula. Cold saline aliquots given Pt placed in left lateral decubitus position Rocuronium drip to minimize cough + deep sedation for 24 hours. Low PHS. ABG reviewed, compensated. CXR demonstrates Multifocal airspace disease. No effusion or pneumothorax. She remains on fentanyl and Versed drip for sedation. Pressors for hemodynamic support Levophed 6 mcg/min Titrate to keep mean arterial pressure greater than 65 mmHg. On IV fluids at 130 mL/hour. Poor urine output Monitor renal function Monitor electrolytes. Supplement as necessary. Monitor ins and outs. S/p hemodialysis yesterday HD per nephrology Nephrology recommendations appreciated. Ursodiol Continue bronchodilators Continue antibiotics Monitor hemoglobin Tube feeds for nutritional support Labs and imaging reviewed. Rest of plan as noted below. Plan: s/p intubation on mechanical ventilator. On AC mode; RR 22, VT 450, PEEP 8, FiO2 100% Titrate FIO2 to keep O2 saturation above 90%. VAP bundle. Daily ABG and CXR while intubated Sedate for ventilator synchrony Continue bronchodilators. Continue antibiotics. F/u cultures. Pressors for hemodynamic support Titrate to keep mean arterial pressure greater than 65 mmHg. Follow up GI recommendations Follow up Nephrology recommendations Monitor renal function Monitor electrolytes. Supplement as necessary. Monitor ins and outs. Maintain euvolemia. GI prophylaxis. DVT prophylaxis. Prognosis: Poor given patient's multiple co-morbidities. Condition: Critical Rest of plan per hospitalist and other consultants. A total of 35 minutes of critical care time was spent reviewing the patient record, examining the patient, making a diagnostic and therapeutic plan, discussing this plan with the medical personnel, following up on diagnostic studies and following the patient for clinical stability excluding any and all procedures. At least 50% of this time was spent in direct, [id number] contact. Thank you, Dr. Parkinson, for allowing me to participate in this patient's care. Further recommendations will depend on the patient's clinical course. Please do not hesitate to contact me if you have any questions or concerns. This medical document was created using an electronic medical record system with [employer] dictation system. Although these documentations are being carefully reviewed, there may still be some phonetic and typographical changes. The errors are purely typographical, due to imperfection on the software program, and do not reflect any compromise in the patient's medical care. Dietary Evaluation Review Recommendations by RD: PPN/TPN Comments: 1. If NPO > 7 days, initiate EN/TPN. 2. If gut is accessible, consider Jevity 1.2 @ 40 mL/hr. Tf regimen will provide 1,152 kcals, 53g Pro, and 775 mL free H2O (+ 1,200 mL free H2O flushes). TF regimen will meet ~ 91% daily estimated energy needs (20-25 kcal/kg) and ~59% daily estimated protein needs (1.2-2.0 g/kg). 3. Advance to hepatic diet when medically feasible, pending STEEL WOOL MACHINE OPERATOR approval. 4. Promote ETOH cessation. Expected Outcomes/Goals: 1. nutritional intake to meet at least 75% estimated needs 2. labs to improve 3. diet to advance 4. f/u in 2-3 days Plan discussed with: Other (NIKKI Oliver) Critical Care Time(min): 35 CC Plasma Assessment Blood Product Administration S: [id number] TAE DUPREE MD Jun 05, 2024 23:49
[2024-06-06] VITALS (108 sets, daily range): BP systolic 89–126; BP diastolic 43–61; PULSE 106–117; RESP 18–23; TEMP 98.8–99.9; O2SAT 91–100
--- NOTE | 2024-06-06 04:56 | DVH ---
CHEST RADIOGRAPH Indication: INTUBATED Technique: Single frontal view of the chest was obtained COMPARISON: XY CHEST PORTABLE on DOS: 06/05/24, XY CHEST PORTABLE on DOS: 06/04/24, XY CHEST XRAY 1 VIEW on DOS: 06/03/24, XY CHEST PORTABLE on DOS: 06/02/24, XY CHEST PORTABLE on DOS: 06/02/24, XY CHEST PORTABLE on DOS: 06/05/24 FINDINGS: Lines and Tubes: Endotracheal tube, enteric catheter and right central venous catheters in satisfacto ry position. Lungs: Multifocal airspace disease. Pleura: No effusion. No pneumothorax. Cardiomediastinal contours: Unremarkable Bones: Unremarkable IMPRESSION: Lines and tubes in satisfactory position. No significant interval change.
[2024-06-06 06:56] LABS: Albumin 3.7 g/dL (3.2-4.8); Calcium 9.7 mg/dL (8.7-10.4); Carbon Dioxide 26 mmol/L (20-31); Chloride 101 mmol/L (98-107); Glucose 98 mg/dL (74-106)
[2024-06-06 06:57] LABS: Anion Gap 11 (5-15); Potassium 3.9 mmol/L (3.5-5.1); Sodium 138 mmol/L (136-145)
[2024-06-06 07:03] LABS: Alanine Aminotransferase 140 U/L (7-40); Alkaline Phosphatase 160 U/L (46-116); Aspartate Aminotransferase 260 U/L (13-40); Blood Urea Nitrogen 33 mg/dL (9-23); Total Protein 5.5 g/dL (5.7-8.2)
[2024-06-06 07:14] LABS: Basophils # (auto) 0.1 10 ^3/uL (0-0.2); Eosinophils # (auto) 0 10 ^3/uL (0-0.8); Eosinophils % (auto) 0.1 % (0.0-7.0); Hematocrit 21.6 % (36.0-46.0); Hemoglobin 7.2 g/dL (12.2-16.2); Monocytes # (auto) 0.4 10 ^3/uL (0-1.3)
[2024-06-06 07:16] LABS: Basophils % (auto) 0.3 % (0.0-2.0); Lymphocytes # (auto) 0.8 10 ^3/uL (0.4-5.4); Lymphocytes % (auto) 2.9 % (10.0-50.0); Mean Corpuscular Hemoglobin 36.9 pg (28.0-32.0); Mean Corpuscular Hgb Conc. 33.3 g/dL (32.0-36.0); Mean Corpuscular Volume 110.6 fL (80.0-100.0); Monocytes % (auto) 1.6 % (0.0-12.0); Neutrophils % (auto) 95.1 % (37.0-80.0); Nucleated Red Blood Cells % 4.1 %; Platelet Count (auto) 56 10^3/uL (140-450); Red Blood Cells 1.96 10^6/uL (4.0-5.20); Red Cell Distribution Width 29.3 % (11.8-14.3); White Blood Cell 28.4 10^3/uL (4.4-10.8)
[2024-06-06] MEDS: methylPREDNISolone SOD SUCC 40 MG/ML VL IV SCH (09:57)
[2024-06-06] MEDS: phytonadione 10 MG in SODIUM CHL 0.9% 50 ML IV ONE (09:57)
--- NOTE | 2024-06-06 10:37 | DVHPN2 ---
Subjective Intubated and sedated Reviewed: Care Plan, H&P, Labs, Medications, Previous Orders, Radiology Changes from previous H/P or p: No Changes General: Per HPI Eyes: No Pain, No Vision change, No Conjunctivae inflammation, No Eyelid inflammation, No Other, No Redness ENT: No Ear pain, No Ear discharge, No Nose pain, No Nose discharge, No Nose congestion, No Mouth pain, No Mouth swelling, No Throat pain, No Throat swelling, No Other Cardiovascular: Chest Pain Respiratory: No Cough, No Dry, No Shortness of breath, No SOB with excertion, No Wheezing, No Hemoptysis, No Pleuritic Pain, No Sputum, No Other Gastrointestinal: Abdominal Pain, Hematochezia Genitourinary: Frequency, Retention Musculoskeletal: No other, No neck pain, No shoulder pain, No arm pain, No back pain, No hand pain, No leg pain, No foot pain Skin: No Rash, No Lesions, No Jaundice, No Bruising, No Other Objective Vitals Vital Signs Date Time Temp Pulse Resp B/P (MAP) Pulse Ox O2 Delivery O2 Flow Rate FiO2 06/06/24 09:36 109 22 120/54 (76) 98 100 06/06/24 06:00 Mechanical Ventilator+ 06/06/24 05:25 99.3 99.3 Intake/Output Intake and Output 06/06/24 07:00 Intake Total 2330.039 ml Output Total 3515 ml Balance -1184.961 ml Intake Oral 80 ml IV Total 1274.039 ml Tube Feeding 219 ml Blood Product 489 ml Other 268 ml Output Urine Total 15 ml Other 3500 ml General Appearance: moderate distress, Other HEENT: Atraumatic, PERRLA, Other Lungs: Clear to auscultation, Normal air movement Cardiovascular: Normal S1, Normal S2, Other Abdomen: Normal bowel sounds, Other Musculoskeletal: Other Neuro: Other Skin: Dry, Intact, Other Psych/Mental Status: Other Medications Current Medications Medications Dose Ordered Sig/Alvaro Route Start Time Stop Time Status Last Admin Dose Admin Lorazepam 2 mg Q4H PO 05/27/24 09:15 Hold 05/28/24 06:10 2 MG Ondansetron HCl 4 mg Q4HP PRN IV 05/27/24 09:15 Nitroglycerin 0.4 mg Q5MINP PRN SL 05/27/24 09:15 Morphine Sulfate 2 mg Q30M PRN IV 05/27/24 09:15 Sucralfate 1 gm QID PO 05/27/24 12:00 Hold 05/28/24 06:11 1 GM Patient Own Medication 1 cap DAILY PO 05/27/24 10:00 UNV Pantoprazole Sodium 40 mg BID IV 05/27/24 22:00 06/06/24 09:57 40 MG Midodrine 10 mg TID@0600,1200,1800 PO 05/27/24 18:00 Hold 05/28/24 06:10 10 MG Midazolam HCl 50 ml @ 1 mls/hr Q24H IV 05/30/24 14:15 06/06/24 02:46 4 MLS/HR Fentanyl Citrate 250 ml @ 2.5 mls/hr Q24H IV 05/30/24 14:15 06/06/24 00:50 15 MLS/HR Thiamine HCl 100 mg DAILY IV 06/01/24 10:00 06/06/24 09:58 100 MG Folic Acid 1 mg/ Dextrose 50.2 ml @ 200.8 mls/ hr DAILY INJ 06/01/24 10:00 06/06/24 09:59 200.8 MLS/HR Enteral Nutritional Formula 1,000 ml 30ML/HR GT 06/01/24 11:00 06/05/24 10:34 1,000 ML Levalbuterol HCl 0.625 mg Q6HR NEB 06/01/24 12:00 06/06/24 06:21 0.625 MG Ipratropium [place] 0.5 mg Q6HWA NEB 06/01/24 12:00 06/06/24 06:21 0.5 MG Metoclopramide HCl 5 mg Q8HR GT 06/02/24 14:00 06/05/24 14:02 5 MG Ursodiol 300 mg BID GT 06/02/24 11:00 06/06/24 10:17 300 MG Albumin Human 100 ml @ 100 mls/hr SID PRN IV 06/04/24 04:00 06/05/24 15:00 100 MLS/HR Trimethoprim/ Sulfamethoxazole 10 ml @ 0 mls/hr PER PHARMACY IV 06/04/24 15:30 Trimethoprim/ Sulfamethoxazole 10 ml/Dextrose 260 ml @ 130 mls/hr Q8H IV 06/04/24 17:30 06/06/24 09:23 130 MLS/HR Norepinephrine Bitartrate 32 mg/ Sodium Chloride 250 ml @ 0.234 mls/ hr Q24H IV 06/04/24 19:00 06/04/24 20:30 3.75 MLS/HR Methylprednisolone Sodium Succinate 40 mg DAILY IV 06/06/24 10:00 06/06/24 09:57 40 MG Rocuronium [place] 1000 mg/ Dextrose 250 ml @ 7.332 mls/ hr Q24H IV 06/05/24 21:15 Levothyroxine Sodium 50 mcg DAILY IV 06/07/24 10:00 UNV Laboratory Results Laboratory Tests 06/06/24 06:00 Chemistry Test 06/06/24 06:00 Albumin 3.7 g/dL (3.2-4.8) Calcium Level 9.7 mg/dL (8.7-10.4) Total Protein 5.5 g/dL (5.7-8.2) L LFT Test 06/06/24 06:00 Alanine Aminotransferase (ALT) 140 U/L (7-40) H Alkaline Phosphatase 160 U/L (46-116) H Aspartate Amino Transferase (AST) 260 U/L (13-40) H Total Bilirubin 15.0 mg/dL (0.2-1.0) H Urinalysis Test 05/28/24 21:45 Urine Color Yellow (Yellow) Urine Clarity Clear (Clear) Urine pH 6.5 (5.0-9.0) Urine Specific [place] 1.005 (1.001-1.035) Urine Protein Trace (Negative) H Urine Ketones Negative (Negative) Urine Blood 3+ /uL (Negative) H Urine Nitrite Negative (Negative) Urine Bilirubin Negative (Negative) Urine Urobilinogen 4 mg/dL (Negative) H Urine Leukocyte Esterase Trace /uL (Negative) Urine RBC 21 /hpf (0 - 4) Urine WBC 109 /hpf (0 - 5) Urine Squamous Epithelial Cells None seen /hpf (<5) Urine Bacteria None seen /hpf (None Seen) Urine Glucose Normal mg/dL (Normal) Blood Gas Results Test 06/06/24 07:07 Arterial Blood pH 7.370 (7.350-7.450) FiO2 % 80.0 Microbiology Microbiology Date/Time Source Procedure Growth Status 05/31/24 13:47 Blood Blood Culture - Final NO GROWTH AFTER 5 DAYS OF INCUBATION. Complete 05/30/24 15:15 Nose MRSA Screen - Final Complete 05/30/24 14:15 Bronchial Brushings Gram Stain - Final Complete 05/30/24 14:15 Respiratory Culture - Final Stenotrophomonas maltophilia Complete Labs and/or images reviewed: Labs reviewed by me, Image(s) reviewed by me Assessment/Plan Assessment/Plan Impression: -acute hypoxic respiratory failure with mechanical ventilation -sepsis secondary to pneumonia -probable aspiration pneumonia -alcoholism -alcohol-related liver disease -acute kidney injury, vasomotor nephropathy -hypothyroidism, supratherapeutic coverage -severe protein malnutrition -thrombocytopenia -alcohol withdrawal Plan: Events: Patient had bleeding noted from ET tube. Patient underwent bronchoscopy yesterday with noted hemorrhaging from left lung bronchials. Patient on 100% FiO2, currently being titrated. Patient also noted to have positive sputum culture with stenotrophomonas maltophilia. Antibiotics have been changed to Bactrim. Patient also received FFP and platelet infusion prior to bronchoscopy. Received HD, tolerated. Continues to be anuric. -continue tube feeding , Nepro -continue current ventilator settings per pulmonology -antibiotic therapy: Bactrim -continue Actigall -continue thiamine, MVI -continue norepinephrine drip to keep map greater than 65 mmHg -bronchodilators -PUD prophylaxis -SCDs -repeat labs, chest x-ray, ABG in a.m. Critical care time spent with patient discussing and formulating plan of care: 40 minutes. This does not include time spent performing procedures. This medical document was created using an electronic medical record system with [employer] dictation system. Although this document has been carefully reviewed, there may still be some phonetic and typographical errors. These areas are purely typographical due to imperfections of the software programs, and do not reflect any compromise in the patient's medical care. Plan discussed with: Patient, Other (RN) My Orders Orders - MADI RYDER NP Procedure Category Date Status Time Levothyroxine PHA 06/07/24 Logged Injection (Synthroid 10:00 Basic Metabolic Panel LAB 06/07/24 Verified 05:00 Basic Metabolic Panel LAB 06/08/24 Verified 05:00 Basic Metabolic Panel LAB 06/09/24 Verified 05:00 Complete Blood Count LAB 06/07/24 Verified 05:00 Complete Blood Count LAB 06/08/24 Verified 05:00 Complete Blood Count LAB 06/09/24 Verified 05:00 Chest Portable XY 06/07/24 Logged 04:00 Sequential VENKATESH 06/06/24 In Process Compression Device 10:27 Date of Service: Jun 06, 2024 Billing Provider: MADI RYDER NP Common Visit Codes: 18127-[id number] CARE 30-74 MIN MADI RYDER NP Jun 06, 2024 10:37
[2024-06-06 13:33] LABS: BUN/Creatinine Ratio 14.2 (10.0-20.0)
--- NOTE | 2024-06-06 14:00 | DVHPN2 ---
Progress Note Date Seen: Jun 06, 2024 Resident Creating Document: KALPANA HOOKER RESIDENT Has the PT tested + for MRSA If YES, has PT been informed?: No Medical Necessity Reason Pt with a Central, PICC or Fol: Yes The following are medically ne: Central Line, Robertson Catheter Reason for robertson catheter: Strict I&O Medical Necessity Reason No changes ICU and intubated and no bowel movement since the 05/30/2024 Subjective Review of Systems Patient is intubated sedated in the ICU 106 Patient is tolerating tube feedings at 30 mL/hour She had hypoactive bowel sounds and no bowel movement yet Patient has generalized anasarca and fluid retention She has received albumin infusions Liver enzymes are trending down Creatinine 3.29 --> 2.32 Her hemoglobin is stable at 11-- > 8.0--> 7.2, No active GI bleeding reported Platelets have improved 17 K --> 56K TSH 0.08, T3:0.77, T4:1.14 ( euthyroid) Objective vital signs Vital Sign Date Time Temp Pulse Resp B/P (MAP) Pulse Ox O2 Delivery O2 Flow Rate FiO2 06/06/24 13:30 115 22 107/52 (70) 95 06/06/24 13:27 70 06/06/24 12:00 99.5 99.5 06/06/24 12:00 Mechanical Ventilator+ Total Intake and Output 06/05/24 06/05/24 06/06/24 15:00 23:00 07:00 Intake Total 808.324 ml 568.748 ml 975.248 ml Output Total 3515 ml 0 ml Balance 808.324 ml -2946.252 ml 975.248 ml medications Current Medications Medications Dose Ordered Sig/Alvaro Route Start Time Stop Time Status Last Admin Dose Admin Lorazepam 2 mg Q4H PO 05/27/24 09:15 Hold 05/28/24 06:10 2 MG Ondansetron HCl 4 mg Q4HP PRN IV 05/27/24 09:15 Nitroglycerin 0.4 mg Q5MINP PRN SL 05/27/24 09:15 Morphine Sulfate 2 mg Q30M PRN IV 05/27/24 09:15 Sucralfate 1 gm QID PO 05/27/24 12:00 Hold 05/28/24 06:11 1 GM Patient Own Medication 1 cap DAILY PO 05/27/24 10:00 UNV Pantoprazole Sodium 40 mg BID IV 05/27/24 22:00 06/06/24 09:57 40 MG Midodrine 10 mg TID@0600,1200,1800 PO 05/27/24 18:00 Hold 05/28/24 06:10 10 MG Midazolam HCl 50 ml @ 1 mls/hr Q24H IV 05/30/24 14:15 06/06/24 02:46 4 MLS/HR Fentanyl Citrate 250 ml @ 2.5 mls/hr Q24H IV 05/30/24 14:15 06/06/24 00:50 15 MLS/HR Thiamine HCl 100 mg DAILY IV 06/01/24 10:00 06/06/24 09:58 100 MG Folic Acid 1 mg/ Dextrose 50.2 ml @ 200.8 mls/ hr DAILY INJ 06/01/24 10:00 06/06/24 09:59 200.8 MLS/HR Enteral Nutritional Formula 1,000 ml 30ML/HR GT 06/01/24 11:00 06/06/24 13:01 1,000 ML Levalbuterol HCl 0.625 mg Q6HR NEB 06/01/24 12:00 06/06/24 06:21 0.625 MG Ipratropium [place] 0.5 mg Q6HWA NEB 06/01/24 12:00 06/06/24 13:27 0.5 MG Metoclopramide HCl 5 mg Q8HR GT 06/02/24 14:00 06/05/24 14:02 5 MG Ursodiol 300 mg BID GT 06/02/24 11:00 06/06/24 10:17 300 MG Albumin Human 100 ml @ 100 mls/hr SID PRN IV 06/04/24 04:00 06/05/24 15:00 100 MLS/HR Trimethoprim/ Sulfamethoxazole 10 ml @ 0 mls/hr PER PHARMACY IV 06/04/24 15:30 Trimethoprim/ Sulfamethoxazole 10 ml/Dextrose 260 ml @ 130 mls/hr Q8H IV 06/04/24 17:30 06/06/24 09:23 130 MLS/HR Norepinephrine Bitartrate 32 mg/ Sodium Chloride 250 ml @ 0.234 mls/ hr Q24H IV 06/04/24 19:00 06/04/24 20:30 3.75 MLS/HR Methylprednisolone Sodium Succinate 40 mg DAILY IV 06/06/24 10:00 06/06/24 09:57 40 MG Rocuronium [place] 1000 mg/ Dextrose 250 ml @ 7.332 mls/ hr Q24H IV 06/05/24 21:15 Levothyroxine Sodium 50 mcg DAILY IV 06/07/24 10:00 Bumetanide 2 mg BIDD IV 06/06/24 18:00 Examination General: Intubated sedated HEENT: + scleral icterus Chest: lung lee clear to auscultation Heart: RRR, no murmur Abdomen: Mild -distended, mild generalized tenderness to palpation, hypoactive bowel sounds Extremities showed 2+ pedal edema and she has generalized anasarca laboratory and microbiology Laboratory Tests 06/06/24 06:00 Test 06/06/24 06:00 Range/Units Serum Glucose 98 74-106 mg/dL Microbiology Date/Time Source Procedure Growth Status 05/31/24 13:47 Blood Blood Culture - Final NO GROWTH AFTER 5 DAYS OF INCUBATION. Complete 05/30/24 15:15 Nose MRSA Screen - Final Complete 05/30/24 14:15 Bronchial Brushings Gram Stain - Final Complete 05/30/24 14:15 Respiratory Culture - Final Stenotrophomonas maltophilia Complete Problem List/Assessment/Plan Problem List/Assessment/Plan ASSESSMENT Severe anemia hgb 8.4--> 6.9. s/p transfusion; hgb: 8-->7.2, monitor closely and transfuse if less than 7. Iron : 38L, TIBC:118, saturation: 32% folate: 43.16 B12: 2852 Acute transaminitis and hepatic failure due to alcohol abuse --> MADDREY discriminant function is 34.0 point --> Patient steroids at this time --> Recommend decreasing the steroid dose given the leukocytosis Hepatic steatosis with hepatomegaly Hyperthyroidism Acute renal failure due VMN --> Creatinine: 3.08--> 3.88--> 2.32 --> Started dialysis --> Nephrology on board Severe protein malnutrition --> Continue tube feeding Thrombocytopenia likely due to liver cirrhosis --> Plt: 25 --> Vitamin K IV 10 mg daily for 3 days (06/04/2024) Acute hypoxic respiratory failure likely due to aspiration pneumonia? Mucus plugs and atelectasis -->S/P intubation and bronchoscopy Duodenal ulcer disease Plan Advance tube feedings to 30 mL/hour Nephrology follow up as there was a tentative plan for possible dialysis Patient was started on Bactrim for sputum culture showing stenotrophomonas maltophilia Continue ursodiol 300 mg bid via GT ( started on 06/02/2023) Continue Protonix 40 mg IV b.i.d. Continue Carafate 1 g p.o. b.i.d. Transfused 2 unit of RBC 05/31/2024. Monitor hemoglobin and hematocrit Lactulose 30 mL p.o. daily MADDREY discriminant function is 34 point ; Decrease the steroids to once a day because of leukocytosis; patient has received IV Solu-Medrol for several days Currently on levothyroxine 112 mcg q.d. No procedures at this time until patient is more stable. Currently on mechanical ventilation on the following parameters Status post bronchoscopy which showed low and left upper lingula/lower lobe atelectasis due to mucus plugging. There was mucus plugging from L1-L2 10 and R 6-10. Bronchoalveolar lavage was performed as well right middle lobe. Prognosis remains guarded Goal of care discussed for more than 25 minute Plan discussed with Dr. Maya Thank you for allowing us to participate in the care of this patient. Please call if you have any questions or concerns. Plan discussed with: Other (Nurse) Dietary Evaluation Review Recommendations by RD: PPN/TPN Comments: 1. If NPO > 7 days, initiate EN/TPN. 2. If gut is accessible, consider Jevity 1.2 @ 40 mL/hr. Tf regimen will provide 1,152 kcals, 53g Pro, and 775 mL free H2O (+ 1,200 mL free H2O flushes). TF regimen will meet ~ 91% daily estimated energy needs (20-25 kcal/kg) and ~59% daily estimated protein needs (1.2-2.0 g/kg). 3. Advance to hepatic diet when medically feasible, pending TICKETER approval. 4. Promote ETOH cessation. Expected Outcomes/Goals: 1. nutritional intake to meet at least 75% estimated needs 2. labs to improve 3. diet to advance 4. f/u in 2-3 days CC Plasma Assessment Blood Product Administration S: [id number] KALPANA HOOKER RESIDENT Jun 06, 2024 14:00
[2024-06-06] MEDS: BUMETANIDE 2.5mg/10ml (0.25 mg/ml) INJ IV SCH (17:51)
--- NOTE | 2024-06-06 18:09 | DVHPN2 ---
Progress Note - Dictate Date Seen: Jun 06, 2024 Has the PT tested + for MRSA If YES, has PT been informed?: No Medical Necessity Reason Pt with a Central, PICC or Fol: Yes The following are medically ne: Central Line, Robertson Catheter Reason for robertson catheter: Strict I&O Subjective Patient is intubated sedated. She had hypoactive bowel sounds and no bowel movement yet. Patient has generalized anasarca and fluid retention. Liver enzymes are trending down Creatinine 3.29 --> 2.32 vital signs Vital Sign Date Time Temp Pulse Resp B/P (MAP) Pulse Ox O2 Delivery O2 Flow Rate FiO2 06/06/24 15:36 114 22 107/51 (69) 94 70 06/06/24 14:00 Mechanical Ventilator+ 06/06/24 12:00 99.5 99.5 Total Intake and Output 06/05/24 06/05/24 06/06/24 15:00 23:00 07:00 Intake Total 808.324 ml 568.748 ml 975.248 ml Output Total 3515 ml 0 ml Balance 808.324 ml -2946.252 ml 975.248 ml medications Current Medications Medications Dose Ordered Sig/Alvaro Route Start Time Stop Time Status Last Admin Dose Admin Lorazepam 2 mg Q4H PO 05/27/24 09:15 Hold 05/28/24 06:10 2 MG Ondansetron HCl 4 mg Q4HP PRN IV 05/27/24 09:15 Nitroglycerin 0.4 mg Q5MINP PRN SL 05/27/24 09:15 Morphine Sulfate 2 mg Q30M PRN IV 05/27/24 09:15 Sucralfate 1 gm QID PO 05/27/24 12:00 Hold 05/28/24 06:11 1 GM Patient Own Medication 1 cap DAILY PO 05/27/24 10:00 UNV Pantoprazole Sodium 40 mg BID IV 05/27/24 22:00 06/06/24 09:57 40 MG Midodrine 10 mg TID@0600,1200,1800 PO 05/27/24 18:00 Hold 05/28/24 06:10 10 MG Midazolam HCl 50 ml @ 1 mls/hr Q24H IV 05/30/24 14:15 06/06/24 14:41 5 MLS/HR Fentanyl Citrate 250 ml @ 2.5 mls/hr Q24H IV 05/30/24 14:15 06/06/24 17:27 17.5 MLS/HR Thiamine HCl 100 mg DAILY IV 06/01/24 10:00 06/06/24 09:58 100 MG Folic Acid 1 mg/ Dextrose 50.2 ml @ 200.8 mls/ hr DAILY INJ 06/01/24 10:00 06/06/24 09:59 200.8 MLS/HR Enteral Nutritional Formula 1,000 ml 30ML/HR GT 06/01/24 11:00 06/06/24 13:01 1,000 ML Levalbuterol HCl 0.625 mg Q6HR NEB 06/01/24 12:00 06/06/24 06:21 0.625 MG Ipratropium [place] 0.5 mg Q6HWA NEB 06/01/24 12:00 06/06/24 13:27 0.5 MG Metoclopramide HCl 5 mg Q8HR GT 06/02/24 14:00 06/06/24 14:39 5 MG Ursodiol 300 mg BID GT 06/02/24 11:00 06/06/24 10:17 300 MG Albumin Human 100 ml @ 100 mls/hr SID PRN IV 06/04/24 04:00 06/05/24 15:00 100 MLS/HR Trimethoprim/ Sulfamethoxazole 10 ml @ 0 mls/hr PER PHARMACY IV 06/04/24 15:30 Trimethoprim/ Sulfamethoxazole 10 ml/Dextrose 260 ml @ 130 mls/hr Q8H IV 06/04/24 17:30 06/06/24 09:23 130 MLS/HR Norepinephrine Bitartrate 32 mg/ Sodium Chloride 250 ml @ 0.234 mls/ hr Q24H IV 06/04/24 19:00 06/04/24 20:30 3.75 MLS/HR Methylprednisolone Sodium Succinate 40 mg DAILY IV 06/06/24 10:00 06/06/24 09:57 40 MG Rocuronium [place] 1000 mg/ Dextrose 250 ml @ 7.332 mls/ hr Q24H IV 06/05/24 21:15 Levothyroxine Sodium 50 mcg DAILY IV 06/07/24 10:00 Bumetanide 2 mg BIDD IV 06/06/24 18:00 objective General: Patient is Intubated sedated HEENT: + scleral icterus Chest: Lung lee clear to auscultation Heart: RRR, no murmur Abdomen: Mild -distended, mild generalized tenderness to palpation, hypoactive bowel sounds Extremities showed 2+ pedal edema and she has generalized anasarca laboratory and microbiology Laboratory Tests 06/06/24 06:00 Test 06/06/24 06:00 Range/Units Serum Glucose 98 74-106 mg/dL Assessment/Plan A 58 yo F with Stenotrophomonas Pneumonia Hospital acquired Pneumonia Acute hypoxic respiratory failure on MV Alcoholic liver cirrhosis GI bleed Hepatorenal syndrome ESLD Jaundice Alcohol abuse with alcohol withdrawal Recommendations Steno S to BActrim, continue monitor cell count/ platelets; continue IV bactrim she is oozing blood from ET tube due to coagulopathy due to alcoholic liver cirhosis she is on pressor 05/30, Respiratory culture showed Stenotrophomonas maltophilia 05/30, MRSA screening was negative 05/31, Blood culture showed no growth Critical care time spent with patient 35 minutes. prognosis very poor thank you for opportunity to take care of the patient. Dietary Evaluation Review Recommendations by RD: PPN/TPN Comments: 1. If NPO > 7 days, initiate EN/TPN. 2. If gut is accessible, consider Jevity 1.2 @ 40 mL/hr. Tf regimen will provide 1,152 kcals, 53g Pro, and 775 mL free H2O (+ 1,200 mL free H2O flushes). TF regimen will meet ~ 91% daily estimated energy needs (20-25 kcal/kg) and ~59% daily estimated protein needs (1.2-2.0 g/kg). 3. Advance to hepatic diet when medically feasible, pending PLANTING MATERIAL UNLOADER approval. 4. Promote ETOH cessation. Expected Outcomes/Goals: 1. nutritional intake to meet at least 75% estimated needs 2. labs to improve 3. diet to advance 4. f/u in 2-3 days Plan discussed with: Other CC Plasma Assessment Blood Product Administration S: [id number] MELL PAN MD Jun 06, 2024 18:09
--- NOTE | 2024-06-06 19:45 | DVHPN2 ---
Progress Note Date Seen: Jun 06, 2024 Has the PT tested + for MRSA If YES, has PT been informed?: No Medical Necessity Reason Pt with a Central, PICC or Fol: Yes The following are medically ne: Central Line, Robertson Catheter Reason for robertson catheter: Strict I&O Subjective Patient reports: Other Review of Systems: Deferred Objective vital signs Vital Sign Date Time Temp Pulse Resp B/P (MAP) Pulse Ox O2 Delivery O2 Flow Rate FiO2 06/06/24 19:00 111 22 116/52 (73) 100 06/06/24 18:00 70 06/06/24 18:00 98.8 98.8 06/06/24 18:00 Mechanical Ventilator+ Total Intake and Output 06/05/24 06/05/24 06/06/24 14:59 22:59 06:59 Intake Total 608.793 ml 752.248 ml 975.248 ml Output Total 3515 ml 0 ml Balance 608.793 ml -2762.752 ml 975.248 ml medications Current Medications Medications Dose Ordered Sig/Alvaro Route Start Time Stop Time Status Last Admin Dose Admin Lorazepam 2 mg Q4H PO 05/27/24 09:15 Hold 05/28/24 06:10 2 MG Ondansetron HCl 4 mg Q4HP PRN IV 05/27/24 09:15 Nitroglycerin 0.4 mg Q5MINP PRN SL 05/27/24 09:15 Morphine Sulfate 2 mg Q30M PRN IV 05/27/24 09:15 Sucralfate 1 gm QID PO 05/27/24 12:00 Hold 05/28/24 06:11 1 GM Patient Own Medication 1 cap DAILY PO 05/27/24 10:00 UNV Pantoprazole Sodium 40 mg BID IV 05/27/24 22:00 06/06/24 09:57 40 MG Midodrine 10 mg TID@0600,1200,1800 PO 05/27/24 18:00 Hold 05/28/24 06:10 10 MG Midazolam HCl 50 ml @ 1 mls/hr Q24H IV 05/30/24 14:15 06/06/24 14:41 5 MLS/HR Fentanyl Citrate 250 ml @ 2.5 mls/hr Q24H IV 05/30/24 14:15 06/06/24 17:27 17.5 MLS/HR Thiamine HCl 100 mg DAILY IV 06/01/24 10:00 06/06/24 09:58 100 MG Folic Acid 1 mg/ Dextrose 50.2 ml @ 200.8 mls/ hr DAILY INJ 06/01/24 10:00 06/06/24 09:59 200.8 MLS/HR Enteral Nutritional Formula 1,000 ml 30ML/HR GT 06/01/24 11:00 06/06/24 13:01 1,000 ML Levalbuterol HCl 0.625 mg Q6HR NEB 06/01/24 12:00 06/06/24 18:14 0.625 MG Ipratropium [place] 0.5 mg Q6HWA [facility] 06/01/24 12:00 06/06/24 18:15 0.5 MG Metoclopramide HCl 5 mg Q8HR GT 06/02/24 14:00 06/06/24 14:39 5 MG Ursodiol 300 mg BID GT 06/02/24 11:00 06/06/24 10:17 300 MG Albumin Human 100 ml @ 100 mls/hr SID PRN IV 06/04/24 04:00 06/05/24 15:00 100 MLS/HR Trimethoprim/ Sulfamethoxazole 10 ml @ 0 mls/hr PER PHARMACY IV 06/04/24 15:30 Trimethoprim/ Sulfamethoxazole 10 ml/Dextrose 260 ml @ 130 mls/hr Q8H IV 06/04/24 17:30 06/06/24 17:57 130 MLS/HR Norepinephrine Bitartrate 32 mg/ Sodium Chloride 250 ml @ 0.234 mls/ hr Q24H IV 06/04/24 19:00 06/06/24 18:25 3.047 MLS/HR Methylprednisolone Sodium Succinate 40 mg DAILY IV 06/06/24 10:00 06/06/24 09:57 40 MG Rocuronium [place] 1000 mg/ Dextrose 250 ml @ 7.332 mls/ hr Q24H IV 06/05/24 21:15 Levothyroxine Sodium 50 mcg DAILY IV 06/07/24 10:00 Bumetanide 2 mg BIDD IV 06/06/24 18:00 06/06/24 17:51 2 MG laboratory and microbiology Laboratory Tests 06/06/24 06:00 Test 06/06/24 06:00 Range/Units Serum Glucose 98 74-106 mg/dL Microbiology Date/Time Source Procedure Growth Status 05/31/24 13:47 Blood Blood Culture - Final NO GROWTH AFTER 5 DAYS OF INCUBATION. Complete 05/30/24 15:15 Nose MRSA Screen - Final Complete 05/30/24 14:15 Bronchial Brushings Gram Stain - Final Complete 05/30/24 14:15 Respiratory Culture - Final Stenotrophomonas maltophilia Complete Problem List/Assessment/Plan Problem List/Assessment/Plan Acute kidney injury multifactorial in the setting of hypotension and tachycardia hemodynamically mediated EtOH hepatic disease Anasarca decompensated liver disease Acute respiratory failure hypoxic Pneumonia Jaundice Hypoalbuminemia Macrocytic anemia Thrombocytopenia sepsis PNA recs HD thursday Plan discussed with: Other My Orders My Orders Orders - DOMI PENA MD Procedure Category Date Status Time Bumetanide Injection PHA 06/06/24 In Process (Bumex Injection) 18:00 Dietary Evaluation Review Recommendations by RD: PPN/TPN Comments: 1. If NPO > 7 days, initiate EN/TPN. 2. If gut is accessible, consider Jevity 1.2 @ 40 mL/hr. Tf regimen will provide 1,152 kcals, 53g Pro, and 775 mL free H2O (+ 1,200 mL free H2O flushes). TF regimen will meet ~ 91% daily estimated energy needs (20-25 kcal/kg) and ~59% daily estimated protein needs (1.2-2.0 g/kg). 3. Advance to hepatic diet when medically feasible, pending PACKAGE REINSPECTOR approval. 4. Promote ETOH cessation. Expected Outcomes/Goals: 1. nutritional intake to meet at least 75% estimated needs 2. labs to improve 3. diet to advance 4. f/u in 2-3 days CC Plasma Assessment Blood Product Administration S: [id number] DOMI PENA MD Jun 06, 2024 19:45
--- NOTE | 2024-06-06 22:54 | DVHPN2 ---
Progress Note - Dictate Date Seen: Jun 06, 2024 Has the PT tested + for MRSA If YES, has PT been informed?: No Medical Necessity Reason Pt with a Central, PICC or Fol: Yes The following are medically ne: Central Line, Robertson Catheter Reason for robertson catheter: Strict I&O Subjective Patient seen and examined at bedside. Sedated, intubated on mechanical ventilator. Overnight events reviewed. vital signs Vital Sign Date Time Temp Pulse Resp B/P (MAP) Pulse Ox O2 Delivery O2 Flow Rate FiO2 06/06/24 22:29 107 22 102/51 (68) 99 70 06/06/24 20:00 98.8 98.8 06/06/24 20:00 Mechanical Ventilator+ Total Intake and Output 06/05/24 06/05/24 06/06/24 15:00 23:00 07:00 Intake Total 808.324 ml 568.748 ml 975.248 ml Output Total 3515 ml 0 ml Balance 808.324 ml -2946.252 ml 975.248 ml medications Current Medications Medications Dose Ordered Sig/Alvaro Route Start Time Stop Time Status Last Admin Dose Admin Lorazepam 2 mg Q4H PO 05/27/24 09:15 Hold 05/28/24 06:10 2 MG Ondansetron HCl 4 mg Q4HP PRN IV 05/27/24 09:15 Nitroglycerin 0.4 mg Q5MINP PRN SL 05/27/24 09:15 Morphine Sulfate 2 mg Q30M PRN IV 05/27/24 09:15 Sucralfate 1 gm QID PO 05/27/24 12:00 Hold 05/28/24 06:11 1 GM Patient Own Medication 1 cap DAILY PO 05/27/24 10:00 UNV Pantoprazole Sodium 40 mg BID IV 05/27/24 22:00 06/06/24 22:16 40 MG Midodrine 10 mg TID@0600,1200,1800 PO 05/27/24 18:00 Hold 05/28/24 06:10 10 MG Midazolam HCl 50 ml @ 1 mls/hr Q24H IV 05/30/24 14:15 06/06/24 22:16 5 MLS/HR Fentanyl Citrate 250 ml @ 2.5 mls/hr Q24H IV 05/30/24 14:15 06/06/24 17:27 17.5 MLS/HR Thiamine HCl 100 mg DAILY IV 06/01/24 10:00 06/06/24 09:58 100 MG Folic Acid 1 mg/ Dextrose 50.2 ml @ 200.8 mls/ hr DAILY INJ 06/01/24 10:00 06/06/24 09:59 200.8 MLS/HR Enteral Nutritional Formula 1,000 ml 30ML/HR GT 06/01/24 11:00 06/06/24 13:01 1,000 ML Levalbuterol HCl 0.625 mg Q6HR NEB 06/01/24 12:00 06/06/24 18:14 0.625 MG Ipratropium [place] 0.5 mg Q6HWA NEB 06/01/24 12:00 06/06/24 18:15 0.5 MG Metoclopramide HCl 5 mg Q8HR GT 06/02/24 14:00 06/06/24 22:16 5 MG Ursodiol 300 mg BID GT 06/02/24 11:00 06/06/24 22:17 300 MG Albumin Human 100 ml @ 100 mls/hr SID PRN IV 06/04/24 04:00 06/05/24 15:00 100 MLS/HR Trimethoprim/ Sulfamethoxazole 10 ml @ 0 mls/hr PER PHARMACY IV 06/04/24 15:30 Trimethoprim/ Sulfamethoxazole 10 ml/Dextrose 260 ml @ 130 mls/hr Q8H IV 06/04/24 17:30 06/06/24 17:57 130 MLS/HR Norepinephrine Bitartrate 32 mg/ Sodium Chloride 250 ml @ 0.234 mls/ hr Q24H IV 06/04/24 19:00 06/06/24 18:25 3.047 MLS/HR Methylprednisolone Sodium Succinate 40 mg DAILY IV 06/06/24 10:00 06/06/24 09:57 40 MG Rocuronium [place] 1000 mg/ Dextrose 250 ml @ 7.332 mls/ hr Q24H IV 06/05/24 21:15 Levothyroxine Sodium 50 mcg DAILY IV 06/07/24 10:00 Bumetanide 2 mg BIDD IV 06/06/24 18:00 06/06/24 17:51 2 MG objective Gen.: Patient lying in bed in medical ICU. Sedated, intubated on mechanical ventilator. Head: Normocephalic, atraumatic. Eyes: PERRLA. Ears: Normal external anatomy. Throat: Endotracheal tube and orogastric tube in place. Neck: Supple, trachea midline. Chest: Transmitted breath sounds bilaterally. Decreased air entry bilaterally. No wheezing. Bibasilar crackles. Cardiovascular: Positive S1, positive S2. Regular rate and rhythm. Abdomen: Positive bowel sounds in all 4 quadrants. Soft, nontender, nondistended. : Robertson in place. Normal external genitalia. Rectal: Deferred. Skin: Warm, dry. Intact. Extremities: 2+ radial pulses bilaterally. No lower extremity edema. Neuro: Sedated. laboratory and microbiology Laboratory Tests 06/06/24 06:00 Test 06/06/24 06:00 Range/Units Serum Glucose 98 74-106 mg/dL Assessment/Plan Impression: Acute hypoxic respiratory failure On mechanical ventilator Hepatorenal syndrome Leukocytosis Anemia Thrombocytopenia Acute kidney injury Hypokalemia Chronic pancreatitis ETOH abuse Marijuana abuse Events: Remains on vent support On AC mode; RR 22, VT 450, PEEP 8, FiO2 70% Increased FiO2 requirements Platelets of 56 K, improved Hemoptysis improved. Continue antibiotics ABG reviewed, compensated. CXR demonstrates Multifocal airspace disease. No effusion or pneumothorax. She remains on fentanyl and Versed drip for sedation. Pressors for hemodynamic support Levophed 6.5 mcg/min Titrate to keep mean arterial pressure greater than 65 mmHg. On IV fluids at 130 mL/hour. Poor urine output Monitor renal function Monitor electrolytes. Supplement as necessary. Monitor ins and outs. HD per nephrology Follow up Nephrology recommendations Ursodiol Continue bronchodilators Continue antibiotics Monitor hemoglobin Tube feeds for nutritional support Labs and imaging reviewed. Rest of plan as noted below. Plan: s/p intubation on mechanical ventilator. On AC mode; RR 22, VT 450, PEEP 8, FiO2 70% Titrate FIO2 to keep O2 saturation above 90%. VAP bundle. Daily ABG and CXR while intubated Sedate for ventilator synchrony Continue bronchodilators. Continue antibiotics. F/u cultures. Pressors for hemodynamic support Titrate to keep mean arterial pressure greater than 65 mmHg. Follow up GI recommendations Follow up Nephrology recommendations Monitor renal function Monitor electrolytes. Supplement as necessary. Monitor ins and outs. Maintain euvolemia. GI prophylaxis. DVT prophylaxis. Prognosis: Poor given patient's multiple co-morbidities. Condition: Critical Rest of plan per hospitalist and other consultants. A total of 35 minutes of critical care time was spent reviewing the patient record, examining the patient, making a diagnostic and therapeutic plan, discussing this plan with the medical personnel, following up on diagnostic studies and following the patient for clinical stability excluding any and all procedures. At least 50% of this time was spent in direct, [id number] contact. Thank you, Dr. Parkinson, for allowing me to participate in this patient's care. Further recommendations will depend on the patient's clinical course. Please do not hesitate to contact me if you have any questions or concerns. This medical document was created using an electronic medical record system with [employer] dictation system. Although these documentations are being carefully reviewed, there may still be some phonetic and typographical changes. The errors are purely typographical, due to imperfection on the software program, and do not reflect any compromise in the patient's medical care. Dietary Evaluation Review Recommendations by RD: PPN/TPN Comments: 1. If NPO > 7 days, initiate EN/TPN. 2. If gut is accessible, consider Jevity 1.2 @ 40 mL/hr. Tf regimen will provide 1,152 kcals, 53g Pro, and 775 mL free H2O (+ 1,200 mL free H2O flushes). TF regimen will meet ~ 91% daily estimated energy needs (20-25 kcal/kg) and ~59% daily estimated protein needs (1.2-2.0 g/kg). 3. Advance to hepatic diet when medically feasible, pending PUBLIC FINANCE SPECIALIST approval. 4. Promote ETOH cessation. Expected Outcomes/Goals: 1. nutritional intake to meet at least 75% estimated needs 2. labs to improve 3. diet to advance 4. f/u in 2-3 days Plan discussed with: Other (RN) Critical Care Time(min): 35 CC Plasma Assessment Blood Product Administration S: [id number] TAE DUPREE MD Jun 06, 2024 22:54
[2024-06-07] VITALS (107 sets, daily range): BP systolic 88–148; BP diastolic 37–69; PULSE 103–115; RESP 11–23; TEMP 98.1–98.6; O2SAT 89–100
[2024-06-07 03:21] LABS: Base Excess -5.1 mmol/L (-2.0-3.0)
[2024-06-07 04:23] LABS: Hemoglobin 7.5 g/dL (12.2-16.2)
[2024-06-07 04:32] LABS: Hematocrit 22.6 % (36.0-46.0); Mean Corpuscular Hgb Conc. 33.4 g/dL (32.0-36.0); Platelet Count (auto) 39 10^3/uL (140-450); Red Blood Cells 2.03 10^6/uL (4.0-5.20); White Blood Cell 28.3 10^3/uL (4.4-10.8)
[2024-06-07 04:35] LABS: Anion Gap 11 (5-15); Carbon Dioxide 24 mmol/L (20-31); Chloride 100 mmol/L (98-107); Potassium 4.4 mmol/L (3.5-5.1)
[2024-06-07 04:37] LABS: Calcium 9.5 mg/dL (8.7-10.4)
[2024-06-07 04:41] LABS: Red Cell Distribution Width 29.4 % (11.8-14.3)
[2024-06-07 04:43] LABS: Basophils % (manual) 0 (0.0-2.0); Blast Cells 0; Eosinophils % (manual) 0 (0-7); Metamyelocytes % 0; Myelocytes % 0; Promyelocytes % 0; Reactive Lymphocytes 0
[2024-06-07 04:48] LABS: Blood Urea Nitrogen 49 mg/dL (9-23); Glucose 116 mg/dL (74-106); Sodium 135 mmol/L (136-145)
[2024-06-07 04:49] LABS: BUN/Creatinine Ratio 16.9 (10.0-20.0)
--- NOTE | 2024-06-07 04:57 | DVH ---
CHEST RADIOGRAPH Indication: PNA Technique: Single frontal view of the chest was obtained Comparison: XY CHEST PORTABLE on DOS: 06/06/24 FINDINGS: Lines and Tubes: The endotracheal tube terminates 1.8 cm above the diana. Right central venous cath eters terminating in the right atrium are unchanged. The enteric tube courses below the left hemidiap hragm and the tip extends outside the field of view. Lungs: Diffuse bilateral opacities similar to prior study. Pleura: No effusion. No pneumothorax. Cardiomediastinal contours: Stable. Bones: No acute osseous abnormality. IMPRESSION: 1. Stable position of the support lines and tubes. 2. Diffuse bilateral opacities similar to the prior study.
--- NOTE | 2024-06-07 08:32 | DVHPN2 ---
Subjective Intubated and sedated Reviewed: Care Plan, H&P, Labs, Medications, Previous Orders, Radiology Changes from previous H/P or p: No Changes General: Per HPI Eyes: No Pain, No Vision change, No Conjunctivae inflammation, No Eyelid inflammation, No Other, No Redness ENT: No Ear pain, No Ear discharge, No Nose pain, No Nose discharge, No Nose congestion, No Mouth pain, No Mouth swelling, No Throat pain, No Throat swelling, No Other Cardiovascular: Chest Pain Respiratory: No Cough, No Dry, No Shortness of breath, No SOB with excertion, No Wheezing, No Hemoptysis, No Pleuritic Pain, No Sputum, No Other Gastrointestinal: Abdominal Pain, Hematochezia Genitourinary: Frequency, Retention Musculoskeletal: No other, No neck pain, No shoulder pain, No arm pain, No back pain, No hand pain, No leg pain, No foot pain Skin: No Rash, No Lesions, No Jaundice, No Bruising, No Other Objective Vitals Vital Signs Date Time Temp Pulse Resp B/P (MAP) Pulse Ox O2 Delivery O2 Flow Rate FiO2 06/07/24 07:15 110 22 122/54 (76) 96 70 06/07/24 06:00 Mechanical Ventilator+ 06/07/24 04:00 98.4 98.4 Intake/Output Intake and Output 06/07/24 07:00 Intake Total 1093.424 ml Output Total 40 ml Balance 1053.424 ml Intake Oral 60 ml IV Total 912.424 ml Tube Feeding 121 ml Output Urine Total 40 ml General Appearance: moderate distress, Other HEENT: Atraumatic, PERRLA, Other Lungs: Clear to auscultation, Normal air movement Cardiovascular: Normal S1, Normal S2, Other Abdomen: Normal bowel sounds, Other Musculoskeletal: Other Neuro: Other Skin: Dry, Intact, Other Psych/Mental Status: Other Medications Current Medications Medications Dose Ordered Sig/Alvaro Route Start Time Stop Time Status Last Admin Dose Admin Lorazepam 2 mg Q4H PO 05/27/24 09:15 Hold 05/28/24 06:10 2 MG Ondansetron HCl 4 mg Q4HP PRN IV 05/27/24 09:15 Nitroglycerin 0.4 mg Q5MINP PRN SL 05/27/24 09:15 Morphine Sulfate 2 mg Q30M PRN IV 05/27/24 09:15 Sucralfate 1 gm QID PO 05/27/24 12:00 Hold 05/28/24 06:11 1 GM Patient Own Medication 1 cap DAILY PO 05/27/24 10:00 UNV Pantoprazole Sodium 40 mg BID IV 05/27/24 22:00 06/06/24 22:16 40 MG Midodrine 10 mg TID@0600,1200,1800 PO 05/27/24 18:00 Hold 05/28/24 06:10 10 MG Midazolam HCl 50 ml @ 1 mls/hr Q24H IV 05/30/24 14:15 06/07/24 04:21 5 MLS/HR Fentanyl Citrate 250 ml @ 2.5 mls/hr Q24H IV 05/30/24 14:15 06/07/24 05:40 17.5 MLS/HR Thiamine HCl 100 mg DAILY IV 06/01/24 10:00 06/06/24 09:58 100 MG Folic Acid 1 mg/ Dextrose 50.2 ml @ 200.8 mls/ hr DAILY INJ 06/01/24 10:00 06/06/24 09:59 200.8 MLS/HR Enteral Nutritional Formula 1,000 ml 30ML/HR GT 06/01/24 11:00 06/06/24 13:01 1,000 ML Levalbuterol HCl 0.625 mg Q6HR NEB 06/01/24 12:00 06/07/24 07:09 0.625 MG Ipratropium [place] 0.5 mg Q6HWA [facility] 06/01/24 12:00 06/07/24 07:10 0.5 MG Metoclopramide HCl 5 mg Q8HR GT 06/02/24 14:00 06/07/24 05:18 5 MG Ursodiol 300 mg BID GT 06/02/24 11:00 06/06/24 22:17 300 MG Albumin Human 100 ml @ 100 mls/hr SID PRN IV 06/04/24 04:00 06/05/24 15:00 100 MLS/HR Trimethoprim/ Sulfamethoxazole 10 ml @ 0 mls/hr PER PHARMACY IV 06/04/24 15:30 Trimethoprim/ Sulfamethoxazole 10 ml/Dextrose 260 ml @ 130 mls/hr Q8H IV 06/04/24 17:30 06/07/24 02:18 130 MLS/HR Norepinephrine Bitartrate 32 mg/ Sodium Chloride 250 ml @ 0.234 mls/ hr Q24H IV 06/04/24 19:00 06/06/24 18:25 3.047 MLS/HR Methylprednisolone Sodium Succinate 40 mg DAILY IV 06/06/24 10:00 06/06/24 09:57 40 MG Rocuronium [place] 1000 mg/ Dextrose 250 ml @ 7.332 mls/ hr Q24H IV 06/05/24 21:15 Levothyroxine Sodium 50 mcg DAILY IV 06/07/24 10:00 Bumetanide 2 mg BIDD IV 06/06/24 18:00 06/07/24 05:20 2 MG Laboratory Results Laboratory Tests 06/07/24 03:10 Chemistry Test 06/07/24 03:10 Calcium Level 9.5 mg/dL (8.7-10.4) Urinalysis Test 05/28/24 21:45 Urine Color Yellow (Yellow) Urine Clarity Clear (Clear) Urine pH 6.5 (5.0-9.0) Urine Specific [place] 1.005 (1.001-1.035) Urine Protein Trace (Negative) H Urine Ketones Negative (Negative) Urine Blood 3+ /uL (Negative) H Urine Nitrite Negative (Negative) Urine Bilirubin Negative (Negative) Urine Urobilinogen 4 mg/dL (Negative) H Urine Leukocyte Esterase Trace /uL (Negative) Urine RBC 21 /hpf (0 - 4) Urine WBC 109 /hpf (0 - 5) Urine Squamous Epithelial Cells None seen /hpf (<5) Urine Bacteria None seen /hpf (None Seen) Urine Glucose Normal mg/dL (Normal) Blood Gas Results Test 06/07/24 03:11 Arterial Blood pH 7.362 (7.350-7.450) FiO2 % 70.0 Microbiology Microbiology Date/Time Source Procedure Growth Status 05/31/24 13:47 Blood Blood Culture - Final NO GROWTH AFTER 5 DAYS OF INCUBATION. Complete 05/30/24 15:15 Nose MRSA Screen - Final Complete 05/30/24 14:15 Bronchial Brushings Gram Stain - Final Complete 05/30/24 14:15 Respiratory Culture - Final Stenotrophomonas maltophilia Complete Labs and/or images reviewed: Labs reviewed by me, Image(s) reviewed by me Assessment/Plan Assessment/Plan Impression: -acute hypoxic respiratory failure with mechanical ventilation -sepsis secondary to pneumonia -probable aspiration pneumonia -alcoholism -alcohol-related liver disease -acute kidney injury, vasomotor nephropathy -hypothyroidism, supratherapeutic coverage -severe protein malnutrition -thrombocytopenia -alcohol withdrawal Plan: Events: FiO2 at 70%. Decreased ET tube hemorrhaging noted. H and H holding. -continue tube feeding , Nepro -continue current ventilator settings per pulmonology -antibiotic therapy: Bactrim. ID consultation was placed. -continue Actigall -continue thiamine, MVI -continue norepinephrine drip to keep systolic blood pressure greater than 95 mmHg -bronchodilators -PUD prophylaxis -SCDs -repeat labs, chest x-ray, ABG in a.m. Critical care time spent with patient discussing and formulating plan of care: 40 minutes. This does not include time spent performing procedures. This medical document was created using an electronic medical record system with [employer] system. Although this document has been carefully reviewed, there may still be some phonetic and typographical errors. These areas are purely typographical due to imperfections of the software programs, and do not reflect any compromise in the patient's medical care. Plan discussed with: Patient, Other (RN) My Orders Orders - MADI RYDER NP Procedure Category Date Status Time Levothyroxine PHA 06/07/24 In Process Injection (Synthroid 10:00 Basic Metabolic Panel LAB 06/08/24 Verified 05:00 Basic Metabolic Panel LAB 06/09/24 Verified 05:00 Complete Blood Count LAB 06/07/24 In Process 05:00 Complete Blood Count LAB 06/08/24 Verified 05:00 Complete Blood Count LAB 06/09/24 Verified 05:00 Chest Portable XY 06/07/24 Resulted 04:00 Sequential VENKATESH 06/06/24 In Process Compression Device 10:27 Manual Differential LAB 06/07/24 In Process 03:10 Date of Service: Jun 07, 2024 Billing Provider: MADI RYDER NP Common Visit Codes: [id number] CARE 30-74 MIN MADI RYDER NP Jun 07, 2024 08:32
[2024-06-07] MEDS: NOREPINEPHRINE BITARTRATE 32 MG in SODIUM CHL 0.9% 218 ML IV SCH (08:45)
[2024-06-07 08:50] LABS: Anisocytosis Moderate; Band Neutrophils % (manual) 6; Lymphocytes % (manual) 4 (10.0-50.0); Macrocytosis Marked; Monocytes % (manual) 2 (0-12); Platelet Estimate Decreased
[2024-06-07] MEDS: LEVOTHYROXINE SODIUM 100 MCG/5 ML INJ IV SCH (10:09)
--- NOTE | 2024-06-07 15:44 | DVHPN2 ---
Progress Note Date Seen: Jun 07, 2024 Has the PT tested + for MRSA If YES, has PT been informed?: No Medical Necessity Reason Pt with a Central, PICC or Fol: Yes The following are medically ne: Central Line, Robertson Catheter Reason for robertson catheter: Strict I&O Subjective Patient reports: Other (intubated) Review of Systems: Deferred Objective vital signs Vital Sign Date Time Temp Pulse Resp B/P (MAP) Pulse Ox O2 Delivery O2 Flow Rate FiO2 06/07/24 15:41 120/63 06/07/24 15:30 114 22 94 06/07/24 14:24 50 06/07/24 14:00 Mechanical Ventilator+ 06/07/24 12:00 98.2 98.2 Total Intake and Output 06/06/24 06/06/24 06/07/24 15:00 23:00 07:00 Intake Total 501.512 ml 236.176 ml 355.736 ml Output Total 0 ml 40 ml Balance 501.512 ml 236.176 ml 315.736 ml medications Current Medications Medications Dose Ordered Sig/Alvaro Route Start Time Stop Time Status Last Admin Dose Admin Lorazepam 2 mg Q4H PO 05/27/24 09:15 Hold 05/28/24 06:10 2 MG Ondansetron HCl 4 mg Q4HP PRN IV 05/27/24 09:15 Nitroglycerin 0.4 mg Q5MINP PRN SL 05/27/24 09:15 Morphine Sulfate 2 mg Q30M PRN IV 05/27/24 09:15 Sucralfate 1 gm QID PO 05/27/24 12:00 Hold 05/28/24 06:11 1 GM Patient Own Medication 1 cap DAILY PO 05/27/24 10:00 UNV Pantoprazole Sodium 40 mg BID IV 05/27/24 22:00 06/07/24 10:06 40 MG Midodrine 10 mg TID@0600,1200,1800 PO 05/27/24 18:00 Hold 05/28/24 06:10 10 MG Midazolam HCl 50 ml @ 1 mls/hr Q24H IV 05/30/24 14:15 06/07/24 15:41 5 MLS/HR Fentanyl Citrate 250 ml @ 2.5 mls/hr Q24H IV 05/30/24 14:15 06/07/24 05:40 17.5 MLS/HR Thiamine HCl 100 mg DAILY IV 06/01/24 10:00 06/07/24 10:09 100 MG Folic Acid 1 mg/ Dextrose 50.2 ml @ 200.8 mls/ hr DAILY INJ 06/01/24 10:00 06/07/24 09:59 200.8 MLS/HR Enteral Nutritional Formula 1,000 ml 30ML/HR GT 06/01/24 11:00 06/06/24 13:01 1,000 ML Levalbuterol HCl 0.625 mg Q6HR NEB 06/01/24 12:00 06/07/24 12:38 0.625 MG Ipratropium [place] 0.5 mg Q6HWA [facility] 06/01/24 12:00 06/07/24 12:39 0.5 MG Metoclopramide HCl 5 mg Q8HR GT 06/02/24 14:00 06/07/24 15:04 5 MG Ursodiol 300 mg BID GT 06/02/24 11:00 06/07/24 10:16 300 MG Albumin Human 100 ml @ 100 mls/hr SID PRN IV 06/04/24 04:00 06/05/24 15:00 100 MLS/HR Trimethoprim/ Sulfamethoxazole 10 ml @ 0 mls/hr PER PHARMACY IV 06/04/24 15:30 Trimethoprim/ Sulfamethoxazole 10 ml/Dextrose 260 ml @ 130 mls/hr Q8H IV 06/04/24 17:30 06/07/24 10:04 130 MLS/HR Methylprednisolone Sodium Succinate 40 mg DAILY IV 06/06/24 10:00 06/07/24 10:08 40 MG Rocuronium [place] 1000 mg/ Dextrose 250 ml @ 7.332 mls/ hr Q24H IV 06/05/24 21:15 Levothyroxine Sodium 50 mcg DAILY IV 06/07/24 10:00 06/07/24 10:09 50 MCG Bumetanide 2 mg BIDD IV 06/06/24 18:00 06/07/24 05:20 2 MG Norepinephrine Bitartrate 32 mg/ Sodium Chloride 250 ml @ 0.234 mls/ hr Q24H IV 06/07/24 08:45 laboratory and microbiology Laboratory Tests 06/07/24 03:10 Test 06/07/24 03:10 Range/Units Serum Glucose 116 H 74-106 mg/dL Microbiology Date/Time Source Procedure Growth Status 05/31/24 13:47 Blood Blood Culture - Final NO GROWTH AFTER 5 DAYS OF INCUBATION. Complete 05/30/24 15:15 Nose MRSA Screen - Final Complete 05/30/24 14:15 Bronchial Brushings Gram Stain - Final Complete 05/30/24 14:15 Respiratory Culture - Final Stenotrophomonas maltophilia Complete Problem List/Assessment/Plan Problem List/Assessment/Plan Acute kidney injury multifactorial in the setting of hypotension and tachycardia hemodynamically mediated EtOH hepatic disease Anasarca decompensated liver disease Acute respiratory failure hypoxic Pneumonia Jaundice Hypoalbuminemia Macrocytic anemia Thrombocytopenia sepsis PNA recs seen on HD today intubated Plan discussed with: Other My Orders My Orders Orders - DOMI PENA MD Procedure Category Date Status Time Hemodialysis Orders ORDERS 06/07/24 Transmitted 13:19 Epoetin Ramón-Epbx PHA 06/07/24 In Process (Retacrit) 21:00 Dietary Evaluation Review Recommendations by RD: PPN/TPN Comments: 1. If NPO > 7 days, initiate EN/TPN. 2. If gut is accessible, consider Jevity 1.2 @ 40 mL/hr. Tf regimen will provide 1,152 kcals, 53g Pro, and 775 mL free H2O (+ 1,200 mL free H2O flushes). TF regimen will meet ~ 91% daily estimated energy needs (20-25 kcal/kg) and ~59% daily estimated protein needs (1.2-2.0 g/kg). 3. Advance to hepatic diet when medically feasible, pending LOGISTICS SUPPLY OFFICER approval. 4. Promote ETOH cessation. Expected Outcomes/Goals: 1. nutritional intake to meet at least 75% estimated needs 2. labs to improve 3. diet to advance 4. f/u in 2-3 days CC Plasma Assessment Blood Product Administration S: [id number] DOMI PENA MD Jun 07, 2024 15:44
--- NOTE | 2024-06-07 17:13 | DVHPN2 ---
Progress Note Date Seen: Jun 07, 2024 Resident Creating Document: KALPANA HOOKER RESIDENT Has the PT tested + for MRSA If YES, has PT been informed?: No Medical Necessity Reason Pt with a Central, PICC or Fol: Yes The following are medically ne: Central Line, Robertson Catheter Reason for robertson catheter: Strict I&O Medical Necessity Reason ICU Intubated and sedated Subjective Review of Systems Patient is still in the ICU. She is intubated and sedated. She had hemodialysis done yesterday per nurse patient was 1.7 L was cleared. She is currently on ursodiol 300 mg bid via the GT, prednisolone 40 mg daily. Per [facility] nurse, patient has not had a bowel movement yet for about few days now. therefore we will consider giving her Fleet enema today. Otherwise she is overall the same. No manjor changes from yesterday. She is on trickle feeding currently at 30 mL/hour. Objective vital signs Vital Sign Date Time Temp Pulse Resp B/P (MAP) Pulse Ox O2 Delivery O2 Flow Rate FiO2 06/07/24 16:30 113 22 132/54 (80) 92 50 06/07/24 14:00 Mechanical Ventilator+ 06/07/24 12:00 98.2 98.2 Total Intake and Output 06/06/24 06/06/24 06/07/24 15:00 23:00 07:00 Intake Total 501.512 ml 236.176 ml 355.736 ml Output Total 0 ml 40 ml Balance 501.512 ml 236.176 ml 315.736 ml medications Current Medications Medications Dose Ordered Sig/Alvaro Route Start Time Stop Time Status Last Admin Dose Admin Lorazepam 2 mg Q4H PO 05/27/24 09:15 Hold 05/28/24 06:10 2 MG Ondansetron HCl 4 mg Q4HP PRN IV 05/27/24 09:15 Nitroglycerin 0.4 mg Q5MINP PRN SL 05/27/24 09:15 Morphine Sulfate 2 mg Q30M PRN IV 05/27/24 09:15 Sucralfate 1 gm QID PO 05/27/24 12:00 Hold 05/28/24 06:11 1 GM Patient Own Medication 1 cap DAILY PO 05/27/24 10:00 UNV Pantoprazole Sodium 40 mg BID IV 05/27/24 22:00 06/07/24 10:06 40 MG Midodrine 10 mg TID@0600,1200,1800 PO 05/27/24 18:00 Hold 05/28/24 06:10 10 MG Midazolam HCl 50 ml @ 1 mls/hr Q24H IV 05/30/24 14:15 06/07/24 15:41 5 MLS/HR Fentanyl Citrate 250 ml @ 2.5 mls/hr Q24H IV 05/30/24 14:15 06/07/24 05:40 17.5 MLS/HR Thiamine HCl 100 mg DAILY IV 06/01/24 10:00 06/07/24 10:09 100 MG Folic Acid 1 mg/ Dextrose 50.2 ml @ 200.8 mls/ hr DAILY INJ 06/01/24 10:00 06/07/24 09:59 200.8 MLS/HR Enteral Nutritional Formula 1,000 ml 30ML/HR GT 06/01/24 11:00 06/06/24 13:01 1,000 ML Levalbuterol HCl 0.625 mg Q6HR NEB 06/01/24 12:00 06/07/24 12:38 0.625 MG Ipratropium [place] 0.5 mg Q6HWA NEB 06/01/24 12:00 06/07/24 12:39 0.5 MG Metoclopramide HCl 5 mg Q8HR GT 06/02/24 14:00 06/07/24 15:04 5 MG Ursodiol 300 mg BID GT 06/02/24 11:00 06/07/24 10:16 300 MG Albumin Human 100 ml @ 100 mls/hr SID PRN IV 06/04/24 04:00 06/05/24 15:00 100 MLS/HR Trimethoprim/ Sulfamethoxazole 10 ml @ 0 mls/hr PER PHARMACY IV 06/04/24 15:30 Trimethoprim/ Sulfamethoxazole 10 ml/Dextrose 260 ml @ 130 mls/hr Q8H IV 06/04/24 17:30 06/07/24 10:04 130 MLS/HR Methylprednisolone Sodium Succinate 40 mg DAILY IV 06/06/24 10:00 06/07/24 10:08 40 MG Rocuronium [place] 1000 mg/ Dextrose 250 ml @ 7.332 mls/ hr Q24H IV 06/05/24 21:15 Levothyroxine Sodium 50 mcg DAILY IV 06/07/24 10:00 06/07/24 10:09 50 MCG Bumetanide 2 mg BIDD IV 06/06/24 18:00 06/07/24 05:20 2 MG Norepinephrine Bitartrate 32 mg/ Sodium Chloride 250 ml @ 0.234 mls/ hr Q24H IV 06/07/24 08:45 Examination General examination- Intubated sedated Eyes: Closed, PEERLA Ears: Normal external anatomy. Throat: Endotracheal tube and orogastric tube in place. Neck: trachea midline. Chest: Transmitted breath sounds bilaterally. Decreased air entry bilaterally. No wheezing. Bibasilar crackles. Cardiovascular: Positive S1, positive S2. Regular rate and rhythm. Abdomen: Mild -distended, mild generalized tenderness to palpation, hypoactive bowel sounds Musculoskeletal: no acute joint swelling or tenderness Extremities showed 2+ pedal edema and she has generalized anasarca Neurological: cranial nerves intact, no acute dysarthria or dysphagia Psychiatry-- Normal mood and affect Skin- no acute rash or purpura laboratory and microbiology Laboratory Tests 06/07/24 03:10 Test 06/07/24 03:10 Range/Units Serum Glucose 116 H 74-106 mg/dL Microbiology Date/Time Source Procedure Growth Status 05/31/24 13:47 Blood Blood Culture - Final NO GROWTH AFTER 5 DAYS OF INCUBATION. Complete 05/30/24 15:15 Nose MRSA Screen - Final Complete 05/30/24 14:15 Bronchial Brushings Gram Stain - Final Complete 05/30/24 14:15 Respiratory Culture - Final Stenotrophomonas maltophilia Complete Problem List/Assessment/Plan Problem List/Assessment/Plan ASSESSMENT Severe anemia hgb 8.4--> 6.9. s/p transfusion; hgb: 8-->7.2, monitor closely and transfuse if less than 7. Iron : 38L, TIBC:118, saturation: 32% folate: 43.16 B12: 2852 Acute transaminitis and hepatic failure due to alcohol abuse --> MADDREY discriminant function is 34.0 point --> Patient steroids at this time --> Recommend decreasing the steroid dose given the leukocytosis Hepatic steatosis with hepatomegaly Hyperthyroidism Acute renal failure due VMN --> Creatinine: 3.08--> 3.88--> 2.32 --> Started dialysis --> Nephrology on board Severe protein malnutrition --> Continue tube feeding Thrombocytopenia likely due to liver cirrhosis --> Plt: 25 --> Vitamin K IV 10 mg daily for 3 days (06/04/2024) Acute hypoxic respiratory failure likely due to aspiration pneumonia? Mucus plugs and atelectasis -->S/P intubation and bronchoscopy Duodenal ulcer disease Constipation --> Fleet enema 06/07/2024 Plan Advance tube feedings to 30 mL/hour. No bowel movement yet, recommend fleet enema and observe Nephrology follow. Had HD yesterday Patient was started on Bactrim for sputum culture showing stenotrophomonas maltophilia Continue ursodiol 300 mg bid via GT ( started on 06/02/2023) Continue Protonix 40 mg IV b.i.d. Continue Carafate 1 g p.o. b.i.d. Transfused 2 unit of RBC 05/31/2024. Monitor hemoglobin and hematocrit Lactulose 30 mL p.o. daily MADDREY discriminant function is 34 point ; Decrease the steroids to once a day because of leukocytosis; patient has received IV Solu-Medrol for several days Currently on levothyroxine 112 mcg q.d. No procedures at this time until patient is more stable. Currently on mechanical ventilation on the following parameters Status post bronchoscopy which showed low and left upper lingula/lower lobe atelectasis due to mucus plugging. There was mucus plugging from L1-L2 10 and R 6-10. Bronchoalveolar lavage was performed as well right middle lobe. Prognosis remains guarded Goal of care discussed for more than 25 minute Plan discussed with Dr. Maya Thank you for allowing us to participate in the care of this patient. Please call if you have any questions or concerns. Plan discussed with: Other (nurse) My Orders My Orders Orders - KALPANA HOOKER RESIDENT Procedure Category Date Status Time Fleet Enema Adult PHA 06/07/24 Logged 17:00 Dietary Evaluation Review Recommendations by RD: PPN/TPN Comments: 1. If NPO > 7 days, initiate EN/TPN. 2. If gut is accessible, consider Jevity 1.2 @ 40 mL/hr. Tf regimen will provide 1,152 kcals, 53g Pro, and 775 mL free H2O (+ 1,200 mL free H2O flushes). TF regimen will meet ~ 91% daily estimated energy needs (20-25 kcal/kg) and ~59% daily estimated protein needs (1.2-2.0 g/kg). 3. Advance to hepatic diet when medically feasible, pending SECURITY AGENT approval. 4. Promote ETOH cessation. Expected Outcomes/Goals: 1. nutritional intake to meet at least 75% estimated needs 2. labs to improve 3. diet to advance 4. f/u in 2-3 days CC Plasma Assessment Blood Product Administration S: [id number] KALPANA HOOKER RESIDENT Jun 07, 2024 17:13
[2024-06-07] MEDS: SODIUM CHL 0.9% 1000 ML BAG XX ONE (17:55)
--- NOTE | 2024-06-07 17:56 | DVHPN2 ---
Progress Note - Dictate Date Seen: Jun 07, 2024 Has the PT tested + for MRSA If YES, has PT been informed?: No Medical Necessity Reason Pt with a Central, PICC or Fol: Yes The following are medically ne: Central Line, Robertson Catheter Reason for robertson catheter: Strict I&O Subjective Patient is intubated and sedated. She is still in the ICU. She had hemodialysis done yesterday Per nurse, patient has not had a bowel movement yet for about few days now. Otherwise no major changes from yesterday. vital signs Vital Sign Date Time Temp Pulse Resp B/P (MAP) Pulse Ox O2 Delivery O2 Flow Rate FiO2 06/07/24 17:43 126/54 06/07/24 16:30 113 22 92 50 06/07/24 16:00 Mechanical Ventilator+ 06/07/24 12:00 98.2 98.2 Total Intake and Output 06/06/24 06/06/24 06/07/24 15:00 23:00 07:00 Intake Total 501.512 ml 236.176 ml 355.736 ml Output Total 0 ml 40 ml Balance 501.512 ml 236.176 ml 315.736 ml medications Current Medications Medications Dose Ordered Sig/Alvaro Route Start Time Stop Time Status Last Admin Dose Admin Lorazepam 2 mg Q4H PO 05/27/24 09:15 Hold 05/28/24 06:10 2 MG Ondansetron HCl 4 mg Q4HP PRN IV 05/27/24 09:15 Nitroglycerin 0.4 mg Q5MINP PRN SL 05/27/24 09:15 Morphine Sulfate 2 mg Q30M PRN IV 05/27/24 09:15 Sucralfate 1 gm QID PO 05/27/24 12:00 Hold 05/28/24 06:11 1 GM Patient Own Medication 1 cap DAILY PO 05/27/24 10:00 UNV Pantoprazole Sodium 40 mg BID IV 05/27/24 22:00 06/07/24 10:06 40 MG Midodrine 10 mg TID@0600,1200,1800 PO 05/27/24 18:00 Hold 05/28/24 06:10 10 MG Midazolam HCl 50 ml @ 1 mls/hr Q24H IV 05/30/24 14:15 06/07/24 15:41 5 MLS/HR Fentanyl Citrate 250 ml @ 2.5 mls/hr Q24H IV 05/30/24 14:15 06/07/24 05:40 17.5 MLS/HR Thiamine HCl 100 mg DAILY IV 06/01/24 10:00 06/07/24 10:09 100 MG Folic Acid 1 mg/ Dextrose 50.2 ml @ 200.8 mls/ hr DAILY INJ 06/01/24 10:00 06/07/24 09:59 200.8 MLS/HR Enteral Nutritional Formula 1,000 ml 30ML/HR GT 06/01/24 11:00 06/06/24 13:01 1,000 ML Levalbuterol HCl 0.625 mg Q6HR NEB 06/01/24 12:00 06/07/24 12:38 0.625 MG Ipratropium [place] 0.5 mg Q6HWA NEB 06/01/24 12:00 06/07/24 12:39 0.5 MG Metoclopramide HCl 5 mg Q8HR GT 06/02/24 14:00 06/07/24 15:04 5 MG Ursodiol 300 mg BID GT 06/02/24 11:00 06/07/24 10:16 300 MG Albumin Human 100 ml @ 100 mls/hr SID PRN IV 06/04/24 04:00 06/05/24 15:00 100 MLS/HR Trimethoprim/ Sulfamethoxazole 10 ml @ 0 mls/hr PER PHARMACY IV 06/04/24 15:30 Trimethoprim/ Sulfamethoxazole 10 ml/Dextrose 260 ml @ 130 mls/hr Q8H IV 06/04/24 17:30 06/07/24 10:04 130 MLS/HR Methylprednisolone Sodium Succinate 40 mg DAILY IV 06/06/24 10:00 06/07/24 10:08 40 MG Rocuronium [place] 1000 mg/ Dextrose 250 ml @ 7.332 mls/ hr Q24H IV 06/05/24 21:15 Levothyroxine Sodium 50 mcg DAILY IV 06/07/24 10:00 06/07/24 10:09 50 MCG Bumetanide 2 mg BIDD IV 06/06/24 18:00 06/07/24 17:43 2 MG Norepinephrine Bitartrate 32 mg/ Sodium Chloride 250 ml @ 0.234 mls/ hr Q24H IV 06/07/24 08:45 objective General: Patient is Intubated sedated HEENT: + scleral icterus Chest: Lung lee clear to auscultation Heart: RRR, no murmur Abdomen: Mild -distended, mild generalized tenderness to palpation, hypoactive bowel sounds Extremities showed 2+ pedal edema and she has generalized anasarca laboratory and microbiology Laboratory Tests 06/07/24 03:10 Test 06/07/24 03:10 Range/Units Serum Glucose 116 H 74-106 mg/dL Assessment/Plan A 58 yo F with Stenotrophomonas Pneumonia Hospital acquired Pneumonia Acute hypoxic respiratory failure on MV Alcoholic liver cirrhosis GI bleed Hepatorenal syndrome ESLD Jaundice Alcohol abuse with alcohol withdrawal Recommendations Steno S to BActrim, continue monitor cell count/ platelets; continue IV bactrim she is oozing blood from ET tube due to coagulopathy due to alcoholic liver cirhosis she is on pressor leucococytosis is secondary to liver failure 05/30, Respiratory culture showed Stenotrophomonas maltophilia 05/30, MRSA screening was negative 05/31, Blood culture showed no growth Critical care time spent with patient 35 minutes. prognosis very poor due to end stage liver disease thank you for opportunity to take care of the patient. Dietary Evaluation Review Recommendations by RD: PPN/TPN Comments: 1. If NPO > 7 days, initiate EN/TPN. 2. If gut is accessible, consider Jevity 1.2 @ 40 mL/hr. Tf regimen will provide 1,152 kcals, 53g Pro, and 775 mL free H2O (+ 1,200 mL free H2O flushes). TF regimen will meet ~ 91% daily estimated energy needs (20-25 kcal/kg) and ~59% daily estimated protein needs (1.2-2.0 g/kg). 3. Advance to hepatic diet when medically feasible, pending CRACKER OFF approval. 4. Promote ETOH cessation. Expected Outcomes/Goals: 1. nutritional intake to meet at least 75% estimated needs 2. labs to improve 3. diet to advance 4. f/u in 2-3 days Plan discussed with: Other CC Plasma Assessment Blood Product Administration S: [id number] MELL PAN MD Jun 07, 2024 17:56
[2024-06-07] MEDS: FLEET ENEMA(ADULT) 135 ML PR ONE (18:12)
--- NOTE | 2024-06-07 18:19 | DVHNC2 ---
Procedure - Bronchoscopy procedure note: Indications: Hemoptysis , rule out active hemorrhage, remove clotted lower lobe atelectasis, Possible mucous plugging with clotted blood. Medicines: See RN FIRST ASSIST notes. Complications: None Procedure: Patient medications and allergies reviewed. The risks and benefits of the procedure and the sedation options and risk were discussed with the patient's healthcare proxy. All questions were answered and informed consent was obtained. Patient identification and proposed procedure were verified prior to the procedure by the physician, and a nurse, and the respiratory therapist in ICU room. The heart rate, respiratory rate, oxygen saturations, blood pressure, adequacy of pulmonary ventilation, and response to care were monitored throughout the procedure. The physical status of the patient was reassessed after the procedure. After obtaining informed consent, the bronchoscope was introduced through the en dotracheal tube and advanced into the trachea bronchial tree of both lungs. The procedure was accomplished without difficulty. The patient tolerated the procedure well. Findings: The trachea is in normal caliber. The diana is sharp. The tracheobronchial tree of the right lung was examined to at least the first subsegmental level. The bronchial mucosa and anatomy in the right lung are normal. There are no endobronchial lesions. There was bloody clotted secretions from right main stem bronchus onward throughout R6-R10. The left upper lobe, lingula, and left lower lobe were examined to at least the first subsegmental level. Bronchial mucosa and anatomy in the left upper lobe and lingula are normal. There were no endobronchial lesions. There was bloody clotted secretions from left main stem bronchus onward throughout L1-L4 and L7- L10. Mucous plugging removed from L7-L10. There was no active bleeding at the completion of the procedure. Estimated blood loss: Less than 5 mL. Impression: Bilateral lower lobe atelectasis due to clotted blood causing mucous plugging Mucous plugging from L7-L10 and R6-R10 Recommendation: Pulmonary toileting. Procedure codes: 94122, bronchoscopy, rigid and flexible, including fluoroscopic guidance, one performed; with bronchial endobronchial removal of clotted blood, single or multiple sites. TAE DUPREE MD Jun 07, 2024 18:19
--- NOTE | 2024-06-07 21:23 | DVHPN2 ---
Progress Note - Dictate Date Seen: Jun 07, 2024 Has the PT tested + for MRSA If YES, has PT been informed?: No Medical Necessity Reason Pt with a Central, PICC or Fol: Yes The following are medically ne: Central Line, Robertson Catheter Reason for robertson catheter: Strict I&O Subjective Patient seen and examined at bedside. Sedated, intubated on mechanical ventilator. Overnight events reviewed. vital signs Vital Sign Date Time Temp Pulse Resp B/P (MAP) Pulse Ox O2 Delivery O2 Flow Rate FiO2 06/07/24 20:37 113 22 112/45 (67) 91 50 06/07/24 18:59 Mechanical Ventilator 06/07/24 16:00 98.1 98.1 Total Intake and Output 06/06/24 06/06/24 06/07/24 15:00 23:00 07:00 Intake Total 501.512 ml 236.176 ml 355.736 ml Output Total 0 ml 40 ml Balance 501.512 ml 236.176 ml 315.736 ml medications Current Medications Medications Dose Ordered Sig/Alvaro Route Start Time Stop Time Status Last Admin Dose Admin Lorazepam 2 mg Q4H PO 05/27/24 09:15 Hold 05/28/24 06:10 2 MG Ondansetron HCl 4 mg Q4HP PRN IV 05/27/24 09:15 Nitroglycerin 0.4 mg Q5MINP PRN SL 05/27/24 09:15 Morphine Sulfate 2 mg Q30M PRN IV 05/27/24 09:15 Sucralfate 1 gm QID PO 05/27/24 12:00 Hold 05/28/24 06:11 1 GM Patient Own Medication 1 cap DAILY PO 05/27/24 10:00 UNV Pantoprazole Sodium 40 mg BID IV 05/27/24 22:00 06/07/24 10:06 40 MG Midodrine 10 mg TID@0600,1200,1800 PO 05/27/24 18:00 Hold 05/28/24 06:10 10 MG Midazolam HCl 50 ml @ 1 mls/hr Q24H IV 05/30/24 14:15 06/07/24 20:45 5 MLS/HR Fentanyl Citrate 250 ml @ 2.5 mls/hr Q24H IV 05/30/24 14:15 06/07/24 20:45 17.5 MLS/HR Thiamine HCl 100 mg DAILY IV 1/1/25 10:00 06/07/24 10:09 100 MG Folic Acid 1 mg/ Dextrose 50.2 ml @ 200.8 mls/ hr DAILY INJ 06/01/24 10:00 06/07/24 09:59 200.8 MLS/HR Enteral Nutritional Formula 1,000 ml 30ML/HR GT 06/01/24 11:00 06/06/24 13:01 1,000 ML Levalbuterol HCl 0.625 mg Q6HR NEB 06/01/24 12:00 06/07/24 19:02 0.625 MG Ipratropium [place] 0.[address] [facility] 06/01/24 12:00 06/07/24 19:02 0.5 MG Metoclopramide HCl 5 mg Q8HR GT 06/02/24 14:00 06/07/24 15:04 5 MG Ursodiol 300 mg BID GT 06/02/24 11:00 06/07/24 10:16 300 MG Albumin Human 100 ml @ 100 mls/hr SID PRN IV 06/04/24 04:00 06/05/24 15:00 100 MLS/HR Trimethoprim/ Sulfamethoxazole 10 ml @ 0 mls/hr PER PHARMACY IV 06/04/24 15:30 Trimethoprim/ Sulfamethoxazole 10 ml/Dextrose 260 ml @ 130 mls/hr Q8H IV 06/04/24 17:30 06/07/24 18:38 130 MLS/HR Methylprednisolone Sodium Succinate 40 mg DAILY IV 06/06/24 10:00 06/07/24 10:08 40 MG Rocuronium [place] 1000 mg/ Dextrose 250 ml @ 7.332 mls/ hr Q24H IV 06/05/24 21:15 Levothyroxine Sodium 50 mcg DAILY IV 06/07/24 10:00 06/07/24 10:09 50 MCG Bumetanide 2 mg BIDD IV 06/06/24 18:00 06/07/24 17:43 2 MG Norepinephrine Bitartrate 32 mg/ Sodium Chloride 250 ml @ 0.234 mls/ hr Q24H IV 06/07/24 08:45 objective Gen.: Patient lying in bed in medical ICU. Sedated, intubated on mechanical ventilator. Head: Normocephalic, atraumatic. Eyes: PERRLA. Ears: Normal external anatomy. Throat: Endotracheal tube and orogastric tube in place. Neck: Supple, trachea midline. Chest: Transmitted breath sounds bilaterally. Decreased air entry bilaterally. No wheezing. Bibasilar crackles. Cardiovascular: Positive S1, positive S2. Regular rate and rhythm. Abdomen: Positive bowel sounds in all 4 quadrants. Soft, nontender, nondistended. : Robertson in place. Normal external genitalia. Rectal: Deferred. Skin: Warm, dry. Intact. Extremities: 2+ radial pulses bilaterally. No lower extremity edema. Neuro: Sedated. laboratory and microbiology Laboratory Tests 06/07/24 03:10 Test 06/07/24 03:10 Range/Units Serum Glucose 116 H 74-106 mg/dL Assessment/Plan Impression: Acute hypoxic respiratory failure On mechanical ventilator Hepatorenal syndrome Leukocytosis Anemia Thrombocytopenia Acute kidney injury Hypokalemia Chronic pancreatitis ETOH abuse Marijuana abuse Events: Remains on vent support On AC mode; RR 22, VT 450, PEEP 8, FiO2 50% Improved FiO2 requirements Platelets dropped to 39 K - continue to monitor Hemoptysis improved. S/p hemodialysis, 1.7 liters removed Continue antibiotics Continue bronchodilators Ursodiol ABG reviewed, compensated. CXR demonstrates diffuse bilateral opacities. No effusion or pneumothorax. Devices in place. She remains on fentanyl and Versed drip for sedation. Pressors for hemodynamic support On Levophed, 7 mcg/min Titrate to keep mean arterial pressure greater than 65 mmHg. Obtain consent for therapeutic bronchoscopy - increased ET tube secretions. Bumex drip for diuresis Monitor renal function Monitor electrolytes. Supplement as necessary. Monitor ins and outs. HD per nephrology Nephrology recommendations appreciated Monitor hemoglobin Tube feeds for nutritional support Labs and imaging reviewed. Rest of plan as noted below. Plan: s/p intubation on mechanical ventilator. On AC mode; RR 22, VT 450, PEEP 8, FiO2 50% Titrate FIO2 to keep O2 saturation above 90%. VAP bundle. Daily ABG and CXR while intubated Sedate for ventilator synchrony Continue bronchodilators. Continue antibiotics. F/u cultures. Pressors for hemodynamic support Titrate to keep mean arterial pressure greater than 65 mmHg. Follow up GI recommendations Follow up Nephrology recommendations Monitor renal function Monitor electrolytes. Supplement as necessary. Monitor ins and outs. Maintain euvolemia. GI prophylaxis. DVT prophylaxis. Prognosis: Poor given patient's multiple co-morbidities. Condition: Critical Rest of plan per hospitalist and other consultants. A total of 35 minutes of critical care time was spent reviewing the patient record, examining the patient, making a diagnostic and therapeutic plan, discussing this plan with the medical personnel, following up on diagnostic studies and following the patient for clinical stability excluding any and all procedures. At least 50% of this time was spent in direct, [id number] contact. Thank you, Dr. Parkinson, for allowing me to participate in this patient's care. Further recommendations will depend on the patient's clinical course. Please do not hesitate to contact me if you have any questions or concerns. This medical document was created using an electronic medical record system with [employer] dictation system. Although these documentations are being carefully reviewed, there may still be some phonetic and typographical changes. The errors are purely typographical, due to imperfection on the software program, and do not reflect any compromise in the patient's medical care. Dietary Evaluation Review Recommendations by RD: PPN/TPN Comments: 1. If NPO > 7 days, initiate EN/TPN. 2. If gut is accessible, consider Jevity 1.2 @ 40 mL/hr. Tf regimen will provide 1,152 kcals, 53g Pro, and 775 mL free H2O (+ 1,200 mL free H2O flushes). TF regimen will meet ~ 91% daily estimated energy needs (20-25 kcal/kg) and ~59% daily estimated protein needs (1.2-2.0 g/kg). 3. Advance to hepatic diet when medically feasible, pending [employer] approval. 4. Promote ETOH cessation. Expected Outcomes/Goals: 1. nutritional intake to meet at least 75% estimated needs 2. labs to improve 3. diet to advance 4. f/u in 2-3 days Plan discussed with: Other (NIKKI Quintanilla) Critical Care Time(min): 35 CC Plasma Assessment Blood Product Administration S: [id number] TAE DUPREE MD Jun 07, 2024 21:23
[2024-06-07] MEDS: EPOETIN ALFA-EPBX 10,000 UNIT/1ML VIAL SC ONE (21:27)
[2024-06-08] VITALS (107 sets, daily range): BP systolic 87–131; BP diastolic 33–60; PULSE 102–111; RESP 13–23; TEMP 97.7–98.7; O2SAT 90–100
[2024-06-08 03:37] LABS: Chloride 101 mmol/L (98-107); Potassium 4.4 mmol/L (3.5-5.1)
[2024-06-08 03:38] LABS: Anion Gap 8 (5-15); Carbon Dioxide 26 mmol/L (20-31)
[2024-06-08 03:39] LABS: Calcium 9.6 mg/dL (8.7-10.4)
[2024-06-08 03:48] LABS: Hemoglobin 7.4 g/dL (12.2-16.2); Platelet Count (auto) 41 10^3/uL (140-450)
[2024-06-08 03:51] LABS: Hematocrit 21.8 % (36.0-46.0); Mean Corpuscular Hemoglobin 37.5 pg (28.0-32.0); Mean Corpuscular Hgb Conc. 33.7 g/dL (32.0-36.0); Mean Corpuscular Volume 111.4 fL (80.0-100.0); Red Blood Cells 1.96 10^6/uL (4.0-5.20)
[2024-06-08 03:57] LABS: Glucose 126 mg/dL (74-106); Sodium 135 mmol/L (136-145)
[2024-06-08 04:06] LABS: BUN/Creatinine Ratio 17.7 (10.0-20.0)
[2024-06-08 04:12] LABS: Blood Urea Nitrogen 45 mg/dL (9-23)
[2024-06-08 04:20] LABS: Red Cell Distribution Width 29.1 % (11.8-14.3); White Blood Cell 31.5 10^3/uL (4.4-10.8)
[2024-06-08 04:22] LABS: Basophils % (manual) 0 (0.0-2.0); Blast Cells 0; Eosinophils % (manual) 0 (0-7); Metamyelocytes % 0; Myelocytes % 0; Promyelocytes % 0; Reactive Lymphocytes 0
--- NOTE | 2024-06-08 04:58 | DVH ---
CHEST RADIOGRAPH Indication: INTUBATED Technique: Single frontal view of the chest was obtained Comparison: XY CHEST PORTABLE on DOS: 06/07/24 FINDINGS: Lines and Tubes: The endotracheal tube terminates 1.7 cm above the diana. The enteric tube courses b elow the left hemidiaphragm and the tip extends outside the field of view. Right central venous trevor ter terminates in the right atrium. Lungs: Patchy bilateral airspace disease. Pleura: No effusion. No pneumothorax. Cardiomediastinal contours: Unremarkable Bones: No acute osseous abnormality. IMPRESSION: 1. Stable position of the support lines and tubes. 2. Bilateral airspace disease representing bilateral edema or pneumonia similar to prior study
[2024-06-08 06:49] LABS: Band Neutrophils % (manual) 5; Lymphocytes % (manual) 1 (10.0-50.0); Monocytes % (manual) 4 (0-12)
[2024-06-08 06:50] LABS: Anisocytosis Marked; Macrocytosis Marked; Platelet Estimate Decreased; Target Cell FEW
[2024-06-08 06:51] LABS: Large Platelets FEW; Stomatocytes Few
[2024-06-08 08:33] LABS: Base Excess -1.8 mmol/L (-2.0-3.0)
--- NOTE | 2024-06-08 09:02 | DVHPN2 ---
Subjective Intubated and sedated Reviewed: Care Plan, H&P, Labs, Medications, Previous Orders, Radiology Changes from previous H/P or p: No Changes General: Per HPI Eyes: No Pain, No Vision change, No Conjunctivae inflammation, No Eyelid inflammation, No Other, No Redness ENT: No Ear pain, No Ear discharge, No Nose pain, No Nose discharge, No Nose congestion, No Mouth pain, No Mouth swelling, No Throat pain, No Throat swelling, No Other Cardiovascular: Chest Pain Respiratory: No Cough, No Dry, No Shortness of breath, No SOB with excertion, No Wheezing, No Hemoptysis, No Pleuritic Pain, No Sputum, No Other Gastrointestinal: Abdominal Pain, Hematochezia Genitourinary: Frequency, Retention Musculoskeletal: No other, No neck pain, No shoulder pain, No arm pain, No back pain, No hand pain, No leg pain, No foot pain Skin: No Rash, No Lesions, No Jaundice, No Bruising, No Other Objective Vitals Vital Signs Date Time Temp Pulse Resp B/P (MAP) Pulse Ox O2 Delivery O2 Flow Rate FiO2 06/08/24 06:10 116/45 06/08/24 06:00 107 06/08/24 06:00 50 06/08/24 06:00 22 97 Mechanical Ventilator+ 06/08/24 04:45 98.7 98.7 Intake/Output Intake and Output 06/08/24 07:00 Intake Total 1804.969 ml Output Total 20 ml Balance 1784.969 ml Intake Oral 95 ml IV Total 1393.969 ml Tube Feeding 316 ml Output Urine Total 20 ml General Appearance: moderate distress, Other HEENT: Atraumatic, PERRLA, Other Lungs: Clear to auscultation, Normal air movement Cardiovascular: Normal S1, Normal S2, Other Abdomen: Normal bowel sounds, Other Musculoskeletal: Other Neuro: Other Skin: Dry, Intact, Other Psych/Mental Status: Other Medications Current Medications Medications Dose Ordered Sig/Alvaro Route Start Time Stop Time Status Last Admin Dose Admin Lorazepam 2 mg Q4H PO 05/27/24 09:15 Hold 05/28/24 06:10 2 MG Ondansetron HCl 4 mg Q4HP PRN IV 05/27/24 09:15 Nitroglycerin 0.4 mg Q5MINP PRN SL 05/27/24 09:15 Morphine Sulfate 2 mg Q30M PRN IV 05/27/24 09:15 Sucralfate 1 gm QID PO 05/27/24 12:00 Hold 05/28/24 06:11 1 GM Patient Own Medication 1 cap DAILY PO 05/27/24 10:00 UNV Pantoprazole Sodium 40 mg BID IV 05/27/24 22:00 06/07/24 21:27 40 MG Midodrine 10 mg TID@0600,1200,1800 PO 05/27/24 18:00 Hold 05/28/24 06:10 10 MG Midazolam HCl 50 ml @ 1 mls/hr Q24H IV 05/30/24 14:15 06/07/24 20:45 5 MLS/HR Fentanyl Citrate 250 ml @ 2.5 mls/hr Q24H IV 05/30/24 14:15 06/07/24 20:45 17.5 MLS/HR Thiamine HCl 100 mg DAILY IV 06/01/24 10:00 06/07/24 10:09 100 MG Folic Acid 1 mg/ Dextrose 50.2 ml @ 200.8 mls/ hr DAILY INJ 06/01/24 10:00 06/07/24 09:59 200.8 MLS/HR Enteral Nutritional Formula 1,000 ml 30ML/HR GT 06/01/24 11:00 06/06/24 13:01 1,000 ML Levalbuterol HCl 0.625 mg Q6HR NEB 06/01/24 12:00 06/08/24 07:03 0.625 MG Ipratropium [place] 0.5 mg Q6HWA [facility] 06/01/24 12:00 06/08/24 07:03 0.5 MG Metoclopramide HCl 5 mg Q8HR GT 06/02/24 14:00 06/08/24 06:09 5 MG Ursodiol 300 mg BID GT 06/02/24 11:00 06/07/24 22:02 300 MG Albumin Human 100 ml @ 100 mls/hr SID PRN IV 06/04/24 04:00 06/05/24 15:00 100 MLS/HR Trimethoprim/ Sulfamethoxazole 10 ml @ 0 mls/hr PER PHARMACY IV 06/04/24 15:30 Trimethoprim/ Sulfamethoxazole 10 ml/Dextrose 260 ml @ 130 mls/hr Q8H IV 06/04/24 17:30 1/8/25 01:52 130 MLS/HR Methylprednisolone Sodium Succinate 40 mg DAILY IV 06/06/24 10:00 06/07/24 10:08 40 MG Levothyroxine Sodium 50 mcg DAILY IV 06/07/24 10:00 06/07/24 10:09 50 MCG Bumetanide 2 mg BIDD IV 06/06/24 18:00 06/08/24 06:10 2 MG Norepinephrine Bitartrate 32 mg/ Sodium Chloride 250 ml @ 0.234 mls/ hr Q24H IV 06/07/24 08:45 Laboratory Results Laboratory Tests 06/08/24 03:04 Chemistry Test 06/08/24 03:04 Calcium Level 9.6 mg/dL (8.7-10.4) Urinalysis Test 05/28/24 21:45 Urine Color Yellow (Yellow) Urine Clarity Clear (Clear) Urine pH 6.5 (5.0-9.0) Urine Specific [place] 1.005 (1.001-1.035) Urine Protein Trace (Negative) H Urine Ketones Negative (Negative) Urine Blood 3+ /uL (Negative) H Urine Nitrite Negative (Negative) Urine Bilirubin Negative (Negative) Urine Urobilinogen 4 mg/dL (Negative) H Urine Leukocyte Esterase Trace /uL (Negative) Urine RBC 21 /hpf (0 - 4) Urine WBC 109 /hpf (0 - 5) Urine Squamous Epithelial Cells None seen /hpf (<5) Urine Bacteria None seen /hpf (None Seen) Urine Glucose Normal mg/dL (Normal) Blood Gas Results Test 06/08/24 07:52 Arterial Blood pH 7.380 (7.350-7.450) FiO2 % 50.0 Microbiology Microbiology Date/Time Source Procedure Growth Status 05/31/24 13:47 Blood Blood Culture - Final NO GROWTH AFTER 5 DAYS OF INCUBATION. Complete 05/30/24 15:15 Nose MRSA Screen - Final Complete 05/30/24 14:15 Bronchial Brushings Gram Stain - Final Complete 05/30/24 14:15 Respiratory Culture - Final Stenotrophomonas maltophilia Complete Labs and/or images reviewed: Labs reviewed by me, Image(s) reviewed by me Assessment/Plan Assessment/Plan Impression: -acute hypoxic respiratory failure with mechanical ventilation -sepsis secondary to pneumonia -probable aspiration pneumonia -alcoholism -alcohol-related liver disease -acute kidney injury, vasomotor nephropathy -hypothyroidism, supratherapeutic coverage -severe protein malnutrition -thrombocytopenia -alcohol withdrawal Plan: Events: Repeat bronchoscopy yesterday evening. Decreasing bleeding noting. FiO2 currently at 50%, +8, SpO2 99%. Recommend to decrease PEEP as well as FiO2. Resume tube feeding today. Reassess for spontaneous breathing trial in a.m.. -continue tube feeding , Nepro -continue current ventilator settings per pulmonology -antibiotic therapy: Bactrim. ID consultation was placed. -continue Actigall -continue thiamine, MVI -continue norepinephrine drip to keep systolic blood pressure greater than 95 mmHg -bronchodilators -PUD prophylaxis -SCDs -repeat labs, chest x-ray, ABG in a.m. Critical care time spent with patient discussing and formulating plan of care: 40 minutes. This does not include time spent performing procedures. This medical document was created using an electronic medical record system with [employer] dictation system. Although this document has been carefully reviewed, there may still be some phonetic and typographical errors. These areas are purely typographical due to imperfections of the software programs, and do not reflect any compromise in the patient's medical care. Plan discussed with: Patient, Other (RN) Date of Service: Jun 08, 2024 Billing Provider: MADI RYDER NP Common Visit Codes: 74824-[id number] CARE 30-74 MIN MADI RYDER NP Jun 08, 2024 09:02
--- NOTE | 2024-06-08 12:55 | MEDREC ---
[facility] Intervention Section I [facility] Intervention: Review courses of therapy (PLEASE CONSIDER ADDING MINOCYCLINE TO BACTRIM A COMBINATION THERAPY FOR TREATMENT OF MODERATELY- SEVERE OR SEVERE INFECTION WITH STENOTROPHOMONAS PNEUMONIA) NANCY JOHNSON PHARMACIST Jun 08, 2024 12:55
--- NOTE | 2024-06-08 17:10 | DVHPN2 ---
Progress Note - Dictate Date Seen: Jun 08, 2024 Has the PT tested + for MRSA If YES, has PT been informed?: No Medical Necessity Reason Pt with a Central, PICC or Fol: Yes The following are medically ne: Central Line, Robertson Catheter Reason for robertson catheter: Strict I&O Subjective Patient is intubated sedated in the ICU 106 Patient is tolerating tube feedings at 30 mL/hour She had hypoactive bowel sounds and no bowel movement recorded yet Patient has generalized anasarca and fluid retention Liver enzymes are persistently elevated No active GI bleeding reported vital signs Vital Sign Date Time Temp Pulse Resp B/P (MAP) Pulse Ox O2 Delivery O2 Flow Rate FiO2 06/08/24 15:31 107 22 93/43 (60) 97 45 06/08/24 12:00 97.7 97.7 06/08/24 12:00 Mechanical Ventilator+ Total Intake and Output 06/07/24 06/07/24 06/08/24 15:00 23:00 07:00 Intake Total 515.514 ml 714.314 ml 626.235 ml Output Total 0 ml 20 ml Balance 515.514 ml 714.314 ml 606.235 ml medications Current Medications Medications Dose Ordered Sig/Alvaro Route Start Time Stop Time Status Last Admin Dose Admin Lorazepam 2 mg Q4H PO 05/27/24 09:15 Hold 05/28/24 06:10 2 MG Ondansetron HCl 4 mg Q4HP PRN IV 05/27/24 09:15 Nitroglycerin 0.4 mg Q5MINP PRN SL 05/27/24 09:15 Morphine Sulfate 2 mg Q30M PRN IV 05/27/24 09:15 Sucralfate 1 gm QID PO 05/27/24 12:00 Hold 05/28/24 06:11 1 GM Patient Own Medication 1 cap DAILY PO 05/27/24 10:00 UNV Pantoprazole Sodium 40 mg BID IV 05/27/24 22:00 06/08/24 09:13 40 MG Midodrine 10 mg TID@0600,1200,1800 PO 05/27/24 18:00 Hold 05/28/24 06:10 10 MG Midazolam HCl 50 ml @ 1 mls/hr Q24H IV 05/30/24 14:15 06/08/24 09:13 5 MLS/HR Fentanyl Citrate 250 ml @ 2.5 mls/hr Q24H IV 05/30/24 14:15 06/08/24 12:12 17.5 MLS/HR Thiamine HCl 100 mg DAILY IV 06/01/24 10:00 06/08/24 09:14 100 MG Folic Acid 1 mg/ Dextrose 50.2 ml @ 200.8 mls/ hr DAILY INJ 06/01/24 10:00 06/08/24 09:26 200.8 MLS/HR Enteral Nutritional Formula 1,000 ml 30ML/HR GT 06/01/24 11:00 06/08/24 08:00 1,000 ML Levalbuterol HCl 0.625 mg Q6HR NEB 06/01/24 12:00 06/08/24 11:42 0.625 MG Ipratropium [place] 0.5 mg Q6HWA NEB 06/01/24 12:00 06/08/24 11:42 0.5 MG Metoclopramide HCl 5 mg Q8HR GT 06/02/24 14:00 06/08/24 14:00 5 MG Ursodiol 300 mg BID GT 06/02/24 11:00 06/08/24 09:15 300 MG Albumin Human 100 ml @ 100 mls/hr SID PRN IV 06/04/24 04:00 06/05/24 15:00 100 MLS/HR Trimethoprim/ Sulfamethoxazole 10 ml @ 0 mls/hr PER PHARMACY IV 06/04/24 15:30 Trimethoprim/ Sulfamethoxazole 10 ml/Dextrose 260 ml @ 130 mls/hr Q8H IV 06/04/24 17:30 06/08/24 09:26 130 MLS/HR Methylprednisolone Sodium Succinate 40 mg DAILY IV 06/06/24 10:00 06/08/24 09:13 40 MG Levothyroxine Sodium 50 mcg DAILY IV 06/07/24 10:00 06/08/24 09:13 50 MCG Bumetanide 2 mg BIDD IV 06/06/24 18:00 06/08/24 06:10 2 MG Norepinephrine Bitartrate 32 mg/ Sodium Chloride 250 ml @ 0.234 mls/ hr Q24H IV 06/07/24 08:45 06/08/24 09:19 3.047 MLS/HR objective General: Intubated sedated HEENT: + scleral icterus Chest: lung lee clear to auscultation Heart: RRR, no murmur Abdomen: Mild -distended, mild generalized tenderness to palpation, hypoactive bowel sounds Extremities showed 2+ pedal edema and she has generalized anasarca laboratory and microbiology Laboratory Tests 06/08/24 03:04 Test 06/08/24 03:04 Range/Units Serum Glucose 126 H 74-106 mg/dL Problems(with codes): (1) Anasarca (2) Acute renal failure (3) Duodenal ulcer disease (4) Elevated LFTs (5) Hepatic steatosis (6) Abdominal pain (7) Hepatic failure (8) Jaundice Prognosis Plan Continue tube feedings Continue MiraLax or lactulose via NG tube Repeat labs in a.m. Dietary Evaluation Review Recommendations by RD: PPN/TPN Comments: 1. If NPO > 7 days, initiate EN/TPN. 2. If gut is accessible, consider Jevity 1.2 @ 40 mL/hr. Tf regimen will provide 1,152 kcals, 53g Pro, and 775 mL free H2O (+ 1,200 mL free H2O flushes). TF regimen will meet ~ 91% daily estimated energy needs (20-25 kcal/kg) and ~59% daily estimated protein needs (1.2-2.0 g/kg). 3. Advance to hepatic diet when medically feasible, pending GAME BIRD FARMER approval. 4. Promote ETOH cessation. Expected Outcomes/Goals: 1. nutritional intake to meet at least 75% estimated needs 2. labs to improve 3. diet to advance 4. f/u in 2-3 days Plan discussed with: Other (Samantha Ballard) CC Plasma Assessment Blood Product Administration S: [id number] JARROD PATEL MD Jun 08, 2024 17:10
--- NOTE | 2024-06-08 17:42 | DVHPN2 ---
Progress Note Date Seen: Jun 08, 2024 Has the PT tested + for MRSA If YES, has PT been informed?: No Medical Necessity Reason Pt with a Central, PICC or Fol: Yes The following are medically ne: Central Line, Robertson Catheter Reason for robertson catheter: Strict I&O Subjective Patient reports: Other Review of Systems: Deferred Objective vital signs Vital Sign Date Time Temp Pulse Resp B/P (MAP) Pulse Ox O2 Delivery O2 Flow Rate FiO2 06/08/24 15:31 107 22 93/43 (60) 97 45 06/08/24 12:00 97.7 97.7 06/08/24 12:00 Mechanical Ventilator+ Total Intake and Output 06/07/24 06/07/24 06/08/24 15:00 23:00 07:00 Intake Total 515.514 ml 714.314 ml 626.235 ml Output Total 0 ml 20 ml Balance 515.514 ml 714.314 ml 606.235 ml medications Current Medications Medications Dose Ordered Sig/Alvaro Route Start Time Stop Time Status Last Admin Dose Admin Lorazepam 2 mg Q4H PO 05/27/24 09:15 Hold 05/28/24 06:10 2 MG Ondansetron HCl 4 mg Q4HP PRN IV 05/27/24 09:15 Nitroglycerin 0.4 mg Q5MINP PRN SL 05/27/24 09:15 Morphine Sulfate 2 mg Q30M PRN IV 05/27/24 09:15 Sucralfate 1 gm QID PO 05/27/24 12:00 Hold 05/28/24 06:11 1 GM Patient Own Medication 1 cap DAILY PO 05/27/24 10:00 UNV Pantoprazole Sodium 40 mg BID IV 05/27/24 22:00 06/08/24 09:13 40 MG Midodrine 10 mg TID@0600,1200,1800 PO 05/27/24 18:00 Hold 05/28/24 06:10 10 MG Midazolam HCl 50 ml @ 1 mls/hr Q24H IV 05/30/24 14:15 06/08/24 09:13 5 MLS/HR Fentanyl Citrate 250 ml @ 2.5 mls/hr Q24H IV 05/30/24 14:15 06/08/24 12:12 17.5 MLS/HR Thiamine HCl 100 mg DAILY IV 06/01/24 10:00 06/08/24 09:14 100 MG Folic Acid 1 mg/ Dextrose 50.2 ml @ 200.8 mls/ hr DAILY INJ 06/01/24 10:00 06/08/24 09:26 200.8 MLS/HR Enteral Nutritional Formula 1,000 ml 30ML/HR GT 06/01/24 11:00 06/08/24 17:16 1,000 ML Levalbuterol HCl 0.625 mg Q6HR NEB 06/01/24 12:00 06/08/24 11:42 0.625 MG Ipratropium [place] 0.5 mg Q6HWA NEB 06/01/24 12:00 06/08/24 11:42 0.5 MG Metoclopramide HCl 5 mg Q8HR GT 06/02/24 14:00 06/08/24 14:00 5 MG Ursodiol 300 mg BID GT 06/02/24 11:00 06/08/24 09:15 300 MG Albumin Human 100 ml @ 100 mls/hr SID PRN IV 06/04/24 04:00 06/05/24 15:00 100 MLS/HR Trimethoprim/ Sulfamethoxazole 10 ml @ 0 mls/hr PER PHARMACY IV 06/04/24 15:30 Trimethoprim/ Sulfamethoxazole 10 ml/Dextrose 260 ml @ 130 mls/hr Q8H IV 06/04/24 17:30 06/08/24 17:16 130 MLS/HR Methylprednisolone Sodium Succinate 40 mg DAILY IV 06/06/24 10:00 06/08/24 09:13 40 MG Levothyroxine Sodium 50 mcg DAILY IV 06/07/24 10:00 06/08/24 09:13 50 MCG Bumetanide 2 mg BIDD IV 06/06/24 18:00 06/08/24 06:10 2 MG Norepinephrine Bitartrate 32 mg/ Sodium Chloride 250 ml @ 0.234 mls/ hr Q24H IV 06/07/24 08:45 06/08/24 09:19 3.047 MLS/HR laboratory and microbiology Laboratory Tests 06/08/24 03:04 Test 06/08/24 03:04 Range/Units Serum Glucose 126 H 74-106 mg/dL Microbiology Date/Time Source Procedure Growth Status 05/31/24 13:47 Blood Blood Culture - Final NO GROWTH AFTER 5 DAYS OF INCUBATION. Complete 05/30/24 15:15 Nose MRSA Screen - Final Complete 05/30/24 14:15 Bronchial Brushings Gram Stain - Final Complete 05/30/24 14:15 Respiratory Culture - Final Stenotrophomonas maltophilia Complete Problem List/Assessment/Plan Problem List/Assessment/Plan Acute kidney injury multifactorial in the setting of hypotension /ATN EtOH hepatic disease Anasarca decompensated liver disease Acute respiratory failure hypoxic Pneumonia Jaundice Hypoalbuminemia Macrocytic anemia Thrombocytopenia sepsis PNA recs HD 06/09 intubated Plan discussed with: Other Dietary Evaluation Review Recommendations by RD: PPN/TPN Comments: 1. If NPO > 7 days, initiate EN/TPN. 2. If gut is accessible, consider Jevity 1.2 @ 40 mL/hr. Tf regimen will provide 1,152 kcals, 53g Pro, and 775 mL free H2O (+ 1,200 mL free H2O flushes). TF regimen will meet ~ 91% daily estimated energy needs (20-25 kcal/kg) and ~59% daily estimated protein needs (1.2-2.0 g/kg). 3. Advance to hepatic diet when medically feasible, pending CHEMICAL INSPECTOR approval. 4. Promote ETOH cessation. Expected Outcomes/Goals: 1. nutritional intake to meet at least 75% estimated needs 2. labs to improve 3. diet to advance 4. f/u in 2-3 days CC Plasma Assessment Blood Product Administration S: [id number] DOMI PENA MD Jun 08, 2024 17:41
--- NOTE | 2024-06-08 21:11 | DVHPN2 ---
Progress Note - Dictate Date Seen: Jun 08, 2024 Has the PT tested + for MRSA If YES, has PT been informed?: No Medical Necessity Reason Pt with a Central, PICC or Fol: Yes The following are medically ne: Central Line, Robertson Catheter Reason for robertson catheter: Strict I&O Subjective Patient is intubated and sedated. She is still in the ICU. MV . 50% FIO2 Patient has generalized anasarca and fluid retention. Liver enzymes are persistently elevated vital signs Vital Sign Date Time Temp Pulse Resp B/P (MAP) Pulse Ox O2 Delivery O2 Flow Rate FiO2 06/08/24 20:10 107 22 115/49 (71) 92 50 06/08/24 18:48 Mechanical Ventilator 06/08/24 16:00 97.7 97.7 Total Intake and Output 06/07/24 06/07/24 06/08/24 15:00 23:00 07:00 Intake Total 515.514 ml 714.314 ml 626.235 ml Output Total 0 ml 20 ml Balance 515.514 ml 714.314 ml 606.235 ml medications Current Medications Medications Dose Ordered Sig/Alvaro Route Start Time Stop Time Status Last Admin Dose Admin Lorazepam 2 mg Q4H PO 05/27/24 09:15 Hold 05/28/24 06:10 2 MG Ondansetron HCl 4 mg Q4HP PRN IV 05/27/24 09:15 Nitroglycerin 0.4 mg Q5MINP PRN SL 05/27/24 09:15 Morphine Sulfate 2 mg Q30M PRN IV 05/27/24 09:15 Sucralfate 1 gm QID PO 05/27/24 12:00 Hold 05/28/24 06:11 1 GM Patient Own Medication 1 cap DAILY PO 05/27/24 10:00 UNV Pantoprazole Sodium 40 mg BID IV 05/27/24 22:00 06/08/24 09:13 40 MG Midodrine 10 mg TID@0600,1200,1800 PO 05/27/24 18:00 Hold 05/28/24 06:10 10 MG Midazolam HCl 50 ml @ 1 mls/hr Q24H IV 05/30/24 14:15 06/08/24 19:31 5 MLS/HR Fentanyl Citrate 250 ml @ 2.5 mls/hr Q24H IV 05/30/24 14:15 06/08/24 12:12 17.5 MLS/HR Thiamine HCl 100 mg DAILY IV 06/01/24 10:00 06/08/24 09:14 100 MG Folic Acid 1 mg/ Dextrose 50.2 ml @ 200.8 mls/ hr DAILY INJ 06/01/24 10:00 06/08/24 09:26 200.8 MLS/HR Enteral Nutritional Formula 1,000 ml 30ML/HR GT 06/01/24 11:00 06/08/24 17:16 1,000 ML Levalbuterol HCl 0.625 mg Q6HR NEB 06/01/24 12:00 06/08/24 18:48 0.625 MG Ipratropium [place] 0.5 mg Q6HWA NEB 06/01/24 12:00 06/08/24 18:48 0.5 MG Metoclopramide HCl 5 mg Q8HR GT 06/02/24 14:00 06/08/24 14:00 5 MG Ursodiol 300 mg BID GT 06/02/24 11:00 06/08/24 09:15 300 MG Albumin Human 100 ml @ 100 mls/hr SID PRN IV 06/04/24 04:00 06/05/24 15:00 100 MLS/HR Trimethoprim/ Sulfamethoxazole 10 ml @ 0 mls/hr PER PHARMACY IV 06/04/24 15:30 Trimethoprim/ Sulfamethoxazole 10 ml/Dextrose 260 ml @ 130 mls/hr Q8H IV 06/04/24 17:30 06/08/24 17:16 130 MLS/HR Methylprednisolone Sodium Succinate 40 mg DAILY IV 06/06/24 10:00 06/08/24 09:13 40 MG Levothyroxine Sodium 50 mcg DAILY IV 06/07/24 10:00 06/08/24 09:13 50 MCG Bumetanide 2 mg BIDD IV 06/06/24 18:00 06/08/24 17:49 2 MG Norepinephrine Bitartrate 32 mg/ Sodium Chloride 250 ml @ 0.234 mls/ hr Q24H IV 06/07/24 08:45 06/08/24 09:19 3.047 MLS/HR objective General: Patient is Intubated sedated HEENT: + scleral icterus Chest: Lung lee clear to auscultation Heart: RRR, no murmur Abdomen: Mild -distended, mild generalized tenderness to palpation, hypoactive bowel sounds Extremities showed 2+ pedal edema and she has generalized anasarca laboratory and microbiology Laboratory Tests 06/08/24 03:04 Test 06/08/24 03:04 Range/Units Serum Glucose 126 H 74-106 mg/dL Assessment/Plan A 58 yo F with Stenotrophomonas Pneumonia Hospital acquired Pneumonia Acute hypoxic respiratory failure on MV Alcoholic liver cirrhosis GI bleed Hepatorenal syndrome ESLD Jaundice Alcohol abuse with alcohol withdrawal coagulopathy Recommendations Steno S to Bactrim, continue monitor cell count/ platelets; continue IV bactrim; monitor CBC she is on pressor 05/30, Respiratory culture showed Stenotrophomonas maltophilia 05/30, MRSA screening was negative 05/31, Blood culture showed no growth Critical care time spent with patient 35 minutes. prognosis very poor consider goals of care discussion thank you for opportunity to take care of the patient. Dietary Evaluation Review Recommendations by RD: PPN/TPN Comments: 1. If NPO > 7 days, initiate EN/TPN. 2. If gut is accessible, consider Jevity 1.2 @ 40 mL/hr. Tf regimen will provide 1,152 kcals, 53g Pro, and 775 mL free H2O (+ 1,200 mL free H2O flushes). TF regimen will meet ~ 91% daily estimated energy needs (20-25 kcal/kg) and ~59% daily estimated protein needs (1.2-2.0 g/kg). 3. Advance to hepatic diet when medically feasible, pending MUSIC MANAGER approval. 4. Promote ETOH cessation. Expected Outcomes/Goals: 1. nutritional intake to meet at least 75% estimated needs 2. labs to improve 3. diet to advance 4. f/u in 2-3 days Plan discussed with: Other CC Plasma Assessment Blood Product Administration S: [id number] MELL PAN MD Jun 08, 2024 21:11
--- NOTE | 2024-06-08 21:35 | DVHPN2 ---
Progress Note - Dictate Date Seen: Jun 08, 2024 Has the PT tested + for MRSA If YES, has PT been informed?: No Medical Necessity Reason Pt with a Central, PICC or Fol: Yes The following are medically ne: Central Line, Robertson Catheter Reason for robertson catheter: Strict I&O Subjective Patient seen and examined at bedside. Sedated, intubated on mechanical ventilator. Overnight events reviewed. vital signs Vital Sign Date Time Temp Pulse Resp B/P (MAP) Pulse Ox O2 Delivery O2 Flow Rate FiO2 06/08/24 20:10 107 22 115/49 (71) 92 50 06/08/24 18:48 Mechanical Ventilator 06/08/24 16:00 97.7 97.7 Total Intake and Output 06/07/24 06/07/24 06/08/24 15:00 23:00 07:00 Intake Total 515.514 ml 714.314 ml 626.235 ml Output Total 0 ml 20 ml Balance 515.514 ml 714.314 ml 606.235 ml medications Current Medications Medications Dose Ordered Sig/Alvaro Route Start Time Stop Time Status Last Admin Dose Admin Lorazepam 2 mg Q4H PO 05/27/24 09:15 Hold 05/28/24 06:10 2 MG Ondansetron HCl 4 mg Q4HP PRN IV 05/27/24 09:15 Nitroglycerin 0.4 mg Q5MINP PRN SL 05/27/24 09:15 Morphine Sulfate 2 mg Q30M PRN IV 05/27/24 09:15 Sucralfate 1 gm QID PO 05/27/24 12:00 Hold 05/28/24 06:11 1 GM Patient Own Medication 1 cap DAILY PO 05/27/24 10:00 UNV Pantoprazole Sodium 40 mg BID IV 05/27/24 22:00 06/08/24 09:13 40 MG Midodrine 10 mg TID@0600,1200,1800 PO 05/27/24 18:00 Hold 05/28/24 06:10 10 MG Midazolam HCl 50 ml @ 1 mls/hr Q24H IV 05/30/24 14:15 06/08/24 19:31 5 MLS/HR Fentanyl Citrate 250 ml @ 2.5 mls/hr Q24H IV 05/30/24 14:15 06/08/24 12:12 17.5 MLS/HR Thiamine HCl 100 mg DAILY IV 06/01/24 10:00 06/08/24 09:14 100 MG Folic Acid 1 mg/ Dextrose 50.2 ml @ 200.8 mls/ hr DAILY INJ 06/01/24 10:00 06/08/24 09:26 200.8 MLS/HR Enteral Nutritional Formula 1,000 ml 30ML/HR GT 06/01/24 11:00 06/08/24 17:16 1,000 ML Levalbuterol HCl 0.625 mg Q6HR NEB 06/01/24 12:00 06/08/24 18:48 0.625 MG Ipratropium [place] 0.5 mg Q6HWA [facility] 06/01/24 12:00 06/08/24 18:48 0.5 MG Metoclopramide HCl 5 mg Q8HR GT 06/02/24 14:00 06/08/24 14:00 5 MG Ursodiol 300 mg BID GT 06/02/24 11:00 06/08/24 09:15 300 MG Albumin Human 100 ml @ 100 mls/hr SID PRN IV 06/04/24 04:00 06/05/24 15:00 100 MLS/HR Trimethoprim/ Sulfamethoxazole 10 ml @ 0 mls/hr PER PHARMACY IV 06/04/24 15:30 Trimethoprim/ Sulfamethoxazole 10 ml/Dextrose 260 ml @ 130 mls/hr Q8H IV 06/04/24 17:30 06/08/24 17:16 130 MLS/HR Methylprednisolone Sodium Succinate 40 mg DAILY IV 06/06/24 10:00 06/08/24 09:13 40 MG Levothyroxine Sodium 50 mcg DAILY IV 06/07/24 10:00 06/08/24 09:13 50 MCG Bumetanide 2 mg BIDD IV 06/06/24 18:00 06/08/24 17:49 2 MG Norepinephrine Bitartrate 32 mg/ Sodium Chloride 250 ml @ 0.234 mls/ hr Q24H IV 06/07/24 08:45 06/08/24 09:19 3.047 MLS/HR objective Gen.: Patient lying in bed in medical ICU. Sedated, intubated on mechanical ventilator. Head: Normocephalic, atraumatic. Eyes: PERRLA. Ears: Normal external anatomy. Throat: Endotracheal tube and orogastric tube in place. Neck: Supple, trachea midline. Chest: Transmitted breath sounds bilaterally. Decreased air entry bilaterally. No wheezing. Bibasilar crackles. Cardiovascular: Positive S1, positive S2. Regular rate and rhythm. Abdomen: Positive bowel sounds in all 4 quadrants. Soft, nontender, nondistended. : Robertson in place. Normal external genitalia. Rectal: Deferred. Skin: Warm, dry. Intact. Extremities: 2+ radial pulses bilaterally. No lower extremity edema. Neuro: Sedated. laboratory and microbiology Laboratory Tests 06/08/24 03:04 Test 06/08/24 03:04 Range/Units Serum Glucose 126 H 74-106 mg/dL Assessment/Plan Impression: Acute hypoxic respiratory failure On mechanical ventilator Hepatorenal syndrome Leukocytosis Anemia Thrombocytopenia Acute kidney injury Hypokalemia Chronic pancreatitis ETOH abuse Marijuana abuse Events: Remains on vent support On AC mode; RR 22, VT 450, PEEP 8 --> 6, FiO2 50% Taper FiO2 as tolerated She remains on fentanyl and Versed drip for sedation. Pressors for hemodynamic support On Levophed, 5 mcg/min Titrate to keep mean arterial pressure greater than 65 mmHg. Hemoptysis improved. Continue antibiotics -on Bactrim Continue bronchodilators Ursodiol ABG reviewed, compensated. Increased peak pressures. CXR demonstrates patchy bilateral airspace disease. No effusion or pneumothorax. Devices in place. S/p therapeutic bronchoscopy on 06/07/24 - Cleared mucous plugging from L7-L10 and R6-R10. Please see separate procedure note for details. Bumex drip for diuresis Monitor renal function Monitor electrolytes. Supplement as necessary. Monitor ins and outs. HD per nephrology Nephrology recommendations appreciated Monitor hemoglobin Monitor platelets. Tube feeds for nutritional support Labs and imaging reviewed. Rest of plan as noted below. Plan: s/p intubation on mechanical ventilator. On AC mode; RR 22, VT 450, PEEP 6, FiO2 50% Titrate FIO2 to keep O2 saturation above 90%. VAP bundle. Daily ABG and CXR while intubated Sedate for ventilator synchrony Continue bronchodilators. Continue antibiotics. F/u cultures. Pressors for hemodynamic support Titrate to keep mean arterial pressure greater than 65 mmHg. Follow up GI recommendations Follow up Nephrology recommendations Monitor renal function Monitor electrolytes. Supplement as necessary. Monitor ins and outs. Maintain euvolemia. GI prophylaxis. DVT prophylaxis. Prognosis: Poor given patient's multiple co-morbidities. Condition: Critical Rest of plan per hospitalist and other consultants. A total of 35 minutes of critical care time was spent reviewing the patient record, examining the patient, making a diagnostic and therapeutic plan, discussing this plan with the medical personnel, following up on diagnostic studies and following the patient for clinical stability excluding any and all procedures. At least 50% of this time was spent in direct, [id number] contact. Thank you, Dr. Parkinson, for allowing me to participate in this patient's care. Further recommendations will depend on the patient's clinical course. Please do not hesitate to contact me if you have any questions or concerns. This medical document was created using an electronic medical record system with [employer] dictation system. Although these documentations are being carefully reviewed, there may still be some phonetic and typographical changes. The errors are purely typographical, due to imperfection on the software program, and do not reflect any compromise in the patient's medical care. Dietary Evaluation Review Recommendations by RD: PPN/TPN Comments: 1. If NPO > 7 days, initiate EN/TPN. 2. If gut is accessible, consider Jevity 1.2 @ 40 mL/hr. Tf regimen will provide 1,152 kcals, 53g Pro, and 775 mL free H2O (+ 1,200 mL free H2O flushes). TF regimen will meet ~ 91% daily estimated energy needs (20-25 kcal/kg) and ~59% daily estimated protein needs (1.2-2.0 g/kg). 3. Advance to hepatic diet when medically feasible, pending PUBLISHING SPECIALIST approval. 4. Promote ETOH cessation. Expected Outcomes/Goals: 1. nutritional intake to meet at least 75% estimated needs 2. labs to improve 3. diet to advance 4. f/u in 2-3 days Plan discussed with: Other (NIKKI Quintanilla) Critical Care Time(min): 35 CC Plasma Assessment Blood Product Administration S: [id number] TAE DUPREE MD Jun 08, 2024 21:35
[2024-06-09] VITALS (106 sets, daily range): BP systolic 88–131; BP diastolic 35–55; PULSE 95–113; RESP 15–23; TEMP 97.2–98.8; O2SAT 90–98
[2024-06-09 03:47] LABS: Hemoglobin 7.9 g/dL (12.2-16.2)
[2024-06-09 03:50] LABS: Hematocrit 23.8 % (36.0-46.0); Mean Corpuscular Hemoglobin 37.3 pg (28.0-32.0); Mean Corpuscular Hgb Conc. 33.2 g/dL (32.0-36.0); Mean Corpuscular Volume 112.2 fL (80.0-100.0); Platelet Count (auto) 54 10^3/uL (140-450); Red Blood Cells 2.12 10^6/uL (4.0-5.20)
[2024-06-09 04:09] LABS: Anion Gap 10 (5-15); Calcium 9.4 mg/dL (8.7-10.4); Carbon Dioxide 23 mmol/L (20-31); Chloride 98 mmol/L (98-107); Potassium 4.7 mmol/L (3.5-5.1)
[2024-06-09 04:19] LABS: Alkaline Phosphatase 240 U/L (46-116); Glucose 125 mg/dL (74-106); Sodium 131 mmol/L (136-145)
[2024-06-09 04:21] LABS: Blood Urea Nitrogen 59 mg/dL (9-23)
[2024-06-09 04:22] LABS: Alanine Aminotransferase 246 U/L (7-40); Aspartate Aminotransferase 392 U/L (13-40); Total Protein 4.8 g/dL (5.7-8.2)
[2024-06-09 04:26] LABS: Basophils % (manual) 0 (0.0-2.0); Blast Cells 0; Eosinophils % (manual) 0 (0-7); Metamyelocytes % 0; Promyelocytes % 0; Reactive Lymphocytes 0; White Blood Cell 31.3 10^3/uL (4.4-10.8)
--- NOTE | 2024-06-09 04:59 | DVH ---
CHEST RADIOGRAPH Indication: INTUBATED Technique: Single frontal view of the chest was obtained Comparison: XY CHEST PORTABLE on DOS: 06/08/24 FINDINGS: Lines and Tubes: The endotracheal tube terminates 2.7 cm above the diana. Right central venous trevor ter from right IJ and right subclavian approach both terminate in the superior cavoatrial junction. E nteric tube courses below the left hemidiaphragm and outside the field of view. Lungs: Bilateral opacities similar to prior study. Pleura: No effusion. No pneumothorax. Cardiomediastinal contours: Stable. Bones: No acute osseous abnormality. IMPRESSION: 1. No significant interval change.
[2024-06-09 05:14] LABS: Band Neutrophils % (manual) 2; Lymphocytes % (manual) 2 (10.0-50.0); Monocytes % (manual) 3 (0-12); Myelocytes % 1
[2024-06-09 05:15] LABS: Anisocytosis Moderate; Large Platelets FEW; Macrocytosis Marked; Platelet Estimate Decreased; Stomatocytes Few; Target Cell FEW
[2024-06-09 07:08] LABS: Base Excess -3.7 mmol/L (-2.0-3.0)
--- NOTE | 2024-06-09 08:01 | DVHPN2 ---
Subjective Intubated and sedated Reviewed: Care Plan, H&P, Labs, Medications, Previous Orders, Radiology Changes from previous H/P or p: No Changes General: Per HPI Eyes: No Pain, No Vision change, No Conjunctivae inflammation, No Eyelid inflammation, No Other, No Redness ENT: No Ear pain, No Ear discharge, No Nose pain, No Nose discharge, No Nose congestion, No Mouth pain, No Mouth swelling, No Throat pain, No Throat swelling, No Other Cardiovascular: Chest Pain Respiratory: No Cough, No Dry, No Shortness of breath, No SOB with excertion, No Wheezing, No Hemoptysis, No Pleuritic Pain, No Sputum, No Other Gastrointestinal: Abdominal Pain, Hematochezia Genitourinary: Frequency, Retention Musculoskeletal: No other, No neck pain, No shoulder pain, No arm pain, No back pain, No hand pain, No leg pain, No foot pain Skin: No Rash, No Lesions, No Jaundice, No Bruising, No Other Objective Vitals Vital Signs Date Time Temp Pulse Resp B/P (MAP) Pulse Ox O2 Delivery O2 Flow Rate FiO2 06/09/24 07:26 104 22 113/40 (64) 96 45 06/09/24 06:00 Mechanical Ventilator+ 06/09/24 04:00 97.7 97.7 Intake/Output Intake and Output 06/09/24 07:00 Intake Total 2078.990 ml Output Total 45 ml Balance 2033.990 ml Intake Oral 195 ml IV Total 1403.990 ml Tube Feeding 480 ml Output Urine Total 45 ml General Appearance: moderate distress, Other HEENT: Atraumatic, PERRLA, Other Lungs: Clear to auscultation, Normal air movement Cardiovascular: Normal S1, Normal S2, Other Abdomen: Normal bowel sounds, Other Musculoskeletal: Other Neuro: Other Skin: Dry, Intact, Other Psych/Mental Status: Other Medications Current Medications Medications Dose Ordered Sig/Alvaro Route Start Time Stop Time Status Last Admin Dose Admin Lorazepam 2 mg Q4H PO 05/27/24 09:15 Hold 05/28/24 06:10 2 MG Ondansetron HCl 4 mg Q4HP PRN IV 05/27/24 09:15 Nitroglycerin 0.4 mg Q5MINP PRN SL 05/27/24 09:15 Morphine Sulfate 2 mg Q30M PRN IV 05/27/24 09:15 Sucralfate 1 gm QID PO 05/27/24 12:00 Hold 05/28/24 06:11 1 GM Patient Own Medication 1 cap DAILY PO 05/27/24 10:00 UNV Pantoprazole Sodium 40 mg BID IV 05/27/24 22:00 06/08/24 21:50 40 MG Midodrine 10 mg TID@0600,1200,1800 PO 05/27/24 18:00 Hold 05/28/24 06:10 10 MG Midazolam HCl 50 ml @ 1 mls/hr Q24H IV 05/30/24 14:15 06/09/24 03:57 5 MLS/HR Fentanyl Citrate 250 ml @ 2.5 mls/hr Q24H IV 05/30/24 14:15 06/09/24 02:23 17.5 MLS/HR Thiamine HCl 100 mg DAILY IV 06/01/24 10:00 06/08/24 09:14 100 MG Folic Acid 1 mg/ Dextrose 50.2 ml @ 200.8 mls/ hr DAILY INJ 06/01/24 10:00 06/08/24 09:26 200.8 MLS/HR Enteral Nutritional Formula 1,000 ml 30ML/HR GT 06/01/24 11:00 06/09/24 06:09 1,000 ML Levalbuterol HCl 0.625 mg Q6HR [facility] 06/01/24 12:00 06/09/24 00:24 0.625 MG Ipratropium [place] 0.5 mg Q6HWA [facility] 06/01/24 12:00 06/08/24 18:48 0.5 MG Metoclopramide HCl 5 mg Q8HR GT 06/02/24 14:00 06/09/24 06:06 5 MG Ursodiol 300 mg BID GT 06/02/24 11:00 06/08/24 21:50 300 MG Albumin Human 100 ml @ 100 mls/hr SID PRN IV 06/04/24 04:00 06/05/24 15:00 100 MLS/HR Trimethoprim/ Sulfamethoxazole 10 ml @ 0 mls/hr PER PHARMACY IV 06/04/24 15:30 Trimethoprim/ Sulfamethoxazole 10 ml/Dextrose 260 ml @ 130 mls/hr Q8H IV 06/04/24 17:30 06/09/24 01:39 130 MLS/HR Methylprednisolone Sodium Succinate 40 mg DAILY IV 06/06/24 10:00 06/08/24 09:13 40 MG Levothyroxine Sodium 50 mcg DAILY IV 06/07/24 10:00 06/08/24 09:13 50 MCG Bumetanide 2 mg BIDD IV 06/06/24 18:00 06/09/24 06:07 2 MG Norepinephrine Bitartrate 32 mg/ Sodium Chloride 250 ml @ 0.234 mls/ hr Q24H IV 06/07/24 08:45 06/08/24 09:19 3.047 MLS/HR Laboratory Results Laboratory Tests 06/09/24 03:22 Chemistry Test 06/09/24 03:22 Albumin 3.0 g/dL (3.2-4.8) L Calcium Level 9.4 mg/dL (8.7-10.4) Total Protein 4.8 g/dL (5.7-8.2) L LFT Test 06/09/24 03:22 Alanine Aminotransferase (ALT) 246 U/L (7-40) H Alkaline Phosphatase 240 U/L (46-116) H Aspartate Amino Transferase (AST) 392 U/L (13-40) H Total Bilirubin 22.0 mg/dL (0.2-1.0) H Urinalysis Test 05/28/24 21:45 Urine Color Yellow (Yellow) Urine Clarity Clear (Clear) Urine pH 6.5 (5.0-9.0) Urine Specific [place] 1.005 (1.001-1.035) Urine Protein Trace (Negative) H Urine Ketones Negative (Negative) Urine Blood 3+ /uL (Negative) H Urine Nitrite Negative (Negative) Urine Bilirubin Negative (Negative) Urine Urobilinogen 4 mg/dL (Negative) H Urine Leukocyte Esterase Trace /uL (Negative) Urine RBC 21 /hpf (0 - 4) Urine WBC 109 /hpf (0 - 5) Urine Squamous Epithelial Cells None seen /hpf (<5) Urine Bacteria None seen /hpf (None Seen) Urine Glucose Normal mg/dL (Normal) Blood Gas Results Test 06/09/24 06:59 Arterial Blood pH 7.368 (7.350-7.450) FiO2 % 50.0 Microbiology Microbiology Date/Time Source Procedure Growth Status 05/31/24 13:47 Blood Blood Culture - Final NO GROWTH AFTER 5 DAYS OF INCUBATION. Complete 05/30/24 15:15 Nose MRSA Screen - Final Complete 05/30/24 14:15 Bronchial Brushings Gram Stain - Final Complete 05/30/24 14:15 Respiratory Culture - Final Stenotrophomonas maltophilia Complete Labs and/or images reviewed: Labs reviewed by me, Image(s) reviewed by me Assessment/Plan Assessment/Plan Impression: -acute hypoxic respiratory failure with mechanical ventilation -sepsis secondary to pneumonia -probable aspiration pneumonia -alcoholism -alcohol-related liver disease -acute kidney injury, vasomotor nephropathy -hypothyroidism, supratherapeutic coverage -severe protein malnutrition -thrombocytopenia -alcohol withdrawal Plan: Events: Patient had no events overnight. White blood cell count still elevated. Afebrile. Vasopressor therapy being weaned down. Repeat blood culture. Continue current antibiotic therapy with Bactrim for noted stenotrophomonas maltophilia -continue tube feeding , Nepro -continue current ventilator settings per pulmonology -antibiotic therapy: Bactrim. ID consultation was placed. -continue Actigall -continue thiamine, MVI -continue norepinephrine drip to keep systolic blood pressure greater than 95 mmHg -bronchodilators -PUD prophylaxis -SCDs -repeat labs, chest x-ray, ABG in a.m. Critical care time spent with patient discussing and formulating plan of care: 40 minutes. This does not include time spent performing procedures. This medical document was created using an electronic medical record system with [employer] dictation system. Although this document has been carefully reviewed, there may still be some phonetic and typographical errors. These areas are purely typographical due to imperfections of the software programs, and do not reflect any compromise in the patient's medical care. Plan discussed with: Patient, Other (RN) My Orders Orders - MADI RYDER NP Procedure Category Date Status Time Ventilator Orders RT 06/08/24 Transmitted 11:22 Blood Culture SAYDA 06/09/24 Logged 07:12 Date of Service: Jun 09, 2024 Billing Provider: MADI RYDER NP Common Visit Codes: 70823-[id number] CARE 30-74 MIN MADI RYDER NP Jun 09, 2024 08:01
[2024-06-09 12:49] LABS: Hepatitis B Surface Antibody Negative (Negative)
[2024-06-09 13:08] LABS: Hepatitis B Surface Antigen Negative (Negative)
--- NOTE | 2024-06-09 17:01 | DVHPN2 ---
Progress Note Date Seen: Jun 09, 2024 Resident Creating Document: KALPANA HOOKER RESIDENT Has the PT tested + for MRSA If YES, has PT been informed?: No Medical Necessity Reason Pt with a Central, PICC or Fol: Yes The following are medically ne: Central Line, Robertson Catheter Reason for robertson catheter: Strict I&O Medical Necessity Reason Intubated and sedated Subjective Review of Systems patient seen and examined. still in ICU, intubated and sedated No significant changes compared to days before. However, her respiration is improved a bit. Fio2 is now 45%. No bowel movement since 06/02/2023. she reglan and still no bowel movement blood workup shows WBC: 31.3 HGB: 7.9 PLT: 54 CMP LFT: up trending T.YAMILKA: 22 AST: 392. ALT: 246, MERLYN: 240 on IV fluid, fentanyl, versed and norepinephrine Objective vital signs Vital Sign Date Time Temp Pulse Resp B/P (MAP) Pulse Ox O2 Delivery O2 Flow Rate FiO2 06/09/24 16:05 102 22 122/44 (70) 94 40 06/09/24 16:00 Mechanical Ventilator+ 06/09/24 14:00 97.2 97.2 Total Intake and Output 06/08/24 06/08/24 06/09/24 15:00 23:00 07:00 Intake Total 511.330 ml 797.752 ml 794.752 ml Output Total 20 ml 25 ml Balance 511.330 ml 777.752 ml 769.752 ml medications Current Medications Medications Dose Ordered Sig/Alvaro Route Start Time Stop Time Status Last Admin Dose Admin Lorazepam 2 mg Q4H PO 05/27/24 09:15 Hold 05/28/24 06:10 2 MG Ondansetron HCl 4 mg Q4HP PRN IV 05/27/24 09:15 Nitroglycerin 0.4 mg Q5MINP PRN SL 05/27/24 09:15 Morphine Sulfate 2 mg Q30M PRN IV 05/27/24 09:15 Sucralfate 1 gm QID PO 05/27/24 12:00 Hold 05/28/24 06:11 1 GM Patient Own Medication 1 cap DAILY PO 05/27/24 10:00 UNV Pantoprazole Sodium 40 mg BID IV 05/27/24 22:00 06/09/24 10:09 40 MG Midodrine 10 mg TID@0600,1200,1800 PO 05/27/24 18:00 Hold 05/28/24 06:10 10 MG Midazolam HCl 50 ml @ 1 mls/hr Q24H IV 05/30/24 14:15 06/09/24 12:03 5 MLS/HR Fentanyl Citrate 250 ml @ 2.5 mls/hr Q24H IV 05/30/24 14:15 06/09/24 16:03 17.5 MLS/HR Thiamine HCl 100 mg DAILY IV 06/01/24 10:00 06/09/24 10:10 100 MG Folic Acid 1 mg/ Dextrose 50.2 ml @ 200.8 mls/ hr DAILY INJ 06/01/24 10:00 06/09/24 10:14 200.8 MLS/HR Enteral Nutritional Formula 1,000 ml 30ML/HR GT 06/01/24 11:00 06/09/24 06:09 1,000 ML Levalbuterol HCl 0.625 mg Q6HR NEB 06/01/24 12:00 06/09/24 13:45 0.625 MG Ipratropium [place] 0.5 mg Q6HWA NEB 06/01/24 12:00 06/09/24 13:45 0.5 MG Metoclopramide HCl 5 mg Q8HR GT 06/02/24 14:00 06/09/24 14:07 5 MG Ursodiol 300 mg BID GT 06/02/24 11:00 06/09/24 10:11 300 MG Albumin Human 100 ml @ 100 mls/hr SID PRN IV 06/04/24 04:00 06/05/24 15:00 100 MLS/HR Trimethoprim/ Sulfamethoxazole 10 ml @ 0 mls/hr PER PHARMACY IV 06/04/24 15:30 Trimethoprim/ Sulfamethoxazole 10 ml/Dextrose 260 ml @ 130 mls/hr Q8H IV 06/04/24 17:30 06/09/24 10:11 130 MLS/HR Methylprednisolone Sodium Succinate 40 mg DAILY IV 06/06/24 10:00 06/09/24 10:09 40 MG Levothyroxine Sodium 50 mcg DAILY IV 06/07/24 10:00 06/08/24 09:13 50 MCG Bumetanide 2 mg BIDD IV 06/06/24 18:00 06/09/24 06:07 2 MG Norepinephrine Bitartrate 32 mg/ Sodium Chloride 250 ml @ 0.234 mls/ hr Q24H IV 06/07/24 08:45 06/08/24 09:19 3.047 MLS/HR Examination General examination- Intubated and sedated, generalized edema Eyes: Closed, PEERLA Ears: Normal external anatomy. Throat: Endotracheal tube and orogastric tube in place. Neck: trachea midline. Chest: Transmitted breath sounds bilaterally. Decreased air entry bilaterally. No wheezing. Bibasilar crackles. Cardiovascular: Positive S1, positive S2. Regular rate and rhythm. Abdomen: Mild -distended, mild generalized tenderness to palpation, hypoactive bowel sounds Musculoskeletal: no acute joint swelling or tenderness Extremities showed 2+ pedal edema and she has generalized anasarca Neurological: cranial nerves intact, no acute dysarthria or dysphagia Psychiatry-- Normal mood and affect Skin- no acute rash or purpura laboratory and microbiology Laboratory Tests 06/09/24 03:22 Test 06/09/24 03:22 Range/Units Serum Glucose 125 H 74-106 mg/dL Microbiology Date/Time Source Procedure Growth Status 05/31/24 13:47 Blood Blood Culture - Final NO GROWTH AFTER 5 DAYS OF INCUBATION. Complete 05/30/24 15:15 Nose MRSA Screen - Final Complete 05/30/24 14:15 Bronchial Brushings Gram Stain - Final Complete 05/30/24 14:15 Respiratory Culture - Final Stenotrophomonas maltophilia Complete Problem List/Assessment/Plan Problem List/Assessment/Plan ASSESSMENT Severe anemia hgb 8.4--> 6.9 s/p transfusion; hgb: 8-->7.2,---->>7.9 monitor closely and transfuse if less than 7. Iron : 38L, TIBC:118, saturation: 32% folate: 43.16 B12: 2852 Acute transaminitis and hepatic failure due to alcohol abuse --> MADDREY discriminant function is 34.0 point --> Patient steroids at this time --> Recommend decreasing the steroid dose given the leukocytosis Hepatic steatosis with hepatomegaly Hyperthyroidism Acute renal failure due VMN --> Creatinine: 3.08--> 3.88--> 2.32--> 3.11 --> Started dialysis --> Nephrology on board Severe protein malnutrition --> Continue tube feeding Thrombocytopenia likely due to liver cirrhosis --> Plt: 25--> 54 --> Vitamin K IV 10 mg daily for 3 days (06/04/2024) Acute hypoxic respiratory failure likely due to aspiration pneumonia? Mucus plugs and atelectasis -->S/P intubation and bronchoscopy Duodenal ulcer disease Constipation --> Fleet enema 06/07/2024 Plan Continue 30 mL/hour. No bowel movement yet; Continue MiraLax or lactulose via NG tube Nephrology follow. Had HD yesterday Patient was started on Bactrim for sputum culture showing stenotrophomonas maltophilia Continue ursodiol 300 mg bid via GT ( started on 06/02/2023) Continue Protonix 40 mg IV b.i.d. Continue Carafate 1 g p.o. b.i.d. Transfused 2 unit of RBC 05/31/2024. Monitor hemoglobin and hematocrit [facility] discriminant function is 34 point ; Decrease the steroids to once a day because of leukocytosis; patient has received IV Solu-Medrol for several days Currently on levothyroxine 112 mcg q.d. No procedures at this time until patient is more stable. Currently on mechanical ventilation on the following parameters Status post bronchoscopy which showed low and left upper lingula/lower lobe atelectasis due to mucus plugging. There was mucus plugging from L1-L2 10 and R 6-10. Bronchoalveolar lavage was performed as well right middle lobe. Prognosis remains guarded Goal of care discussed for more than 25 minute Plan discussed with Dr. Maya Thank you for allowing us to participate in the care of this patient. Please call if you have any questions or concerns. Plan discussed with: Other (nurse) Dietary Evaluation Review Recommendations by RD: PPN/TPN Comments: 1. If NPO > 7 days, initiate EN/TPN. 2. If gut is accessible, consider Jevity 1.2 @ 40 mL/hr. Tf regimen will provide 1,152 kcals, 53g Pro, and 775 mL free H2O (+ 1,200 mL free H2O flushes). TF regimen will meet ~ 91% daily estimated energy needs (20-25 kcal/kg) and ~59% daily estimated protein needs (1.2-2.0 g/kg). 3. Advance to hepatic diet when medically feasible, pending [employer] approval. 4. Promote ETOH cessation. Expected Outcomes/Goals: 1. nutritional intake to meet at least 75% estimated needs 2. labs to improve 3. diet to advance 4. f/u in 2-3 days CC Plasma Assessment Blood Product Administration S: [id number] KALPANA HOOKER RESIDENT Jun 09, 2024 17:01
--- NOTE | 2024-06-09 17:58 | DVHPN2 ---
Progress Note - Dictate Date Seen: Jun 09, 2024 Has the PT tested + for MRSA If YES, has PT been informed?: No Medical Necessity Reason Pt with a Central, PICC or Fol: Yes The following are medically ne: Central Line, Robertson Catheter Reason for robertson catheter: Strict I&O Subjective Patient is intubated and sedated. She is still in the ICU. Her respiration is improved a bit. Fio2 is now 45%. No bowel movement since 06/02/2023. She still no bowel movement. Patient has generalized anasarca and fluid retention. Liver enzymes are persistently elevated vital signs Vital Sign Date Time Temp Pulse Resp B/P (MAP) Pulse Ox O2 Delivery O2 Flow Rate FiO2 06/09/24 17:33 128/40 06/09/24 17:00 105 22 93 06/09/24 16:05 40 06/09/24 16:00 97.7 97.7 06/09/24 16:00 Mechanical Ventilator+ Total Intake and Output 06/08/24 06/08/24 06/09/24 15:00 23:00 07:00 Intake Total 511.330 ml 797.752 ml 794.752 ml Output Total 20 ml 25 ml Balance 511.330 ml 777.752 ml 769.752 ml medications Current Medications Medications Dose Ordered Sig/Alvaro Route Start Time Stop Time Status Last Admin Dose Admin Lorazepam 2 mg Q4H PO 05/27/24 09:15 Hold 05/28/24 06:10 2 MG Ondansetron HCl 4 mg Q4HP PRN IV 05/27/24 09:15 Nitroglycerin 0.4 mg Q5MINP PRN SL 05/27/24 09:15 Morphine Sulfate 2 mg Q30M PRN IV 05/27/24 09:15 Sucralfate 1 gm QID PO 05/27/24 12:00 Hold 05/28/24 06:11 1 GM Patient Own Medication 1 cap DAILY PO 05/27/24 10:00 UNV Pantoprazole Sodium 40 mg BID IV 05/27/24 22:00 06/09/24 10:09 40 MG Midodrine 10 mg TID@0600,1200,1800 PO 05/27/24 18:00 Hold 05/28/24 06:10 10 MG Midazolam HCl 50 ml @ 1 mls/hr Q24H IV 05/30/24 14:15 06/09/24 12:03 5 MLS/HR Fentanyl Citrate 250 ml @ 2.5 mls/hr Q24H IV 05/30/24 14:15 06/09/24 16:03 17.5 MLS/HR Thiamine HCl 100 mg DAILY IV 06/01/24 10:00 06/09/24 10:10 100 MG Folic Acid 1 mg/ Dextrose 50.2 ml @ 200.8 mls/ hr DAILY INJ 06/01/24 10:00 06/09/24 10:14 200.8 MLS/HR Enteral Nutritional Formula 1,000 ml 30ML/HR GT 06/01/24 11:00 06/09/24 06:09 1,000 ML Levalbuterol HCl 0.625 mg Q6HR NEB 06/01/24 12:00 06/09/24 13:45 0.625 MG Ipratropium [place] 0.5 mg Q6HWA NEB 06/01/24 12:00 06/09/24 13:45 0.5 MG Metoclopramide HCl 5 mg Q8HR GT 06/02/24 14:00 06/09/24 14:07 5 MG Ursodiol 300 mg BID GT 06/02/24 11:00 06/09/24 10:11 300 MG Albumin Human 100 ml @ 100 mls/hr SID PRN IV 06/04/24 04:00 06/05/24 15:00 100 MLS/HR Trimethoprim/ Sulfamethoxazole 10 ml @ 0 mls/hr PER PHARMACY IV 06/04/24 15:30 Trimethoprim/ Sulfamethoxazole 10 ml/Dextrose 260 ml @ 130 mls/hr Q8H IV 06/04/24 17:30 06/09/24 17:32 130 MLS/HR Methylprednisolone Sodium Succinate 40 mg DAILY IV 06/06/24 10:00 06/09/24 10:09 40 MG Levothyroxine Sodium 50 mcg DAILY IV 06/07/24 10:00 06/08/24 09:13 50 MCG Bumetanide 2 mg BIDD IV 06/06/24 18:00 06/09/24 17:33 2 MG Norepinephrine Bitartrate 32 mg/ Sodium Chloride 250 ml @ 0.234 mls/ hr Q24H IV 06/07/24 08:45 06/08/24 09:19 3.047 MLS/HR objective General: Patient is Intubated sedated HEENT: + scleral icterus Chest: Lung lee clear to auscultation Heart: RRR, no murmur Abdomen: Mild -distended, mild generalized tenderness to palpation, hypoactive bowel sounds Extremities showed 2+ pedal edema and she has generalized anasarca laboratory and microbiology Laboratory Tests 06/09/24 03:22 Test 06/09/24 03:22 Range/Units Serum Glucose 125 H 74-106 mg/dL Assessment/Plan A 58 yo F with Stenotrophomonas Pneumonia Hospital acquired Pneumonia Acute hypoxic respiratory failure on MV Alcoholic liver cirrhosis GI bleed Hepatorenal syndrome ESLD Jaundice Alcohol abuse with alcohol withdrawal Recommendations WBC elevated Steno S to Bactrim, continue monitor cell count/ platelets; continue IV bactrim she is oozing blood from ET tube due to coagulopathy due to alcoholic liver cirrhosis she is on pressor. 05/30, Respiratory culture showed Stenotrophomonas maltophilia 05/30, MRSA screening was negative 05/31, Blood culture showed no growth Critical care time spent with patient 35 minutes. prognosis very poor consider goals of care discussion. thank you for opportunity to take care of the patient. Dietary Evaluation Review Recommendations by RD: PPN/TPN Comments: 1. If NPO > 7 days, initiate EN/TPN. 2. If gut is accessible, consider Jevity 1.2 @ 40 mL/hr. Tf regimen will provide 1,152 kcals, 53g Pro, and 775 mL free H2O (+ 1,200 mL free H2O flushes). TF regimen will meet ~ 91% daily estimated energy needs (20-25 kcal/kg) and ~59% daily estimated protein needs (1.2-2.0 g/kg). 3. Advance to hepatic diet when medically feasible, pending [employer] approval. 4. Promote ETOH cessation. Expected Outcomes/Goals: 1. nutritional intake to meet at least 75% estimated needs 2. labs to improve 3. diet to advance 4. f/u in 2-3 days Plan discussed with: Other CC Plasma Assessment Blood Product Administration S: [id number] MELL PAN MD Jun 09, 2024 17:57
[2024-06-09] MEDS: LACTULOSE 20Gm/30ML SOLN PO SCH (21:29)
--- NOTE | 2024-06-09 23:36 | DVHPN2 ---
Progress Note - Dictate Date Seen: Jun 09, 2024 Has the PT tested + for MRSA If YES, has PT been informed?: No Medical Necessity Reason Pt with a Central, PICC or Fol: Yes The following are medically ne: Central Line, Robertson Catheter Reason for robertson catheter: Strict I&O Subjective Patient seen and examined at bedside. Sedated, intubated on mechanical ventilator. Overnight events reviewed. vital signs Vital Sign Date Time Temp Pulse Resp B/P (MAP) Pulse Ox O2 Delivery O2 Flow Rate FiO2 06/09/24 22:25 105 22 112/44 (66) 95 50 06/09/24 22:00 Mechanical Ventilator+ 06/09/24 18:15 98.1 98.1 Total Intake and Output 06/08/24 06/08/24 06/09/24 15:00 23:00 07:00 Intake Total 511.330 ml 797.752 ml 794.752 ml Output Total 20 ml 25 ml Balance 511.330 ml 777.752 ml 769.752 ml medications Current Medications Medications Dose Ordered Sig/Alvaro Route Start Time Stop Time Status Last Admin Dose Admin Lorazepam 2 mg Q4H PO 05/27/24 09:15 Hold 05/28/24 06:10 2 MG Ondansetron HCl 4 mg Q4HP PRN IV 05/27/24 09:15 Nitroglycerin 0.4 mg Q5MINP PRN SL 05/27/24 09:15 Morphine Sulfate 2 mg Q30M PRN IV 05/27/24 09:15 Sucralfate 1 gm QID PO 05/27/24 12:00 Hold 05/28/24 06:11 1 GM Patient Own Medication 1 cap DAILY PO 05/27/24 10:00 UNV Pantoprazole Sodium 40 mg BID IV 05/27/24 22:00 06/09/24 21:09 40 MG Midodrine 10 mg TID@0600,1200,1800 PO 05/27/24 18:00 Hold 05/28/24 06:10 10 MG Midazolam HCl 50 ml @ 1 mls/hr Q24H IV 05/30/24 14:15 06/09/24 21:09 5 MLS/HR Fentanyl Citrate 250 ml @ 2.5 mls/hr Q24H IV 05/30/24 14:15 06/09/24 16:03 17.5 MLS/HR Thiamine HCl 100 mg DAILY IV 06/01/24 10:00 06/09/24 10:10 100 MG Folic Acid 1 mg/ Dextrose 50.2 ml @ 200.8 mls/ hr DAILY INJ 06/01/24 10:00 06/09/24 10:14 200.8 MLS/HR Enteral Nutritional Formula 1,000 ml 30ML/HR GT 06/01/24 11:00 06/09/24 06:09 1,000 ML Levalbuterol HCl 0.625 mg Q6HR NEB 06/01/24 12:00 06/09/24 18:47 0.625 MG Ipratropium [place] 0.5 mg Q6HWA NEB 06/01/24 12:00 06/09/24 18:47 0.5 MG Metoclopramide HCl 5 mg Q8HR GT 06/02/24 14:00 06/09/24 21:09 5 MG Ursodiol 300 mg BID GT 06/02/24 11:00 06/09/24 21:09 300 MG Albumin Human 100 ml @ 100 mls/hr SID PRN IV 06/04/24 04:00 06/05/24 15:00 100 MLS/HR Trimethoprim/ Sulfamethoxazole 10 ml @ 0 mls/hr PER PHARMACY IV 06/04/24 15:30 Trimethoprim/ Sulfamethoxazole 10 ml/Dextrose 260 ml @ 130 mls/hr Q8H IV 06/04/24 17:30 06/09/24 17:32 130 MLS/HR Methylprednisolone Sodium Succinate 40 mg DAILY IV 06/06/24 10:00 06/09/24 10:09 40 MG Levothyroxine Sodium 50 mcg DAILY IV 06/07/24 10:00 06/08/24 09:13 50 MCG Bumetanide 2 mg BIDD IV 06/06/24 18:00 06/09/24 17:33 2 MG Norepinephrine Bitartrate 32 mg/ Sodium Chloride 250 ml @ 0.234 mls/ hr Q24H IV 06/07/24 08:45 06/08/24 09:19 3.047 MLS/HR Lactulose 30 ml BID PO 06/09/24 22:00 06/09/24 21:29 30 ML objective Gen.: Patient lying in bed in medical ICU. Sedated, intubated on mechanical ventilator. Head: Normocephalic, atraumatic. Eyes: PERRLA. Ears: Normal external anatomy. Throat: Endotracheal tube and orogastric tube in place. Neck: Supple, trachea midline. Chest: Transmitted breath sounds bilaterally. Decreased air entry bilaterally. No wheezing. Bibasilar crackles. Cardiovascular: Positive S1, positive S2. Regular rate and rhythm. Abdomen: Positive bowel sounds in all 4 quadrants. Soft, nontender, nondistended. : Robertson in place. Normal external genitalia. Rectal: Deferred. Skin: Warm, dry. Intact. Extremities: 2+ radial pulses bilaterally. No lower extremity edema. Neuro: Sedated. laboratory and microbiology Laboratory Tests 06/09/24 03:22 Test 06/09/24 03:22 Range/Units Serum Glucose 125 H 74-106 mg/dL Assessment/Plan Impression: Acute hypoxic respiratory failure On mechanical ventilator Hepatorenal syndrome Leukocytosis Anemia Thrombocytopenia Acute kidney injury Hypokalemia Chronic pancreatitis ETOH abuse Marijuana abuse Events: Remains on vent support On AC mode; RR 22, VT 450, PEEP 6, FiO2 50% --> 40% Taper FiO2 as tolerated She remains on fentanyl and Versed drip for sedation. Pressors for hemodynamic support On Levophed, 7 mcg/min Titrate to keep mean arterial pressure greater than 65 mmHg. Hemoptysis improved. Hemodialysis today Continue antibiotics -on Bactrim Continue bronchodilators Ursodiol ABG reviewed, compensated. CXR demonstrates bilateral opacities similar to prior. No effusion or pneumothorax. Devices in place. Bumex drip for diuresis Monitor renal function Monitor electrolytes. Supplement as necessary. Monitor ins and outs. HD per nephrology Monitor hemoglobin Monitor platelets - 54 K. Tube feeds for nutritional support Taper sedation CPAP in AM 06/07/24 - S/p therapeutic bronchoscopy. Cleared mucous plugging from L7-L10 and R6-R10. Please see separate procedure note for details. Labs and imaging reviewed. Rest of plan as noted below. Plan: s/p intubation on mechanical ventilator. On AC mode; RR 22, VT 450, PEEP 6, FiO2 40% Titrate FIO2 to keep O2 saturation above 90%. VAP bundle. Daily ABG and CXR while intubated Sedate for ventilator synchrony Continue bronchodilators. Continue antibiotics. F/u cultures. Pressors for hemodynamic support Titrate to keep mean arterial pressure greater than 65 mmHg. Follow up GI recommendations Follow up Nephrology recommendations Monitor renal function Monitor electrolytes. Supplement as necessary. Monitor ins and outs. Maintain euvolemia. GI prophylaxis. DVT prophylaxis. Prognosis: Poor given patient's multiple co-morbidities. Condition: Critical Rest of plan per hospitalist and other consultants. A total of 35 minutes of critical care time was spent reviewing the patient record, examining the patient, making a diagnostic and therapeutic plan, discussing this plan with the medical personnel, following up on diagnostic studies and following the patient for clinical stability excluding any and all procedures. At least 50% of this time was spent in direct, [id number] contact. Thank you, Dr. Parkinson, for allowing me to participate in this patient's care. Further recommendations will depend on the patient's clinical course. Please do not hesitate to contact me if you have any questions or concerns. This medical document was created using an electronic medical record system with [employer] dictation system. Although these documentations are being carefully reviewed, there may still be some phonetic and typographical changes. The errors are purely typographical, due to imperfection on the software program, and do not reflect any compromise in the patient's medical care. Dietary Evaluation Review Recommendations by RD: PPN/TPN Comments: 1. If NPO > 7 days, initiate EN/TPN. 2. If gut is accessible, consider Jevity 1.2 @ 40 mL/hr. Tf regimen will provide 1,152 kcals, 53g Pro, and 775 mL free H2O (+ 1,200 mL free H2O flushes). TF regimen will meet ~ 91% daily estimated energy needs (20-25 kcal/kg) and ~59% daily estimated protein needs (1.2-2.0 g/kg). 3. Advance to hepatic diet when medically feasible, pending [employer]ILRO[employer]CH[employer] AGENT approval. 4. Promote ETOH cessation. Expected Outcomes/Goals: 1. nutritional intake to meet at least 75% estimated needs 2. labs to improve 3. diet to advance 4. f/u in 2-3 days Plan discussed with: Other (NIKKI Garcia) Critical Care Time(min): 35 CC Plasma Assessment Blood Product Administration S: [id number] TAE DUPREE MD Jun 09, 2024 23:36
[2024-06-10] VITALS (111 sets, daily range): BP systolic 82–125; BP diastolic 34–49; PULSE 100–114; RESP 16–36; TEMP 97.7–99.1; O2SAT 91–95
[2024-06-10 04:55] LABS: Hematocrit 24.9 % (36.0-46.0); Hemoglobin 8.2 g/dL (12.2-16.2); Mean Corpuscular Hemoglobin 37.3 pg (28.0-32.0); Mean Corpuscular Hgb Conc. 32.9 g/dL (32.0-36.0); Mean Corpuscular Volume 113.5 fL (80.0-100.0); Platelet Count (auto) 52 10^3/uL (140-450); White Blood Cell 28.7 10^3/uL (4.4-10.8)
[2024-06-10 05:02] LABS: Anion Gap 12 (5-15); Carbon Dioxide 23 mmol/L (20-31); Potassium 4.4 mmol/L (3.5-5.1)
[2024-06-10 05:07] LABS: BUN/Creatinine Ratio 19.6 (10.0-20.0)
[2024-06-10 05:26] LABS: Alanine Aminotransferase 279 U/L (7-40); Albumin 2.7 g/dL (3.2-4.8); Alkaline Phosphatase 272 U/L (46-116); Aspartate Aminotransferase 451 U/L (13-40); Bilirubin, Total 21.7 mg/dL (0.2-1.0); Blood Urea Nitrogen 50 mg/dL (9-23); Chloride 98 mmol/L (98-107); Glucose 116 mg/dL (74-106); Sodium 133 mmol/L (136-145); Total Protein 4.7 g/dL (5.7-8.2)
[2024-06-10 05:28] LABS: Red Cell Distribution Width 30.5 % (11.8-14.3)
[2024-06-10 05:29] LABS: Basophils % (manual) 0 (0.0-2.0); Blast Cells 0; Eosinophils % (manual) 0 (0-7); Metamyelocytes % 0; Myelocytes % 0; Promyelocytes % 0; Reactive Lymphocytes 0
--- NOTE | 2024-06-10 05:40 | DVH ---
CHEST RADIOGRAPH Indication: INTUBATED Technique: Single frontal view of the chest was obtained COMPARISON: XY CHEST PORTABLE on DOS: 06/09/24, XY CHEST PORTABLE on DOS: 06/08/24, XY CHEST PORTABLE on DOS: 06/07/24, XY CHEST PORTABLE on DOS: 06/06/24, XY CHEST PORTABLE on DOS: 06/05/24, XY CHEST PORTABLE on DOS: 06/06/24 FINDINGS: Lines and Tubes: Endotracheal tube, enteric catheter and right central venous catheters in satisfacto ry position. Lungs: Multifocal airspace disease. Pleura: No effusion. No pneumothorax. Cardiomediastinal contours: Unremarkable Bones: Unremarkable IMPRESSION: Lines and tubes in satisfactory position. No significant interval change.
[2024-06-10 06:29] LABS: Band Neutrophils % (manual) 2; Lymphocytes % (manual) 2 (10.0-50.0); Monocytes % (manual) 5 (0-12); Smudge Cells 1 /100 WBC
[2024-06-10 06:30] LABS: Anisocytosis Moderate; Macrocytosis Moderate; Target Cell FEW
[2024-06-10 06:31] LABS: Large Platelets FEW; Platelet Estimate Decrea; Stomatocytes Few
[2024-06-10] MEDS: LEVALBUTEROL HCL 1.25 MG/3 ML NEB NEB SCH (06:42)
--- NOTE | 2024-06-10 08:38 | DVHPN2 ---
Subjective Intubated and sedated Reviewed: Care Plan, H&P, Labs, Medications, Previous Orders, Radiology Changes from previous H/P or p: No Changes General: Per HPI Eyes: No Pain, No Vision change, No Conjunctivae inflammation, No Eyelid inflammation, No Other, No Redness ENT: No Ear pain, No Ear discharge, No Nose pain, No Nose discharge, No Nose congestion, No Mouth pain, No Mouth swelling, No Throat pain, No Throat swelling, No Other Cardiovascular: Chest Pain Respiratory: No Cough, No Dry, No Shortness of breath, No SOB with excertion, No Wheezing, No Hemoptysis, No Pleuritic Pain, No Sputum, No Other Gastrointestinal: Abdominal Pain, Hematochezia Genitourinary: Frequency, Retention Musculoskeletal: No other, No neck pain, No shoulder pain, No arm pain, No back pain, No hand pain, No leg pain, No foot pain Skin: No Rash, No Lesions, No Jaundice, No Bruising, No Other Objective Vitals Vital Signs Date Time Temp Pulse Resp B/P (MAP) Pulse Ox O2 Delivery O2 Flow Rate FiO2 06/10/24 07:55 45 06/10/24 07:55 22 94 Mechanical Ventilator+ 06/10/24 07:55 112 06/10/24 07:30 109/41 (63) 06/10/24 04:00 98.4 98.4 Intake/Output Intake and Output 06/10/24 07:00 Intake Total 1512.448 ml Output Total 155 ml Balance 1357.448 ml Intake Oral 160 ml IV Total 1352.448 ml Tube Feeding 0 ml Output Urine Total 0 ml Stool Total 0 ml Gastric Drainage Total 155 ml General Appearance: mild distress, Other HEENT: Atraumatic, PERRLA, Other Lungs: Clear to auscultation, Normal air movement Cardiovascular: Normal S1, Normal S2, Other (Sinus tachycardia) Abdomen: Normal bowel sounds, Other Musculoskeletal: Other Neuro: Other Skin: Dry, Intact, Other Psych/Mental Status: Other Medications Current Medications Medications Dose Ordered Sig/Alvaro Route Start Time Stop Time Status Last Admin Dose Admin Lorazepam 2 mg Q4H PO 05/27/24 09:15 Hold 05/28/24 06:10 2 MG Ondansetron HCl 4 mg Q4HP PRN IV 05/27/24 09:15 Nitroglycerin 0.4 mg Q5MINP PRN SL 05/27/24 09:15 Morphine Sulfate 2 mg Q30M PRN IV 05/27/24 09:15 Sucralfate 1 gm QID PO 05/27/24 12:00 Hold 05/28/24 06:11 1 GM Patient Own Medication 1 cap DAILY PO 05/27/24 10:00 UNV Pantoprazole Sodium 40 mg BID IV 05/27/24 22:00 06/10/24 08:34 40 MG Midodrine 10 mg TID@0600,1200,1800 PO 05/27/24 18:00 Hold 05/28/24 06:10 10 MG Midazolam HCl 50 ml @ 1 mls/hr Q24H IV 05/30/24 14:15 06/10/24 02:43 4 MLS/HR Fentanyl Citrate 250 ml @ 2.5 mls/hr Q24H IV 05/30/24 14:15 06/09/24 16:03 17.5 MLS/HR Thiamine HCl 100 mg DAILY IV 06/01/24 10:00 06/10/24 08:34 100 MG Folic Acid 1 mg/ Dextrose 50.2 ml @ 200.8 mls/ hr DAILY INJ 06/01/24 10:00 06/09/24 10:14 200.8 MLS/HR Enteral Nutritional Formula 1,000 ml 30ML/HR GT 06/01/24 11:00 06/09/24 06:09 1,000 ML Ipratropium [place] 0.5 mg Q6HWA NEB 06/01/24 12:00 06/10/24 06:42 0.5 MG Metoclopramide HCl 5 mg Q8HR GT 06/02/24 14:00 06/10/24 06:28 5 MG Ursodiol 300 mg BID GT 06/02/24 11:00 06/10/24 08:35 300 MG Albumin Human 100 ml @ 100 mls/hr SID PRN IV 06/04/24 04:00 06/05/24 15:00 100 MLS/HR Trimethoprim/ Sulfamethoxazole 10 ml @ 0 mls/hr PER PHARMACY IV 06/04/24 15:30 Trimethoprim/ Sulfamethoxazole 10 ml/Dextrose 260 ml @ 130 mls/hr Q8H IV 06/04/24 17:30 06/10/24 01:25 130 MLS/HR Methylprednisolone Sodium Succinate 40 mg DAILY IV 06/06/24 10:00 06/10/24 08:34 40 MG Levothyroxine Sodium 50 mcg DAILY IV 06/07/24 10:00 06/08/24 09:13 50 MCG Bumetanide 2 mg BIDD IV 06/06/24 18:00 06/10/24 06:46 2 MG Norepinephrine Bitartrate 32 mg/ Sodium Chloride 250 ml @ 0.234 mls/ hr Q24H IV 06/07/24 08:45 06/08/24 09:19 3.047 MLS/HR Lactulose 30 ml BID PO 06/09/24 22:00 06/10/24 08:34 30 ML Levalbuterol HCl 0.625 mg Q6HWA NEB 06/10/24 06:00 06/10/24 06:42 0.625 MG Laboratory Results Laboratory Tests 06/10/24 03:55 Chemistry Test 06/10/24 03:55 Albumin 2.7 g/dL (3.2-4.8) L Calcium Level 9.0 mg/dL (8.7-10.4) Total Protein 4.7 g/dL (5.7-8.2) L LFT Test 06/10/24 03:55 Alanine Aminotransferase (ALT) 279 U/L (7-40) H Alkaline Phosphatase 272 U/L (46-116) H Aspartate Amino Transferase (AST) 451 U/L (13-40) H Total Bilirubin 21.7 mg/dL (0.2-1.0) H Urinalysis Test 05/28/24 21:45 Urine Color Yellow (Yellow) Urine Clarity Clear (Clear) Urine pH 6.5 (5.0-9.0) Urine Specific [place] 1.005 (1.001-1.035) Urine Protein Trace (Negative) H Urine Ketones Negative (Negative) Urine Blood 3+ /uL (Negative) H Urine Nitrite Negative (Negative) Urine Bilirubin Negative (Negative) Urine Urobilinogen 4 mg/dL (Negative) H Urine Leukocyte Esterase Trace /uL (Negative) Urine RBC 21 /hpf (0 - 4) Urine WBC 109 /hpf (0 - 5) Urine Squamous Epithelial Cells None seen /hpf (<5) Urine Bacteria None seen /hpf (None Seen) Urine Glucose Normal mg/dL (Normal) Microbiology Microbiology Date/Time Source Procedure Growth Status 06/09/24 08:56 Blood Blood Culture - Preliminary Resulted 05/30/24 15:15 Nose MRSA Screen - Final Complete 05/30/24 14:15 Bronchial Brushings Gram Stain - Final Complete 05/30/24 14:15 Respiratory Culture - Final Stenotrophomonas maltophilia Complete Labs and/or images reviewed: Labs reviewed by me, Image(s) reviewed by me Assessment/Plan Assessment/Plan Impression: -acute hypoxic respiratory failure with mechanical ventilation -sepsis secondary to pneumonia -probable aspiration pneumonia -alcoholism -alcohol-related liver disease -acute kidney injury, vasomotor nephropathy -hypothyroidism, supratherapeutic coverage -severe protein malnutrition -thrombocytopenia -alcohol withdrawal Plan: Events: Patient currently having sedation weaned for possible spontaneous breathing trial. Continues to have minimal urine output. Patient currently on Levophed drip at 6 micrograms/minute. -continue tube feeding , Nepro -continue current ventilator settings per pulmonology -antibiotic therapy: Bactrim. ID consultation was placed. -continue Actigall -continue thiamine, MVI -continue norepinephrine drip to keep systolic blood pressure greater than 95 mmHg -bronchodilators -PUD prophylaxis -SCDs -repeat labs, chest x-ray, ABG in a.m. Critical care time spent with patient discussing and formulating plan of care: 40 minutes. This does not include time spent performing procedures. This medical document was created using an electronic medical record system with [employer] dictation system. Although this document has been carefully reviewed, there may still be some phonetic and typographical errors. These areas are purely typographical due to imperfections of the software programs, and do not reflect any compromise in the patient's medical care. Plan discussed with: Patient, Other (RN) My Orders Orders - MDAI RYDER NP Procedure Category Date Status Time Post Exposure Panel LAB 06/09/24 In Process 11:11 Date of Service: Jun 10, 2024 Billing Provider: MADI RYDER NP Common Visit Codes: [id number] CARE 30-74 MIN MADI RYDER NP Jun 10, 2024 08:38
[2024-06-10 09:03] LABS: Base Excess -3.3 mmol/L (-2.0-3.0)
[2024-06-10] MEDS: phytonadione 10 MG in SODIUM CHL 0.9% 50 ML IV ONE (10:39)
--- NOTE | 2024-06-10 12:17 | DVHPN2 ---
Progress Note Date Seen: Jun 10, 2024 Resident Creating Document: KALPANA HOOKER RESIDENT Has the PT tested + for MRSA If YES, has PT been informed?: No Medical Necessity Reason Pt with a Central, PICC or Fol: Yes The following are medically ne: Central Line, Robertson Catheter Reason for robertson catheter: Strict I&O Medical Necessity Reason Same liver enzymes uptrending Subjective Review of Systems Patient seen and examined. Still in ICU, intubated and sedated.No significant changes compared to days before. No bowel movement since 06/07/2024. She had lactulose and Vitamin K today. Order for HELEN titer and repeat labs in the morning blood workup shows WBC: 31.3-->28.7 HGB: 7.9-->8.2 PLT: 54-->52 CMP LFT: up trending T.YAMILKA: 22-->21.7 AST: 392-->451 ALT: 246-->279 MERLYN: 240-->272 Maddrey's discrimination function:50.7 indicating poor prognosis and this patient may be healthy steroid administration MELD Na: 52.6% 3 months mortality on IV fluid, fentanyl, versed and norepinephrine Objective vital signs Vital Sign Date Time Temp Pulse Resp B/P (MAP) Pulse Ox O2 Delivery O2 Flow Rate FiO2 06/10/24 12:00 22 95 Mechanical Ventilator+ 45 45 06/10/24 12:00 109 06/10/24 12:00 99.1 116/46 (69) 99.1 Total Intake and Output 06/09/24 06/09/24 06/10/24 15:00 23:00 07:00 Intake Total 512.233 ml 523.748 ml 486.748 ml Output Total 75 ml 80 ml Balance 512.233 ml 448.748 ml 406.748 ml medications Current Medications Medications Dose Ordered Sig/Alvaro Route Start Time Stop Time Status Last Admin Dose Admin Lorazepam 2 mg Q4H PO 05/27/24 09:15 Hold 05/28/24 06:10 2 MG Ondansetron HCl 4 mg Q4HP PRN IV 05/27/24 09:15 Nitroglycerin 0.4 mg Q5MINP PRN SL 05/27/24 09:15 Morphine Sulfate 2 mg Q30M PRN IV 05/27/24 09:15 Sucralfate 1 gm QID PO 05/27/24 12:00 Hold 05/28/24 06:11 1 GM Patient Own Medication 1 cap DAILY PO 05/27/24 10:00 UNV Pantoprazole Sodium 40 mg BID IV 05/27/24 22:00 06/10/24 08:34 40 MG Midodrine 10 mg TID@0600,1200,1800 PO 05/27/24 18:00 Hold 05/28/24 06:10 10 MG Midazolam HCl 50 ml @ 1 mls/hr Q24H IV 05/30/24 14:15 06/10/24 02:43 4 MLS/HR Fentanyl Citrate 250 ml @ 2.5 mls/hr Q24H IV 05/30/24 14:15 06/09/24 16:03 17.5 MLS/HR Thiamine HCl 100 mg DAILY IV 06/01/24 10:00 06/10/24 08:34 100 MG Folic Acid 1 mg/ Dextrose 50.2 ml @ 200.8 mls/ hr DAILY INJ 06/01/24 10:00 06/10/24 08:53 200.8 MLS/HR Enteral Nutritional Formula 1,000 ml 30ML/HR GT 06/01/24 11:00 06/09/24 06:09 1,000 ML Ipratropium [place] 0.5 mg Q6HWA NEB 06/01/24 12:00 06/10/24 06:42 0.5 MG Metoclopramide HCl 5 mg Q8HR GT 06/02/24 14:00 06/10/24 06:28 5 MG Ursodiol 300 mg BID GT 06/02/24 11:00 06/10/24 08:35 300 MG Albumin Human 100 ml @ 100 mls/hr SID PRN IV 06/04/24 04:00 06/05/24 15:00 100 MLS/HR Trimethoprim/ Sulfamethoxazole 10 ml @ 0 mls/hr PER PHARMACY IV 06/04/24 15:30 Trimethoprim/ Sulfamethoxazole 10 ml/Dextrose 260 ml @ 130 mls/hr Q8H IV 06/04/24 17:30 06/10/24 08:52 130 MLS/HR Methylprednisolone Sodium Succinate 40 mg DAILY IV 06/06/24 10:00 06/10/24 08:34 40 MG Levothyroxine Sodium 50 mcg DAILY IV 06/07/24 10:00 06/10/24 10:22 50 MCG Bumetanide 2 mg BIDD IV 06/06/24 18:00 06/10/24 06:46 2 MG Norepinephrine Bitartrate 32 mg/ Sodium Chloride 250 ml @ 0.234 mls/ hr Q24H IV 06/07/24 08:45 06/08/24 09:19 3.047 MLS/HR Lactulose 30 ml BID PO 06/09/24 22:00 06/10/24 08:34 30 ML Levalbuterol HCl 0.625 mg Q6HWA NEB 06/10/24 06:00 06/10/24 06:42 0.625 MG Examination General examination- Intubated and sedated, generalized edema Eyes: Closed, PEERLA Ears: Normal external anatomy. Throat: Endotracheal tube and orogastric tube in place. Neck: trachea midline. Chest: Transmitted breath sounds bilaterally. Decreased air entry bilaterally. No wheezing. Bibasilar crackles. Cardiovascular: Positive S1, positive S2. Regular rate and rhythm. Abdomen: Mild -distended, mild generalized tenderness to palpation, hypoactive bowel sounds and edematous Musculoskeletal: unable to assess Extremities showed 2+ pedal edema and she has generalized anasarca Neurological: unable to assess Psychiatry-- unable to assess Skin- no acute rash or purpura laboratory and microbiology Laboratory Tests 06/10/24 03:55 Test 06/10/24 03:55 Range/Units Serum Glucose 116 H 74-106 mg/dL Microbiology Date/Time Source Procedure Growth Status 06/09/24 08:56 Blood Blood Culture - Preliminary NO GROWTH AFTER 24 HOURS OF INCUBATION. Resulted 05/30/24 15:15 Nose MRSA Screen - Final Complete 05/30/24 14:15 Bronchial Brushings Gram Stain - Final Complete 05/30/24 14:15 Respiratory Culture - Final Stenotrophomonas maltophilia Complete Problem List/Assessment/Plan Problem List/Assessment/Plan ASSESSMENT Severe anemia hgb 8.4--> 6.9 s/p transfusion; hgb: 8-->7.2,---->>7.9 -->8.2 monitor closely and transfuse if less than 7. Iron : 38L, TIBC:118, saturation: 32% folate: 43.16 B12: 2852 Acute transaminitis and hepatic failure due to alcohol abuse -->Maddrey's discrimination function:50.7 indicating poor prognosis and this patient may be healthy steroid administration -->MELD Na: 52.6% 3 months mortality --> Patient steroids at this time --> Liver enzymes going up Leukocytosis improving Hepatic steatosis with hepatomegaly Hyperthyroidism Acute renal failure due VMN --> Creatinine: 3.08--> 3.88--> 2.32--> 3.11 --> Started dialysis --> Nephrology on board Severe protein malnutrition --> Continue tube feeding Thrombocytopenia likely due to liver cirrhosis --> Plt: 25--> 54 --> Vitamin K IV 10 mg daily for 3 days (06/04/2024) --> Repeat Vitamin 10mg today and for 3 days (06/10/2024) --> PT/INR order for tomorrow Acute hypoxic respiratory failure likely due to aspiration pneumonia? Mucus plugs and atelectasis -->S/P intubation and bronchoscopy Duodenal ulcer disease Constipation --> Fleet enema 06/07/2024 --> repeat fleet enama (06/10/2024) Plan On 30 mL/hour. 75 mls residual. No bowel movement yet with lactulose. recommend fleet enema Patient was started on Bactrim for sputum culture showing stenotrophomonas maltophilia Continue ursodiol 300 mg bid via GT ( started on 06/02/2023) Continue Protonix 40 mg IV b.i.d. Continue Carafate 1 g p.o. b.i.d. Transfused 2 unit of RBC 05/31/2024. Monitor hemoglobin and hematocrit Maddrey's discrimination function:50.7 indicating poor prognosis and this patient may be healthy steroid administration MELD Na: 52.6% 3 months mortality No procedures at this time until patient is more stable. Currently on mechanical ventilation on the following parameters Status post bronchoscopy which showed low and left upper lingula/lower lobe atelectasis due to mucus plugging. There was mucus plugging from L1-L2 10 and R 6-10. Bronchoalveolar lavage was performed as well right middle lobe. Prognosis remains guarded Goal of care discussed for more than 25 minute Plan discussed with Dr. Maya Thank you for allowing us to participate in the care of this patient. Please call if you have any questions or concerns. Plan discussed with: Other (nurse and primary team) My Orders My Orders Orders - KALPANA HOOKER Procedure Category Date Status Time Lactulose Oral PHA 06/09/24 In Process 22:00 Helen; Direct LAB 06/10/24 In Process 10:07 PTPTT LAB 06/11/24 Verified 04:00 Prothrombin Time W/ LAB 06/11/24 Verified INR 04:00 Dietary Evaluation Review Recommendations by RD: PPN/TPN Comments: 1. If NPO > 7 days, initiate EN/TPN. 2. If gut is accessible, consider Jevity 1.2 @ 40 mL/hr. Tf regimen will provide 1,152 kcals, 53g Pro, and 775 mL free H2O (+ 1,200 mL free H2O flushes). TF regimen will meet ~ 91% daily estimated energy needs (20-25 kcal/kg) and ~59% daily estimated protein needs (1.2-2.0 g/kg). 3. Advance to hepatic diet when medically feasible, pending HY[employer]SEMBLER approval. 4. Promote ETOH cessation. Expected Outcomes/Goals: 1. nutritional intake to meet at least 75% estimated needs 2. labs to improve 3. diet to advance 4. f/u in 2-3 days CC Plasma Assessment Blood Product Administration S: [id number] KALPANA HOOKER RESIDENT Jun 10, 2024 12:17
[2024-06-10] MEDS: FLEET ENEMA(ADULT) 135 ML PR ONE (12:30)
--- NOTE | 2024-06-10 15:06 | DVH ---
Date: 06/10/2024 02:52 PM Examination: XY KUB ABDOMEN SINGLE VIEW History: DISTENDED ABDOMEN/CONSTIPATION Comparison: XY KUB ABDOMEN SINGLE VIEW on DOS: 06/02/24 TECHNIQUE: Frontal views of the abdomen was obtained. FINDINGS: Bowel gas pattern is unremarkable. Enteric tube in the stomach. The lung bases are unremarkable. No acute osseous abnormality identified. IMPRESSION: 1. Nonobstructive bowel gas pattern. 2. Enteric tube in the stomach.
--- NOTE | 2024-06-10 17:59 | DVHPN2 ---
Progress Note - Dictate Date Seen: Jun 10, 2024 Has the PT tested + for MRSA If YES, has PT been informed?: No Medical Necessity Reason Pt with a Central, PICC or Fol: Yes The following are medically ne: Central Line, Robertson Catheter Reason for robertson catheter: Strict I&O Subjective Patient is intubated and sedated. She is still in the ICU. Her respiration is improved a bit. No bowel movement since 06/02/2023. vital signs Vital Sign Date Time Temp Pulse Resp B/P (MAP) Pulse Ox O2 Delivery O2 Flow Rate FiO2 06/10/24 17:24 108/43 06/10/24 16:15 101 22 92 06/10/24 16:00 98.2 98.2 06/10/24 15:59 40 06/10/24 15:37 Mechanical Ventilator+ Total Intake and Output 06/09/24 06/09/24 06/10/24 15:00 23:00 07:00 Intake Total 512.233 ml 523.748 ml 486.748 ml Output Total 75 ml 80 ml Balance 512.233 ml 448.748 ml 406.748 ml medications Current Medications Medications Dose Ordered Sig/Alvaro Route Start Time Stop Time Status Last Admin Dose Admin Lorazepam 2 mg Q4H PO 05/27/24 09:15 Hold 05/28/24 06:10 2 MG Ondansetron HCl 4 mg Q4HP PRN IV 05/27/24 09:15 Nitroglycerin 0.4 mg Q5MINP PRN SL 05/27/24 09:15 Morphine Sulfate 2 mg Q30M PRN IV 05/27/24 09:15 Sucralfate 1 gm QID PO 05/27/24 12:00 Hold 05/28/24 06:11 1 GM Patient Own Medication 1 cap DAILY PO 05/27/24 10:00 UNV Pantoprazole Sodium 40 mg BID IV 05/27/24 22:00 06/10/24 08:34 40 MG Midodrine 10 mg TID@0600,1200,1800 PO 05/27/24 18:00 Hold 05/28/24 06:10 10 MG Midazolam HCl 50 ml @ 1 mls/hr Q24H IV 05/30/24 14:15 06/10/24 02:43 4 MLS/HR Fentanyl Citrate 250 ml @ 2.5 mls/hr Q24H IV 05/30/24 14:15 06/09/24 16:03 17.5 MLS/HR Thiamine HCl 100 mg DAILY IV 06/01/24 10:00 06/10/24 08:34 100 MG Folic Acid 1 mg/ Dextrose 50.2 ml @ 200.8 mls/ hr DAILY INJ 06/01/24 10:00 06/10/24 08:53 200.8 MLS/HR Enteral Nutritional Formula 1,000 ml 30ML/HR GT 06/01/24 11:00 06/09/24 06:09 1,000 ML Ipratropium [place] 0.5 mg Q6HWA NEB 06/01/24 12:00 06/10/24 12:06 0.5 MG Metoclopramide HCl 5 mg Q8HR GT 06/02/24 14:00 06/10/24 12:46 5 MG Ursodiol 300 mg BID GT 06/02/24 11:00 06/10/24 08:35 300 MG Albumin Human 100 ml @ 100 mls/hr SID PRN IV 06/04/24 04:00 06/05/24 15:00 100 MLS/HR Trimethoprim/ Sulfamethoxazole 10 ml @ 0 mls/hr PER PHARMACY IV 06/04/24 15:30 Methylprednisolone Sodium Succinate 40 mg DAILY IV 06/06/24 10:00 06/10/24 08:34 40 MG Levothyroxine Sodium 50 mcg DAILY IV 06/07/24 10:00 06/10/24 10:22 50 MCG Bumetanide 2 mg BIDD IV 06/06/24 18:00 06/10/24 17:24 2 MG Norepinephrine Bitartrate 32 mg/ Sodium Chloride 250 ml @ 0.234 mls/ hr Q24H IV 06/07/24 08:45 06/08/24 09:19 3.047 MLS/HR Lactulose 30 ml BID PO 06/09/24 22:00 06/10/24 08:34 30 ML Levalbuterol HCl 0.625 mg Q6HWA NEB 06/10/24 06:00 06/10/24 12:06 0.625 MG Trimethoprim/ Sulfamethoxazole 15 ml/Dextrose 515 ml @ 343.333 mls/hr DAILY IV 06/11/24 10:00 objective General: Patient is Intubated sedated HEENT: + scleral icterus Chest: Lung lee clear to auscultation Heart: RRR, no murmur Abdomen: Mild -distended, mild generalized tenderness to palpation, hypoactive bowel sounds Extremities showed 2+ pedal edema and she has generalized anasarca laboratory and microbiology Laboratory Tests 06/10/24 03:55 Test 06/10/24 03:55 Range/Units Serum Glucose 116 H 74-106 mg/dL Assessment/Plan A 58 yo F with # Bacteremia : GPC Stenotrophomonas Pneumonia Hospital acquired Pneumonia Acute hypoxic respiratory failure on MV Alcoholic liver cirrhosis GI bleed Hepatorenal syndrome ESLD Jaundice Alcohol abuse with alcohol withdrawal Recommendations 06/10 Blood cultures 1/2 bottles with 2 strains of GPCs likely contamination WBC elevated: reactive due to Cirhosis Steno S to Bactrim, continue monitor cell count/ platelets; continue IV bactrim; plan for 7-10 days she is oozing blood from ET tube due to coagulopathy due to alcoholic liver cirrhosis she is on pressor. 06/09, Blood culture preliminary showed no growth 05/30, Respiratory culture showed Stenotrophomonas maltophilia 05/30, MRSA screening was negative 05/31, Blood culture showed no growth Critical care time spent with patient 35 minutes. prognosis very poor consider goals of care discussion. thank you for opportunity to take care of the patient. Dietary Evaluation Review Recommendations by RD: PPN/TPN Comments: 1. If NPO > 7 days, initiate EN/TPN. 2. If gut is accessible, consider Jevity 1.2 @ 40 mL/hr. Tf regimen will provide 1,152 kcals, 53g Pro, and 775 mL free H2O (+ 1,200 mL free H2O flushes). TF regimen will meet ~ 91% daily estimated energy needs (20-25 kcal/kg) and ~59% daily estimated protein needs (1.2-2.0 g/kg). 3. Advance to hepatic diet when medically feasible, pending PHOTOLITH OPERATOR approval. 4. Promote ETOH cessation. Expected Outcomes/Goals: 1. nutritional intake to meet at least 75% estimated needs 2. labs to improve 3. diet to advance 4. f/u in 2-3 days CC Plasma Assessment Blood Product Administration S: [id number] MELL PAN MD Jun 10, 2024 17:59
--- NOTE | 2024-06-10 23:50 | DVHPN2 ---
Progress Note - Dictate Date Seen: Jun 10, 2024 Has the PT tested + for MRSA If YES, has PT been informed?: No Medical Necessity Reason Pt with a Central, PICC or Fol: Yes The following are medically ne: Central Line, Robertson Catheter Reason for robertson catheter: Strict I&O Subjective Patient seen and examined at bedside. Sedated, intubated on mechanical ventilator. Overnight events reviewed. vital signs Vital Sign Date Time Temp Pulse Resp B/P (MAP) Pulse Ox O2 Delivery O2 Flow Rate FiO2 06/10/24 23:30 106 21 99/45 (63) 93 06/10/24 22:13 40 06/10/24 22:00 Mechanical Ventilator+ 06/10/24 20:00 97.7 97.7 06/10/24 17:52 0 Total Intake and Output 06/09/24 06/09/24 06/10/24 15:00 23:00 07:00 Intake Total 512.233 ml 523.748 ml 486.748 ml Output Total 75 ml 80 ml Balance 512.233 ml 448.748 ml 406.748 ml medications Current Medications Medications Dose Ordered Sig/Alvaro Route Start Time Stop Time Status Last Admin Dose Admin Lorazepam 2 mg Q4H PO 05/27/24 09:15 Hold 05/28/24 06:10 2 MG Ondansetron HCl 4 mg Q4HP PRN IV 05/27/24 09:15 Nitroglycerin 0.4 mg Q5MINP PRN SL 05/27/24 09:15 Morphine Sulfate 2 mg Q30M PRN IV 05/27/24 09:15 Sucralfate 1 gm QID PO 05/27/24 12:00 Hold 05/28/24 06:11 1 GM Patient Own Medication 1 cap DAILY PO 05/27/24 10:00 UNV Pantoprazole Sodium 40 mg BID IV 05/27/24 22:00 06/10/24 21:50 40 MG Midodrine 10 mg TID@0600,1200,1800 PO 05/27/24 18:00 Hold 05/28/24 06:10 10 MG Midazolam HCl 50 ml @ 1 mls/hr Q24H IV 05/30/24 14:15 06/10/24 02:43 4 MLS/HR Fentanyl Citrate 250 ml @ 2.5 mls/hr Q24H IV 05/30/24 14:15 1/9/25 16:03 17.5 MLS/HR Thiamine HCl 100 mg DAILY IV 06/01/24 10:00 06/10/24 08:34 100 MG Folic Acid 1 mg/ Dextrose 50.2 ml @ 200.8 mls/ hr DAILY INJ 06/01/24 10:00 06/10/24 08:53 200.8 MLS/HR Enteral Nutritional Formula 1,000 ml 30ML/HR GT 06/01/24 11:00 06/09/24 06:09 1,000 ML Ipratropium [place] 0.5 mg Q6HWA NEB 06/01/24 12:00 06/10/24 19:09 0.5 MG Metoclopramide HCl 5 mg Q8HR GT 06/02/24 14:00 06/10/24 21:50 5 MG Ursodiol 300 mg BID GT 06/02/24 11:00 06/10/24 21:51 300 MG Albumin Human 100 ml @ 100 mls/hr SID PRN IV 06/04/24 04:00 06/05/24 15:00 100 MLS/HR Trimethoprim/ Sulfamethoxazole 10 ml @ 0 mls/hr PER PHARMACY IV 06/04/24 15:30 Methylprednisolone Sodium Succinate 40 mg DAILY IV 06/06/24 10:00 06/10/24 08:34 40 MG Levothyroxine Sodium 50 mcg DAILY IV 06/07/24 10:00 06/10/24 10:22 50 MCG Bumetanide 2 mg BIDD IV 06/06/24 18:00 06/10/24 17:24 2 MG Norepinephrine Bitartrate 32 mg/ Sodium Chloride 250 ml @ 0.234 mls/ hr Q24H IV 06/07/24 08:45 06/08/24 09:19 3.047 MLS/HR Lactulose 30 ml BID PO 06/09/24 22:00 06/10/24 21:51 30 ML Levalbuterol HCl 0.625 mg Q6HWA NEB 06/10/24 06:00 06/10/24 19:09 0.625 MG Trimethoprim/ Sulfamethoxazole 15 ml/Dextrose 515 ml @ 343.333 mls/hr DAILY IV 06/11/24 10:00 objective Gen.: Patient lying in bed in medical ICU. Sedated, intubated on mechanical ventilator. Head: Normocephalic, atraumatic. Eyes: PERRLA. Ears: Normal external anatomy. Throat: Endotracheal tube and orogastric tube in place. Neck: Supple, trachea midline. Chest: Transmitted breath sounds bilaterally. Decreased air entry bilaterally. No wheezing. Bibasilar crackles. Cardiovascular: Positive S1, positive S2. Regular rate and rhythm. Abdomen: Positive bowel sounds in all 4 quadrants. Soft, nontender, nondistended. : Robertson in place. Normal external genitalia. Rectal: Deferred. Skin: Warm, dry. Intact. Extremities: 2+ radial pulses bilaterally. No lower extremity edema. Neuro: Sedated. laboratory and microbiology Laboratory Tests 06/10/24 03:55 Test 06/10/24 03:55 Range/Units Serum Glucose 116 H 74-106 mg/dL Assessment/Plan Impression: Acute hypoxic respiratory failure On mechanical ventilator Hepatorenal syndrome Leukocytosis Anemia Thrombocytopenia Acute kidney injury Hypokalemia Chronic pancreatitis ETOH abuse Marijuana abuse Events: Remains on vent support On AC mode; RR 22, VT 450, PEEP 6, FiO2 40% Taper FiO2 as tolerated She remains on Versed drip for sedation. Pressors for hemodynamic support On Levophed, 2 mcg/min Titrate to keep mean arterial pressure greater than 65 mmHg. Improving pressor requirements Low platelets - 54 -->52 K. Continue to monitor Hemodialysis done yesterday. Continue antibiotics -on Bactrim Continue bronchodilators Ursodiol WBC trending down ABG reviewed, compensated. CXR demonstrates multifocal airspace disease. No effusion or pneumothorax. Devices in place. Bumex drip for diuresis Monitor renal function Monitor electrolytes. Supplement as necessary. Monitor ins and outs. HD per nephrology Monitor hemoglobin Tube feeds for nutritional support Taper sedation CPAP in AM 06/07/24 - S/p therapeutic bronchoscopy. Cleared mucous plugging from L7-L10 and R6-R10. Please see separate procedure note for details. Labs and imaging reviewed. Rest of plan as noted below. Plan: s/p intubation on mechanical ventilator. On AC mode; RR 22, VT 450, PEEP 6, FiO2 40% Titrate FIO2 to keep O2 saturation above 90%. VAP bundle. Daily ABG and CXR while intubated Sedate for ventilator synchrony Continue bronchodilators. Continue antibiotics. F/u cultures. Pressors for hemodynamic support Titrate to keep mean arterial pressure greater than 65 mmHg. Follow up GI recommendations Follow up Nephrology recommendations Monitor renal function Monitor electrolytes. Supplement as necessary. Monitor ins and outs. Maintain euvolemia. GI prophylaxis. DVT prophylaxis. Prognosis: Poor given patient's multiple co-morbidities. Condition: Critical Rest of plan per hospitalist and other consultants. A total of 35 minutes of critical care time was spent reviewing the patient record, examining the patient, making a diagnostic and therapeutic plan, discussing this plan with the medical personnel, following up on diagnostic studies and following the patient for clinical stability excluding any and all procedures. At least 50% of this time was spent in direct, [id number] contact. Thank you, Dr. Parkinson, for allowing me to participate in this patient's care. Further recommendations will depend on the patient's clinical course. Please do not hesitate to contact me if you have any questions or concerns. This medical document was created using an electronic medical record system with Z[employer] dictation system. Although these documentations are being carefully reviewed, there may still be some phonetic and typographical changes. The errors are purely typographical, due to imperfection on the software program, and do not reflect any compromise in the patient's medical care. Dietary Evaluation Review Recommendations by RD: PPN/TPN Comments: 1. If NPO > 7 days, initiate EN/TPN. 2. If gut is accessible, consider Jevity 1.2 @ 40 mL/hr. Tf regimen will provide 1,152 kcals, 53g Pro, and 775 mL free H2O (+ 1,200 mL free H2O flushes). TF regimen will meet ~ 91% daily estimated energy needs (20-25 kcal/kg) and ~59% daily estimated protein needs (1.2-2.0 g/kg). 3. Advance to hepatic diet when medically feasible, pending CONTINUING EDUCATION DEAN approval. 4. Promote ETOH cessation. Expected Outcomes/Goals: 1. nutritional intake to meet at least 75% estimated needs 2. labs to improve 3. diet to advance 4. f/u in 2-3 days Plan discussed with: Other (NIKKI Vieira) Critical Care Time(min): 35 CC Plasma Assessment Blood Product Administration S: [id number] TAE DUPREE MD Jun 10, 2024 23:50
[2024-06-11] VITALS (105 sets, daily range): BP systolic 78–145; BP diastolic 25–53; PULSE 100–115; RESP 13–23; TEMP 96.3–99; O2SAT 93–99
[2024-06-11 04:36] LABS: Hemoglobin 8.6 g/dL (12.2-16.2); Red Blood Cells 2.26 10^6/uL (4.0-5.20)
[2024-06-11 04:39] LABS: Hematocrit 25.8 % (36.0-46.0); Mean Corpuscular Hgb Conc. 33.4 g/dL (32.0-36.0); Platelet Count (auto) 52 10^3/uL (140-450)
[2024-06-11 04:42] LABS: INR 2.02 (0.9-1.15); Partial Thromboplastin Time 60.4 SEC (24.5-34.5); Prothrombin Time 20.3 sec (9.3-11.8)
[2024-06-11 04:53] LABS: Anion Gap 13 (5-15); Calcium 8.8 mg/dL (8.7-10.4); Carbon Dioxide 21 mmol/L (20-31); Glucose 89 mg/dL (74-106)
[2024-06-11 05:09] LABS: Albumin 2.6 g/dL (3.2-4.8); Alkaline Phosphatase 266 U/L (46-116); Bilirubin, Total 22.3 mg/dL (0.2-1.0); Chloride 98 mmol/L (98-107); Potassium 5.4 mmol/L (3.5-5.1); Sodium 132 mmol/L (136-145)
--- NOTE | 2024-06-11 05:10 | DVH ---
CHEST RADIOGRAPH Indication: INTUBATED Technique: Single frontal view of the chest was obtained Comparison: XY CHEST PORTABLE on DOS: 06/10/24, XY CHEST PORTABLE on DOS: 06/09/24, XY CHEST PORTABLE on DOS: 06/08/24 IMPRESSION: The heart appears normal in size. Support lines and tubes appear unchanged in position. Bilateral in terstitial and alveolar airspace opacities appear similar with slight worsening in the right lung. No sizable effusion or pneumothorax.
[2024-06-11 05:52] LABS: Blood Urea Nitrogen 66 mg/dL (9-23)
[2024-06-11 05:53] LABS: Alanine Aminotransferase 290 U/L (7-40); Aspartate Aminotransferase 425 U/L (13-40); BUN/Creatinine Ratio 21.9 (10.0-20.0); Total Protein 4.6 g/dL (5.7-8.2)
[2024-06-11 06:12] LABS: White Blood Cell 35.7 10^3/uL (4.4-10.8)
[2024-06-11 06:14] LABS: Band Neutrophils % (manual) 0; Basophils % (manual) 0 (0.0-2.0); Blast Cells 0; Eosinophils % (manual) 0 (0-7); Lymphocytes % (manual) 0 (10.0-50.0); Metamyelocytes % 0; Myelocytes % 0; Promyelocytes % 0; Reactive Lymphocytes 0
[2024-06-11 07:16] LABS: Base Excess -6.3 mmol/L (-2.0-3.0)
[2024-06-11] MEDS: SODIUM ZIRCONIUM CYCL 10 GM PAK PO ONE (07:43)
[2024-06-11] MEDS: SULFAMETH-TRIMETH 80/16MG-ML 15 ML in D5W 5% 500 ML IV SCH (07:44)
--- NOTE | 2024-06-11 07:53 | DVHPN2 ---
Subjective Intubated and sedated Reviewed: Care Plan, H&P, Labs, Medications, Previous Orders, Radiology Changes from previous H/P or p: No Changes General: Per HPI Eyes: No Pain, No Vision change, No Conjunctivae inflammation, No Eyelid inflammation, No Other, No Redness ENT: No Ear pain, No Ear discharge, No Nose pain, No Nose discharge, No Nose congestion, No Mouth pain, No Mouth swelling, No Throat pain, No Throat swelling, No Other Cardiovascular: Chest Pain Respiratory: No Cough, No Dry, No Shortness of breath, No SOB with excertion, No Wheezing, No Hemoptysis, No Pleuritic Pain, No Sputum, No Other Gastrointestinal: Abdominal Pain, Hematochezia Genitourinary: Frequency, Retention Musculoskeletal: No other, No neck pain, No shoulder pain, No arm pain, No back pain, No hand pain, No leg pain, No foot pain Skin: No Rash, No Lesions, No Jaundice, No Bruising, No Other Objective Vitals Vital Signs Date Time Temp Pulse Resp B/P (MAP) Pulse Ox O2 Delivery O2 Flow Rate FiO2 06/11/24 07:15 108 22 92/43 (59) 93 06/11/24 06:00 Mechanical Ventilator+ 40 40 06/11/24 04:00 99.0 99.0 06/10/24 17:52 0 Intake/Output Intake and Output 06/11/24 07:00 Intake Total 974.623 ml Output Total 0 ml Balance 974.623 ml Intake Oral 200 ml IV Total 774.623 ml Stool Total 0 ml General Appearance: mild distress, Other HEENT: Atraumatic, PERRLA, Other Lungs: Clear to auscultation, Normal air movement Cardiovascular: Normal S1, Normal S2, Other (Sinus tachycardia) Abdomen: Normal bowel sounds, Other Musculoskeletal: Other Neuro: Other Skin: Dry, Intact, Other Psych/Mental Status: Other Medications Current Medications Medications Dose Ordered Sig/Alvaro Route Start Time Stop Time Status Last Admin Dose Admin Lorazepam 2 mg Q4H PO 05/27/24 09:15 Hold 05/28/24 06:10 2 MG Ondansetron HCl 4 mg Q4HP PRN IV 05/27/24 09:15 Nitroglycerin 0.4 mg Q5MINP PRN SL 05/27/24 09:15 Morphine Sulfate 2 mg Q30M PRN IV 05/27/24 09:15 Sucralfate 1 gm QID PO 05/27/24 12:00 Hold 05/28/24 06:11 1 GM Patient Own Medication 1 cap DAILY PO 05/27/24 10:00 UNV Pantoprazole Sodium 40 mg BID IV 05/27/24 22:00 06/11/24 07:44 40 MG Midodrine 10 mg TID@0600,1200,1800 PO 05/27/24 18:00 Hold 05/28/24 06:10 10 MG Midazolam HCl 50 ml @ 1 mls/hr Q24H IV 05/30/24 14:15 06/10/24 02:43 4 MLS/HR Fentanyl Citrate 250 ml @ 2.5 mls/hr Q24H IV 05/30/24 14:15 06/09/24 16:03 17.5 MLS/HR Thiamine HCl 100 mg DAILY IV 06/01/24 10:00 06/11/24 07:44 100 MG Folic Acid 1 mg/ Dextrose 50.2 ml @ 200.8 mls/ hr DAILY INJ 06/01/24 10:00 06/11/24 07:44 200.8 MLS/HR Enteral Nutritional Formula 1,000 ml 30ML/HR GT 06/01/24 11:00 06/09/24 06:09 1,000 ML Ipratropium [place] 0.5 mg Q6HWA NEB 06/01/24 12:00 06/11/24 05:54 0.5 MG Metoclopramide HCl 5 mg Q8HR GT 06/02/24 14:00 06/11/24 06:05 5 MG Ursodiol 300 mg BID GT 06/02/24 11:00 06/11/24 07:43 300 MG Albumin Human 100 ml @ 100 mls/hr SID PRN IV 06/04/24 04:00 06/05/24 15:00 100 MLS/HR Trimethoprim/ Sulfamethoxazole 10 ml @ 0 mls/hr PER PHARMACY IV 06/04/24 15:30 Methylprednisolone Sodium Succinate 40 mg DAILY IV 06/06/24 10:00 06/11/24 07:44 40 MG Levothyroxine Sodium 50 mcg DAILY IV 06/07/24 10:00 06/11/24 07:44 50 MCG Bumetanide 2 mg BIDD IV 06/06/24 18:00 06/11/24 06:05 2 MG Norepinephrine Bitartrate 32 mg/ Sodium Chloride 250 ml @ 0.234 mls/ hr Q24H IV 06/07/24 08:45 06/08/24 09:19 3.047 MLS/HR Lactulose 30 ml BID PO 06/09/24 22:00 06/11/24 07:43 30 ML Levalbuterol HCl 0.625 mg Q6HWA NEB 06/10/24 06:00 06/11/24 05:54 0.625 MG Trimethoprim/ Sulfamethoxazole 15 ml/Dextrose 515 ml @ 343.333 mls/hr DAILY IV 06/11/24 10:00 06/11/24 07:44 343.333 MLS/HR Laboratory Results Laboratory Tests 06/11/24 04:05 Chemistry Test 06/11/24 04:05 Albumin 2.6 g/dL (3.2-4.8) L Calcium Level 8.8 mg/dL (8.7-10.4) Total Protein 4.6 g/dL (5.7-8.2) L Coagulation Test 06/11/24 04:05 Prothrombin Time 20.3 sec (9.3-11.8) H Prothrombin Time INR 2.02 (0.9-1.15) H Activated Partial Thromboplast Time 60.4 SEC (24.5-34.5) H LFT Test 06/11/24 04:05 Alanine Aminotransferase (ALT) 290 U/L (7-40) H Alkaline Phosphatase 266 U/L (46-116) H Aspartate Amino Transferase (AST) 425 U/L (13-40) H Total Bilirubin 22.3 mg/dL (0.2-1.0) H Urinalysis Test 05/28/24 21:45 Urine Color Yellow (Yellow) Urine Clarity Clear (Clear) Urine pH 6.5 (5.0-9.0) Urine Specific [place] 1.005 (1.001-1.035) Urine Protein Trace (Negative) H Urine Ketones Negative (Negative) Urine Blood 3+ /uL (Negative) H Urine Nitrite Negative (Negative) Urine Bilirubin Negative (Negative) Urine Urobilinogen 4 mg/dL (Negative) H Urine Leukocyte Esterase Trace /uL (Negative) Urine RBC 21 /hpf (0 - 4) Urine WBC 109 /hpf (0 - 5) Urine Squamous Epithelial Cells None seen /hpf (<5) Urine Bacteria None seen /hpf (None Seen) Urine Glucose Normal mg/dL (Normal) Blood Gas Results Test 06/10/24 08:04 06/11/24 07:08 Arterial Blood pH 7.374 (7.350-7.450) 7.343 (7.350-7.450) FiO2 % 45.0 40.0 Microbiology Microbiology Date/Time Source Procedure Growth Status 06/09/24 08:56 Blood Blood Culture - Preliminary NO GROWTH AFTER 24 HOURS OF INCUBATION. Resulted 05/30/24 15:15 Nose MRSA Screen - Final Complete 05/30/24 14:15 Bronchial Brushings Gram Stain - Final Complete 05/30/24 14:15 Respiratory Culture - Final Stenotrophomonas maltophilia Complete Labs and/or images reviewed: Labs reviewed by me, Image(s) reviewed by me Assessment/Plan Assessment/Plan Impression: -acute hypoxic respiratory failure with mechanical ventilation -sepsis secondary to pneumonia -probable aspiration pneumonia -alcoholism -alcohol-related liver disease -acute kidney injury, vasomotor nephropathy -hypothyroidism, supratherapeutic coverage -severe protein malnutrition -thrombocytopenia -alcohol withdrawal Plan: Events: Patient with hyperkalemia. Potassium lowering agents provided. Patient should be receiving HD. Continues to be on sedation, did not tolerate ventilator weaning yesterday. -continue tube feeding , Nepro -continue current ventilator settings per pulmonology -antibiotic therapy: Bactrim. ID consultation was placed. -continue Actigall -continue thiamine, MVI -continue norepinephrine drip to keep systolic blood pressure greater than 95 mmHg -bronchodilators -PUD prophylaxis -SCDs -repeat labs, chest x-ray, ABG in a.m. Critical care time spent with patient discussing and formulating plan of care: 40 minutes. This does not include time spent performing procedures. This medical document was created using an electronic medical record system with [employer] dictation system. Although this document has been carefully reviewed, there may still be some phonetic and typographical errors. These areas are purely typographical due to imperfections of the software programs, and do not reflect any compromise in the patient's medical care. Plan discussed with: Patient, Other (RN) My Orders Orders - MADI RYDER NP Procedure Category Date Status Time Chest Portable XY 06/11/24 Resulted 04:00 Complete Blood Count LAB 06/11/24 In Process 04:00 Manual Differential LAB 06/11/24 In Process 04:05 Basic Metabolic Panel LAB 06/12/24 Verified 05:00 Basic Metabolic Panel LAB 06/13/24 Verified 05:00 Basic Metabolic Panel LAB 06/14/24 Verified 05:00 Basic Metabolic Panel LAB 06/15/24 Verified 05:00 Basic Metabolic Panel LAB 06/16/24 Verified 05:00 Complete Blood Count LAB 06/12/24 Verified 04:00 Date of Service: Jun 11, 2024 Billing Provider: MADI RYDER NP Common Visit Codes: [id number] CARE 30-74 MIN MADI RYDER NP Jun 11, 2024 07:53
[2024-06-11 08:30] LABS: Monocytes % (manual) 2 (0-12)
[2024-06-11 08:31] LABS: Anisocytosis Moderate; Macrocytosis Moderate
[2024-06-11 08:32] LABS: Ovalocytes FEW; Platelet Estimate Decreased; Target Cell FEW
[2024-06-11] MEDS: NOREPINEPHRINE BITARTRATE 32 MG in SODIUM CHL 0.9% 218 ML IV SCH (09:14)
--- NOTE | 2024-06-11 13:52 | DVH ---
EXAM: CT HEAD WITHOUT CONTRAST INDICATION: R/O ICH/ STROKE TECHNIQUE: CT of the head without intravenous contrast. Radiation Dose Information: CT Dose: CTDI volume is 49.69 mGy. Dose-length product is 796.8 mGy*cm The dose indicators for CT are the volume Computed Tomography (CT) Dose Index (CTDIvol) and the Dose Length Product (DLP), and are measured in units of mGy and mGy-cm, respectively. These indicators are not patient dose, but values generated from the CT scanner acquisition factors. The report includes radiation exposure data for exposures received during this examination. COMPARISON: None FINDINGS: There is no evidence of acute intracranial hemorrhage, extra-axial collection, mass effect, midline s hift, herniation or hydrocephalus. The ventricles, sulci and cisterns are age appropriate. The anders-white differentiation is intact. Patchy periventricular and subcortical white matter hypoattenuation is nonspecific but may be related to small vessel ischemic disease. The visualized paranasal sinuses . Opacified mastoid air cells bilaterally suggest mastoiditis. The surrounding soft tissues and osseous structures are unremarkable. IMPRESSION: 1. No acute intracranial hemorrhage. 2. No CT findings of territorial ischemia. CRITICAL FINDINGS Critical Result: Stroke Alert NEGATIVE Findings discussed with ILEANA JORDAN , at 06/11/2024 01:41 PM, and acknowledged receipt and understand ing of the findings. HS:Joseph Fraser.
--- NOTE | 2024-06-11 14:59 | DVHPN2 ---
Progress Note - Dictate Date Seen: Jun 11, 2024 Has the PT tested + for MRSA If YES, has PT been informed?: No Medical Necessity Reason Pt with a Central, PICC or Fol: Yes The following are medically ne: Central Line, Robertson Catheter Reason for robertson catheter: Strict I&O Subjective Remains intubated, essentially aneuric vital signs Vital Sign Date Time Temp Pulse Resp B/P (MAP) Pulse Ox O2 Delivery O2 Flow Rate FiO2 06/11/24 14:08 105 22 93/38 (56) 98 40 06/11/24 13:39 Mechanical Ventilator+ 06/11/24 11:30 98.4 98.4 06/10/24 17:52 0 Total Intake and Output 06/10/24 06/10/24 06/11/24 15:00 23:00 07:00 Intake Total 718.367 ml 113.831 ml 146.409 ml Output Total 0 ml 0 ml Balance 718.367 ml 113.831 ml 146.409 ml medications Current Medications Medications Dose Ordered Sig/Alvaro Route Start Time Stop Time Status Last Admin Dose Admin Lorazepam 2 mg Q4H PO 05/27/24 09:15 Hold 05/28/24 06:10 2 MG Ondansetron HCl 4 mg Q4HP PRN IV 05/27/24 09:15 Nitroglycerin 0.4 mg Q5MINP PRN SL 05/27/24 09:15 Morphine Sulfate 2 mg Q30M PRN IV 05/27/24 09:15 Sucralfate 1 gm QID PO 05/27/24 12:00 Hold 05/28/24 06:11 1 GM Patient Own Medication 1 cap DAILY PO 05/27/24 10:00 UNV Pantoprazole Sodium 40 mg BID IV 05/27/24 22:00 06/11/24 07:44 40 MG Midodrine 10 mg TID@0600,1200,1800 PO 05/27/24 18:00 Hold 05/28/24 06:10 10 MG Midazolam HCl 50 ml @ 1 mls/hr Q24H IV 05/30/24 14:15 06/10/24 02:43 4 MLS/HR Fentanyl Citrate 250 ml @ 2.5 mls/hr Q24H IV 05/30/24 14:15 06/09/24 16:03 17.5 MLS/HR Thiamine HCl 100 mg DAILY IV 06/01/24 10:00 06/11/24 07:44 100 MG Folic Acid 1 mg/ Dextrose 50.2 ml @ 200.8 mls/ hr DAILY INJ 06/01/24 10:00 06/11/24 07:44 200.8 MLS/HR Enteral Nutritional Formula 1,000 ml 30ML/HR GT 06/01/24 11:00 06/09/24 06:09 1,000 ML Ipratropium [place] 0.5 mg Q6HWA [facility] 06/01/24 12:00 06/11/24 12:11 0.5 MG Metoclopramide HCl 5 mg Q8HR GT 06/02/24 14:00 06/11/24 14:32 5 MG Ursodiol 300 mg BID GT 06/02/24 11:00 06/11/24 07:43 300 MG Albumin Human 100 ml @ 100 mls/hr SID PRN IV 06/04/24 04:00 06/05/24 15:00 100 MLS/HR Trimethoprim/ Sulfamethoxazole 10 ml @ 0 mls/hr PER PHARMACY IV 06/04/24 15:30 Methylprednisolone Sodium Succinate 40 mg DAILY IV 06/06/24 10:00 06/11/24 07:44 40 MG Levothyroxine Sodium 50 mcg DAILY IV 06/07/24 10:00 06/11/24 07:44 50 MCG Bumetanide 2 mg BIDD IV 06/06/24 18:00 06/11/24 06:05 2 MG Lactulose 30 ml BID PO 06/09/24 22:00 06/11/24 07:43 30 ML Levalbuterol HCl 0.625 mg Q6HWA [facility] 06/10/24 06:00 06/11/24 12:11 0.625 MG Trimethoprim/ Sulfamethoxazole 15 ml/Dextrose 515 ml @ 343.333 mls/hr DAILY IV 06/11/24 10:00 06/11/24 07:44 343.333 MLS/HR Norepinephrine Bitartrate 32 mg/ Sodium Chloride 250 ml @ 0.938 mls/ hr Q24H IV 06/11/24 08:45 06/11/24 09:14 5.625 MLS/HR objective gen: Intubate lungs: cta cvs: no rub ext: + edema laboratory and microbiology Laboratory Tests 06/11/24 04:05 Test 1/11/25 04:05 Range/Units Serum Glucose 89 74-106 mg/dL Assessment/Plan IMP: 1) hemodynamically mediated acute kidney injury/ possible ischemic ATN. 2) volume depletion 3) Hx of alcohol dependency 4) anemia of chronic disease REC: - dialysis for solute+ volume removal as tolerated today. - we will continue to follow closely. Dietary Evaluation Review Recommendations by RD: PPN/TPN Comments: 1. If NPO > 7 days, initiate EN/TPN. 2. If gut is accessible, consider Jevity 1.2 @ 40 mL/hr. Tf regimen will provide 1,152 kcals, 53g Pro, and 775 mL free H2O (+ 1,200 mL free H2O flushes). TF regimen will meet ~ 91% daily estimated energy needs (20-25 kcal/kg) and ~59% daily estimated protein needs (1.2-2.0 g/kg). 3. Advance to hepatic diet when medically feasible, pending [employer] approval. 4. Promote ETOH cessation. Expected Outcomes/Goals: 1. nutritional intake to meet at least 75% estimated needs 2. labs to improve 3. diet to advance 4. f/u in 2-3 days Plan discussed with: Other CC Plasma Assessment Blood Product Administration S: [id number] QUANG HAIRSTON MD Jun 11, 2024 14:59
[2024-06-11] MEDS: SODIUM CHL 0.9% 1000 ML BAG XX ONE (16:50)
[2024-06-11 18:56] LABS: Sodium 137 mmol/L (136-145)
[2024-06-11 18:57] LABS: Anion Gap 17 (5-15); Carbon Dioxide 24 mmol/L (20-31)
[2024-06-11 18:58] LABS: Calcium 9.5 mg/dL (8.7-10.4)
[2024-06-11 19:10] LABS: BUN/Creatinine Ratio 18.2 (10.0-20.0)
[2024-06-11 19:11] LABS: Blood Urea Nitrogen 33 mg/dL (9-23); Chloride 96 mmol/L (98-107)
[2024-06-11 19:12] LABS: Glucose 47 mg/dL (74-106)
[2024-06-11] MEDS: DEXTROSE 50% SYRINGE 50 ML IV ONE (19:21)
[2024-06-11] MEDS: DEXTROSE (50%) 50ML SYRG IV ONE (19:30)
[2024-06-11] MEDS: DEXTROSE 10% 1,000 ML IV SCH (20:08)
--- NOTE | 2024-06-11 21:11 | DVHPN2 ---
Progress Note - Dictate Date Seen: Jun 11, 2024 Has the PT tested + for MRSA If YES, has PT been informed?: No Medical Necessity Reason Pt with a Central, PICC or Fol: Yes The following are medically ne: Central Line, Robertson Catheter Reason for robertson catheter: Strict I&O Subjective Patient is intubated and sedated. She is still in the ICU. Her respiration is improved a bit. No bowel movement since 06/02/2023. vital signs Vital Sign Date Time Temp Pulse Resp B/P (MAP) Pulse Ox O2 Delivery O2 Flow Rate FiO2 06/11/24 20:45 114 22 123/45 (71) 93 06/11/24 20:07 40 06/11/24 20:00 Mechanical Ventilator+ 06/11/24 20:00 97.5 97.5 06/10/24 17:52 0 Total Intake and Output 06/10/24 06/10/24 06/11/24 15:00 23:00 07:00 Intake Total 718.367 ml 113.831 ml 146.409 ml Output Total 0 ml 0 ml Balance 718.367 ml 113.831 ml 146.409 ml medications Current Medications Medications Dose Ordered Sig/Alvaro Route Start Time Stop Time Status Last Admin Dose Admin Lorazepam 2 mg Q4H PO 05/27/24 09:15 Hold 05/28/24 06:10 2 MG Ondansetron HCl 4 mg Q4HP PRN IV 05/27/24 09:15 Nitroglycerin 0.4 mg Q5MINP PRN SL 05/27/24 09:15 Morphine Sulfate 2 mg Q30M PRN IV 05/27/24 09:15 Sucralfate 1 gm QID PO 05/27/24 12:00 Hold 05/28/24 06:11 1 GM Patient Own Medication 1 cap DAILY PO 05/27/24 10:00 UNV Pantoprazole Sodium 40 mg BID IV 05/27/24 22:00 06/11/24 07:44 40 MG Midodrine 10 mg TID@0600,1200,1800 PO 05/27/24 18:00 Hold 05/28/24 06:10 10 MG Midazolam HCl 50 ml @ 1 mls/hr Q24H IV 05/30/24 14:15 06/10/24 02:43 4 MLS/HR Fentanyl Citrate 250 ml @ 2.5 mls/hr Q24H IV 05/30/24 14:15 06/09/24 16:03 17.5 MLS/HR Thiamine HCl 100 mg DAILY IV 06/01/24 10:00 06/11/24 07:44 100 MG Folic Acid 1 mg/ Dextrose 50.2 ml @ 200.8 mls/ hr DAILY INJ 06/01/24 10:00 06/11/24 07:44 200.8 MLS/HR Enteral Nutritional Formula 1,000 ml 30ML/HR GT 06/01/24 11:00 06/09/24 06:09 1,000 ML Ipratropium [place] 0.5 mg Q6HWA NEB 06/01/24 12:00 06/11/24 18:13 0.5 MG Metoclopramide HCl 5 mg Q8HR GT 06/02/24 14:00 06/11/24 14:32 5 MG Ursodiol 300 mg BID GT 06/02/24 11:00 06/11/24 07:43 300 MG Albumin Human 100 ml @ 100 mls/hr SID PRN IV 06/04/24 04:00 06/11/24 16:30 100 MLS/HR Trimethoprim/ Sulfamethoxazole 10 ml @ 0 mls/hr PER PHARMACY IV 06/04/24 15:30 Methylprednisolone Sodium Succinate 40 mg DAILY IV 06/06/24 10:00 06/11/24 07:44 40 MG Levothyroxine Sodium 50 mcg DAILY IV 06/07/24 10:00 06/11/24 07:44 50 MCG Bumetanide 2 mg BIDD IV 06/06/24 18:00 06/11/24 06:05 2 MG Lactulose 30 ml BID PO 06/09/24 22:00 06/11/24 07:43 30 ML Levalbuterol HCl 0.625 mg Q6HWA NEB 06/10/24 06:00 06/11/24 18:13 0.625 MG Trimethoprim/ Sulfamethoxazole 15 ml/Dextrose 515 ml @ 343.333 mls/hr DAILY IV 06/11/24 10:00 06/11/24 07:44 343.333 MLS/HR Norepinephrine Bitartrate 32 mg/ Sodium Chloride 250 ml @ 0.938 mls/ hr Q24H IV 06/11/24 08:45 06/11/24 18:32 12.188 MLS/HR Dextrose 1,000 ml @ 50 mls/hr Q20H IV 06/11/24 20:00 06/11/24 20:08 50 MLS/HR objective General: Patient is Intubated sedated HEENT: + scleral icterus Chest: Lung lee clear to auscultation Heart: RRR, no murmur Abdomen: Mild -distended, mild generalized tenderness to palpation, hypoactive bowel sounds Extremities showed 2+ pedal edema and she has generalized anasarca laboratory and microbiology Laboratory Tests 06/11/24 18:10 06/11/24 04:05 Test 06/11/24 18:10 Range/Units Serum Glucose 47 *L 74-106 mg/dL Assessment/Plan A 58 yo F with # Bacteremia : GPC Stenotrophomonas Pneumonia Hospital acquired Pneumonia Acute hypoxic respiratory failure on MV Alcoholic liver cirrhosis GI bleed Hepatorenal syndrome ESLD Jaundice Alcohol abuse with alcohol withdrawal Recommendations 06/10 Blood cultures 1/2 bottles with 2 strains of GPCs likely contamination WBC elevated: reactive due to Cirhosis 06/11 : 35.7 WBC High Steno S to Bactrim, continue monitor cell count/ platelets; continue IV bactrim; plan for 7-10 days she is oozing blood from ET tube due to coagulopathy due to alcoholic liver cirrhosis she is on pressor. 06/09, Blood culture preliminary showed no growth 05/30, Respiratory culture showed Stenotrophomonas maltophilia 05/30, MRSA screening was negative 05/31, Blood culture showed no growth 06/11 : CT head without contrast reviewed today 06/11: Chest x-ray reviewed Critical care time spent with patient 35 minutes. prognosis very poor consider goals of care discussion. thank you for opportunity to take care of the patient. Dietary Evaluation Review Recommendations by RD: PPN/TPN Comments: 1. If NPO > 7 days, initiate EN/TPN. 2. If gut is accessible, consider Jevity 1.2 @ 40 mL/hr. Tf regimen will provide 1,152 kcals, 53g Pro, and 775 mL free H2O (+ 1,200 mL free H2O flushes). TF regimen will meet ~ 91% daily estimated energy needs (20-25 kcal/kg) and ~59% daily estimated protein needs (1.2-2.0 g/kg). 3. Advance to hepatic diet when medically feasible, pending [employer] approval. 4. Promote ETOH cessation. Expected Outcomes/Goals: 1. nutritional intake to meet at least 75% estimated needs 2. labs to improve 3. diet to advance 4. f/u in 2-3 days CC Plasma Assessment Blood Product Administration S: [id number] MELL PAN MD Jun 11, 2024 21:11
[2024-06-11] MEDS: EPOETIN ALFA-EPBX 10,000 UNIT/1ML VIAL SC ONE (21:19)
--- NOTE | 2024-06-11 21:38 | DVHPN2 ---
Progress Note - Dictate Date Seen: Jun 11, 2024 Has the PT tested + for MRSA If YES, has PT been informed?: No Medical Necessity Reason Pt with a Central, PICC or Fol: Yes The following are medically ne: Central Line, Robertson Catheter Reason for robertson catheter: Strict I&O Subjective Patient is intubated sedated in the ICU 106 Patient is tolerating tube feedings at 30 mL/hour She had hypoactive bowel sounds and no bowel movement recorded yet Patient has generalized anasarca and fluid retention slightly improving Liver enzymes are persistently elevated and worsening Continued leukocytosis on IV Solumedrol 40mg daily Patient has worsening coagulopathy, she was also hypoglycemic this morning No active GI bleeding reported ; mild chronic macrocytic anemia Patient failed weaning attempts yesterday On Bactrim for Stenotrophomonas maltophilia in sputum Patient was dialyzed today and 2 L of fluid were removed vital signs Vital Sign Date Time Temp Pulse Resp B/P (MAP) Pulse Ox O2 Delivery O2 Flow Rate FiO2 06/11/24 20:45 114 22 123/45 (71) 93 06/11/24 20:07 40 06/11/24 20:00 Mechanical Ventilator+ 06/11/24 20:00 97.5 97.5 06/10/24 17:52 0 Total Intake and Output 06/10/24 06/10/24 06/11/24 15:00 23:00 07:00 Intake Total 718.367 ml 113.831 ml 146.409 ml Output Total 0 ml 0 ml Balance 718.367 ml 113.831 ml 146.409 ml medications Current Medications Medications Dose Ordered Sig/Alvaro Route Start Time Stop Time Status Last Admin Dose Admin Lorazepam 2 mg Q4H PO 05/27/24 09:15 Hold 05/28/24 06:10 2 MG Ondansetron HCl 4 mg Q4HP PRN IV 05/27/24 09:15 Nitroglycerin 0.4 mg Q5MINP PRN SL 05/27/24 09:15 Morphine Sulfate 2 mg Q30M PRN IV 05/27/24 09:15 Sucralfate 1 gm QID PO 05/27/24 12:00 Hold 05/28/24 06:11 1 GM Patient Own Medication 1 cap DAILY PO 05/27/24 10:00 UNV Pantoprazole Sodium 40 mg BID IV 05/27/24 22:00 06/11/24 07:44 40 MG Midodrine 10 mg TID@0600,1200,1800 PO 05/27/24 18:00 Hold 05/28/24 06:10 10 MG Midazolam HCl 50 ml @ 1 mls/hr Q24H IV 05/30/24 14:15 06/10/24 02:43 4 MLS/HR Fentanyl Citrate 250 ml @ 2.5 mls/hr Q24H IV 05/30/24 14:15 06/09/24 16:03 17.5 MLS/HR Thiamine HCl 100 mg DAILY IV 06/01/24 10:00 06/11/24 07:44 100 MG Folic Acid 1 mg/ Dextrose 50.2 ml @ 200.8 mls/ hr DAILY INJ 06/01/24 10:00 06/11/24 07:44 200.8 MLS/HR Enteral Nutritional Formula 1,000 ml 30ML/HR GT 06/01/24 11:00 06/09/24 06:09 1,000 ML Ipratropium [place] 0.5 mg Q6HWA NEB 06/01/24 12:00 06/11/24 18:13 0.5 MG Metoclopramide HCl 5 mg Q8HR GT 06/02/24 14:00 06/11/24 14:32 5 MG Ursodiol 300 mg BID GT 06/02/24 11:00 06/11/24 07:43 300 MG Albumin Human 100 ml @ 100 mls/hr SID PRN IV 06/04/24 04:00 06/11/24 16:30 100 MLS/HR Trimethoprim/ Sulfamethoxazole 10 ml @ 0 mls/hr PER PHARMACY IV 06/04/24 15:30 Methylprednisolone Sodium Succinate 40 mg DAILY IV 06/06/24 10:00 06/11/24 07:44 40 MG Levothyroxine Sodium 50 mcg DAILY IV 06/07/24 10:00 06/11/24 07:44 50 MCG Bumetanide 2 mg BIDD IV 06/06/24 18:00 06/11/24 06:05 2 MG Lactulose 30 ml BID PO 06/09/24 22:00 06/11/24 07:43 30 ML Levalbuterol HCl 0.625 mg Q6HWA NEB 06/10/24 06:00 06/11/24 18:13 0.625 MG Trimethoprim/ Sulfamethoxazole 15 ml/Dextrose 515 ml @ 343.333 mls/hr DAILY IV 06/11/24 10:00 06/11/24 07:44 343.333 MLS/HR Norepinephrine Bitartrate 32 mg/ Sodium Chloride 250 ml @ 0.938 mls/ hr Q24H IV 06/11/24 08:45 06/11/24 18:32 12.188 MLS/HR Dextrose 1,000 ml @ 50 mls/hr Q20H IV 06/11/24 20:00 06/11/24 20:08 50 MLS/HR objective General examination- Intubated and sedated, generalized edema Eyes: Closed, PEERLA Throat: Endotracheal tube and orogastric tube in place. Chest: Transmitted breath sounds bilaterally. Decreased air entry bilaterally. No wheezing. Bibasilar crackles. Cardiovascular: Positive S1, positive S2. Regular rate and rhythm. Abdomen: Mild -distended, mild generalized tenderness to palpation, hypoactive bowel sounds and edematous Rectal examination showed normal tone and no stool in the vault no evidence of fecal impaction Extremities showed 2+ pedal edema and she has generalized anasarca laboratory and microbiology Laboratory Tests 06/11/24 18:10 06/11/24 04:05 Test 06/11/24 18:10 Range/Units Serum Glucose 47 *L 74-106 mg/dL Problems(with codes): (1) Anasarca (2) Acute renal failure (3) Duodenal ulcer disease (4) Elevated LFTs (5) Hepatic steatosis (6) Abdominal pain (7) Hepatic failure (8) Jaundice Prognosis Assessment and plan Patient continues to have acute liver failure with hepatorenal syndrome S/P dialysis She has also had evidence of sepsis with pulmonary lung infection She had generalized anasarca and fluid retention Coagulopathy hypoglycemia anemia and jaundice related to liver failure Continue to monitor labs We were some D5 water Increase tube feedings to 40 mL/hour if tolerated Continue lactulose, ursodiol, IV methylprednisolone I will give vitamin K supplementation Prognosis remains guarded Discuss code on-call status with family Dietary Evaluation Review Recommendations by RD: PPN/TPN Comments: 1. If NPO > 7 days, initiate EN/TPN. 2. If gut is accessible, consider Jevity 1.2 @ 40 mL/hr. Tf regimen will provide 1,152 kcals, 53g Pro, and 775 mL free H2O (+ 1,200 mL free H2O flushes). TF regimen will meet ~ 91% daily estimated energy needs (20-25 kcal/kg) and ~59% daily estimated protein needs (1.2-2.0 g/kg). 3. Advance to hepatic diet when medically feasible, pending [employer] approval. 4. Promote ETOH cessation. Expected Outcomes/Goals: 1. nutritional intake to meet at least 75% estimated needs 2. labs to improve 3. diet to advance 4. f/u in 2-3 days Plan discussed with: Other (Samantha Ballard) CC Plasma Assessment Blood Product Administration S: [id number] JARROD PATEL MD Jun 11, 2024 21:38
--- NOTE | 2024-06-11 22:50 | DVHPN2 ---
Progress Note - Dictate Date Seen: Jun 11, 2024 Has the PT tested + for MRSA If YES, has PT been informed?: No Medical Necessity Reason Pt with a Central, PICC or Fol: Yes The following are medically ne: Central Line, Robertson Catheter Reason for robertson catheter: Strict I&O Subjective Patient seen and examined at bedside. Intubated on mechanical ventilator. Overnight events reviewed. vital signs Vital Sign Date Time Temp Pulse Resp B/P (MAP) Pulse Ox O2 Delivery O2 Flow Rate FiO2 06/11/24 22:02 113 22 107/36 (59) 94 40 06/11/24 20:00 Mechanical Ventilator+ 06/11/24 20:00 97.5 97.5 06/10/24 17:52 0 Total Intake and Output 06/10/24 06/10/24 06/11/24 15:00 23:00 07:00 Intake Total 718.367 ml 113.831 ml 146.409 ml Output Total 0 ml 0 ml Balance 718.367 ml 113.831 ml 146.409 ml medications Current Medications Medications Dose Ordered Sig/Alvaro Route Start Time Stop Time Status Last Admin Dose Admin Lorazepam 2 mg Q4H PO 05/27/24 09:15 Hold 05/28/24 06:10 2 MG Ondansetron HCl 4 mg Q4HP PRN IV 05/27/24 09:15 Nitroglycerin 0.4 mg Q5MINP PRN SL 05/27/24 09:15 Morphine Sulfate 2 mg Q30M PRN IV 05/27/24 09:15 Sucralfate 1 gm QID PO 05/27/24 12:00 Hold 05/28/24 06:11 1 GM Patient Own Medication 1 cap DAILY PO 05/27/24 10:00 UNV Pantoprazole Sodium 40 mg BID IV 05/27/24 22:00 06/11/24 21:30 40 MG Midodrine 10 mg TID@0600,1200,1800 PO 05/27/24 18:00 Hold 05/28/24 06:10 10 MG Midazolam HCl 50 ml @ 1 mls/hr Q24H IV 05/30/24 14:15 06/10/24 02:43 4 MLS/HR Fentanyl Citrate 250 ml @ 2.5 mls/hr Q24H IV 05/30/24 14:15 06/09/24 16:03 17.5 MLS/HR Thiamine HCl 100 mg DAILY IV 06/01/24 10:00 06/11/24 07:44 100 MG Folic Acid 1 mg/ Dextrose 50.2 ml @ 200.8 mls/ hr DAILY INJ 06/01/24 10:00 06/11/24 07:44 200.8 MLS/HR Enteral Nutritional Formula 1,000 ml 30ML/HR GT 06/01/24 11:00 06/09/24 06:09 1,000 ML Ipratropium [place] 0.5 mg Q6HWA NEB 06/01/24 12:00 06/11/24 18:13 0.5 MG Metoclopramide HCl 5 mg Q8HR GT 06/02/24 14:00 06/11/24 21:30 5 MG Ursodiol 300 mg BID GT 06/02/24 11:00 06/11/24 21:30 300 MG Albumin Human 100 ml @ 100 mls/hr SID PRN IV 06/04/24 04:00 06/11/24 16:30 100 MLS/HR Trimethoprim/ Sulfamethoxazole 10 ml @ 0 mls/hr PER PHARMACY IV 06/04/24 15:30 Methylprednisolone Sodium Succinate 40 mg DAILY IV 06/06/24 10:00 06/11/24 07:44 40 MG Levothyroxine Sodium 50 mcg DAILY IV 06/07/24 10:00 06/11/24 07:44 50 MCG Bumetanide 2 mg BIDD IV 06/06/24 18:00 06/11/24 06:05 2 MG Lactulose 30 ml BID PO 06/09/24 22:00 06/11/24 21:30 30 ML Levalbuterol HCl 0.625 mg Q6HWA NEB 06/10/24 06:00 06/11/24 18:13 0.625 MG Trimethoprim/ Sulfamethoxazole 15 ml/Dextrose 515 ml @ 343.333 mls/hr DAILY IV 06/11/24 10:00 06/11/24 07:44 343.333 MLS/HR Norepinephrine Bitartrate 32 mg/ Sodium Chloride 250 ml @ 0.938 mls/ hr Q24H IV 06/11/24 08:45 06/11/24 18:32 12.188 MLS/HR Dextrose 1,000 ml @ 50 mls/hr Q20H IV 06/11/24 20:00 06/11/24 20:08 50 MLS/HR objective Gen.: Patient lying in bed in medical ICU. Intubated on mechanical ventilator. Head: Normocephalic, atraumatic. Eyes: PERRLA. Ears: Normal external anatomy. Throat: Endotracheal tube and orogastric tube in place. Neck: Supple, trachea midline. Chest: Transmitted breath sounds bilaterally. Decreased air entry bilaterally. No wheezing. Bibasilar crackles. Cardiovascular: Positive S1, positive S2. Regular rate and rhythm. Abdomen: Positive bowel sounds in all 4 quadrants. Soft, nontender, nondistended. : Robertson in place. Normal external genitalia. Rectal: Deferred. Skin: Warm, dry. Intact. Extremities: 2+ radial pulses bilaterally. No lower extremity edema. Neuro: Off sedation laboratory and microbiology Laboratory Tests 06/11/24 18:10 06/11/24 04:05 Test 06/11/24 18:10 Range/Units Serum Glucose 47 *L 74-106 mg/dL Assessment/Plan Impression: Acute hypoxic respiratory failure On mechanical ventilator Hepatorenal syndrome Leukocytosis Anemia Thrombocytopenia Acute kidney injury Hypokalemia Chronic pancreatitis ETOH abuse Marijuana abuse Events: Remains on vent support On AC mode; RR 22, VT 450, PEEP 6, FiO2 40% Taper FiO2 as tolerated Off sedation. Pressors for hemodynamic support On Levophed, 10 mcg/min Titrate to keep mean arterial pressure greater than 65 mmHg. Increased pressor requirements Low platelets - 52 K. Continue to monitor Obtain STAT CT head Pupils fixed Rule out ICH/stroke. No cough or gag. Poor prognosis Continue antibiotics -on Bactrim Continue bronchodilators Ursodiol WBC trending up - 35.7 K ABG reviewed, acidemia CXR demonstrates bilateral interstitial and alveolar airspace opacities appear similar with slight worsening in the right lung. No effusion or pneumothorax. Devices in place. Bumex drip for diuresis Monitor renal function Monitor electrolytes. Supplement as necessary. Monitor ins and outs. HD per nephrology- s/p Hemodialysis 06/09/24. Monitor hemoglobin Tube feeds for nutritional support 06/07/24 - S/p therapeutic bronchoscopy. Cleared mucous plugging from L7-L10 and R6-R10. Please see separate procedure note for details. Labs and imaging reviewed. Rest of plan as noted below. Plan: s/p intubation on mechanical ventilator. On AC mode; RR 22, VT 450, PEEP 6, FiO2 40% Titrate FIO2 to keep O2 saturation above 90%. VAP bundle. Daily ABG and CXR while intubated Off sedation Continue bronchodilators. Continue antibiotics. F/u cultures. Pressors for hemodynamic support Titrate to keep mean arterial pressure greater than 65 mmHg. Follow up GI recommendations Follow up Nephrology recommendations Monitor renal function Monitor electrolytes. Supplement as necessary. Monitor ins and outs. Maintain euvolemia. GI prophylaxis. DVT prophylaxis. Prognosis: Poor given patient's multiple co-morbidities. Condition: Critical Rest of plan per hospitalist and other consultants. A total of 35 minutes of critical care time was spent reviewing the patient record, examining the patient, making a diagnostic and therapeutic plan, discussing this plan with the medical personnel, following up on diagnostic studies and following the patient for clinical stability excluding any and all procedures. At least 50% of this time was spent in direct, [id number] contact. Thank you, Dr. Parkinson, for allowing me to participate in this patient's care. Further recommendations will depend on the patient's clinical course. Please do not hesitate to contact me if you have any questions or concerns. This medical document was created using an electronic medical record system with [employer] computerized dictation system. Although these documentations are being carefully reviewed, there may still be some phonetic and typographical changes. The errors are purely typographical, due to imperfection on the software program, and do not reflect any compromise in the patient's medical care. Dietary Evaluation Review Recommendations by RD: PPN/TPN Comments: 1. If NPO > 7 days, initiate EN/TPN. 2. If gut is accessible, consider Jevity 1.2 @ 40 mL/hr. Tf regimen will provide 1,152 kcals, 53g Pro, and 775 mL free H2O (+ 1,200 mL free H2O flushes). TF regimen will meet ~ 91% daily estimated energy needs (20-25 kcal/kg) and ~59% daily estimated protein needs (1.2-2.0 g/kg). 3. Advance to hepatic diet when medically feasible, pending [employer] approval. 4. Promote ETOH cessation. Expected Outcomes/Goals: 1. nutritional intake to meet at least 75% estimated needs 2. labs to improve 3. diet to advance 4. f/u in 2-3 days Plan discussed with: Other (NIKKI Vieira) Critical Care Time(min): 35 CC Plasma Assessment Blood Product Administration S: [id number] TAE DUPREE MD Jun 11, 2024 22:50
[2024-06-12] VITALS (74 sets, daily range): BP systolic 65–133; BP diastolic 12–79; PULSE 84–112; RESP 19–23; TEMP 96.8–99; O2SAT 0–100
[2024-06-12] MEDS: ACCU-CHEK COMFORT CURVE STRIP VI SCH (02:00)
[2024-06-12 04:11] LABS: Hematocrit 22.8 % (36.0-46.0); Hemoglobin 7.3 g/dL (12.2-16.2); Mean Corpuscular Hemoglobin 38.3 pg (28.0-32.0); Mean Corpuscular Hgb Conc. 32.2 g/dL (32.0-36.0); Mean Corpuscular Volume 118.9 fL (80.0-100.0); Platelet Count (auto) 34 10^3/uL (140-450); Red Blood Cells 1.91 10^6/uL (4.0-5.20); Red Cell Distribution Width 32.7 % (11.8-14.3)
[2024-06-12 04:12] LABS: Calcium 8.7 mg/dL (8.7-10.4); Potassium 4.9 mmol/L (3.5-5.1)
[2024-06-12 04:13] LABS: Anion Gap 20 (5-15)
[2024-06-12 04:16] LABS: Carbon Dioxide 17 mmol/L (20-31); Chloride 96 mmol/L (98-107); Sodium 133 mmol/L (136-145)
[2024-06-12 04:18] LABS: Glucose 76 mg/dL (74-106)
[2024-06-12 04:36] LABS: BUN/Creatinine Ratio 19.4 (10.0-20.0); Basophils % (manual) 0 (0.0-2.0); Blast Cells 0; Eosinophils % (manual) 0 (0-7); Metamyelocytes % 0; Myelocytes % 0; Promyelocytes % 0; Reactive Lymphocytes 0
[2024-06-12 05:25] LABS: Blood Urea Nitrogen 49 mg/dL (9-23)
--- NOTE | 2024-06-12 05:41 | DVH ---
CHEST RADIOGRAPH Indication: INTUBATED Technique: Single frontal view of the chest was obtained Comparison: XY CHEST PORTABLE on DOS: 06/11/24, XY CHEST PORTABLE on DOS: 06/10/24, XY CHEST PORTABLE o n DOS: 06/09/24, XY CHEST PORTABLE on DOS: 06/08/24, XY CHEST PORTABLE on DOS: 06/07/24, XY CHEST PORTABLE on DOS: 06/11/24 FINDINGS: The heart appears normal in size. Support lines and tubes appear unchanged in position. Bilateral in terstitial and alveolar airspace opacities appear similar with slight worsening in the right lung. No sizable effusion or pneumothorax. IMPRESSION: No change
[2024-06-12 06:22] LABS: Anisocytosis Moderate; Band Neutrophils % (manual) 6; Lymphocytes % (manual) 3 (10.0-50.0); Macrocytosis Moderate; Monocytes % (manual) 3 (0-12); Platelet Estimate Decreased
[2024-06-12 06:23] LABS: Ovalocytes FEW; Stomatocytes Few; Target Cell FEW
[2024-06-12] MEDS ORDERED: Jevity 1.2 Cal/Fiber 1 Liter GT SCH (07:00)
[2024-06-12] MEDS ORDERED: BISACODYL 10 MG RECT SUPP PR PRN (07:00)
[2024-06-12 08:15] LABS: Erythrocyte Sedimentation Rate 5 mm/hr (0-20)
[2024-06-12] MEDS: D5W 5% IV SCH (09:33)
[2024-06-12] MEDS: SULFAMETH TRIMETH IV SCH (09:33)
[2024-06-12] MEDS: DEXTROSE 50% SYRINGE 50 ML IV ONE (10:16)
--- NOTE | 2024-06-12 11:10 | DVHNC2 ---
Arterial Puncture Indication: Assess ventilatory status, Assess acid-base status Procedure: Sterile Preparation, Arterial Punct Obtained Location: Right Femoral Informed consent obtained: Yes Risks/benefits/alt described: Yes Date of Service: Jun 12, 2024 Billing Provider: MADI RYDER [employer]CHIT[employer] Cardiology Common Codes: PROCEDURE ONLY [employer] STUDENT [employer] ARCHITECT Jun 12, 2024 11:10
--- NOTE | 2024-06-12 11:14 | DVHPN2 ---
Subjective Intubated and sedated Reviewed: Care Plan, H&P, Labs, Medications, Previous Orders, Radiology Changes from previous H/P or p: No Changes General: Per HPI Eyes: No Pain, No Vision change, No Conjunctivae inflammation, No Eyelid inflammation, No Other, No Redness ENT: No Ear pain, No Ear discharge, No Nose pain, No Nose discharge, No Nose congestion, No Mouth pain, No Mouth swelling, No Throat pain, No Throat swelling, No Other Cardiovascular: Chest Pain Respiratory: No Cough, No Dry, No Shortness of breath, No SOB with excertion, No Wheezing, No Hemoptysis, No Pleuritic Pain, No Sputum, No Other Gastrointestinal: Abdominal Pain, Hematochezia Genitourinary: Frequency, Retention Musculoskeletal: No other, No neck pain, No shoulder pain, No arm pain, No back pain, No hand pain, No leg pain, No foot pain Skin: No Rash, No Lesions, No Jaundice, No Bruising, No Other Objective Vitals Vital Signs Date Time Temp Pulse Resp B/P (MAP) Pulse Ox O2 Delivery O2 Flow Rate FiO2 06/12/24 10:00 22 100 Mechanical Ventilator+ 40 40 06/12/24 10:00 104 06/12/24 08:30 106/28 (54) 06/12/24 08:00 99.0 99.0 06/10/24 17:52 0 Intake/Output Intake and Output 06/12/24 07:00 Intake Total 1746.326 ml Output Total 200 ml Balance 1546.326 ml Intake Oral 200 ml IV Total 1346.326 ml Tube Feeding 200 ml Stool Total 0 ml Gastric Drainage Total 200 ml General Appearance: mild distress, Other HEENT: Atraumatic, PERRLA, Other Lungs: Clear to auscultation, Normal air movement Cardiovascular: Normal S1, Normal S2, Other (Sinus tachycardia) Abdomen: Normal bowel sounds, Other (Anasarca) Genitourinary: No Apparent Abnormalities (Neil catheter) Musculoskeletal: Other Extremities: Normal pulses, Other (Plus four edema to lower extremities) Neuro: Other Skin: Dry, Intact, Other Psych/Mental Status: Other Medications Current Medications Medications Dose Ordered Sig/Alvaro Route Start Time Stop Time Status Last Admin Dose Admin Lorazepam 2 mg Q4H PO 05/27/24 09:15 Hold 05/28/24 06:10 2 MG Ondansetron HCl 4 mg Q4HP PRN IV 05/27/24 09:15 Nitroglycerin 0.4 mg Q5MINP PRN SL 05/27/24 09:15 Morphine Sulfate 2 mg Q30M PRN IV 05/27/24 09:15 Sucralfate 1 gm QID PO 05/27/24 12:00 Hold 05/28/24 06:11 1 GM Patient Own Medication 1 cap DAILY PO 05/27/24 10:00 UNV Pantoprazole Sodium 40 mg BID IV 05/27/24 22:00 06/12/24 07:47 40 MG Midodrine 10 mg TID@0600,1200,1800 PO 05/27/24 18:00 Hold 05/28/24 06:10 10 MG Midazolam HCl 50 ml @ 1 mls/hr Q24H IV 05/30/24 14:15 06/10/24 02:43 4 MLS/HR Fentanyl Citrate 250 ml @ 2.5 mls/hr Q24H IV 05/30/24 14:15 06/09/24 16:03 17.5 MLS/HR Thiamine HCl 100 mg DAILY IV 06/01/24 10:00 06/12/24 07:47 100 MG Folic Acid 1 mg/ Dextrose 50.2 ml @ 200.8 mls/ hr DAILY INJ 06/01/24 10:00 06/12/24 07:38 200.8 MLS/HR Ipratropium [place] 0.5 mg Q6HWA NEB 06/01/24 12:00 06/12/24 10:32 0.5 MG Metoclopramide HCl 5 mg Q8HR GT 06/02/24 14:00 06/12/24 05:38 5 MG Ursodiol 300 mg BID GT 06/02/24 11:00 06/12/24 07:47 300 MG Albumin Human 100 ml @ 100 mls/hr SID PRN IV 06/04/24 04:00 06/11/24 16:30 100 MLS/HR Trimethoprim/ Sulfamethoxazole 10 ml @ 0 mls/hr PER PHARMACY IV 06/04/24 15:30 Methylprednisolone Sodium Succinate 40 mg DAILY IV 06/06/24 10:00 06/12/24 07:47 40 MG Levothyroxine Sodium 50 mcg DAILY IV 06/07/24 10:00 06/12/24 07:47 50 MCG Bumetanide 2 mg BIDD IV 06/06/24 18:00 06/12/24 05:32 2 MG Lactulose 30 ml BID PO 06/09/24 22:00 06/12/24 07:46 30 ML Levalbuterol HCl 0.625 mg Q6HWA NEB 06/10/24 06:00 06/12/24 10:32 0.625 MG Norepinephrine Bitartrate 32 mg/ Sodium Chloride 250 ml @ 0.938 mls/ hr Q24H IV 06/11/24 08:45 06/11/24 18:32 12.188 MLS/HR Dextrose 1,000 ml @ 50 mls/hr Q20H IV 06/11/24 20:00 06/11/24 20:08 50 MLS/HR Diagnostic Test (Pha) 1 strip Q3HR 06/12/24 02:00 06/12/24 12:00 06/12/24 09:00 1 STRIP Bisacodyl 10 mg DAILYP PRN DC 06/12/24 07:00 Enteral Nutritional Formula 1,000 ml 30ML/HR GT 06/12/24 07:00 Trimethoprim/ Sulfamethoxazole 7.5 ml/Dextrose 257.5 ml @ 257.5 mls/ hr DAILY@1000,1100 IV 06/12/24 10:00 06/12/24 09:33 257.5 MLS/HR Laboratory Results Laboratory Tests 06/12/24 03:24 Chemistry Test 06/11/24 18:10 06/12/24 03:24 Calcium Level 9.5 mg/dL (8.7-10.4) 8.7 mg/dL (8.7-10.4) Urinalysis Test 05/28/24 21:45 Urine Color Yellow (Yellow) Urine Clarity Clear (Clear) Urine pH 6.5 (5.0-9.0) Urine Specific Kramer 1.005 (1.001-1.035) Urine Protein Trace (Negative) H Urine Ketones Negative (Negative) Urine Blood 3+ /uL (Negative) H Urine Nitrite Negative (Negative) Urine Bilirubin Negative (Negative) Urine Urobilinogen 4 mg/dL (Negative) H Urine Leukocyte Esterase Trace /uL (Negative) Urine RBC 21 /hpf (0 - 4) Urine WBC 109 /hpf (0 - 5) Urine Squamous Epithelial Cells None seen /hpf (<5) Urine Bacteria None seen /hpf (None Seen) Urine Glucose Normal mg/dL (Normal) Microbiology Microbiology Date/Time Source Procedure Growth Status 06/09/24 08:56 Blood Blood Culture - Preliminary NO GROWTH AFTER 72 HOURS OF INCUBATION. Resulted 05/30/24 15:15 Nose MRSA Screen - Final Complete 05/30/24 14:15 Bronchial Brushings Gram Stain - Final Complete 05/30/24 14:15 Respiratory Culture - Final Stenotrophomonas maltophilia Complete Labs and/or images reviewed: Labs reviewed by me, Image(s) reviewed by me Assessment/Plan Assessment/Plan Impression: -acute hypoxic respiratory failure with mechanical ventilation -sepsis secondary to pneumonia -probable aspiration pneumonia -alcoholism -alcohol-related liver disease -acute kidney injury, vasomotor nephropathy -hypothyroidism, supratherapeutic coverage -severe protein malnutrition -thrombocytopenia -alcohol withdrawal -questionable ileus Plan: Events: Patient received HD yesterday. Potassium improved. White blood cell count increasing. Patient now with out bowel sounds, high residual. Persistent hypoglycemia. Arterial line placed to right femoral artery. -start TPN -CT abdomen and pelvis -continue current ventilator settings per pulmonology -antibiotic therapy: Bactrim. ID consultation was placed. -continue Actigall -continue thiamine, MVI -continue norepinephrine drip to keep systolic blood pressure greater than 95 mmHg -bronchodilators -PUD prophylaxis -SCDs -repeat labs, chest x-ray, ABG in a.m. Critical care time spent with patient discussing and formulating plan of care: 40 minutes. This does not include time spent performing procedures. This medical document was created using an electronic medical record system with [employer] dictation system. Although this document has been carefully reviewed, there may still be some phonetic and typographical errors. These areas are purely typographical due to imperfections of the software programs, and do not reflect any compromise in the patient's medical care. Plan discussed with: Patient, Other (RN) My Orders Orders - MADI RYDER [employer] Procedure Category Date Status Time Chest Portable XY 06/12/24 Resulted 04:00 Bisacodyl Suppository PHA 06/12/24 In Process (D[place]colax Supposit 07:00 Complete Blood Count LAB 06/13/24 Verified 05:00 Complete Blood Count LAB 06/14/24 Verified 05:00 Complete Blood Count LAB 06/15/24 Verified 05:00 Complete Blood Count LAB 06/16/24 Verified 05:00 Complete Blood Count LAB 06/17/24 Verified 05:00 Nutritional PHA 06/12/24 In Process Supplements (Jevity 07:00 Date of Service: Jun 12, 2024 Billing Provider: MADI RYDER NP Common Visit Codes: [id number] CARE 30-74 MIN MADI RYDER NP Jun 12, 2024 11:14
[2024-06-12] MEDS ORDERED: TPN PER PHARMACY 0 ML IV SCH (11:15)
[2024-06-12] MEDS ORDERED: DEXTROSE (50%) 50ML SYRG IV PRN (11:30)
[2024-06-12 12:42] LABS: Base Excess -22.5 mmol/L (-2.0-3.0)
[2024-06-12] MEDS: metroNIDAZOLE 500MG/100ML 100 ML IV SCH (13:00)
[2024-06-12] MEDS: SODIUM BICARB 8.4% 50Meq/50ml SYR Vial IV ONE ×2 (13:00→16:27)
[2024-06-12] MEDS: SODIUM BICARB 50mEq/50ml Vial 150 ML in D5W 5% 1,000 ML IV SCH (14:10)
[2024-06-12] MEDS: PANTOPRAZOLE 40mg/50ML NS AE 50 ML IV SCH (14:27)
[2024-06-12] MEDS: SODIUM BICARB 8.4% 50Meq/50ml SYR INJ ONE (15:59)
[2024-06-12 16:04] LABS: Base Excess -20.9 mmol/L (-2.0-3.0)
--- NOTE | 2024-06-12 16:20 | DVHPN2 ---
Progress Note - Dictate Date Seen: Jun 12, 2024 Has the PT tested + for MRSA If YES, has PT been informed?: No Medical Necessity Reason Pt with a Central, PICC or Fol: Yes The following are medically ne: Central Line, Robertson Catheter Reason for robertson catheter: Strict I&O Subjective persistently hypoglycemic overnight despite D10 infusion. currently with signs of GI bleed. Persistent acidemia vital signs Vital Sign Date Time Temp Pulse Resp B/P (MAP) Pulse Ox O2 Delivery O2 Flow Rate FiO2 06/12/24 15:56 40 06/12/24 15:56 22 0 Mechanical Ventilator+ 06/12/24 15:56 92 06/12/24 15:45 96.8 65/26 (39) 96.8 06/10/24 17:52 0 Total Intake and Output 06/11/24 06/11/24 06/12/24 15:00 23:00 07:00 Intake Total 588.196 ml 341.876 ml 816.254 ml Output Total 0 ml 200 ml Balance 588.196 ml 341.876 ml 616.254 ml medications Current Medications Medications Dose Ordered Sig/Alvaro Route Start Time Stop Time Status Last Admin Dose Admin Lorazepam 2 mg Q4H PO 05/27/24 09:15 Hold 05/28/24 06:10 2 MG Ondansetron HCl 4 mg Q4HP PRN IV 05/27/24 09:15 Nitroglycerin 0.4 mg Q5MINP PRN SL 05/27/24 09:15 Morphine Sulfate 2 mg Q30M PRN IV 05/27/24 09:15 Sucralfate 1 gm QID PO 05/27/24 12:00 Hold 05/28/24 06:11 1 GM Patient Own Medication 1 cap DAILY PO 05/27/24 10:00 UNV Midodrine 10 mg TID@0600,1200,1800 PO 05/27/24 18:00 Hold 05/28/24 06:10 10 MG Midazolam HCl 50 ml @ 1 mls/hr Q24H IV 05/30/24 14:15 06/10/24 02:43 4 MLS/HR Fentanyl Citrate 250 ml @ 2.5 mls/hr Q24H IV 05/30/24 14:15 06/09/24 16:03 17.5 MLS/HR Thiamine HCl 100 mg DAILY IV 06/01/24 10:00 06/12/24 07:47 100 MG Folic Acid 1 mg/ Dextrose 50.2 ml @ 200.8 mls/ hr DAILY INJ 06/01/24 10:00 06/12/24 07:38 200.8 MLS/HR Ipratropium [place] 0.5 mg Q6HWA [facility] 06/01/24 12:00 06/12/24 10:32 0.5 MG Metoclopramide HCl 5 mg Q8HR GT 06/02/24 14:00 06/12/24 05:38 5 MG Ursodiol 300 mg BID GT 06/02/24 11:00 06/12/24 07:47 300 MG Albumin Human 100 ml @ 100 mls/hr SID PRN IV 06/04/24 04:00 06/11/24 16:30 100 MLS/HR Trimethoprim/ Sulfamethoxazole 10 ml @ 0 mls/hr PER PHARMACY IV 06/04/24 15:30 Methylprednisolone Sodium Succinate 40 mg DAILY IV 06/06/24 10:00 06/12/24 07:47 40 MG Levothyroxine Sodium 50 mcg DAILY IV 06/07/24 10:00 06/12/24 07:47 50 MCG Bumetanide 2 mg BIDD IV 06/06/24 18:00 06/12/24 05:32 2 MG Lactulose 30 ml BID PO 06/09/24 22:00 06/12/24 07:46 30 ML Levalbuterol HCl 0.625 mg Q6HWA [facility] 06/10/24 06:00 06/12/24 10:32 0.625 MG Norepinephrine Bitartrate 32 mg/ Sodium Chloride 250 ml @ 0.938 mls/ hr Q24H IV 06/11/24 08:45 06/11/24 18:32 12.188 MLS/HR Dextrose 1,000 ml @ 50 mls/hr Q20H IV 06/11/24 20:00 06/11/24 20:08 50 MLS/HR Bisacodyl 10 mg DAILYP PRN [place] 06/12/24 07:00 Enteral Nutritional Formula 1,000 ml 30ML/HR GT 06/12/24 07:00 Trimethoprim/ Sulfamethoxazole 7.5 ml/Dextrose 257.5 ml @ 257.5 mls/ hr DAILY@1000,1100 IV 06/12/24 10:00 1/12/25 11:26 257.5 MLS/HR Amino Acids 0 ml @ 0 mls/hr PER PHARMACY IV 06/12/24 11:15 Dextrose 50 ml PRN PRN IV 06/12/24 11:30 Sodium Bicarbonate 150 ml/Dextrose 1,150 ml @ 100 mls/hr [id number] IV 06/12/24 12:45 06/12/24 14:10 100 MLS/HR Metronidazole 100 ml @ 100 mls/hr Q8HR IV 06/12/24 14:00 06/12/24 13:00 100 MLS/HR Pantoprazole Sodium 50 ml @ 10 mls/hr Q5H IV 06/12/24 14:15 06/12/24 14:27 10 MLS/HR objective gen: Intubated lungs: coarse breath sounds cvs: no rub ext: + edema laboratory and microbiology Test 06/12/24 15:34 Range/Units Serum Glucose Pending Assessment/Plan IMP: 1) hemodynamically mediated acute kidney injury/ possible ischemic ATN. 2) volume depletion 3) Hx of alcohol dependency 4) possible acute blood loss anemia/ GI bleed 5) Thrombocytopenia 6) Septic shock with multi-organ involvement 7) Working diagnosis of possible DIC REC: - IV alkali - Lab data pending - agree with continued supportive measures/ plan of care - Overall poor prognosis and current setting of multi-organ dysfunction Further escalation of medical care may be medically futile Dietary Evaluation Review Recommendations by RD: PPN/TPN Comments: 1. If NPO > 7 days, initiate EN/TPN. 2. If gut is accessible, consider Jevity 1.2 @ 40 mL/hr. Tf regimen will provide 1,152 kcals, 53g Pro, and 775 mL free H2O (+ 1,200 mL free H2O flushes). TF regimen will meet ~ 91% daily estimated energy needs (20-25 kcal/kg) and ~59% daily estimated protein needs (1.2-2.0 g/kg). 3. Advance to hepatic diet when medically feasible, pending FIELD MARKETING MANAGER approval. 4. Promote ETOH cessation. Expected Outcomes/Goals: 1. nutritional intake to meet at least 75% estimated needs 2. labs to improve 3. diet to advance 4. f/u in 2-3 days Plan discussed with: Other CC Plasma Assessment Blood Product Administration S: [id number] QUANG HAIRSTON MD Jun 12, 2024 16:20
--- NOTE | 2024-06-12 17:54 | RESUS ---
JEREMY DEL RIO ASSESSSMENT History of Events History of Events: Patient currently ICU admit and ventilated Per primary RN patient noted to become bradycardiac Upon pulse check, patient was pulseless/ PEA displayed on bedside equipment monitor phototypesetting CPR initiated by hospital staff JEREMY eng[place] Initial Information Date: Jun 12, 2024 Time: 16:40 Location of Arrest: ICU ([place]) Arrest Witnessed: Yes CPR started initial time: 16:40 CPR started by whom: Hospital Staff Pre-Hospital Care: ACLS Type of arrest: Cardiac Spontaneous Respirations: No Pulse Present: No Monitoring: Pulse Oximetry, Capnography, Telemetry Crash Cart Opened and Supplies: Yes Airway Ventilation Breathing at Onset: Assisted Oxygen Delivery Method: Mechanical Ventilator Comments: patient intubated prior to CODE BLUE Circulation Circulation : Time: 16:42 Pulse Rate (adult): 58 Blood Pressure Systolic: 50 Blood Pressure Diastolic: 32 Circulation Comment: ROSC Medications & Response Medications and Responses : Medication Time: 16:41 ADULT Medications Given ADULT: Epinephrine 1 mg Route of Administration: IV EKG Rhythm: PEA Procedure - NG/OG Tube Procedure - NG/OG Tube : Comment NG present prior to CODE BLUE Procedure - Central Venous Cat Central venous catheter site: Rt Femoral Comment: central line present prior to CODE BLUE Procedure - Neil Catheter Comment: present prior to CODE BLUE Nurses Notes [place]dwell Coma Scale Eye Opening: None (1) Olive Coma Scale Verbal: None (1) [place] Coma Scale Motor: None (1) Pupil Reaction: Non Reactive Bedside Blood Glucose: 114 Time Code Ended Time Code Ended: 16:42 Post Arrest Status: Ventilated Outcome of code: Successful Family notified: No Attending called: Yes Code Team Present: Dr Bryan Ambriz RN Becky RT Ann ROSC Time of ROSC: 16:42 Becky Saunders Jun 12, 2024 17:53
--- NOTE | 2024-06-12 18:05 | RESUS ---
CODE BLUE ASSESSSMENT History of Events History of Events: 2nd Code Blue patient became bradycardic. pulseless/ PEA on radiation monitor. JEREMY DEL RIO called Initial Information Date: Jun 12, 2024 Time: 16:46 Location of Arrest: ICU ([place]) Arrest Witnessed: Yes CPR started initial time: 16:46 CPR started by whom: Hospital Staff Pre-Hospital Care: ACLS Type of arrest: Cardiac Spontaneous Respirations: No Pulse Present: No Crash Cart Opened and Supplies: Yes Airway Ventilation Breathing at Onset: Assisted Oxygen Delivery Method: Mechanical Ventilator Artificial Ventilation: Bag/Endo tube Comments: patient intubated prior to CODE BLUE Circulation Circulation #1: Time: 16:48 Circulation Comment: PEA Circulation #2: Time: 16:51 Circulation Comment: V FIB Circulation #3: Time: 16:53 Circulation Comment: VFIB Circulation #4: Time: 16:56 Circulation Comment: PEA Defibrillation Defbrillation #1: Time Defibrillator Applied: 16:51 EKG Rhythm: V-Fibrillation Compressions: Manual Compressions Hold/Resume: 1651 Time Defibrillator Shocked Pt.: 16:51 Defib. Joules: 120 Pulse Present: No Defbrillation #2: Time Defibrillator Applied: 16:53 EKG Rhythm: V-Fibrillation Compressions: Manual Compressions Hold/Resume: 1653 Time Defibrillator Shocked Pt.: 16:53 Defib. Joules: 150 Pulse Present: No EKG Rhythm: PEA Medications & Response Medications and Responses #1: Medication Time: 16:47 ADULT Medications Given ADULT: Epinephrine 1 mg Route of Administration: IV EKG Rhythm: PEA Medications and Responses #2: Medication Time: 16:48 ADULT Medications Given ADULT: Sodium Bacarbinate 50 meq, Calcium Chloride 10 mL Route of Administration: IV EKG Rhythm: PEA Medications and Responses #3: Medication Time: 16:50 ADULT Medications Given ADULT: Epinephrine 1 mg Route of Administration: IV EKG Rhythm: PEA Medications and Responses #4: Medication Time: 16:54 ADULT Medications Given ADULT: Amiodarone 300 mg Route of Administration: IV EKG Rhythm: V-Fibrillation Medications and Responses #5: Medication Time: 16:55 ADULT Medications Given ADULT: Epinephrine 1 mg Nurses Notes Olive Coma Scale Eye Opening: None (1) [place] Coma Scale Verbal: None (1) Olive Coma Scale Motor: None (1) Pupil Reaction: Non Reactive Bedside Blood Glucose: 114 Time Code Ended Time Code Ended: 16:57 Post Arrest Status: Outcome of code: Unsuccessful Patient pronounced by: DR POMPA Code Team Present: DR PEÑA MATHUR RN MARIAN RN CHARLES NARVAEZ RN BECKY RT Becky Almaguer Jun 12, 2024 18:05
--- NOTE | 2024-06-12 21:50 | DVHPN2 ---
Progress Note - Dictate Date Seen: Jun 12, 2024 Has the PT tested + for MRSA If YES, has PT been informed?: No Medical Necessity Reason Pt with a Central, PICC or Fol: Yes The following are medically ne: Central Line, Robertson Catheter Reason for robertson catheter: Strict I&O Subjective Patient seen and examined at bedside. Intubated on mechanical ventilator. Overnight events reviewed. vital signs Vital Sign Date Time Temp Pulse Resp B/P (MAP) Pulse Ox O2 Delivery O2 Flow Rate FiO2 06/12/24 18:05 Mechanical Ventilator 06/12/24 17:53 58 06/12/24 16:15 21 79/37 (51) 06/12/24 15:56 40 06/12/24 15:56 0 06/12/24 15:45 96.8 96.8 06/10/24 17:52 0 Total Intake and Output 06/11/24 06/11/24 06/12/24 15:00 23:00 07:00 Intake Total 588.196 ml 341.876 ml 816.254 ml Output Total 0 ml 200 ml Balance 588.196 ml 341.876 ml 616.254 ml medications Current Medications Medications Dose Ordered Sig/Alvaro Route Start Time Stop Time Status Last Admin Dose Admin Lorazepam 2 mg Q4H PO 05/27/24 09:15 Hold 05/28/24 06:10 2 MG Ondansetron HCl 4 mg Q4HP PRN IV 05/27/24 09:15 Nitroglycerin 0.4 mg Q5MINP PRN SL 05/27/24 09:15 Morphine Sulfate 2 mg Q30M PRN IV 05/27/24 09:15 Sucralfate 1 gm QID PO 05/27/24 12:00 Hold 05/28/24 06:11 1 GM Patient Own Medication 1 cap DAILY PO 05/27/24 10:00 UNV Midodrine 10 mg TID@0600,1200,1800 PO 05/27/24 18:00 Hold 05/28/24 06:10 10 MG Midazolam HCl 50 ml @ 1 mls/hr Q24H IV 05/30/24 14:15 06/10/24 02:43 4 MLS/HR Fentanyl Citrate 250 ml @ 2.5 mls/hr Q24H IV 05/30/24 14:15 06/09/24 16:03 17.5 MLS/HR Thiamine HCl 100 mg DAILY IV 06/01/24 10:00 06/12/24 07:47 100 MG Folic Acid 1 mg/ Dextrose 50.2 ml @ 200.8 mls/ hr DAILY INJ 06/01/24 10:00 06/12/24 07:38 200.8 MLS/HR Ipratropium [place] 0.5 mg Q6HWA NEB 06/01/24 12:00 06/12/24 10:32 0.5 MG Metoclopramide HCl 5 mg Q8HR GT 06/02/24 14:00 06/12/24 05:38 5 MG Ursodiol 300 mg BID GT 06/02/24 11:00 06/12/24 07:47 300 MG Albumin Human 100 ml @ 100 mls/hr SID PRN IV 06/04/24 04:00 06/11/24 16:30 100 MLS/HR Trimethoprim/ Sulfamethoxazole 10 ml @ 0 mls/hr PER PHARMACY IV 06/04/24 15:30 Methylprednisolone Sodium Succinate 40 mg DAILY IV 06/06/24 10:00 06/12/24 07:47 40 MG Levothyroxine Sodium 50 mcg DAILY IV 06/07/24 10:00 06/12/24 07:47 50 MCG Bumetanide 2 mg BIDD IV 06/06/24 18:00 06/12/24 05:32 2 MG Lactulose 30 ml BID PO 06/09/24 22:00 06/12/24 07:46 30 ML Levalbuterol HCl 0.625 mg Q6HWA [facility] [place] 06/10/24 06:00 06/12/24 10:32 0.625 MG Norepinephrine Bitartrate 32 mg/ Sodium Chloride 250 ml @ 0.938 mls/ hr Q24H IV 06/11/24 08:45 06/11/24 18:32 12.188 MLS/HR Dextrose 1,000 ml @ 50 mls/hr Q20H IV 06/11/24 20:00 06/11/24 20:08 50 MLS/HR Bisacodyl 10 mg DAILYP PRN ND 06/12/24 07:00 Enteral Nutritional Formula 1,000 ml 30ML/HR GT 06/12/24 07:00 Trimethoprim/ Sulfamethoxazole 7.5 ml/Dextrose 257.5 ml @ 257.5 mls/ hr DAILY@1000,1100 IV 06/12/24 10:00 06/12/24 11:26 257.5 MLS/HR Amino Acids 0 ml @ 0 mls/hr PER PHARMACY IV 06/12/24 11:15 Dextrose 50 ml PRN PRN IV 06/12/24 11:30 Sodium Bicarbonate 150 ml/Dextrose 1,150 ml @ 100 mls/hr [id number] IV 06/12/24 12:45 06/12/24 14:10 100 MLS/HR Metronidazole 100 ml @ 100 mls/hr Q8HR IV 06/12/24 14:00 06/12/24 13:00 100 MLS/HR Pantoprazole Sodium 50 ml @ 10 mls/hr Q5H IV 06/12/24 14:15 06/12/24 14:27 10 MLS/HR Diagnostic Test (Pha) 1 strip Q6HR 06/13/24 00:00 Insulin Human Regular Q6HR SC 06/13/24 00:00 Dextrose 50 ml UD PRN IV 06/13/24 00:00 objective Gen.: Patient lying in bed in medical ICU. Intubated on mechanical ventilator. Head: Normocephalic, atraumatic. Eyes: PERRLA. Ears: Normal external anatomy. Throat: Endotracheal tube and orogastric tube in place. Neck: Supple, trachea midline. Chest: Transmitted breath sounds bilaterally. Decreased air entry bilaterally. No wheezing. Bibasilar crackles. Cardiovascular: Positive S1, positive S2. Regular rate and rhythm. Abdomen: Positive bowel sounds in all 4 quadrants. Soft, nontender, nondistended. : Robertson in place. Normal external genitalia. Rectal: Deferred. Skin: Warm, dry. Intact. Extremities: 2+ radial pulses bilaterally. No lower extremity edema. Neuro: Off sedation laboratory and microbiology Laboratory Tests 06/12/24 03:24 Test 06/12/24 03:24 Range/Units Serum Glucose 76 74-106 mg/dL Assessment/Plan Impression: Acute hypoxic respiratory failure On mechanical ventilator Hepatorenal syndrome Leukocytosis Anemia Thrombocytopenia Acute kidney injury Hypokalemia Chronic pancreatitis ETOH abuse Marijuana abuse Events: Remains on vent support On AC mode; RR 22, VT 450, PEEP 6, FiO2 40% Taper FiO2 as tolerated Off sedation. Pressors for hemodynamic support On Levophed, 30 mcg/min Titrate to keep mean arterial pressure greater than 65 mmHg. Increased pressor requirements ABG reviewed, severe acidemia d/t metabolic acidosis CXR demonstrates bilateral interstitial and alveolar airspace opacities appear similar with slight worsening in the right lung. No effusion or pneumothorax. Devices in place. Low platelets - 34 K. Patient noted to have hypoglycemia CT head showed no e/o ICH or stroke. Pupils fixed Rule out ICH/stroke. No cough or gag. Poor prognosis Continue antibiotics -on Bactrim Continue bronchodilators Ursodiol WBC trending up - 39 K Bicarb drip D10W drip. Monitor renal function Monitor electrolytes. Supplement as necessary. Monitor ins and outs. HD per nephrology Protonix drip for GI prophylaxis Monitor hemoglobin Tube feeds for nutritional support 06/07/24 - S/p therapeutic bronchoscopy. Cleared mucous plugging from L7-L10 and R6-R10. Please see separate procedure note for details. Labs and imaging reviewed. Rest of plan as noted below. Plan: s/p intubation on mechanical ventilator. On AC mode; RR 22, VT 450, PEEP 6, FiO2 40% Titrate FIO2 to keep O2 saturation above 90%. VAP bundle. Daily ABG and CXR while intubated Off sedation Continue bronchodilators. Continue antibiotics. F/u cultures. Pressors for hemodynamic support Titrate to keep mean arterial pressure greater than 65 mmHg. Follow up GI recommendations Follow up Nephrology recommendations Monitor renal function Monitor electrolytes. Supplement as necessary. Monitor ins and outs. Maintain euvolemia. GI prophylaxis. DVT prophylaxis. Prognosis: Poor given patient's multiple co-morbidities. Condition: Critical Rest of plan per hospitalist and other consultants. A total of 35 minutes of critical care time was spent reviewing the patient record, examining the patient, making a diagnostic and therapeutic plan, discussing this plan with the medical personnel, following up on diagnostic studies and following the patient for clinical stability excluding any and all procedures. At least 50% of this time was spent in direct, [id number] contact. Thank you, Dr. Parkinson, for allowing me to participate in this patient's care. Further recommendations will depend on the patient's clinical course. Please do not hesitate to contact me if you have any questions or concerns. This medical document was created using an electronic medical record system with [employer] system. Although these documentations are being carefully reviewed, there may still be some phonetic and typographical changes. The errors are purely typographical, due to imperfection on the software program, and do not reflect any compromise in the patient's medical care. Dietary Evaluation Review Recommendations by RD: PPN/TPN Comments: 1. If NPO > 7 days, initiate EN/TPN. 2. If gut is accessible, consider Jevity 1.2 @ 40 mL/hr. Tf regimen will provide 1,152 kcals, 53g Pro, and 775 mL free H2O (+ 1,200 mL free H2O flushes). TF regimen will meet ~ 91% daily estimated energy needs (20-25 kcal/kg) and ~59% daily estimated protein needs (1.2-2.0 g/kg). 3. Advance to hepatic diet when medically feasible, pending PATIENT OBSERVATION ASSISTANT approval. 4. Promote ETOH cessation. Expected Outcomes/Goals: 1. nutritional intake to meet at least 75% estimated needs 2. labs to improve 3. diet to advance 4. f/u in 2-3 days Plan discussed with: Other (NIKKI Vieira) Critical Care Time(min): 35 CC Plasma Assessment Blood Product Administration S: [id number] TAE DUPREE MD Jun 12, 2024 21:50
[2024-06-12] MEDS ORDERED: AMINO ACID INFUSION IN D5W 1,000 ML IV ONE (22:00)
[2024-06-12] MEDS ORDERED: AMIODARONE HCL (50 MG/ ML) 3 ML VIAL IV ONE (22:58)
[2024-06-13] MEDS ORDERED: InsuLIN REG 1unit/0.01ml Soln (100units/ml) SC SCH
[2024-06-13] MEDS ORDERED: ACCU-CHEK COMFORT CURVE STRIP VI SCH
[2024-06-13] MEDS ORDERED: DEXTROSE (50%) 50ML SYRG IV PRN
== END 2024-06-12 22:59 | DRG 720 ==
LOC: ER 05:54 → OVERFLOW 09:13 → TELE-WESTW 05-29 11:58 → ICU WEST 05-30 15:11
PROVIDERS: ADMIT Nurse Practitioner Acute Care; ATTEND Nurse Practitioner Acute Care
PROC: 0BH17EZ Insertion of Endotracheal Airway into Trachea, Via Natural or Artificial Opening (ICD-10-PCS; principal; 2024-05-30)
PROC: 5A1955Z Respiratory Ventilation, Greater than 96 Consecutive Hours (ICD-10-PCS; 2024-05-30)
PROC: 0B9D8ZX Drainage of Right Middle Lung Lobe, Via Natural or Artificial Opening Endoscopic, Diagnostic (ICD-10-PCS; 2024-05-30)
PROC: 30233N1 Transfusion of Nonautologous Red Blood Cells into Peripheral Vein, Percutaneous Approach (ICD-10-PCS; 2024-05-31)
PROC: 02HV33Z Insertion of Infusion Device into Superior Vena Cava, Percutaneous Approach (ICD-10-PCS; 2024-06-03)
PROC: 5A1D70Z Performance of Urinary Filtration, Intermittent, Less than 6 Hours Per Day (ICD-10-PCS; 2024-06-04)
PROC: 5A1D70Z Performance of Urinary Filtration, Intermittent, Less than 6 Hours Per Day (ICD-10-PCS; 2024-06-05)
PROC: 0BJ08ZZ Inspection of Tracheobronchial Tree, Via Natural or Artificial Opening Endoscopic (ICD-10-PCS; 2024-06-05)
PROC: 30233K1 Transfusion of Nonautologous Frozen Plasma into Peripheral Vein, Percutaneous Approach (ICD-10-PCS; 2024-06-06)
PROC: 30233R1 Transfusion of Nonautologous Platelets into Peripheral Vein, Percutaneous Approach (ICD-10-PCS; 2024-06-06)
PROC: 0B978ZZ Drainage of Left Main Bronchus, Via Natural or Artificial Opening Endoscopic (ICD-10-PCS; 2024-06-07)
PROC: 5A1D70Z Performance of Urinary Filtration, Intermittent, Less than 6 Hours Per Day (ICD-10-PCS; 2024-06-07)
PROC: 5A1D70Z Performance of Urinary Filtration, Intermittent, Less than 6 Hours Per Day (ICD-10-PCS; 2024-06-09)
PROC: 5A1D70Z Performance of Urinary Filtration, Intermittent, Less than 6 Hours Per Day (ICD-10-PCS; 2024-06-11)
PROC: 04HY32Z Insertion of Monitoring Device into Lower Artery, Percutaneous Approach (ICD-10-PCS; 2024-06-12)
PROC: 5A12012 Performance of Cardiac Output, Single, Manual (ICD-10-PCS; 2024-06-12)
PROC: 5A2204Z Restoration of Cardiac Rhythm, Single (ICD-10-PCS; 2024-06-12)
PROC: 06HY33Z Insertion of Infusion Device into Lower Vein, Percutaneous Approach (ICD-10-PCS; 2024-06-12)
DX: A41.50 Gram-negative sepsis, unspecified (principal); K76.7 Hepatorenal syndrome; J96.01 Acute respiratory failure with hypoxia; N17.0 Acute kidney failure with tubular necrosis; K72.00 Acute and subacute hepatic failure without coma; E43 Unspecified severe protein-calorie malnutrition; K26.4 Chronic or unspecified duodenal ulcer with hemorrhage; J15.69 Pneumonia due to other Gram-negative bacteria; R65.21 Severe sepsis with septic shock; K85.90 Acute pancreatitis without necrosis or infection, unspecified; Z20.822 Contact with and (suspected) exposure to COVID-19; D63.8 Anemia in other chronic diseases classified elsewhere; E87.1 Hypo-osmolality and hyponatremia; E87.20 Acidosis, unspecified; E86.9 Volume depletion, unspecified; E03.9 Hypothyroidism, unspecified; E87.6 Hypokalemia; F10.239 Alcohol dependence with withdrawal, unspecified; F12.10 Cannabis abuse, uncomplicated; K76.0 Fatty (change of) liver, not elsewhere classified; K86.1 Other chronic pancreatitis; F32.A Depression, unspecified; F17.210 Nicotine dependence, cigarettes, uncomplicated; R79.89 Other specified abnormal findings of blood chemistry; J98.11 Atelectasis; Y90.9 Presence of alcohol in blood, level not specified; D53.9 Nutritional anemia, unspecified; E88.09 Other disorders of plasma-protein metabolism, not elsewhere classified; K70.30 Alcoholic cirrhosis of liver without ascites; D68.8 Other specified coagulation defects; Y95 Nosocomial condition; D69.6 Thrombocytopenia, unspecified; K59.00 Constipation, unspecified; Z82.49 Family history of ischemic heart disease and other diseases of the circulatory system; Z99.2 Dependence on renal dialysis; Z87.11 Personal history of peptic ulcer disease; Z68.26 Body mass index [BMI] 26.0-26.9, adult
CPT/HCPCS: 31624; 31645; 36415; 36556; 36600; 70450; 71045; 74018; 74176; 76536; 76705; 80048; 80053; 80074; 80307; 80320; 81001; 82140; 82150; 82607; 82728; 82746; 82805; 82962; 83540; 83550; 83605; 83615; 83690; 83735; 83880; 84100; 84439; 84443; 84481; 84484; 85007; 85014; 85018; 85025; 85027; 85610; 85652; 85730; 86038; 86141; 86703; 86706; 86803; 86850; 86900; 86901; 86920; 87040; 87070; 87077; 87081; 87186; 87205; 87340; 87426; 87804; 90935; 93005; 93306; 94002; 94003; 94640; G0378; J1100; J1642; J2185; J2405; J2470; J2543; J3430; J3480; J3490; J7042; J7060; P9047